=== PATIENT | male | born 1960 | race Caucasian/White ===

== ENCOUNTER 2025-06-23 03:38 | Emergency (ER) | payer OTHER, SELFPAY ==
[2025-06-23] VITALS (14 sets, daily range): BP systolic 96–136; BP diastolic 80–99; PULSE 93–127; RESP 16–24; TEMP 36.8–36.9; O2SAT 95–100; BMI 28.5
--- NOTE | 2025-06-23 03:57 | EKG12_ITS ---
Test Reason : CP Blood Pressure : */* mmHG Vent. Rate : 115 BPM Atrial Rate : * BPM P-R Int : * ms QRS Dur : 82 ms QT Int : 318 ms P-R-T Axes : * -52 26 degrees QTcB Int : 439 ms Atrial fibrillation with rapid ventricular response Pulmonary disease pattern Left anterior fascicular block Abnormal ECG Confirmed by RAMON CONNOLLY, NITO ([id number]), dictionary editor EDINSON LONG ([id number]) on 06/24/2025 12:18:14 PM Referred By: BB Confirmed By: NITO NAVARRO MD
--- NOTE | 2025-06-23 03:58 | EDS_ITS ---
HPI History of Present Illness Chief Complaint: Chest Pain Informant: patient Narrative Narrative: Patient is a 65-year-old male with a history of A-fib presenting with chest pain. - Reports three episodes of stabbing chest pain, each lasting a few seconds, beginning at midnight (4 hrs ago). - Pain localized to the center of the chest, described as "like somebody stuck something in my chest." No radiation. - First episode woke him from sleep; associated with nausea but no emesis. - Subsequent episodes all occurred while lying down, including one on the way to the ED. - Denies current chest pain, dyspnea, or palpitations. - Denies chest pain with exertion. - Reports sinus congestion and mucus accumulation, some of which he has been swallowing. - Diagnosed with A-fib, has undergone three unsuccessful cardioversions. - Currently on Eliquis and metoprolol 5 mg BID; took metoprolol about an hour before arrival. - Denies missed doses of medication. - Also takes medication for acid reflux, which is "really bad." - Remains active, denies fatigue or dyspnea on exertion. [facility] Medical History Gout Afib Home Medications Medication Instructions Recorded Last Taken Type allopurinol 100 mg tablet 200 mg PO DAILY 06/23/25 Unk nown History apixaban 5 mg tablet (Eliquis) 5 mg PO BID 06/23/25 Un known History cyclobenzaprine 5 mg tablet 5 mg PO QHS PRN PRN muscle spasm 06/23/25 Unknown History metoprolol succinate 25 mg 25 mg PO DAILY 06/23/25 Unk nown History tablet,extended release 24 hr Social History Smoking Status: Former smoker ROS ROS ED Constitutional Constitutional ED: Denies chills or fever(s) Eyes Eyes: Denies change in vision or diplopia ENT ENT ED: Denies rhinorrhea or sore throat Cardiovascular Cardiovascular: Reports as per HPI and chest pain; Denies lightheadedness, palpitations, pedal edema, racing heartbeat, radiating jaw, neck or arm pain or syncope Respiratory/Chest Respiratory/Chest: Denies cough or dyspnea Gastrointestinal Gastrointestinal: Reports nausea; Denies abdominal pain, diarrhea or vomiting Genitourinary Genitourinary ED: Denies dysuria or hematuria Musculoskeletal Musculoskeletal: Denies back pain or neck pain Integumentary Denies abscess or rash Neurologic Neurologic: Denies headache(s), paresthesias or weakness Psychiatric Psychiatric: Denies anxiety or suicidal thoughts EXAM Physical Exam Const Vital Signs: 06/23/25 03:39 06/23/25 03:46 06/23/25 03:52 Temperature 98.5 F Temperature Source Oral Pulse Rate 109 H 127 H Respiratory Rate 22 H 22 H Respiratory Effort Normal Non-Labored Blood Pressure 136/99 H Blood Pressure Mean 111 Pulse Ox 100 98 Oxygen Delivery Method Room Air 06/23/25 04:00 06/23/25 04:10 06/23/25 04:11 Temperature Temperature Source Pulse Rate 118 H 114 H Respiratory Rate 20 H 18 Respiratory Effort Blood Pressure 114/95 H 114/95 H Blood Pressure Mean 102 101 Pulse Ox 97 97 Oxygen Delivery Method Room Air Room Air 06/23/25 04:15 06/23/25 04:30 06/23/25 04:45 Temperature Temperature Source Pulse Rate 100 Respiratory Rate 24 H 16 Respiratory Effort Blood Pressure 96/80 113/83 H Blood Pressure Mean 86 93 Pulse Ox 97 95 96 Oxygen Delivery Method 06/23/25 05:00 06/23/25 05:15 06/23/25 05:30 Temperature Temperature Source Pulse Rate 97 101 H Respiratory Rate 16 21 H Respiratory Effort Blood Pressure Blood Pressure Mean Pulse Ox 98 98 95 Oxygen Delivery Method 06/23/25 05:45 06/23/25 06:00 06/23/25 06:03 Temperature Temperature Source Pulse Rate 101 H 97 100 Respiratory Rate 18 19 H 20 H Respiratory Effort Blood Pressure 118/88 H Blood Pressure Mean 99 Pulse Ox 96 97 97 Oxygen Delivery Method Positive well nourished and well developed General Appearance ED: well developed and NAD HEENT Reports moist mucous membranes normocephalic and atraumatic Eyes PERRL and EOMs intact bilaterally Neck full ROM and supple Resp normal respiratory effort and clear to auscultation bilaterally Cardio no murmurs Rate: tachycardic Rhythm: abnormal rhythm irregularly irregular Peripheral Pulses: pulses 2+ throughout GI non-tender and non-distended Auscultation: normoactive bowel sounds Palpation: soft Back/Spine no CVA tenderness General Back: other FROM Extremity normal to inspection General Extremety ED: Negative for edema, pulses abnormal or tenderness General Extremity: Negative for edema or pulses abnormal Neuro oriented x3, CN's II-XII intact bilaterally and no sensory deficits noted Sensorium / Orientation: awake and alert Motor Exam: strength 5/5 throughout Skin no rashes or lesions noted and no wounds Heart Score History: Slightly/Non-Suspicious ECG: Nonspecific Repolarization Age: >45 - <65 years Risk Factors: 1 or 2 Risk Factors (former smoker) Troponin: </= Normal Limit Score: 3 MDM MDM MDM Narrative Medical decision making narrative: Assessment: The patient is a 65-year-old male with PMH of chronic atrial fibrillation and reflux esophagitis presenting for three brief episodes of stabbing central chest pain that occurred only while lying supine. He remains asymptomatic at rest and reports no exertional angina or dyspnea. Initial EKG shows rapid AFib 105–120 bpm without acute ischemic changes. Initial troponin is negative, screening labs are unrevealing, and my interpretation of a one-view chest X-ray is normal. Given low-risk history, normal objective data, and complete resolution of pain, intermittent chest pain of likely non-cardiac (probable GI) origin is most likely; ACS is unlikely. Plan: - Administered metoprolol 5 mg IV; heart rate decreased to 80–90 bpm with continued comfort - Continuous cardiac monitoring during ED stay - Will obtain delta troponin prior to disposition; if negative, discharge home - Provided work excuse note per patient request - Outpatient follow-up with PCP and cardiology discussed; patient agreeable Diagnostics: - EKG: rapid atrial fibrillation 105–120 bpm, no ST-segment elevation or depression, no acute injury pattern. Independently interpreted by me, Bill Nieves. - Labs: initial troponin negative; remaining chemistries within normal limits - Chest X-ray (one view): no acute cardiopulmonary process Reevaluations: - After IV metoprolol: HR 80–90 bpm, pain-free, vitals stable, remains asymptomatic Lab Data Attestation: I reviewed the patient's lab results. Labs: Laboratory Results - last 24 hr 06/23/25 06/23/25 04:02 06:04 WBC 9.7 RBC 5.67 Hgb 15.6 Hct 47.0 MCV 82.9 MCH 27.5 MCHC 33.2 RDW Std Deviation 46.9 H RDW Coeff of [place] 15.8 H Plt Count 189 MPV 11.6 Immature Gran % (Auto) 0.600 Neut % (Auto) 74.8 H Lymph % (Auto) 5.9 L [place] % (Auto) 17.1 H Eos % (Auto) 1.3 Baso % (Auto) 0.3 Absolute Neuts (auto) 7.3 Absolute Lymphs (auto) 0.57 L Nucleated RBC % 0 Toxic Vacuolation 1+ Platelet Estimate ADEQUATE RBC Morphology NORM C+C Sodium 137 Potassium 4.2 Chloride 102 Carbon Dioxide 24.9 Anion Gap 10 BUN 12 Creatinine 0.93 Estim Creat Clear Calc 85.17 Est GFR (MDRD) Non-Af 92 BUN/Creatinine Ratio 12.7 Glucose 105 H Calcium 9.6 Troponin T High Sens 9 Troponin T Hi Sens 2 Hr 8 Rhythm Strip Rhythm Strip: A-fib Rate: 120 Ectopy: None EKG Initial EKG: Attestation: I personally reviewed and interpreted this EKG as follows: Interpretation: No Acute Injury Pattern and Atrial Fibrillation Discharge Plan Triage Chief Complaint: Chest Pain ED Provider: Bill Nieves Dx/Rx/DC Orders Clinical Impression: Intermittent chest pain, Atrial fibrillation, Anticoagulated on apixaban Instructions: ED Chest Pain, Noncardiac Prescriptions: No Action allopurinol 100 mg tablet 200 mg PO DAILY metoprolol succinate 25 mg tablet extended release 24 hr 25 mg PO DAILY cyclobenzaprine 5 mg tablet 5 mg PO QHS PRN PRN (Reason: muscle spasm) Eliquis 5 mg tablet 5 mg PO BID Stand Alone Forms: Work / School Excuse Primary Care Provider: Kenton Mancilla Referrals: Kenton Mancilla MD [Primary Care Provider, Family Practice] Print Language: Yakut Disposition Disposition: Home, Self Care
[2025-06-23 04:09] LABS: Differential Indicated SCAN CRITERIA MET; Hematocrit 47.0 % (40-54); Hemoglobin 15.6 g/dL (13.0-16.5); Immature Granulocytes Count 0.060 X10^3/uL (0.0-0.0); Mean Corp Hgb Conc 33.2 g/dL (32-36); Mean Corpuscular Volume 82.9 fL (80-94); Mean Platelet Vol. 11.6 fl (6.2-12.0); NRBC Flagged by Analyzer 0 % (0-5); POSITIVE DIFFERENTIAL YES; Platelet Count 189 K/mm3 (150-450); RBC Distribution Width CV 15.8 % (11.6-14.6); RBC Distribution Width SD 46.9 fl (35.1-43.9); Red Blood Count 5.67 M/mm3 (4.6-6.2); White Blood Count 9.7 K/mm3 (4.4-11.0)
--- NOTE | 2025-06-23 04:10 | RAD_ITS ---
PROCEDURE: CHEST 1 VIEW (PORTABLE) 06/23/2025 REASON FOR EXAM: CHEST PAIN TECHNIQUE: Frontal view of the chest. COMPARISON: None. FINDINGS: The lungs are expanded. There is no demonstrated parenchymal abnormality. There is no demonstrated pleural abnormality. Enlarged cardiac silhouette. Normal mediastinum and rafat. Normal visualized pulmonary arteries. Atheromatous plaques of the visualized aortic arch and descending thoracic aorta. Diffuse spondylosis of the visualized thoracic spine. Normal visualized ribs, clavicles. Degenerative joint disease. There is no demonstrated abnormality of the visualized soft tissue structures of the upper abdomen. RAD/Chest 1 View (Portable) IMPRESSION: No evidence for acute abnormality. [facility]
[2025-06-23 04:32] LABS: Anion Gap 10 (5-15); BUN 12 mg/dL (4-19); BUN/Creat Ratio 12.7 RATIO (10-20); Calcium,Total 9.6 mg/dL (7.6-11.0); Carbon Dioxide 24.9 mmol/L (21.0-32.0); Chloride 102 mmol/L (98-108); Estimated Creatinine Clearance 85.17 ml/min (50-250); Glucose 105 mg/dL (70-99); Potassium 4.2 mmol/L (3.3-5.1); Troponin T High Sensitivity 9 ng/L (<=22)
[2025-06-23 04:35] LABS: Red Cell Morphology NORM C+C NORMAL (NORM C&C); Vacuolated Cells 1+
--- OUTSIDE RECORDS SUMMARY | 2025-06-23 04:41 | XMS RPT_ITS | CCD ---
Author Organization [facility] Care Team Providers Care Bung Dropper Name Role Phone FELTON BENITEZ Unavailable Unavailable PROVIDER, UNKNOWN Unavailable Unavailable Papi, Kenton Unavailable Unavailable KINKOPF, CARRIE W Unavailable Unavailable REFERRING, PHY WO ID Unavailable Unavailable REFERRING, PHY WO ID Unavailable Unavailable REFERRING, PHY WO ID Unavailable Unavailable AULTWORKS, AULTWORKS Unavailable Unavailable REFERRING, PHY WO ID Unavailable Unavailable Kenton Turpin MD Primary Care Provider PROVIDER, UNKNOWN Referring Unavailable Papi, Kenton Primary Care Unavailable Rodriguez Pelletier Attending Unavailable Jacquelyn Kaminski Attending Unavailable PROVIDER, UNKNOWN Referring Unavailable Papi, Kenton Primary Care Unavailable Kenton Turpin MD Primary Care Provider Kenton Turpin MD Primary Care Provider Jacquelyn Garcia APRN, CNP Primary Care Provider Chacho Molina Attending Unavailable Papi, Kenton Referring Unavailable Papi, Kenton Primary Care Unavailable Kenton Turpin MD Primary Care Provider PAPI, KENTON Primary Care Unavailable PAPI, KENTON Primary Care Unavailable JACQUELYN KAMINSKI Attending Unavailable PAPI, KENTON Primary Care Unavailable PAPI, KENTON Primary Care Unavailable BRIDENTHAL, MIGUEL ÁNGEL Attending Unavailable PAPI, KENTON Primary Care Unavailable PAPI, KENTON Primary Care Unavailable BRIDENTHAL, MIGUEL ÁNGEL Attending Unavailable PAPI, KENTON Primary Care Unavailable BRIDENTHAL, MIGUEL ÁNGEL Attending Unavailable BRIDENTHAL, MIGUEL ÁNGEL Referring Unavailable PAPI, KENTON Primary Care Unavailable FELTON BENITEZ Attending Unavailable FELTON BENITEZ Referring Unavailable PAPI, KENTON Primary Care Unavailable FELTON BENITEZ Attending Unavailable FELTON BENITEZ Referring Unavailable PAPI, KENTON Primary Care Unavailable FELTON BENITEZ Attending Unavailable KENTON TURPIN Referring Unavailable KENTON TURPIN Primary Care Unavailable MIGUEL ÁNGEL VILLANUEVA Attending Unavailable KENTON TURPIN Primary Care Unavailable KENTON TURPIN Attending Unavailable KENTON TURPIN Primary Care Unavailable JACQUELYN KAMINSKI Attending Unavailable KENTON TURPIN Primary Care Unavailable JACQUELYN KAMINSKI Attending Unavailable KENTON TURPIN Primary Care Unavailable Medications Current Medications Medication Drug Class(es) Dates Sig (Normalized) Sig (Original) Acetaminophen (1 source) Start: 04-15-2022 acetaminophen (TYLENOL) tablet 650 mg allopurinol 100 mg oral tablet (20 sources) Xanthine Oxidase Inhibitor Start: 03-17-2025 End: 04-16-2025 take 2 tablets by mouth once daily allopurinol (Zyloprim) 100 MG tablet Indications: Elevated blood uric acid level Take 2 tablets (200 mg) by mouth daily. 180 tablet 1 04/11/2025 Active Start: 02-14-2025 End: 03-17-2025 take 1 tablet by mouth once daily allopurinol (Zyloprim) 100 MG tablet Indications: Elevated blood uric acid level Take 1 tablet (100 mg) by mouth daily. 30 tablet 02/14/2025 03/17/2025 Discontinued (Reorder) apixaban 5 mg oral tablet (20 sources) Factor Xa Inhibitor Start: 03-20-2024 End: 03-19-2025 take 1 tablet by mouth twice daily apixaban (Eliquis) 5 MG tablet Indications: Persistent atrial fibrillation (HCC) Take 1 tablet (5 mg) by mouth 2 times daily. 180 tablet 1 03/19/2025 Active Start: 12-16-2021 End: 05-29-2023 take 1 tablet by mouth twice daily apixaban (Eliquis) 5 MG tablet Indications: Persistent atrial fibrillation (HCC) Take 1 tablet (5 mg) by mouth 2 times daily. 180 tablet 3 05/29/2023 Active azithromycin 250 mg oral tablet (2 sources) Macrolide Antimicrobial Start: 04-04-2023 End: 04-09-2023 azithromycin (Zithromax) 250 MG tablet Indications: Acute cough Take 2 tabs (500 mg) by mouth today, than 1 daily for 4 days. 6 tablet 0 04/04/2023 04/09/2023 Active Start: 10-20-2022 End: 10-25-2022 azithromycin (Zithromax) 250 MG tablet Indications: Bronchitis Take 2 tabs (500 mg) by mouth today, than 1 daily for 4 days. 6 tablet 0 10/20/2022 10/25/2022 Active benzonatate 100 mg oral capsule (1 source) Non-narcotic Antitussive Start: 10-20-2022 End: 11-19-2022 take 1 capsule by mouth three times daily as needed for cough benzonatate (Tessalon) 100 MG capsule Indications: Acute cough , Bronchitis Take 1 capsule (100 mg) by mouth 3 times daily as needed for cough. Do not crush or chew. 42 capsule 0 10/20/2022 11/19/2022 Active cyclobenzaprine hydrochloride 5 mg oral tablet (20 sources) Muscle Relaxant Start: 03-02-2022 End: 05-27-2025 take 1 tablet by mouth once daily as needed for muscle spasms cyclobenzaprine (Flexeril) 5 MG tablet Indications: Chronic low back pain without sciatica, unspecified back pain laterality TAKE 1 TABLET (5 MG) BY MOUTH NIGHTLY NEEDED FOR MUSCLE SPASMS 30 tablet 1 05/27/2025 Active diclofenac sodium 0.01 mg/mg topical gel (2 sources) Nonsteroidal Anti-inflammatory Drug Start: 03-02-2022 diclofenac sodium (VOLTAREN) 1 % GEL Indications: Chronic hand pain, left , Swelling of hand joint, left Apply 2 g topically 4 times daily as needed for Pain 50 g 2 03/02/2022 Active 5 ml dilTIAZem hydrochloride 5 mg/ml injection (1 source) Calcium Channel West Start: 04-15-2022 dilTIAZem injection 10 mg fenofibrate 145 mg oral tablet (2 sources) Peroxisome Proliferator Receptor alpha Agonist Start: 04-17-2025 End: 05-17-2025 take 1 tablet by mouth once daily fenofibrate (Tricor) 145 MG tablet Take 1 tablet (145 mg) by mouth daily. 30 tablet 04/17/2025 Active guaiFENesin 20 mg/ml oral solution (1 source) Start: 04-04-2023 End: 04-11-2023 take 10 mL by mouth three times daily as needed for cough guaiFENesin (Robitussin) 100 MG/5ML liquid Indications: Acute cough Take 10 mL (200 mg) by mouth 3 times daily as needed for cough for up to 7 days. 280 mL 0 04/04/2023 04/11/2023 Active meloxicam 15 mg oral tablet (9 sources) Nonsteroidal Anti-inflammatory Drug Start: 01-02-2025 End: 01-30-2025 take 1 tablet by mouth once daily meloxicam (Mobic) 15 MG tablet Indications: Right hand pain Take 1 tablet (15 mg) by mouth daily for 7 days. 7 tablet 01/23/2025 01/30/2025 Active 24 hr metoprolol succinate 25 mg extended release oral tablet (20 sources) beta-Adrenergic [place] Start: 07-12-2024 End: 01-09-2025 take 1 tablet by mouth once daily metoprolol succinate XL (Toprol-XL) 25 MG 24 hr tablet Indications: Persistent atrial fibrillation (HCC) TAKE 1 TABLET BY MOUTH EVERY DAY 90 tablet 1 01/09/2025 Active Start: 02-23-2024 [facility]ol succinate XL (Toprol-XL) 25 MG 24 hr tablet Indications: Persistent atrial fibrillation (HCC) take 1 tablet by mouth once daily 90 tablet 02/23/2024 Active Start: 04-04-2023 End: 09-05-2023 take 1 tablet by mouth once daily metoprolol succinate XL (Toprol-XL) 25 MG 24 hr tablet Indications: Persistent atrial fibrillation (HCC) take 1 tablet by mouth once daily DO NOT CRUSH OR CHEW 30 tablet 5 09/05/2023 Active omeprazole 20 mg delayed release oral capsule (20 sources) Proton Pump Inhibitor Start: 05-15-2024 End: 03-19-2025 take 1 capsule by mouth once daily omeprazole (PriLOSEC) [address] capsule Indications: Gastroesophageal reflux disease, unspecified whether esophagitis present Take 1 capsule (20 mg) by mouth daily. Do not crush or chew. 90 capsule 1 03/19/2025 Active ondansetron (ZOFRAN-ODT) disintegrating tablet 4 mg (1 source) Start: 04-15-2022 ondansetron (ZOFRAN-ODT) disintegrating tablet 4 mg Completed/Discontinued Medications Medication Drug Class(es) Dates Sig (Normalized) Sig (Original) aluminum hydroxide 40 mg/ml / magnesium hydroxide 40 mg/ml / simethicone 4 mg/ml oral suspension (1 source) Start: 04-15-2022 take 30 mL by mouth every six hours as needed 30 mL, Oral, EVERY 6 HOURS PRN, Starting on Mon04/15/22 at 1747, Until Discontinued, Indigestion aspirin 81 mg chewable tablet (2 sources) Platelet Aggregation Inhibitor, Nonsteroidal Anti-inflammatory Drug Start: 04-16-2022 take 81 mg by mouth once daily 81 mg, Oral, DAILY, First dose on Mon04/16/22 at 0900, Until Discontinued Start: 04-15-2022 End: 04-15-2022 aspirin chewable tablet 324 mg atorvastatin 40 mg oral tablet (1 source) HMG-CoA Reductase Inhibitor Start: 04-15-2022 take 40 mg by mouth once daily 40 mg, Oral, NIGHTLY, First dose on Mon04/15/22 at 2100, Until Discontinued calcium chloride 0.0014 meq/ml / potassium chloride 0.004 meq/ml / sodium chloride 0.103 meq/ml / sodium lactate 0.028 meq/ml injectable solution (2 sources) Start: 05-14-2024 End: 05-14-2024 take 50 mL intravenously every hour 50 mL/hr, IntraVENous, Continuous, Starting on Mon05/14/24 at 0815, Preprocedure, Upon admission to sameday - please start iv if patient does not have iv access. 10 ml lidocaine hydrochloride 10 mg/ml injection (3 sources) Antiarrhythmic, Amide Local Anesthetic Start: 02-19-2025 End: 02-19-2025 lidocaine (Xylocaine) 1 % injection 1 mL Start: 02-19-2025 End: 02-19-2025 1 mL, Injection, Once, On 02/19/25 at 1415, For 1 dose Start: 02-19-2025 End: 02-19-2025 lidocaine (Xylocaine) 2 % in jection 1 mL 1 ml methylPREDNISolone acetate 40 mg/ml injection (2 sources) Corticosteroid Start: 02-19-2025 End: 02-19-2025 methylPREDNISolone acetate (DEPO-Medrol) injection 40 mg Start: 02-19-2025 End: 02-19-2025 40 mg, Intra-artICUlar, Once , On Mon02/19/25 at 1400, For 1 dose nitroglycerin 0.4 mg sublingual tablet (1 source) Nitrate Vasodilator Start: 04-15-2022 0.4 mg, SubLINGual, EVERY 5 MIN PRN, 3 doses, Starting on Mon04/15/22 at 1747, Until Discontinued, Chest pain Place 1 tablet under tongue upon chest pain, wait 5 minutes and may repeat up to 3 doses in 15 minutes. Do not crush or break. 2 ml ondansetron 2 mg/ml injection (2 sources) Serotonin-3 Receptor Antagonist Start: 05-14-2024 End: 05-14-2024 4 mg, IntraVENous, Once PRN, nausea, vomiting, Starting on Mon05/14/24 at 0806, For 1 dose, Preprocedure pantoprazole 40 mg delayed release oral tablet (1 source) Proton Pump Inhibitor Start: 04-16-2022 take 40 mg by mouth once daily before breakfast 40 mg, Oral, DAILY BEFORE BREAKFAST, First dose on Mon04/16/22 at 0700, Until Discontinued Do not crush or break. perflutren protein A microsphere (Optison) 3 mL in sodium chloride (PF) 0.9 % 10 mL IV (2 sources) Start: 01-22-2025 End: 01-22-2025 0-10 mL, IntraVENous, IMG once PRN, other, Starting on Mon01/22/25 at 1106, For 1 dose, CV Procedural Medications, Draw entire 3 mL vial of perflutren protein A microspheres into a syringe along with 7 ml of NS from a vial to a total volume of 10 mL. polyethylene glycol 3350 26210 mg powder for oral solution (16 sources) Osmotic Laxative Start: 04-26-2024 End: 09-18-2024 take 17 g by mouth once daily polyethylene glycol, PEG, 3350 (Miralax) 17 g packet Indications: Constipation, unspecified constipation type Take 17 g by mouth daily. 30 packet 05/15/2024 09/18/2024 Discontinued (Therapy completed) Start: 10-07-2019 End: 04-16-2022 17 g, Oral, DAILY PRN, Start ing on Mon04/15/22 at 1747, Until Discontinued, Constipation First line therapy for constipation 5 ml sodium chloride 9 mg/ml injection (9 sources) Start: 05-14-2024 End: 05-14-2024 10 mL, IntraVENous, Every 12 hours scheduled (2 times per day), First dose on Mon05/14/24 at 0900, Preprocedure Start: 05-14-2024 End: 05-14-2024 take 100 mL intravenously every hour as needed, then take 20 mL intravenously every hour as needed 5-250 mL/hr, IntraVENous, PRN, if patient receiving piggyback infusions and maintenance fluids are not ordered OR KVO fluids to protect IV site / prevent frequent line interruptions/ long duration, Starting on Mon05/14/24 at 0806, Preprocedure, For piggyback infusion, administer at same rate as piggyback for a total of 25 mL. Enter 25 mL into dose field and piggyback rate into rate field of order. If piggyback is infusing at a rate less than 100 mL/hr, enter 25 mL into dose field and 100 mL/hr into rate field of order. For KVO fluids, enter rate of 20 mL/hr or less into rate field of order. Start: 05-14-2024 End: 05-14-2024 take 10 mL intravenously once as needed 10 mL, IntraVENous, PRN, line care, Starting on Mon05/14/24 at 0806, Preprocedure, After every IV line use Start: 04-15-2022 take 1 dose intraven ously twice daily 5-40 mL, IntraVENous, EVERY 12 HOURS SCHEDULED (2 times per day), First dose on Mon04/15/22 at 2100, Until Discontinued For Line Patency: Peripheral IV = 5 mL; Midline or Central Line = 10 mL/lumen. If following IV push medication, administer flush at same rate as the IV push. Flush volume is determined by type of infusion therapy being given. For non-viscous solutions use: Peripheral IV = 5 mL Midline or Central Line = 10 mL/lumen For viscous solutions (i.e. blood components, parenteral nutrition, contrast media, or after obtaining blood sample) use: Peripheral IV = 10 mL Midline or Central Line = 20 mL/lumen Start: 04-15-2022 take 25 mL intraveno usly every hour as needed 25 mL, IntraVENous, at 100 mL/hr, PRN, If patient receiving piggyback infusions without ordered maintenance IV fluids or with frequent/long duration piggyback infusions, Starting on Mon04/15/22 at 1747 Administer at the same rate as the piggyback being infused. Start: 04-15-2022 take 5-40 mL intrave nously once as needed 5-40 mL, IntraVENous, PRN, Starting on Mon04/15/22 at 1747, Until Discontinued, Line Care, After every IV line use For Line Patency: Peripheral IV = 5 mL; Midline or Central Line = 10 mL/lumen. If following IV push medication, administer flush at same rate as the IV push. Flush volume is determined by type of infusion therapy being given. For non-viscous solutions use: Peripheral IV = 5 mL Midline or Central Line = 10 mL/lumen For viscous solutions (i.e. blood components, parenteral nutrition, contrast media, or after obtaining blood sample) use: Peripheral IV = 10 mL Midline or Central Line = 20 mL/lumen Problems Active Problems Problem Classification Problem Date Documented Da te Episodic/Chronic Cardiac dysrhythmias (20 sources) Persistent atrial fibrillation; Translations: [Persistent atrial fibrillation] Onset: 7 11-21-2017 Chronic Disorders of lipid metabolism (14 sources) Hypertriglyceridemia; Translations: [Pure hyperglyceridemia] Onset: 5 03-19-2025 Chronic Esophageal disorders (20 sources) Gastroesophageal reflux disease; Translations: [Gastro-esophageal reflux disease without esophagitis] Onset: 4 05-15-2024 Chronic Immunizations and screening for infectious disease (2 sources) Immunization due; Translations: [Encounter for immunization] 08-30-2023 Episodic Other aftercare (4 sources) jail (current) use of anticoagulants; Translations: [jail (current) use of anticoagulants] Onset: 8 Episodic Other circulatory disease (1 source) Elevated blood-pressure reading without diagnosis of hypertension; Translations: [Elevated blood-pressure reading, without diagnosis of hypertension] 04-04-2023 Episodic Other connective tissue disease (1 source) Chronic pain of left upper limb; Translations: [Pain in left hand] Episodic Other connective tissue disease (2 sources) Pain in left hand; Translations: [Pain in left hand] Onset: 2 Episodic Other gastrointestinal disorders (6 sources) Abdominal bloating; Translations: [Abdominal distension (gaseous)] 04-26-2024 Episodic Other gastrointestinal disorders (6 sources) Constipation; Translations: [Constipation, unspecified] 04-26-2024 Episodic Other nervous system disorders (4 sources) Other chronic pain; Translations: [Other chronic pain] Onset: 2 Chronic Other nervous system disorders (1 source) Chronic low back pain; Translations: [Other chronic pain] 03-19-2025 Chronic Other non-traumatic joint disorders (1 source) Swelling of hand; Translations: [Effusion, left hand] Episodic Other non-traumatic joint disorders (2 sources) Effusion, left hand; Translations: [Effusion, left hand] Onset: 2 Episodic Other nutritional; endocrine; and metabolic disorders (20 sources) Hyperuricemia; Translations: [Hyperuricemia without signs of inflammatory arthritis and tophaceous disease] Onset: 5 03-12-2025 Episodic Other nutritional; endocrine; and metabolic disorders (2 sources) Hyperuricemia without signs of inflammatory arthritis and tophaceous disease; Translations: [Hyperuricemia without signs of inflammatory arthritis and tophaceous disease] Onset: 5 Episodic Other upper respiratory disease (20 sources) Allergic rhinitis; Translations: [Other allergic rhinitis] Onset: 8 03-28-2018 Chronic Screening or history of mental health and substance abuse (4 sources) Personal history of nicotine dependence; Translations: [Personal history of nicotine dependence] Onset: 8 Episodic Spondylosis; intervertebral disc disorders; other back problems (20 sources) Low back pain; Translations: [Spasm of back muscles] Onset: 7 11-18-2019 Episodic Unclassified (1 source) Unknown / UNK(Unknown) Onset: 7 Unclassified (4 sources) Other persistent atrial fibrillation; Translations: [Other persistent atrial fibrillation] Onset: 2 Unclassified (2 sources) Blood Work; Translations: [Blood Work] Onset: 5 Unclassified (1 source) Low back pain, unspecified; Translations: [Low back pain, unspecified] Onset: Past or Other Problems Problem Classification Problem Date Documented Da te Episodic/Chronic Administrative/social admission (20 sources) Encounter for blood-alcohol and blood-drug test; Translations: [Medicolegal procedure status] Onset: 02-08-2017 Resolved: 01-23-2025 08-29-2023 Episodic Chronic obstructive pulmonary disease and bronchiectasis (20 sources) Bronchitis; Translations: [Bronchitis, not specified as acute or chronic] Onset: 10-20-2022 Resolved: 12-13-2023 Episodic Mood disorders (20 sources) Mood disorders Onset: 08-30-2023 08-30-2023 Nonspecific chest pain (8 sources) Chest pain; Translations: [Chest pain, unspecified] Onset: 04-15-2022 Resolved: 04-16-2022 Episodic Other connective tissue disease (2 sources) Lateral epicondylitis of right humerus; Translations: [Lateral epicondylitis, right elbow] Onset: 03-07-2017 Resolved: 10-01-2018 10-01-2018 Episodic Other connective tissue disease (20 sources) Pain in right hand; Translations: [Pain in right hand] Onset: 01-23-2025 01-23-2025 Episodic Other connective tissue disease (2 sources) Pain in right hand; Translations: [Pain in right hand] Onset: 01-23-2025 Episodic Other disorders of stomach and duodenum (20 sources) Indigestion; Translations: [Functional dyspepsia] Onset: 11-18-2019 11-18-2019 Episodic Other gastrointestinal disorders (2 sources) Abdominal distension (gaseous); Translations: [Abdominal distension (gaseous)] Onset: 06-12-2024 Episodic Other gastrointestinal disorders (2 sources) Constipation, unspecified; Translations: [Constipation, unspecified] Onset: 06-12-2024 Episodic Other lower respiratory disease (20 sources) Cough; Translations: [Acute cough] Onset: 10-20-2022 Resolved: 12-13-2023 Episodic Other lower respiratory disease (20 sources) Cough; Translations: [Acute cough] Onset: 10-20-2022 Resolved: 12-13-2023 12-13-2023 Episodic Other non-traumatic joint disorders (20 sources) Pain in left shoulder; Translations: [Pain in joint, shoulder region] Onset: 02-18-2025 02-18-2025 Episodic Other screening for suspected conditions (not mental disorders or infectious disease) (17 sources) Patient encounter status; Translations: [Encounter for screening for lipoid disorders] Onset: 09-18-2024 08-30-2023 Episodic Other upper respiratory infections (20 sources) Posterior rhinorrhea; Translations: [Postnasal drip] Onset: 03-28-2018 Resolved: 01-23-2025 03-28-2018 Episodic Sprains and strains (2 sources) Strain of back muscle; Translations: [Strain of muscle, fascia and tendon of lower back, initial encounter] Onset: 11-18-2019 Resolved: 03-03-2021 03-03-2021 Episodic Unclassified (1 source) Acute pain of left shoulder 02-20-2025 Unclassified (1 source) Low back pain, unspecified; Translations: [Low back pain, unspecified] Onset: 01-23-2025 Results Test Name Value Interpretation Reference Range Facility 05-27-2025 36 Prescription Request : Last medication check: 03/19/25 Last physical exam: 09/18/24 Next scheduled appointment: 09/24/25 Last date of refill on this medication 03/24/25 30 and [address] [facility] Progress Noteon 05-21-2025 Progress Note Lab/venipuncture completed by Dana [place] [id number] 05-14-2025 36 Will refill accordin g to repeat blood work on 05/15/2025. [facility] 36 Fax from [facility] 90 day prescription request Prescription Request: fenofibrate (Tricor) 145 MG tablet Last medication check: 03/19/25 Last physical exam: 09/18/24 Next scheduled appointment: 09/24/25 Last date of refill on this medication 04/17/25 ( qty 30 refill 0) [place] [id number] 04-17-2025 36 Rx sent, order signed [place] [id number] 04-11-2025 36 Rx sent. Follow up a s scheduled. [facility] Laboratory - Chemistry and C hemistry - challengeon 04-11-2025 Urate [Mass/Vol] 5.3 mg/dL 4.0 - 8.0 mg/dL [facility] Comment on above: Therapeutic target f or gout patients: <6.0 mg/dL Urate [Mass/Vol]on [facility] 36on 04-10-2025 36 allopurinol (Zylopri m) [address] [facility] Progress Noteon 04-10-2025 Progress Note Lab/venipuncture completed by [facility] 36on 04-09-2025 36 Which medication? [facility] 36 Fax from [facility] requesting 90 day refill Prescription Request: Last medication check: 03/19/25 Last physical exam: 09/18/24 Next scheduled appointment: 09/24/24 Last date of refill on this medication 03/17/25 ( qty 60 refill 0) [facility] 36on 03-24-2025 36 Reviewed chart. Refi ll appropriate. RX sent. [facility] 36 Prescription Request : Last medication check: 03/19/25 Last physical exam:09/18/24 Last completed appointment: 03/19/25 Next scheduled appointment: 04/10/25 Last date of refill on this medication:02/21/[address] [facility] Office Visiton 03-19-2025 Follow-up visit [id number] Garry Morton 1960 M Date Provider Department Center 03/19/2025 [id number] KAMINSKI [facility] Family History Problem Relation Age of Onset No Known Problems Mother Other Father Comments: elevated heart rate Family Status - Relation Status Age at Mother Father Alive Level of Service:29907 PA OFFICE/OUTPATIENT ESTABLISHED MOD MDM 30 MIN Reason for Visit and Comments: Medication Check [[id number]] - 6 month med check Health Maintenance [872] - RSV- refused HIV Screen- refused Hep C Screen-refused COVID 5-refused Hand Pain [[id number]] - Right hand pain [facility] Progress Noteon 03-19-2025 Progress Note 03/19/2025 Garry Morton (: 1960) is a 65 y.o. male , Established patient, here for evaluation of the following chief complaint(s): Medication Check (6 month med check ), Health Maintenance (RSV- refused/HIV Screen- refused/Hep C Screen-refused/COVID 5-refused), and Hand Pain (Right hand pain ) I obtained verbal consent from the patient and/or patient?s guardian to use ambient listening technology during this encounter before the ambient technology was engaged. Assessment/Plan 1. Persistent atrial fibrillation (HCC) (I48.19) - chronic, stable - Patient reports occasional palpitations but is not significantly bothered by them - Heart rate well-controlled on current medication regimen - Continue Eliquis and metoprolol - Refilled Eliquis prescription - Follow-up with cardiology (HANK Pierce) scheduled for July 10 at [facility] 2. Gastroesophageal reflux disease, unspecified whether esophagitis present (K21.9) - chronic, stable - Symptoms well-controlled on current medication - Continue daily omeprazole - Refilled omeprazole prescription 3. Chronic bilateral low back pain with left-sided sciatica (G89.29, M54.42) - chronic, stable - Patient using cyclobenzaprine (Flexeril) as needed for pain management 4. Muscle spasm of back (M62.830) - chronic, stable - Managed with as-needed cyclobenzaprine (Flexeril) 5. 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 Hypertriglyceridemia (E78.1) - chronic, worsening - Last triglyceride level in September was 283 mg/dL (goal <150 mg/dL) - Trending up over the past year - Provided patient with Mediterranean diet information sheet - Plan to recheck lipid panel on April 10 - Future Appointments: - Lab work scheduled for April 10 (lipid panel, CMP, uric acid level) - Follow-up appointment in 6 months for annual physical I performed the above service AI scribed on my behalf, and I have reviewed and confirmed the accuracy and completeness of the medical documentation. I performed the above service AI scribed on my behalf, and I have reviewed and confirmed the accuracy and completeness of the medical documentation. Follow up in 22 days (on 04/10/2025) for for lab work (Lipid, CMP, and uric acid) and then 6 months for annual physical and blood work. Subjective History of Present Illness Garry Morton, a 65-year-old male, presents for a 6-month follow-up on chronic health conditions. Atrial Fibrillation: Continues to take Eliquis and Metoprolol as prescribed. Denies signs of blood in urine or stools. Follows up with cardiology (Dr. Felton Benitez) and was last seen on 01/08/2025. Scheduled for follow-up again on 07/10/2025. Had an echocardiogram and Holter monitor completed in January of this year. EF by 2D [employer] biplane was 62% on his echocardiogram. He reports experiencing some heart palpitations, but states he doesn't usually pay much attention to them. The patient denies any current chest pain or shortness of breath. GERD: Takes Omeprazole daily as prescribed. Feels symptoms are well controlled. Chronic Back Pain: Will take Flexeril as needed and this works well for him. Has been taking allopurinol 200 mg due to elevated uric acid levels. Is due to have his uric acid level rechecked around 04/13/25. He mentions his joint pain has improved with allopurinol, noting it's not as bad now, especially on weekends when he's off work. His triglyceride levels were elevated on blood work at his physical in September of this year at 283 mg/dL and it was recommended to have his levels rechecked again in 6 months for follow-up. Regarding diet, he states, "I just eat what I want to eat." He notes he started eating more junk food after quitting drinking. Health Maintenance: Declines screening for HIV and Hep C. Vaccinated for COVID-19 x4 with most recent dose on 06/23/23- declines additional doses. Tdap current: 09/02/19. Is fully vaccinated for shingles and is current on his pneumococcal vaccinations (PCV20 on 08/30/23). Declines to be vaccinated for RSV. Colonoscopy: 05/14/24. Review of Systems Respiratory: Negative for chest tightness and shortness of breath. Cardiovascular: Positive for palpitations. Negative for chest pain and leg swelling. Gastrointestinal: Negative for blood in stool. Genitourinary: Negative for hematuria. Skin: Negative for color change, pallor, rash and wound. Hematological: Does not bruise/bleed easily. Objective Vitals: 03/19/25 1541 BP: 94/61 Pulse: 74 SpO2: 95% Weight: 194 lb 12.8 oz (88.4 kg) Height: 5' 11" (1.803 m) Body mass index is 27.17 kg/m?. Physical Exam Constitutional: General: He is not in acute distress. Appearance: He is not ill-appearing or diaphoretic. Neck: Vascular: (more content not included)... Normal [facility] 36on 03-17-2025 36 Please sign RX and labs Normal [facility] 36on 03-14-2025 36 Reviewed chart. Refi ll not appropriate, too soon. RX refused Normal [facility] Laboratory - Chemistry and C hemistry - challengeon 03-14-2025 Urate [Mass/Vol] 6.5 mg/dL 4.0 - 8.0 mg/dL [facility] Comment on above: Therapeutic target f or gout patients: <6.0 mg/dL Progress Noteon 03-14-2025 Progress Note Uric acid level 6.5, goal is less than 6 to prevent gout flareups, recommend increasing allopurinol to 200 mg daily and rechecking in 4 weeks Normal [facility] Urate [Mass/Vol]on [facility] 36on 03-13-2025 36 Pt came in for labs and I let him know that Nneka wanted to wait on refilling until after the results come back. Pt understood. Normal [place] [address]on 03-12-2025 36 He has a lab draw fo r tomorrow to check uric acid level, will wait for lab result in case adjustment needs made. Normal [facility] 36 Prescription Request : allopurinol (Zyloprim) 100 MG tablet Last medication check: none Last physical exam: 09/18/24 Next scheduled appointment: 03/19/25 Last date of refill on this medication 02/14/25 (qty 30 refill 0) Normal [facility] 36on 03-10-2025 36 Will refill accordin g to repeat uric acid check on 03/13/2025. Normal [place] [id number] [facility] Prescription Request: allopurinol (Zyloprim) 100 MG tablet Last medication check: none Last physical exam: 09/18/24 Next scheduled appointment: 03/19/25 Last date of refill on this medication 02/14/25 ( qty 30 refill 0) [facility] 36on 02-21-2025 36 Message released to patient as written. Yes Patient's further questions if applicable: The patient states he will finish the medication and it he still has pain he will call back. Were all questions from office addressed or relayed to the patient from encounter: Yes [facility] Office Visiton 02-19-2025 Follow-up visit [id number] Garry Morton 1960 M Date Provider Department Center 02/19/2025 [id number] ÁNGEL VILLANUEVA [facility] Family History Problem Relation Age of Onset No Known Problems Mother Other Father Comments: elevated heart rate Family Status - Relation Status Age at Mother Father Alive Level of Service:85291 PA OFFICE/OUTPT VISIT,PROCEDURE ONLY Reason for Visit and Comments: Injections [186] Normal [facility] Progress Noteon 02-19-2025 Progress Note Patient was identifi ed by name and Date of . [facility] Progress Note 02/19/2025 Garry Morton (: 1960) is a 65 y.o. male , Established patient, here for evaluation of the following chief complaint(s): Injections ASSESSMENT/PLAN: 1. Acute pain of left shoulder - methylPREDNISolone acetate (DEPO-Medrol) injection 40 mg; 40 mg, Intra-artICUlar, Once, On Mon02/19/25 at 1400, For 1 dose - lidocaine (Xylocaine) 1 % injection 1 mL; 1 mL, Injection, Once, On Mon02/19/25 at 1415, For 1 dose Joint Injection Procedure Note Indications and potential risks and complications of the procedure were explained to the patient. Patient was informed that there would be some pain associated with the procedure, and that the injection might not relieve the symptoms. In addition, possible side effects, including increased pain, infection, or bleeding could result from the injection. Patient also told that there are limitations on the frequency and amount of injections in any joint. Questions were answered and the patient agreed to the procedure. Sterile technique was employed. Prep: Betadine. 1 ml of Depo-Medrol (40 mg/ml) with 1 ml of 1% Lidocaine injected into shoulder using a 25 gauge 1.5 inch needle. Patient tolerated procedure well. Band-Aid applied and instructions given. Patient told to use ice for worsening pain and avoid forceful or strenuous use of affected area for 1-2 weeks. Patient may take OTC analgesics or usual pain medication for further relief. Patient tolerated procedure well without any complications. Follow up if symptoms worsen or fail to improve. SUBJECTIVE/OBJECTIVE: PITO Morton (: 1960) is a 65 y.o. male , Established patient, here for the evaluation of the following chief complaint(s): Injections Patient presents today for steroid injection in his left shoulder. He did have x-ray completed this morning which showed some mild osteoarthritis. Discussed risks and benefits of injection and patient would like to move forward with getting the steroid injection. Current Medications[1] Review of Systems Constitutional: Negative. Respiratory: Negative. Cardiovascular: Negative. Musculoskeletal: Positive for arthralgias. Vitals: 02/19/25 1329 BP: 102/67 Pulse: 73 Resp: 18 Temp: 37.1 ?C (98.7 ?F) TempSrc: Infrared SpO2: 98% Weight: 195 lb (88.5 kg) Physical Exam Constitutional: General: He is not in acute distress. Appearance: Normal appearance. He is not ill-appearing. Pulmonary: Effort: Pulmonary effort is normal. Musculoskeletal: Left shoulder: Tenderness present. No bony tenderness or crepitus. Decreased range of motion. Neurological: Mental Status: He is alert and oriented to person, place, and time. An electronic signature was used to authenticate this note. Miguel Ángel Villanueva, ZAINA - CHRISTELLE 02/19/2025 7:22 PM [1] Current Outpatient Medications Medication Sig Dispense Refill allopurinol (Zyloprim) 100 MG tablet Take 1 tablet (100 mg) by mouth daily. 30 tablet 0 apixaban (Eliquis) 5 MG tablet Take 1 tablet (5 mg) by mouth 2 times daily. 180 tablet 1 cyclobenzaprine (Flexeril) 5 MG tablet Take 1 tablet (5 mg) by mouth Nightly as needed for muscle spasms. 30 tablet 1 metoprolol succinate XL (Toprol-XL) 25 MG 24 hr tablet TAKE 1 TABLET BY MOUTH EVERY DAY 90 tablet 1 omeprazole (PriLOSEC) [address] capsule TAKE 1 CAPSULE (20 MG) BY MOUTH DAILY. DO NOT CRUSH OR CHEW. 90 capsule 1 No current facility-administered medications for this visit. Normal [facility] XR Shoulder - left 2 Viewson 02-19-2025 No fracture or dislocation of the left shoulder is identified. Mild degenerative changes of the left acromioclavicular joint. Report Dictated on Electronically Signed By: Jacob Hernandez MD Electronically Signed Date/Time: 02/19/2025 1:52 PM EDT [facility] Patient Name: GARRY MORTON : 1960 Exam Date/Time: 02/19/2025 08:12 Procedure: XR SHOULDER 2+ VIEWS LEFT Ordering Provider: VILLANUEVA REBECCA Reason For Exam: left shoulder pain LEFT SHOULDER CLINICAL INDICATION: Pain Three views of the left shoulder were obtained. COMPARISON: None. FINDINGS: No fracture or dislocation of the left shoulder is identified. There is no abnormal soft tissue swelling. Mild degenerative changes of the left acromioclavicular joint are noted. [facility] Jacob Hernandez MD - 02/19/2025 Patient Name: GARRY MORTON : 1960 Exam Date/Time: 02/19/2025 08:12 Procedure: XR SHOULDER 2+ VIEWS LEFT Ordering Provider: VILLANUEVA REBECCA Reason For Exam: left shoulder pain LEFT SHOULDER CLINICAL INDICATION: Pain Three views of the left shoulder were obtained. COMPARISON: None. FINDINGS: No fracture or dislocation of the left shoulder is identified. There is no abnormal soft tissue swelling. Mild degenerative changes of the left acromioclavicular joint are noted. IMPRESSION: No fracture or dislocation of the left shoulder is identified. Mild degenerative changes of the left acromioclavicular joint. Report Dictated on Electronically Signed By: Jacob Hernandez MD Electronically Signed Date/Time: 02/19/2025 1:52 PM EDT [facility] Radiology Study observation (narrative) Lora Lopez alth XR Shoulder - left 2 ViewsOr dered By: Jacob Hernandez on 02-19-2025 [facility] 36on 02-18-2025 36 Noted. Agree with recommendation. Normal [facility] 36 S-Patient has left should pain and cannot move it B-states hurts in every position, out to the front, back , side and above head A-no fever or COVID symptoms, states very painful, no injury noted, would like to be seen, Tylenol and Ibuprofen has not helped R-Scheduled Same Day appt today 02/18/25 @ 3:00p with Judie Villanueva. Advised can try ice or heat. Normal [facility] 36 Reason for Dispositi on ? [1] SEVERE pain AND [2] not improved 2 hours after pain medicine/ice packs Answer Assessment - Initial Assessment Questions . Protocols used: Shoulder [id number] [facility] Office Visiton 02-18-2025 Follow-up visit [id number] PraveenGarry Rodriguez 1960 M Date Provider Department Center 02/18/2025 [id number] ÁNGEL VILLANUEVA [facility] Family History Problem Relation Age of Onset No Known Problems Mother Other Father Comments: elevated heart rate Family Status - Relation Status Age at Mother Father Alive Level of Service:05274 PA OFFICE/OUTPATIENT ESTABLISHED LOW MDM 20 MIN Reason for Visit and Comments: Shoulder Pain [707130] - Started getting bad on Monday [facility] Progress Noteon 02-18-2025 Progress Note Likely has osteoarthritis of the shoulder and tendinitis. Will obtain x-ray shoulder and plan for corticosteroid injection Normal [facility] Progress Note Likely osteoarthriti s, recommend getting imaging completed. Normal [facility] Progress Note Patient was identifi ed by name and Date of . [facility] Progress Note 02/18/2025 Garryseferino Morton (: 1960) is a 65 y.o. male , Established patient, here for evaluation of the following chief complaint(s): Shoulder Pain (Started getting bad on Monday ) ASSESSMENT/PLAN: 1. Acute pain of left shoulder Assessment & Plan: Likely has osteoarthritis of the shoulder and tendinitis. Will obtain x-ray shoulder and plan for corticosteroid injection Orders: - XR shoulder 2+ views left 2. Right hand pain Assessment & Plan: Likely osteoarthritis, recommend getting imaging completed. No follow-ups on file. SUBJECTIVE/OBJECTIVE: [facility] - Garry Morton (: 1960) is a 65 y.o. male , Established patient, here for the evaluation of the following chief complaint(s): Shoulder Pain (Started getting bad on Monday ) Answers submitted by the patient for this visit: Other (Submitted on 02/18/2025) Please describe your symptoms.: Left shoulder Have you had these symptoms before?: Yes How long have you been having these symptoms?: For a week Please describe any probable cause for these symptoms. : Work.grinding Patient reports it is a little better since he has been off for 2 days. Denies any numbness or tingling or weakness of the left arm. Reports he has had intermittent problems with his left shoulder but it has flared up recently Continues to have swelling and pain in his right hand, he did complete meloxicam x 1 week without significant improvement in his symptoms. He states the swelling has improved since he has not worked for 2 days. His uric acid level was elevated and he was started on allopurinol. He does have an x-ray that was ordered but he has not gotten it done for his hand. Current Medications[1] Review of Systems Constitutional: Negative. Respiratory: Negative. Cardiovascular: Negative. Musculoskeletal: Positive for arthralgias and joint swelling. Vitals: 02/18/25 1520 BP: 138/80 Pulse: 82 Resp: 20 Temp: 36.9 ?C (98.4 ?F) TempSrc: Infrared SpO2: 96% Weight: 195 lb 12.8 oz (88.8 kg) Physical Exam Constitutional: General: He is not in acute distress. Appearance: Normal appearance. He is not ill-appearing. Cardiovascular: Rate and Rhythm: Normal rate. Rhythm irregular. Pulses: Normal pulses. Heart sounds: Normal heart sounds. Pulmonary: Effort: Pulmonary effort is normal. Breath sounds: Normal breath sounds. Musculoskeletal: Left shoulder: Tenderness present. No swelling, bony tenderness or crepitus. Decreased range of motion. Normal strength. Arms: Hands: Skin: General: Skin is warm and dry. Neurological: Mental Status: He is alert and oriented to person, place, and time. An electronic signature was used to authenticate this note. Miguel Ángel Villanueva, ZAINA - [employer] 02/18/2025 6:55 PM [1] Current Outpatient Medications Medication Sig Dispense Refill allopurinol (Zyloprim) 100 MG tablet Take 1 tablet (100 mg) by mouth daily. 30 tablet 0 apixaban (Eliquis) 5 MG tablet Take 1 tablet (5 mg) by mouth 2 times daily. 180 tablet 1 cyclobenzaprine (Flexeril) 5 MG tablet Take 1 tablet (5 mg) by mouth Nightly as needed for muscle spasms. 30 tablet 1 metoprolol succinate XL (Toprol-XL) 25 MG 24 hr tablet TAKE 1 TABLET BY MOUTH EVERY DAY 90 tablet 1 omeprazole (PriLOSEC) [address] capsule TAKE 1 CAPSULE (20 MG) BY MOUTH DAILY. DO NOT CRUSH OR CHEW. 90 capsule 1 No current facility-administered medications for this visit. [facility] Progress Noteon 02-13-2025 Progress Note Lab/venipuncture completed by [facility] 36on 02-11-2025 36 Left detailed messag e for patient. [facility] 36 - uric acid level do ne there at the same time if he wanted. [facility] 36 S: Patient spoke wit h [facility] nurse regarding right hand pain; pain level 8 out of 10 B: Onset of symptoms/concern today A: Pt endorses seen in office on 01/23 with hand pain, was prescribed Meloxicam with "helped relieve the swelling", PT endorses was doing better, but went back to work today and increased swelling and pain. R: Pt scheduled for uric acid lab test in office for 02/13, declined earlier appointment due to transportation issues. Message to be sent to provider for further recommendations at thist time. No further needs at this time. Patient instructed to call back with new or worsening symptoms. Reason for Disposition ? [1] MODERATE pain (e.g., interferes with normal activities) AND [2] present > 3 days Protocols used: [facility] 01[facility]23-[facility] 37 Right hand swelling/pain likely arthritis. If not better next week, let provider know and we can get an xray and check uric acid level for possible gout. Normal [facility] Office Visiton 01-23-2025 Follow-up visit [id number] Garry Morton 1960 M Date Provider Department Center 01/23/2025 [id number] ÁNGEL VILLANUEVA [facility] Family History Problem Relation Age of Onset No Known Problems Mother Other Father Comments: elevated heart rate Family Status - Relation Status Age at Mother Father Alive Level of Service:14651 PA OFFICE/OUTPATIENT ESTABLISHED MOD MDM 30 MIN Reason for Visit and Comments: Follow-up [666733] - Leg-better Hand Pain [[id number]] - Right hand-started 3 days ago Normal [facility] Progress Noteon 01-23-2025 Progress Note Likely osteoarthriti s. Possible gout. No signs or symptoms of infection, denies any trauma. Meloxicam 15 mg daily x 7 days, notify provider next week if symptoms have not improved, consider x-ray of right hand and obtaining uric acid level. Normal [facility] Progress Note >>ASSESSMENT AND MADISON N FOR LOW BACK PAIN WRITTEN ON 01/23/2025 7:01 PM BY ZAINA SMITH CNP Currently asymptomatic, continue cyclobenzaprine 5 mg at bedtime as needed for muscle spasms >>ASSESSMENT AND PLAN FOR LEFT SIDED SCIATICA WRITTEN ON 01/23/2025 7:00 PM BY ZAINA SMITH CNP Resolved. Normal [facility] Progress Note Cyclobenzaprine 5 mg at bedtime as needed for muscle spasms. Follow-up for any worsening symptoms Normal [facility] Progress Note Resolved. Normal [facility] Progress Note 01/23/2025 Garry Morton (: 1960) is a 64 y.o. male , Established patient, here for evaluation of the following chief complaint(s): Follow-up (Leg-better) and Hand Pain (Right hand-started 3 days ago ) ASSESSMENT/PLAN: 1. Right hand pain Assessment & Plan: Likely osteoarthritis. Possible gout. No signs or symptoms of infection, denies any trauma. Meloxicam 15 mg daily x 7 days, notify provider next week if symptoms have not improved, consider x-ray of right hand and obtaining uric acid level. Orders: - meloxicam (Mobic) 15 MG tablet; Take 1 tablet (15 mg) by mouth daily for 7 days., Starting Phuong 01/23/2025, Until Phuong 01/30/2025, Normal 2. Left sided sciatica Assessment & Plan: Resolved. 3. Muscle spasm of back Assessment & Plan: Cyclobenzaprine 5 mg at bedtime as needed for muscle spasms. Follow-up for any worsening symptoms 4. Chronic low back pain without sciatica, unspecified back pain laterality Assessment & Plan: Currently asymptomatic, continue cyclobenzaprine 5 mg at bedtime as needed for muscle spasms Orders: - Uric acid - cyclobenzaprine (Flexeril) 5 MG tablet; Take 1 tablet (5 mg) by mouth Nightly as needed for muscle spasms., Starting Phuong 01/23/2025, Normal Follow up if symptoms worsen or fail to improve. SUBJECTIVE/OBJECTIVE: [facility] - Garry Morton (: 1960) is a 64 y.o. male , Established patient, here for the evaluation of the following chief complaint(s): Follow-up (Leg-better) and Hand Pain (Right hand-started 3 days ago ) Patient presents for follow-up sciatic pain-reports his sciatic pain and low back pain has resolved. He would like to continue muscle relaxant at night if needed for muscle spasms. States he has had right hand pain and swelling x 3 days. Top of the hand/knuckle. No new injury. No fever or chills. Denies any history of gout. He thinks it is probably arthritis. Current Medications[1] Review of Systems Constitutional: Negative. Respiratory: Negative. Cardiovascular: Negative. Genitourinary: Negative. Musculoskeletal: Positive for joint swelling (Right hand). Negative for back pain, gait problem, myalgias and neck pain. Vitals: 01/23/25 1540 BP: 117/71 Pulse: 92 Resp: 18 Temp: 36.8 ?C (98.3 ?F) TempSrc: Infrared SpO2: 96% Weight: 202 lb 6.4 oz (91.8 kg) Physical Exam Vitals reviewed. Constitutional: General: He is not in acute distress. Appearance: Normal appearance. He is not ill-appearing. HENT: Head: Normocephalic and atraumatic. Mouth/Throat: Mouth: Mucous membranes are moist. Pharynx: Oropharynx is clear. No posterior oropharyngeal erythema. Eyes: Conjunctiva/sclera: Conjunctivae normal. Cardiovascular: Rate and Rhythm: Normal rate. Rhythm irregular. Pulses: Normal pulses. Heart sounds: Normal heart sounds. Pulmonary: Effort: Pulmonary effort is normal. Breath sounds: Normal breath sounds. Musculoskeletal: Hands: Right lower leg: No edema. Left lower leg: No edema. Comments: Able to get on and off the exam table without difficulty Lymphadenopathy: Cervical: No cervical adenopathy. Neurological: Mental Status: He is alert and oriented to person, place, and time. Psychiatric: Mood and Affect: Mood normal. Behavior: Behavior normal. Thought Content: Thought content normal. An electronic signature was used to authenticate this note. Miguel Ángel Villanueva, ZAINA - [employer] 01/23/2025 7:05 PM [1] Current Outpatient Medications Medication Sig Dispense Refill apixaban (Eliquis) 5 MG tablet Take 1 tablet (5 mg) by mouth 2 times daily. 180 tablet 1 metoprolol succinate XL (Toprol-XL) 25 MG 24 hr tablet TAKE 1 TABLET BY MOUTH EVERY DAY 90 tablet 1 omeprazole (PriLOSEC) [address] capsule TAKE 1 CAPSULE (20 MG) BY MOUTH DAILY. DO NOT CRUSH OR CHEW. 90 capsule 1 cyclobenzaprine (Flexeril) 5 MG tablet Take 1 tablet (5 mg) by mouth Nightly as needed for muscle spasms. 30 tablet 1 meloxicam (Mobic) 15 MG tablet Take 1 tablet (15 mg) by mouth daily for 7 days. 7 tablet 0 No current facility-administered medications for this visit. Normal [facility] Progress Note Patient was identifi ed by name and Date of . Normal [facility] TransthoracicOrdere d By: Remi Stack on 01-22-2025 Ao Root Index 1.56 cm/m2 [facility] Work Phone: Aortic Arch 3.1 cm [facility] Work Phone: Aortic Root 3.3 cm [facility] Work Phone: Aortic valve Mean systole pressure gradient by US.doppler derived full Bernoulli 3 mmHg [facility] Work Phone: Aortic valve Orifice area by US 3.5 cm2 [facility] Work Phone: Aortic valve Peak systolic flow by US.doppler 0.7 m/s [facility] Work Phone: Ascending Aorta 4 cm [facility] Work Phone: Ascending Aorta Index 1.89 cm/m2 [facility] Work Phone: AV Area by Peak Velocity 2.7 cm2 [facility] Work Phone: AV Area by VTI 2.5 cm2 [facility] Work Phone: AV Peak Gradient 5 mmHg [facility] Work Phone: AV Peak Velocity 1.1 m/s [facility] Work Phone: AV Velocity Ratio 0.91 [facility] Work Phone: AV VTI 21.4 cm [facility] Work Phone: DAVIS/BSA Peak Velocity 1.3 cm2/m2 [facility] Work Phone: DAVIS/BSA VTI 1.2 cm2/m2 [facility] Work Phone: E/E' Lateral 5.67 [facility] Work Phone: E/E' Ratio (Averaged) 6.38 [facility] Work Phone: E/E' Septal 7.08 [facility] Work Phone: Fractional Shortening 2D 30 % 28 - 44 % [facility] Work Phone: Interpretation and review of laboratory results Abnormal [facility] Work Phone: IVC Diameter 1.3 cm [facility] Work Phone: IVSd 0.8 cm 0.6 - 1.0 cm [facility] Work Phone: LA Diameter 4.1 cm [facility] Work Phone: LA Size Index 1.93 cm/m2 [facility] Work Phone: LA Volume 2C 56 mL 18 - 58 mL [facility] Work Phone: LA Volume 4C 63 mL Abnormal 18 - 58 mL [facility] Work Phone: LA Volume A/L 66 mL [facility] Work Phone: LA Volume BP 62 mL Abnormal 18 - 58 mL [facility] Work Phone: LA Volume Index 2C 26 mL/m2 16 - 34 mL/m2 [facility] Work Phone: LA Volume Index 4C 30 mL/m2 16 - 34 mL/m2 [facility] Work Phone: LA Volume Index A/L 31 mL/m2 16 - 34 mL/m2 [facility] Work Phone: [phone] LA Volume Index BP 29 ml/m2 16 - 34 ml/m2 [facility] Work Phone: LA/AO Root Ratio 1.24 [facility] Work Phone: Left ventricular Ejection fraction by US.2D+Calculated by biplane method of disks 62 % 55 - 100 % [facility] Work Phone: LV E' Lateral Velocity 15 cm/s [facility] Work Phone: LV E' Septal Velocity 12 cm/s [facility] Work Phone: LV EDV A2C 96 mL [facility] Work Phone: LV EDV A4C 95 mL [facility] Work Phone: LV EDV BP 98 mL 67 - 155 mL [facility] Work Phone: LV EDV Index A2C 45 mL/m2 [facility] Work Phone: LV EDV Index A4C 45 mL/m2 [facility] Work Phone: LV EDV Index BP 46 mL/m2 [facility] Work Phone: LV Ejection Fraction A2C 65 % [facility] Work Phone: LV Ejection Fraction A4C 61 % [facility] Work Phone: LV ESV A2C 34 mL [facility] Work Phone: LV ESV A4C 37 mL [facility] Work Phone: LV ESV BP 37 mL 22 - 58 mL [facility] Work Phone: LV ESV Index A2C 16 mL/m2 [facility] Work Phone: LV ESV Index A4C 17 mL/m2 [facility] Work Phone: LV ESV Index BP 17 mL/m2 [facility] Work Phone: LV Mass 2D 118.2 g 88 - 224 g [facility] Work Phone: LV Mass 2D Index 55.8 g/m2 49 - 115 g/m2 [facility] Work Phone: LV RWT Ratio 0.55 [facility] Work Phone: LVIDd 4 cm Abnormal 4.2 - 5.9 cm [facility] Work Phone: LVIDd Index 1.89 cm/m2 [facility] Work Phone: LVIDs 2.8 cm [facility] Work Phone: LVIDs Index 1.32 cm/m2 [facility] Work Phone: LVOT Cardiac Output 3.4 liter/minute [facility] Work Phone: LVOT Diameter 2.1 cm [facility] Work Phone: LVOT Mean Gradient 2 mmHg [facility] Work Phone: LVOT Peak Gradient 4 mmHg [facility] Work Phone: LVOT Peak Velocity 1 m/s [facility] Work Phone: LVOT Stroke Volume Index 27.1 mL/m2 [facility] Work Phone: LVOT SV 57.5 ml [facility] Work Phone: LVOT VTI 16.6 cm [facility] Work Phone: LVOT:AV VTI Index 0.78 [facility] Work Phone: LVPWd 1.1 cm Abnormal 0.6 - 1.0 cm [facility] Work Phone: MV E Velocity 0.85 m/s [facility] Work Phone: [phone] MV E Wave Deceleration Time 120.7 ms [facility] Work Phone: Pulmonary Artery EDP 5 mmHg [facility] Work Phone: [phone] RA Area 4C 47.6 mL [facility] Work Phone: [phone] RA Area 4C 46.2 mL [facility] Work Phone: RV Basal Dimension 3.5 cm [facility] Work Phone: RV Free Wall Peak S' 11 cm/s [facility] Work Phone: [phone] RV Mid Dimension 2.9 cm [facility] Work Phone: TAPSE 1.9 cm 1.7 cm [facility] Work Phone: TR Max Velocity 2.42 m/s [facility] Work Phone: TR Peak Gradient 23 mmHg [facility] Work Phone: [facility] Work Phone: [phone] Heart Transthoracicon Left Ventricle: Left ventricle size is normal. Mildly increased wall thickness. Normal left ventricular systolic function. EF by 2D Simpsons Biplane is 62%. Normal wall motion. Indeterminate diastolic function due to atrial fibrillation. Right Ventricle: Right ventricle size is normal. Normal systolic function. Tricuspid Valve: Moderate (2+) regurgitation. Left Atrium: Left atrium is mildly dilated. Right Atrium: Right atrium is dilated. Aorta: Normal sized sinuses of Valsalva. Mildly dilated ascending aorta. Ao ascending diameter is 4.0 cm. IVC/SVC: IVC diameter is normal and decreases greater than 50% during inspiration; therefore the estimated right atrial pressure is normal (~3 mmHg). Left Ventricle Left ventricle size is normal. Mildly increased wall thickness. Normal left ventricular systolic function. EF by 2D Simpsons Biplane is 62%. Normal wall motion. Indeterminate diastolic function due to atrial fibrillation. Right Ventricle Right ventricle size is normal. Normal systolic function. Left Atrium Left atrium is mildly dilated. Right Atrium Right atrium is dilated. IVC/SVC IVC diameter is normal and decreases greater than 50% during inspiration; therefore the estimated right atrial pressure is normal (~3 mmHg). Mitral Valve Valve structure is normal. Annular calcification. Mild (1+) regurgitation. No stenosis noted. Tricuspid Valve Valve structure is normal. Moderate (2+) regurgitation. Aortic Valve Trileaflet. No cusp thickening. No cusp calcification. Trace regurgitation. No stenosis. Pulmonic Valve Valve structure is normal. Mild (1+) regurgitation. Ascending Aorta Normal sized sinuses of Valsalva. Mildly dilated ascending aorta. Ao ascending diameter is 4.0 cm. Pericardium No pericardial effusion. Septum No interatrial shunt visualized on color Doppler. Pulmonary Artery Normal pulmonary arteries. Study Details Image quality: technically difficult. Blood pressure: 110/80 mmHg. The underlying ECG rhythm was atrial fibrillation. Technical qualifiers: Technically difficult study with poor endocardial visualization and technically difficult study due to patient's body habitus. Ultrasound enhancement agent was given to enhance imaging. CV CPACS 36on 01-09-2025 36 Prescription Request : Last medication check: 01/02/25 Last physical exam: 09/18/24 Next scheduled appointment: 01/23/25 Last date of refill on this medication 07/12/25 Normal [facility] Office Visiton 01-08-2025 Follow-up visit [id number] Garry Morton 1960 M Date Provider Department Center 01/08/2025 FELTON HOWARD [facility] SB DEVEN [facility] CV Ellie Family History Problem Relation Age of Onset No Known Problems Mother Other Father Comments: elevated heart rate Family Status - Relation Status Age at Mother Father Alive Level of Service:20789 PA OFFICE/OUTPATIENT NEW LOW MDM 30 MINUTES Reason for Visit and Comments: Establish Care [42] Normal [facility] Progress Noteon 01-08-2025 Progress Note [facility] Cardiology Note Chief Complaint: Chief Complaint Patient presents with Establish Care History of Present Illness: Garry Morton is a 64 y.o. male presents for evaluation last seen in 2019. At that time I recall he had undergone cardioversion, was anticoagulated, was placed on metoprolol succinate 25 mg daily. We then lost contact with him. He presents back today reporting that over the course of the past year he is gradually become a little more short of breath. This is mainly at work. There is no anginal type chest discomfort. No lightheadedness presyncope or syncope. Denies lower extremity edema or significant trouble with orthopnea PND. His dyspnea is mainly with exertion and at work. He does not have palpitation. Laboratory data from 2024 demonstrates a cholesterol of 140, hemoglobin was 14.9 in April 2024. There is no obvious bleeding. Past Medical History: Medical History[1] Past Surgical History Surgical History[2] Family History Family History[3] Social History Social History[4] Allergies: Allergies[5] Medications: Current Medications[6] Review of Systems: Review of Systems Constitutional: Negative. HENT: Negative. Eyes: Negative. Respiratory: Positive for shortness of breath. Cardiovascular: Negative. Gastrointestinal: Negative. Endocrine: Negative. Genitourinary: Negative. Musculoskeletal: Negative. Skin: Negative. Allergic/Immunologic: Negative. Neurological: Negative. Hematological: Negative. Psychiatric/Behavioral: Negative. Physical Examination: Vitals: Vitals: 01/08/25 1105 BP: 110/80 BP Location: Left arm Patient Position: Sitting BP Cuff Size: Large adult Pulse: 60 Resp: 20 SpO2: 98% Weight: 203 lb (92.1 kg) Height: 5' 11" (1.803 m) Body mass index is 28.31 kg/m?. Physical Exam Vitals reviewed. Constitutional: Appearance: Normal appearance. HENT: Head: Normocephalic. Right Ear: External ear normal. Left Ear: External ear normal. Nose: Nose normal. Mouth/Throat: Mouth: Mucous membranes are moist. Eyes: Pupils: Pupils are equal, round, and reactive to light. Cardiovascular: Rate and Rhythm: Normal rate. Rhythm irregular. Heart sounds: No murmur heard. Pulmonary: Effort: No respiratory distress. Musculoskeletal: General: Normal range of motion. Right lower leg: No edema. Left lower leg: No edema. Skin: General: Skin is warm and dry. Coloration: Skin is not jaundiced. Neurological: General: No focal deficit present. Mental Status: He is alert. Motor: No weakness. Gait: Gait normal. Psychiatric: Mood and Affect: Mood normal. Behavior: Behavior normal. Thought Content: Thought content normal. Judgment: Judgment normal. Laboratory Tests: Lab Results Component Value Date WBC 10.9 (H) 04/26/2024 HGB 14.9 04/26/2024 HCT 45.3 04/26/2024 MCV 89.5 04/26/2024 PLT 230 04/26/2024 Lab Results Component Value Date GLUCOSE 82 09/18/2024 CALCIUM 9.5 09/18/2024 NA 140 04/16/2022 K 3.9 04/16/2022 CO2 27 09/18/2024 CL 111 (H) 04/16/2022 BUN 15 09/18/2024 CREATININE 0.97 09/18/2024 [facility] Lab Results Component Value Date CHOL 133 04/16/2022 CHOL 149 09/02/2020 CHOL 134 03/02/2020 Lab Results Component Value Date TRIG 111 04/16/2022 TRIG 145 09/02/2020 TRIG 95 03/02/2020 Lab Results Component Value Date HDL 32 (L) 04/16/2022 HDL 30 (L) 09/02/2020 HDL 40 03/02/2020 No results found for: LDLCALC Assessment and Plan: Atrial fibrillation: Permanent and seemingly rate controlled. He does not have significant risk factors for stroke and atrial fibrillation. We will obtain echocardiography to ensure he maintains normal ejection fraction and then can consider discontinuing the apixaban. His rates are controlled at rest. Obtaining 24-hour Holter monitor to ensure rate control with activity particularly at work. Maintain the present beta-west dose for now. At this point would not make any attempts at sinus rhythm [1] Past Medical History: Diagnosis Date 2019 novel coronavirus disease (COVID-19) ? Atrial fibrillation (HCC) PAF Bronchitis GERD (gastroesophageal reflux disease) ? History of echocardiogram Echo 03/07/17 Persistent atrial fibrillation (HCC) CHADsV - 0 Strain of back 11/18/2019 [2] Past Surgical History: Procedure Laterality Date CAPSULOTOMY, HAND 04/27/2017 08/28/17,11/23/17 CAPSULOTOMY, HAND 12/08/2017 CARDIOVERSION COLONOSCOPY COLONOSCOPY W/ BIOPSIES 05/14/2024 Performed by Eris Tate MD at [facility] ENDOSCOPY COLONOSCOPY W/ BIOPSIES AND POLYPECTOMY N/A 05/14/2024 Performed by Eris Tate MD at [facility] ENDOSCOPY HERNIA REPAIR [3] Family History Problem Relation Name Age of Onset No Known Problems Mother Other (49273) Father elevated heart rate [4] Social History Tobacco Use Smoking status: Former Current packs/day: 0.00 Average p (more content not included)... [facility] Office Visiton 01-02-2025 Follow-up visit [id number] Garry Morton 1960 M Date Provider Department Center 01/02/2025 [id number] [facility] Family History Problem Relation Age of Onset No Known Problems Mother Other Father Comments: elevated heart rate Family Status - Relation Status Age at Mother Father Alive Level of Service:17949 PA OFFICE/OUTPATIENT ESTABLISHED LOW [facility] 20 MIN Reason for Visit and Comments: Leg Pain [611291] - And numbness- left [facility] Progress Noteon 01-02-2025 Progress Note Will start meloxicam once a day for up to 2 weeks, cautioned about taking his medicine on an empty stomach he needs to take it with food and he should not take it more than 2 weeks. Stretching exercises were discussed in detail follow-up in [address] [facility] Progress Note Patient verified by last name and date of . [facility] Progress Note Answers submitted by the patient for this visit: Back Pain Questionnaire (Submitted on 01/01/2025) Chief Complaint: Back pain Onset: in the past 7 days Progression since onset: waxing and waning Pain location: gluteal Pain quality: aching Radiates to: left thigh, right knee Pain - numeric: 8/10 Pain is: worse during the day Aggravated by: standing Stiffness is present: all day leg pain: Yes 01/02/2025 Garry Morton (: 1960) is a 64 y.o. male , Established patient, here for evaluation of the following chief complaint(s): Leg Pain (And numbness- left ) ASSESSMENT/PLAN: 1. Left sided sciatica Assessment & Plan: Will start meloxicam once a day for up to 2 weeks, cautioned about taking his medicine on an empty stomach he needs to take it with food and he should not take it more than 2 weeks. Stretching exercises were discussed in detail follow-up in 2 weeks. 2. Persistent atrial fibrillation (HCC) Assessment & Plan: Referral to cardiology for further follow-up. Orders: - [facility] Cardiology Follow up in about 2 weeks (around 01/16/2025). SUBJECTIVE/OBJECTIVE: PITO Chao comes in today complaining of some low back pain on the left side with pain down his leg with numbness and weakness. Said this came on suddenly after he was doing a lot of shoveling and working in the [employer] beds 5 days ago and he says this is worse if he is standing for a long period of time. He also was wondering about getting back into see a pigment supplier for his A-fib he has not been back to see his pigment supplier for about 3 or 4 years. He continues to take the anticoagulants and metoprolol for rate control. Review of Systems Musculoskeletal: Positive for back pain. Negative for arthralgias, gait problem and myalgias. Neurological: Positive for numbness. Negative for weakness. Vitals: 01/02/25 1257 BP: 110/74 Pulse: 70 SpO2: 98% Weight: 199 lb 3.2 oz (90.4 kg) Height: 5' 11" (1.803 m) Physical Exam Vitals and nursing note reviewed. Constitutional: Appearance: Normal appearance. Cardiovascular: Rate and Rhythm: Normal rate. Rhythm irregularly irregular. Heart sounds: Normal heart sounds. Musculoskeletal: Comments: Back he has decreased range of motion with flexion due to pain in the location near his left gluteal muscle. He has some pain to percussion of the sciatic notch on the left side and he has an equivocal straight leg raise on the left side. Right side is completely normal. Neurological: Mental Status: He is alert. An electronic signature was used to authenticate this note. Kenton Turpin MD 01/02/2025 3:[address] [facility] Progress Note >>ASSESSMENT AND MADISON N FOR LEFT SIDED SCIATICA WRITTEN ON 01/02/2025 3:01 PM BY KENTON TURPIN MD Will start meloxicam once a day for up to 2 weeks, cautioned about taking his medicine on an empty stomach he needs to take it with food and he should not take it more than 2 weeks. Stretching exercises were discussed in detail follow-up in [address] [facility] 36on 01-01-2025 36 Okay, thank you [facility] 36 S: Patient spoke wit h [facility] nurse regarding leg pain. B: Onset of symptoms Monday12/29/24. A: Having pain in his L buttock and goes down the leg and is numb whit the leg and leg is not working right, can stand and walk, has not had before, no back pain, R: Appointment scheduled, address given to the patient, instructed to bring photo ID, insurance info and medication list to the appointment. Patient understands care advice. No further needs at this time. Patient instructed to call back with new or worsening symptoms. Reason for Disposition Numbness in a leg or foot (i.e., loss of sensation) Protocols used: [facility] 11-20-2024 36 Noted. Thank you. [facility] 36on 11-19-2024 36 We have been unable to reach your patient to schedule their testing. Test Name: Exercise stress test 1st attempt via [employer] 09/20/24 2nd attempt, patient declined related to cost, 11/19/2024 10/03/[address] [facility] Office Visit Reporton 2024 Office Visit Report [facility] [address] [place] [address] OFFICE VISIT Date of Service: 11/13/24 MR#: [id number] Acct: [id number] Patient: GARRY MORTON Rep #: [id number] : 1960 Provider: LUZMA Ho Age/Sex: 64/M Location: [facility] Status: Signed Intake Intake Visit Reasons: HEARING TEST/QUALITY CASTING Office Procedures Now Clinic Billing Sheet Testing Hearing (Audiogram) Test: Yes 11/18/24 1158 Date Chacho SEGAL Cosigner Signature: Date (if applicable) CC: Normal [facility] 36on 09-23-2024 36 Reviewed chart. Refi ll appropriate. RX sent. Normal [facility] 36 Prescription Request : Last medication check: 06/12/24 Last physical exam: 09/18/24 Next scheduled appointment: 03/19/25 Last date of refill on this medication: 06/12/24 Normal [facility] 36on 09-19-2024 36 Message released to patient as written. Yes Patient's further questions if applicable: No Were all questions from office addressed or relayed to the patient from encounter: Yes Normal [facility] 36 Lm to return call- g mustapha results below Normal [facility] 36 ----- Message from ZAINA Herrera CNP sent at 09/19/2024 8:46 AM EST ----- Triglyceride levels have increased and good cholesterol levels have decreased. Other cholesterol levels are good. Recommend taking Fish Oil OTC to help bring triglyceride levels down. A diet low in sugar and rich in [place]-3 fatty acids can help as well. Regular cardiovascular exercise can help to bring up good cholesterol levels. Recommend checking levels again in 6 months. Chem panel and blood sugar are normal. PSA level is normal. Normal [facility] ECG 12 lead - CLINIC PERFORM EDon 09-18-2024 [facility] Office Visiton 09-18-2024 Follow-up visit [id number] Garry Morton 1960 M Date Provider Department Center 09/18/2024 [id number] KAMINSKI [facility] Family History Problem Relation Age of Onset No Known Problems Mother Other Father Comments: elevated heart rate Family Status - Relation Status Age at Mother Father Alive Level of Service:61721 PA PERIODIC PREVENTIVE MED EST PATIENT 40-64YRS Reason for Visit and Comments: Annual Exam [83] Blood Work [477349] Health Maintenance [872] - HIV/HEP C Screen- declines 5th Covid- not done Normal [facility] Progress Noteon 09-18-2024 Progress Note [facility] [address] [facility] [address] [facility] [address] Dept: [phone] Dept Loc: [phone] HPI: Garry Morton is a 64 y.o. male who presents today for his medical conditions/complaints as noted below. Garry Morton is c/o of Annual Exam, Blood Work, and Health Maintenance (HIV/HEP C Screen- declines /5th Covid- not done ) HPI- Garry presents today for his annual physical and blood work. Atrial Fibrillation: Continues to take Eliquis as prescribed. Denies signs of blood in urine or stools. Has been noticing some heart palpitations and chest pain. Denies symptoms at the time of his visit. Denies pain radiating up into his neck or down his left arm. States it stays in the center of his chest. Had a stress test in April of 2022 with normal findings. GERD: takes Omeprazole daily as prescribed. Feels symptoms are well controlled. Chronic Back Pain: Will take Flexeril as needed and this works well for him. Requesting a refill today. Health Maintenance: Declines screening for HIV and Hep C. Vaccinated for COVID-19 x4 with most recent dose on 06/23/23- declines additional doses. Tdap current: 09/02/19. Flu vaccine current: 04/26/24. Is fully vaccinated for shingles and is current on his pneumococcal vaccinations (PCV20 on 08/30/23). See ROS for additional information. Past Medical History: Diagnosis Date 2018 novel coronavirus disease (COVID-19) ? Atrial fibrillation (HCC) PAF Bronchitis GERD (gastroesophageal reflux disease) ? History of echocardiogram Echo 03/07/17 Persistent atrial fibrillation (HCC) CHADsV - 0 Strain of back 11/18/2019 Past Surgical History: Procedure Laterality Date CAPSULOTOMY, HAND 04/27/2017 08/28/17,11/23/17 CAPSULOTOMY, HAND 12/08/2017 CARDIOVERSION COLONOSCOPY COLONOSCOPY W/ BIOPSIES 05/14/2024 Performed by Eris Tate MD at [facility] ENDOSCOPY COLONOSCOPY W/ BIOPSIES AND POLYPECTOMY N/A 05/14/2024 Performed by Eris Tate MD at [facility] ENDOSCOPY HERNIA REPAIR Family History Problem Relation Name Age of Onset No Known Problems Mother Other (36270) Father elevated heart rate Social History Tobacco Use Smoking status: Former Current packs/day: 0.00 Average packs/day: 2.0 packs/day for 10.0 years (20.0 ttl pk-yrs) Types: Cigarettes Quit date: 08/07/1996 Years since quittin.1 Smokeless tobacco: Former Quit date: 10/05/2016 Substance Use Topics Alcohol use: Not Currently Comment: quit 2 mo ago Current Outpatient Medications Medication Sig Dispense Refill metoprolol succinate XL (Toprol-XL) 25 MG 24 hr tablet Take 1 tablet (25 mg) by mouth daily. 90 tablet 1 omeprazole (PriLOSEC) [address] capsule Take 1 capsule (20 mg) by mouth daily. Do not crush or chew. 90 capsule 1 apixaban (Eliquis) 5 MG tablet Take 1 tablet (5 mg) by mouth 2 times daily. 180 tablet 1 cyclobenzaprine (Flexeril) 5 MG tablet Take 1 tablet (5 mg) by mouth Nightly as needed for muscle spasms. 30 tablet 0 No current facility-administered medications for this visit. No Known Allergies Health Maintenance Topic Date Due HIV Screening Never done Hepatitis C Screening Never done COVID-19 Vaccine ( season) 2024 Diabetes Screening 08/30/2024 Depression Screening 09/15/2025 Lipid Panel 08/30/2028 Colorectal Cancer Screening 05/14/2029 DTaP/Tdap/Td Vaccines (2 - Td or Tdap) 09/02/2029 RSV Immunization for Adults (1 - 1-dose 75+ series) 02/08/2036 Influenza Vaccine Completed Pneumococcal Vaccine: 50+ Years Completed Zoster Vaccines Completed RSV Immunization under 20 Months Aged Out HIB Vaccines Aged Out Hepatitis B Vaccines Aged Out IPV Vaccines Aged Out Hepatitis A Vaccines Aged Out Meningococcal Vaccine Aged Out Rotavirus Vaccines Aged Out HPV Vaccines Aged Out MMR Vaccines Discontinued Subjective: Review of Systems Constitutional: Negative for chills and fever. HENT: Negative for hearing loss and trouble swallowing. Eyes: Negative for pain and visual disturbance. Respiratory: Negative for cough, chest tightness, shortness of breath and wheezing. Cardiovascular: Positive for chest pain and palpitations. Negative for leg swelling. Gastrointestinal: Negative for abdominal distention, abdominal pain, blood in stool, constipation and diarrhea. Endocrine: Negative for polydipsia, polyphagia and polyuria. Genitourinary: Negative for difficulty urinating, dysuria and hematuria. Musculoskeletal: Positive for back pain. Skin: Negative for color change, pallor, rash and wound. Neurological: Negative for dizziness, syncope, weakness and headaches. Hematological: Does not bruise/bleed easily. Psychiatric/Behavioral: Negative for dysphoric mood. The patient is not nervous/anxious. Objective: BP 118/72 Pulse 91 Ht 5' 11" (1.803 m) Wt 204 lb 3.2 oz (92.6 kg) SpO2 97% BMI 28.48 kg/m? Last 3 PHQ-2 Scores 09/15/2024 (more content not included)... [facility] Progress Note Patient verified by last name and . [facility] 36on 07-15-2024 36 Refill not due. [facility] 36 Sent to [facility] on - message sent to pt [place] [id number] 07-12-2024 36 Rx sent. Follow up a s scheduled. [facility] 36 Refill not due. [facility] 36 Prescription Request : Last medication check: 06/12/2024 Last physical exam: 08/30/2023 Next scheduled appointment: 09/18/2024 Last date of refill on this medication: 02/23/[address] [facility] 36 Was sent 06/12/2024 f or 90 days plus a refill [facility] Office Visiton 06-12-2024 Follow-up visit [id number] Garry Morton 1960 M Date Provider Department Center 06/12/2024 [id number] [facility] Family History Problem Relation Age of Onset No Known Problems Mother Other Father Comments: elevated heart rate Family Status - Relation Status Age at Mother Father Alive Level of Service:26684 PA OFFICE/OUTPATIENT ESTABLISHED LOW MDM 20 MIN Reason for Visit and Comments: Follow-up [090233] Abdominal Pain [746128] - States abdominal bloating has gotten better, states he has quit drinking and has noticed a big difference. [facility] Progress Noteon 06-12-2024 Progress Note 06/12/2024 Garry Morton (: 1960) is a 64 y.o. male , Established patient, here for evaluation of the following chief complaint(s): Follow-up and Abdominal Pain (States abdominal bloating has gotten better, states he has quit drinking and has noticed a big difference. ) ASSESSMENT/PLAN: 1. Gastroesophageal reflux disease, unspecified whether esophagitis present - omeprazole (PriLOSEC) [address] capsule; Take 1 capsule (20 mg) by mouth daily. Do not crush or chew., Starting 06/12/2024, Normal - Stable with Omeprazole. Will continue current treatment plan. 2. Abdominal bloating - Resolved. Encouraged continued abstinence from alcohol. - Discussed signs and symptoms warranting follow up in the office- verbalized understanding. 3. Constipation, unspecified constipation type - Improved with PRN use of Miralax. - Discussed signs and symptoms warranting follow up in the office- verbalized understanding. Follow up in about 3 months (around 09/12/2024) for annual physical and fasting blood work. SUBJECTIVE/OBJECTIVE: PITO Alpa Castañeda presents today for follow up on his abdominal bloating, constipation, and GERD. He was started on daily Omeprazole at his previous appointment and states he has been feeling much better. Will use Miralax as needed for his constipation and this has helped as well. Feels bloating has improved as well. States he is no longer drinking alcohol which has helped also. Denies any new or worsening symptoms. Would like to continue with current prescriptions. Review of Systems Constitutional: Negative for chills and fever. Respiratory: Negative for shortness of breath. Cardiovascular: Negative for chest pain. Gastrointestinal: Negative for abdominal distention, abdominal pain, blood in stool, nausea and vomiting. Genitourinary: Negative for hematuria. Vitals: 06/12/24 1541 BP: 126/82 Pulse: 77 SpO2: 96% Weight: 201 lb 6.4 oz (91.4 kg) Height: 5' 11" (1.803 m) Body mass index is 28.09 kg/m?. Physical Exam Constitutional: General: He is not in acute distress. Appearance: He is not ill-appearing or diaphoretic. Cardiovascular: Rate and Rhythm: Normal rate and regular rhythm. Heart sounds: Normal heart sounds. No murmur heard. No friction rub. Pulmonary: Effort: Pulmonary effort is normal. Abdominal: General: Bowel sounds are normal. There is no distension. Palpations: Abdomen is soft. There is no hepatomegaly, splenomegaly or mass. Tenderness: There is no abdominal tenderness. There is no guarding. Skin: General: Skin is warm and dry. Coloration: Skin is not pale. Findings: No erythema or rash. Neurological: Mental Status: He is alert and oriented to person, place, and time. Psychiatric: Mood and Affect: Mood normal. Behavior: Behavior normal. Thought Content: Thought content normal. Judgment: Judgment normal. An electronic signature was used to authenticate this note. ZAINA Jaime CNP 06/12/2024 3:55 PM Normal [facility] US Abdomenon 04-29-2024 Increased hepatic echogenicity, which may reflect steatosis in the appropriate clinical context. Correlate with liver function tests. Mild splenomegaly measuring up to 15.4 cm. Otherwise, no acute sonographic process identified. Report Dictated on Electronically Signed By: Dereck Barnes MD Electronically Signed Date/Time: 04/29/2024 8:40 PM [facility] 1960 [id number] Exam Date/Time: 04/29/2024 17:33 Procedure: US ABDOMEN COMPLETE Ordering Provider: KAMINSKI HOLLY Reason For Exam: abdominal bloating ULTRASOUND ABDOMEN COMPLETE CLINICAL INDICATION: Bloating TECHNIQUE: Complete ultrasound of abdomen COMPARISON: None FINDINGS: Liver: Generalized increased echogenicity corresponding to fatty infiltration. Normal size and contour. No focal lesion identified.. Gallbladder: The gallbladder appears within normal limits. Sonographic Ocampo sign is reported as negative. Bile ducts: No evidence of biliary ductal dilatation. Common bile duct: 3.5 mm Pancreas: Visualized portions of the pancreas are normal in appearance. Right kidney: Normal parenchymal echogenicity without mass or hydronephrosis. Right Kidney Dimensions: 12.5 x 6.5 x 4.9 cm Left kidney: Normal parenchymal echogenicity without mass or hydronephrosis. Left Kidney Dimensions: 11.4 x 4.9 x 4.7 cm Spleen: The spleen is of normal echogenicity although is enlarged. Spleen Dimensions: 15.4 x 7.1 x 12.6 cm Aorta and Inferior vena cava: Visualized portions are normal Ascites: None [facility] RADIOLOGY SYSTEM Dereck Barnes MD - 04/29/2024 Patient Name: GARRY MORTON : 1960 [id number] Exam Date/Time: 04/29/2024 17:33 Procedure: US ABDOMEN COMPLETE Ordering Provider: KAMINSKI HOLLY Reason For Exam: abdominal bloating ULTRASOUND ABDOMEN COMPLETE CLINICAL INDICATION: Bloating TECHNIQUE: Complete ultrasound of abdomen COMPARISON: None FINDINGS: Liver: Generalized increased echogenicity corresponding to fatty infiltration. Normal size and contour. No focal lesion identified.. Gallbladder: The gallbladder appears within normal limits. Sonographic Ocampo sign is reported as negative. Bile ducts: No evidence of biliary ductal dilatation. Common bile duct: 3.5 mm Pancreas: Visualized portions of the pancreas are normal in appearance. Right kidney: Normal parenchymal echogenicity without mass or hydronephrosis. Right Kidney Dimensions: 12.5 x 6.5 x 4.9 cm Left kidney: Normal parenchymal echogenicity without mass or hydronephrosis. Left Kidney Dimensions: 11.4 x 4.9 x 4.7 cm Spleen: The spleen is of normal echogenicity although is enlarged. Spleen Dimensions: 15.4 x 7.1 x 12.6 cm Aorta and Inferior vena cava: Visualized portions are normal Ascites: None IMPRESSION: Increased hepatic echogenicity, which may reflect steatosis in the appropriate clinical context. Correlate with liver function tests. Mild splenomegaly measuring up to 15.4 cm. Otherwise, no acute sonographic process identified. Report Dictated on Electronically Signed By: Dereck Barnes MD Electronically Signed Date/Time: 04/29/2024 8:40 PM EDT [facility] Radiology Study observation (narrative) [facility] alth US AbdomenOrdered By: Dereck Barnes on 04-29-2024 [employer] Work Phone: Basic Metabolic Panelon 04-07 Calcium [Mass/Vol] 9.0 mg/dL Normal 8.4-10.4 [employer] Comment on above: Performed By: #### H A1C2, HEMOG, LIPD2, BMP3M ####[facility] [place] [address] Anion gap [Moles/Vol] 5 mmol/L Normal 3-13 [facility] Comment on above: Performed By: #### H A1C2, HEMOG, LIPD2, BMP3M ####[facility] [place] [address] CO2 [Moles/Vol] 23 mmol/L Normal 22-30 [facility] Comment on above: Performed By: #### H A1C2, HEMOG, LIPD2, BMP3M ####[place] [address] [place] [address] Creatinine [Mass/Vol] 0.86 mg/dL Normal 0.52-1.25 [facility] Comment on above: Performed By: #### H A1C2, HEMOG, LIPD2, BMP3M ####[place] [address] [place] [address] eGFR OTHER > 90.0 Normal >60 [facility] Comment on above: Result Comment: KDIG O guidelines provide the following GFR categories: Stage GFR(ml/min/1.73 m2) Terms G1 >=90 Normal or high G2 60-89 Mildly decreased* G3a 45-59 Mildly to moderately decreased G3b 30-44 Moderately to severely decreased G4 15-29 Severely decreased G5 <15 Kidney failure *Relative to young adult level. In the absence of evidence of kidney damage, neither GFR category G1 nor G2 fulfill the criteria for CKD. The CKD-EPI equation is validated in individuals 18 years of age and older. Currently the best equation for estimating glomerular filtration rate (GFR) from serum creatinine in children is the Bedside Rubio equation. It is less accurate in patients with extremes of muscle mass, restriction of dietary protein, ingestion of creatine, extra-renal metabolism of creatinine, or treatment with medications that affect renal tubular creatinine secretion. Performed By: #### H A1C2, HEMOG, LIPD2, BMP3M ####[facility] [place] [address] GFR/1.73 sq M.predicted among blacks MDRD (S/P/Bld) [Vol rate/Area] mL/min/{1.73_m2} Normal >60 [facility] Comment on above: Performed By: #### H A1C2, HEMOG, LIPD2, BMP3M ####[facility] [place] [address] Glucose [Mass/Vol] 100 mg/dL Normal 70-100 [facility] Comment on above: Performed By: #### H A1C2, HEMOG, LIPD2, BMP3M ####[facility] [place] [address] Urea nitrogen [Mass/Vol] 16 mg/dL Normal 7-17 [facility] Comment on above: Performed By: #### H A1C2, HEMOG, LIPD2, BMP3M ####[facility] [place] [address] Chloride [Moles/Vol] 111 mmol/L High 98-107 [facility] Comment on above: Performed By: #### H A1C2, HEMOG, LIPD2, BMP3M ####[facility] [place] [address] Potassium [Moles/Vol] 3.9 mmol/L Normal 3.5-5.1 [facility] Comment on above: Performed By: #### H A1C2, HEMOG, LIPD2, BMP3M ####[facility] [place] [address] Sodium [Moles/Vol] 140 mmol/L Normal 135-145 [facility] Comment on above: Performed By: #### H A1C2, HEMOG, LIPD2, BMP3M ####[facility] [place] [address] Basic Metabolic Panel w/ Ref kourtney to MGon 04-16-2022 Anion gap [Moles/Vol] 5 mmol/L 3 - 13 mmol/L [facility] Calcium [Mass/Vol] 9.0 mg/dL 8.4 - 10. 4 mg/dL [facility] Chloride [Moles/Vol] 111 mmol/L High 98 - 10 7 mmol/L [facility] CO2 [Moles/Vol] 23 mmol/L 22 - 30 mmol/L [facility] Creatinine [Mass/Vol] 0.86 mg/dL 0.52 - 1.25 mg/dL [facility] eGFR mL/min 60 - P INF mL/min [facility] EGFR IF NonAfrican Cameroonian mL/min 60 - PINF mL/min [facility] Comment on above: KDIGO guidelines pro vide the following GFR categories: Stage GFR(ml/min/1.73 m2) Terms G1 >=90 Normal or high G2 60-89 Mildly decreased* G3a 45-59 Mildly to moderately decreased G3b 30-44 Moderately to severely decreased G4 15-29 Severely decreased G5 <15 Kidney failure *Relative to young adult level. In the absence of evidence of kidney damage, neither GFR category G1 nor G2 fulfill the criteria for CKD. The CKD-EPI equation is validated in individuals 18 years of age and older. Currently the best equation for estimating glomerular filtration rate (GFR) from serum creatinine in children is the Bedside Rubio equation. It is less accurate in patients with extremes of muscle mass, restriction of dietary protein, ingestion of creatine, extra-renal metabolism of creatinine, or treatment with medications that affect renal tubular creatinine secretion. Glucose [Mass/Vol] 100 mg/dL 70 - 100 mg/dL [facility] Potassium [Moles/Vol] 3.9 mmol/L 3.5 - 5.1 mmol/L [facility] Sodium [Moles/Vol] 140 mmol/L 135 - 145 mmol/L [facility] Urea nitrogen (BldV) [Mass/Vol] 16 mg/dL 7 - 17 mg/dL [facility] CBCon 04-16-2022 Hematocrit (Bld) [Volume fraction] 47.2 % 40 - 52 % [facility] Hemoglobin (Bld) [Mass/Vol] 16.1 g/dL 13 - 18 g/dL [facility] Interpretation and review of laboratory results Abnormal [facility] MCH (RBC) [Entitic mass] 28.7 pg 26 - 34 pg [facility] MCHC (RBC) [Mass/Vol] 34.1 % 32 - 36 % [facility] MCV (RBC) [Entitic vol] 84.1 fL 80 - 98 fL S [facility] Platelet distribution width (Bld) [Ratio] 15.0 % High 11.5 - 14.5 % [facility] Platelet mean volume (Bld) [Entitic vol] 9.6 fL 7.4 - 12.4 fL [facility] Comment on above: MPV is a calculated measurement using platelet volume ratio. Platelets (Bld) [#/Vol] 174 10*3/uL 140 - 440 10*3/uL [facility] RBC (Bld) [#/Vol] 5.60 10*6/uL 4.4 - 5.9 10*6/uL [facility] WBC (Bld) [#/Vol] 6.3 10*3/uL 3.6 - 10.7 10*3/uL [facility] Test Performed by [facility], [address] [place], [place] [address] [facility] Hemoglobin A1Con 04-16-2022 Glucose [Mass/Vol] 103 mg/dL Normal [facility] Comment on above: Performed By: #### H A1C2, HEMOG, LIPD2, BMP3M ####[facility] [employer] [address] [place] [address] HbA1c (Bld) [Mass fraction] 5.2 % Normal [facility] Comment on above: Result Comment: Norm al less than 5.7% Prediabetes 5.7% to 6.4% Diabetes 6.5% or higher --HgbA1C levels may not be accurate in patients who have renal disease, received recent blood transfusions, are anemic, or who have dyshemoglobinemia. Performed By: #### H A1C2, HEMOG, LIPD2, BMP3M ####[facility] [employer] [address] [place] [address] Hemoglobin A1con 04-16-2022 eAG 103 mg/dL [facility] HbA1c (Bld) [Mass fraction] 5.2 % [facility] Comment on above: Normal less than 5.7 % Prediabetes 5.7% to 6.4% Diabetes 6.5% or higher --HgbA1C levels may not be accurate in patients who have renal disease, received recent blood transfusions, are anemic, or who have dyshemoglobinemia. Test Performed by [facility], [address] [place], [place] [address] [facility] Hemogramon 04-16-2022 Erythrocyte distribution width (RBC) [Ratio] 15.0 % High 11.5-14.5 [facility] Comment on above: Performed By: #### H A1C2, HEMOG, LIPD2, BMP3M ####[facility] [place] [address] Hematocrit (Bld) [Volume fraction] 47.2 % Normal 40.0-52.0 [facility] Comment on above: Performed By: #### H A1C2, HEMOG, LIPD2, BMP3M ####[place] [address] [place] [address] Hemoglobin (Bld) [Mass/Vol] 16.1 g/dL Normal 13.0-18.0 [facility] Comment on above: Performed By: #### H A1C2, HEMOG, LIPD2, BMP3M ####[place] [address] [place] [address] MCH (RBC) [Entitic mass] 28.7 pg Normal 26.0-34.0 [facility] Comment on above: Performed By: #### H A1C2, HEMOG, LIPD2, BMP3M ####[address] [place] [address] MCHC 34.1 % Normal 32.0-36.0 [facility] Comment on above: Performed By: #### H A1C2, HEMOG, LIPD2, BMP3M ####[place] [address] [place] [address] MCV (RBC) [Entitic vol] 84.1 fL Normal 80.0-98.0 [facility] Comment on above: Performed By: #### H A1C2, HEMOG, LIPD2, BMP3M ####[address] [place] [address] Platelet mean volume (Bld) [Entitic vol] 9.6 fL Normal 7.4-12.4 [facility] Comment on above: Result Comment: MPV is a calculated measurement using platelet volume ratio. Performed By: #### H A1C2, HEMOG, LIPD2, BMP3M ####[place] [address] [place] [address] Platelets (Bld) [#/Vol] 174 10*3/uL Normal 140-440 [facility] Comment on above: Performed By: #### H A1C2, HEMOG, LIPD2, BMP3M ####[place] [address] [place] [address] RBC (Bld) [#/Vol] 5.60 10*6/uL Normal 4.40-5.90 [facility] Comment on above: Performed By: #### H A1C2, HEMOG, LIPD2, BMP3M ####[facility] [employer] [address] [place] [address] WBC (Bld) [#/Vol] 6.3 10*3/uL Normal 3.6-10.7 [facility] Comment on above: Performed By: #### H A1C2, HEMOG, LIPD2, BMP3M ####[facility] [employer] [address] [place] [address] Lipid Panelon 04-16-2022 Chol/HDL 4 Normal [facility] Comment on above: Result Comment: Ref Range: < 3 Low Risk for CHD 3-6 Mod Risk for CHD > 6 High Risk for CHD Performed By: #### H A1C2, HEMOG, LIPD2, BMP3M ####[facility] [employer] [address] [place] [address] Cholesterol in HDL [Mass/Vol] 32 mg/dL Low 40-60 [facility] Comment on above: Performed By: #### H A1C2, HEMOG, LIPD2, BMP3M ####[facility] [employer] [address] [place] [address] Low Density Lipoprotein 79 mg/dL Normal <100 [facility] Comment on above: Performed By: #### H A1C2, HEMOG, LIPD2, BMP3M ####[facility] [employer] [address] [place] [address] Triglyceride [Mass/Vol] 111 mg/dL Normal <150 [facility] Comment on above: Performed By: #### H A1C2, HEMOG, LIPD2, BMP3M ####[facility] [employer] [address] [place] [address] Cholesterol [Mass/Vol] 133 mg/dL Normal < 200 [facility] Comment on above: Performed By: #### H A1C2, HEMOG, LIPD2, BMP3M ####[facility] [employer] [address] [place] [address] Lipid panel - fastingon 04-07 Cholesterol [Mass/Vol] 133 mg/dL NINF - 200 mg/dL [facility] Cholesterol in HDL [Mass/Vol] 32 mg/dL Low 40 - 60 mg/dL [facility] Cholesterol in LDL [Mass/Vol] 79 mg/dL NINF - 100 mg/dL [facility] Cholesterol.total/Priscila sterol in HDL [Mass ratio] 4 {ratio} [facility] Comment on above: Ref Range: < 3 Low Risk for CHD 3-6 Mod Risk for CHD > 6 High Risk for CHD Triglyceride [Mass/Vol] 111 mg/dL NINF - 150 mg/dL [facility] No Panel Informationon 04-16 Interpretation and review of laboratory results Abnormal [facility] Test Performed by [facility], [address] [place], [place] [id number] [place] [address] LAB [facility] ROUTINE EKG TREADMILL STRESS TESTon 04-16-2022 EXERCISE ECG STRESS TEST Subhash Protocol PATIENT: Garry Morton STUDY DATE: 04/15/2022 : 1960 AGE: 62 HT/WT: 182.9 cm (72 86.4 kg in) (190.1 lb) GENDER: M BP: 114 / 76 LOCATION: [facility] PATIENT Observation [facility] STATUS: *ORDERING PHYSICIAN: * Madeline Turcios *SUPERVISING PHYSICIAN: * Keny Dawson *RN: * Kaila Fairbakns *READING PHYSICIAN: * Jacob Maravilla MD -- INDICATIONS: Chest pain. -- HISTORY: Dyslipidemia. Chest Pain/ discomfort without exertion. Tobacco use former Persistent atrial fibrillation. Medications: Apixaban (Eliquis). Atorvastatin (Lipitor). Aspirin. Allergies: No known allergies. Patient is NPO per policy. Hemoglobin, potassium and/or troponin x2 are within policy guidelines -- CONCLUSIONS SUMMARY: 1. Normal study after maximal exercise. 2. Procedure narrative: Treadmill exercise testing was performed using the Subhash protocol. The patient exercised for 12 min 43 sec, to a maximal work rate of 14.5 mets. Exercise was terminated due to moderate fatigue. 3. Stress: Stress testing did not produce any symptoms suggestive of coronary artery disease. Peak heart rate during stress was 206 bpm (130% of maximal predicted heart rate). The target heart rate was achieved. 4. Stress ECG conclusions: Wilkins scoring: exercise time of 12.75 min; maximum ST deviation of 0 mm; no angina; resulting score is 12.8. This score predicts a low risk of cardiac events. No stress induced ECG changes suggestive of ischemia. 5. Baseline ECG: Atrial fibrillation -- STUDY DATA: Exercise ECG stress test. Procedure: Initial setup. A baseline ECG was recorded. Surface ECG leads and blood pressure measurements were monitored. Treadmill exercise testing was performed using the Subhash protocol. The patient exercised for 12 min 43 sec, to a maximal work rate of 14.5 mets. Exercise was terminated due to moderate fatigue. Exercise was terminated when the patient's Tucker scale was 17. Study status: Routine. Patient status: Observation. Pre pain assessment is 0 out of 10. Post pain assessment is 0 out of 10. Location: Echo laboratory. Consent: The procedure was reviewed with the patient and the patient voices understanding. Study completion: The patient tolerated the procedure well. There were no complications. Discharge: Discharge instructions given The patient was transferred to [facility] -- FINDINGS BASELINE ECG: Atrial fibrillation STRESS PROTOCOL: + +---+---- --------+ +- + +Stage +HR +BP +Symptoms +Comments + + +---+---- --------+ +- + +Rest +91 +114/76 (89) +No symptoms.+Pulse ox 98% room air.+ + +---+---- --------+ +- + +Peak stress +206+164/70 (101)+Fatigue. + + + +---+---- --------+ +- + +Recovery +130+150/80 (103)+No symptoms.+ ---------+ + +---+---- --------+ +- + +Late recovery+109+116/74 (88) +No symptoms.+ ---------+ + +---+---- --------+ +- + STRESS RESULTS: There is a normal resting blood pressure with an appropriate blood pressure response to stress. Peak blood pressure achieved during test: 164/70 The rate-pressure product for the peak heart rate and blood pressure was 03538 mm Hg/min. Stress testing did not produce any symptoms suggestive of coronary artery disease. Peak heart rate during stress was 206 bpm (130% of maximal predicted heart rate). The maximal predicted heart rate was 159 bpm.The target heart rate was achieved. The heart rate recovery at one minute is normal. The heart rate at 1 minute into recovery was 179 bpm. The heart rate response to stress was normal. STRESS ECG: Wilkins scoring: exercise time of 12.75 min; maximum ST deviation of 0 mm; no angina; resulting score is 12.8. This score predicts a low risk of cardiac events. No stress induced ECG changes suggestive of ischemia. Electronically signed by Jacob Maravilla MD 04/16/2022 13:18 Prior Signatures: [facility] CARDIOLOGY Jacob Maravilla MD - 04/16/2022 EXERCISE ECG STRESS TEST Subhash Protocol PATIENT: Garry Morton STUDY DATE: 04/15/2022 : 1960 AGE: 62 HT/WT: 182.9 cm (72 86.4 kg in) (190.1 lb) GENDER: M BP: 114 / 76 LOCATION: [facility] PATIENT Observation [facility] STATUS: *ORDERING PHYSICIAN: * Madeline Turcios *SUPERVISING PHYSICIAN: * Keny Dawson *RN: * Kaila Fairbanks *READING PHYSICIAN: * Jacob Maravilla MD -- INDICATIONS: Chest pain. -- HISTORY: Dyslipidemia. Chest Pain/ discomfort without exertion. Tobacco use former Persistent atrial fibrillation. Medications: Apixaban (Eliquis). Atorvastatin (Lipitor). Aspirin. Allergies: No known allergies. Patient is NPO per policy. Hemoglobin, potassium and/or troponin x2 are within policy guidelines -- CONCLUSIONS SUMMARY: 1. Normal study after maximal exercise. 2. Procedure narrative: Treadmill exercise testing was performed using the Subhash protocol. The patient exercised for 12 min 43 sec, to a maximal work rate of 14.5 mets. Exercise was terminated due to moderate fatigue. 3. Stress: Stress testing did not produce any symptoms suggestive of coronary artery disease. Peak heart rate during stress was 206 bpm (130% of maximal predicted heart rate). The target heart rate was achieved. 4. Stress ECG conclusions: Wilkins scoring: exercise time of 12.75 min; maximum ST deviation of 0 mm; no angina; resulting score is 12.8. This score predicts a low risk of cardiac events. No stress induced ECG changes suggestive of ischemia. 5. Baseline ECG: Atrial fibrillation -- STUDY DATA: Exercise ECG stress test. Procedure: Initial setup. A baseline ECG was recorded. Surface ECG leads and blood pressure measurements were monitored. Treadmill exercise testing was performed using the Subhash protocol. The patient exercised for 12 min 43 sec, to a maximal work rate of 14.5 mets. Exercise was terminated due to moderate fatigue. Exercise was terminated when the patient's Tucker scale was 17. Study status: Routine. Patient status: Observation. Pre pain assessment is 0 out of 10. Post pain assessment is 0 out of 10. Location: Echo laboratory. Consent: The procedure was reviewed with the patient and the patient voices understanding. Study completion: The patient tolerated the procedure well. There were no complications. Discharge: Discharge instructions given The patient was transferred to [facility] -- FINDINGS BASELINE ECG: Atrial fibrillation STRESS PROTOCOL: + +---+---- --------+ +- + +Stage +HR +BP +Symptoms +Comments + + +---+---- --------+ +- + +Rest +91 +114/76 (89) +No symptoms.+Pulse ox 98% room air.+ + +---+---- --------+ +- + +Peak stress +206+164/70 (101)+Fatigue. + + + +---+---- --------+ +- + +Recovery +130+150/80 (103)+No symptoms.+ ---------+ + +---+---- --------+ +- + +Late recovery+109+116/74 (88) +No symptoms.+ ---------+ + +---+---- --------+ +- + STRESS RESULTS: There is a normal resting blood pressure with an appropriate blood pressure response to stress. Peak blood pressure achieved during test: 164/70 The rate-pressure product for the peak heart rate and blood pressure was 95894 mm Hg/min. Stress testing did not produce any symptoms suggestive of coronary artery disease. Peak heart rate during stress was 206 bpm (130% of maximal predicted heart rate). The maximal predicted heart rate was 159 bpm.The target heart rate was achieved. The heart rate recovery at one minute is normal. The heart rate at 1 minute into recovery was 179 bpm. The heart rate response to stress was normal. STRESS ECG: Wilkins scoring: exercise time of 12.75 min; maximum ST deviation of 0 mm; no angina; resulting score is 12.8. This score predicts a low risk of cardiac events. No stress induced ECG changes suggestive of ischemia. Electronically signed by Jacob Maravilla MD 04/16/2022 13:18 Prior Signatures: [employer] Phone: ROUTINE EKG TREADMILL STRESS TESTOrdered By: Jacob Maravilla on 04-16-2022 [employer] Phone: Routine EKG Treadmill Stress Teston 04-16-2022 Routine EKG Treadmill Stress Test Patient Name: GARRY MORTON Ultrasound ACCESSION EXAM DATE/TIME PROCEDURE ORDERING PROVIDER [id number] 04/16/2022 09:01 EDT Routine EKG Treadmill [id number] [place] Stress Test MADELINE Reason For Exam (Routine EKG Treadmill Stress Test) Chest pain Report EXERCISE ECG STRESS TEST Subhash Protocol PATIENT: Garry Morton STUDY DATE: 04/15/2022 : 1960 AGE: 62 HT/WT: 182.9 cm (72 86.4 kg in) (190.1 lb) GENDER: M BP: 114 / 76 LOCATION: [facility] PATIENT Observation [facility] STATUS: *ORDERING PHYSICIAN: * Madeline Turcios *SUPERVISING PHYSICIAN: * Keny Dawson *RN: * Kaila Fairbanks *READING PHYSICIAN: * Jacob Maravilla MD -- INDICATIONS: Chest pain. -- HISTORY: Dyslipidemia. Chest Pain/ discomfort without exertion. Tobacco use former Persistent atrial fibrillation. Medications: Apixaban (Eliquis). Atorvastatin (Lipitor). Aspirin. Allergies: No known allergies. Patient is NPO per policy. Hemoglobin, potassium and/or troponin x2 are within policy guidelines -- CONCLUSIONS SUMMARY: 1. Normal study after maximal exercise. 2. Procedure narrative: Treadmill exercise testing was performed using the Subhash protocol. The patient exercised for 12 min 43 sec, to a maximal work rate of 14.5 mets. Exercise was terminated due to moderate fatigue. 3. Stress: Stress testing did not produce any symptoms suggestive of coronary artery disease. Peak heart rate during stress was 206 bpm (130% of maximal predicted heart rate). The target heart rate was achieved. 4. Stress ECG conclusions: Wilkins scoring: exercise time of 12.75 min; maximum ST deviation of 0 mm; no angina; resulting score is 12.8. This score predicts a low risk of cardiac events. No stress induced ECG changes suggestive of ischemia. 5. Baseline ECG: Atrial fibrillation -- STUDY DATA: Exercise ECG stress test. Procedure: Initial setup. A Ultrasound Report baseline ECG was recorded. Surface ECG leads and blood pressure measurements were monitored. Treadmill exercise testing was performed using the Subhash protocol. The patient exercised for 12 min 43 sec, to a maximal work rate of 14.5 mets. Exercise was terminated due to moderate fatigue. Exercise was terminated when the patient's Tucker scale was 17. Study status: Routine. Patient status: Observation. Pre pain assessment is 0 out of 10. Post pain assessment is 0 out of 10. Location: Echo laboratory. Consent: The procedure was reviewed with the patient and the patient voices understanding. Study completion: The patient tolerated the procedure well. There were no complications. Discharge: Discharge instructions given The patient was transferred to [facility] -- FINDINGS BASELINE ECG: Atrial fibrillation STRESS PROTOCOL: + +---+---- --------+ +- + +Stage +HR +BP +Symptoms +Comments + + +---+---- --------+ +- + +Rest +91 +114/76 (89) +No symptoms.+Pulse ox 98% room air.+ + +---+---- --------+ +- + +Peak stress +206+164/70 (101)+Fatigue. + + + +---+---- --------+ +- + +Recovery +130+150/80 (103)+No symptoms.+ ---------+ + +---+---- --------+ +- + +Late recovery+109+116/74 (88) +No symptoms.+ ---------+ + +---+---- --------+ +- + STRESS RESULTS: There is a normal resting blood pressure with an appropriate blood pressure response to stress. Peak blood pressure achieved during test: 164/70 The rate-pressure product for the peak heart rate and blood pressure was 12307 mm Hg/min. Stress testing did not produce any symptoms suggestive of coronary artery disease. Peak heart rate during stress was 206 bpm (130% of maximal predicted heart rate). The maximal predicted heart rate was 159 bpm.The target heart rate was achieved. The heart rate recovery at one minute is normal. The heart rate at 1 minute into recovery was 179 bpm. The heart rate response to stress was normal. STRESS ECG: Wilkins scoring: exercise time of 12.75 min; maximum ST deviation of 0 mm; no angina; resulting score is 12.8. This score predicts a low risk of cardiac events. No stress induced ECG changes suggestive of ischemia. Electronically signed by Jacob Maravilla MD 04/16/2022 13:18 Prior Signatures: Final (more content not included)... Normal [facility] Basic Metabolic Panelon 09-0 -2021 Anion gap [Moles/Vol] 7 mmol/L Normal 3-13 [facility] Comment on above: Performed By: #### H EMDF, TROPN, BMP3 #### [facility] [address] [place] [address] Calcium [Mass/Vol] 9.3 mg/dL Normal 8.4-10.4 [facility] Comment on above: Performed By: #### H EMDF, TROPN, BMP3 #### [facility] [address] [place] [address] CO2 [Moles/Vol] 29 mmol/L Normal 22-30 [facility] Comment on above: Performed By: #### H CHRIS GUEVARA BMP3 #### [facility] [address] [place] [address] Creatinine [Mass/Vol] 0.94 mg/dL Normal 0.52-1.25 [facility] Comment on above: Performed By: #### H CHRIS GUEVARA BMP3 #### [facility] [address] [place] [address] GFR/1.73 sq M.predicted among blacks MDRD (S/P/Bld) [Vol rate/Area] mL/min/{1.73_m2} Normal >60 [facility] Comment on above: Performed By: #### H CHRIS GUEVARA, BMP3 #### [facility] [address] [place] [address] GFR/1.73 sq M.predicted among non-blacks MDRD (S/P/Bld) [Vol rate/Area] 87.0 mL/min/{1.73_m2} Normal >60 [facility] Comment on above: Result Comment: KDIG O guidelines provide the following GFR categories: Stage GFR(ml/min/1.73 m2) Terms G1 >=90 Normal or high G2 60-89 Mildly decreased* G3a 45-59 Mildly to moderately decreased G3b 30-44 Moderately to severely decreased G4 15-29 Severely decreased G5 <15 Kidney failure *Relative to young adult level. In the absence of evidence of kidney damage, neither GFR category G1 nor G2 fulfill the criteria for CKD. The CKD-EPI equation is validated in individuals 18 years of age and older. Currently the best equation for estimating glomerular filtration rate (GFR) from serum creatinine in children is the Bedside Rubio equation. It is less accurate in patients with extremes of muscle mass, restriction of dietary protein, ingestion of creatine, extra-renal metabolism of creatinine, or treatment with medications that affect renal tubular creatinine secretion. Performed By: #### H LISBET GUEVARAN, BMP3 #### [facility] [address] [place] [address] Glucose [Mass/Vol] 98 mg/dL Normal 70-100 [facility] Comment on above: Performed By: #### H EMDF, TROPN, BMP3 #### [facility] [address] [place] [address] Urea nitrogen [Mass/Vol] 10 mg/dL Normal 7-17 [facility] Comment on above: Performed By: #### H EMDF, TROPN, BMP3 #### [facility] [address] [place] [address] Chloride [Moles/Vol] 104 mmol/L Normal 98-107 [facility] Comment on above: Performed By: #### H EMDF, TROPN, BMP3 #### [facility] [address] [place] [address] Potassium [Moles/Vol] 4.4 mmol/L Normal 3.5-5.1 [facility] Comment on above: Performed By: #### H EMDF, TROPN, BMP3 #### [facility] [address] [place] [address] Sodium [Moles/Vol] 141 mmol/L Normal 135-145 [facility] Comment on above: Performed By: #### H EMDF, TROPN, BMP3 #### [facility] [address] [place] [address] Anion gap [Moles/Vol] 7 mmol/L 3 - 13 mmol/L [facility] Work Phone: 1 22 Calcium [Mass/Vol] 9.3 mg/dL 8.4 - 10. 4 mg/dL [facility] Work Phone: 22 Chloride [Moles/Vol] 104 mmol/L 98 - 10 7 mmol/L [facility] Work Phone: 22 CO2 [Moles/Vol] 29 mmol/L 22 - 30 mmol/L [facility] Work Phone: 22 Creatinine [Mass/Vol] 0.94 mg/dL 0.52 - 1.25 mg/dL [facility] Work Phone: 1 22 eGFR mL/min 60 - P INF mL/min [facility] Work Phone: 22 EGFR IF NonAfrican Cameroonian 87.0 mL/min 60 - PINF mL/min [facility] Work Phone: Comment on above: KDIGO guidelines pro vide the following GFR categories: Stage GFR(ml/min/1.73 m2) Terms G1 >=90 Normal or high G2 60-89 Mildly decreased* G3a 45-59 Mildly to moderately decreased G3b 30-44 Moderately to severely decreased G4 15-29 Severely decreased G5 <15 Kidney failure *Relative to young adult level. In the absence of evidence of kidney damage, neither GFR category G1 nor G2 fulfill the criteria for CKD. The CKD-EPI equation is validated in individuals 18 years of age and older. Currently the best equation for estimating glomerular filtration rate (GFR) from serum creatinine in children is the Bedside Rubio equation. It is less accurate in patients with extremes of muscle mass, restriction of dietary protein, ingestion of creatine, extra-renal metabolism of creatinine, or treatment with medications that affect renal tubular creatinine secretion. Glucose [Mass/Vol] 98 mg/dL 70 - 100 mg/dL [facility] Work Phone: Potassium [Moles/Vol] 4.4 mmol/L 3.5 - 5.1 mmol/L [facility] Work Phone: Sodium [Moles/Vol] 141 mmol/L 135 - 145 mmol/L [facility] Work Phone: Urea nitrogen (BldV) [Mass/Vol] 10 mg/dL 7 - 17 mg/dL [facility] Work Phone: Test Performed by [facility], [address] [place] [address] [address] LAB [facility] Work Phone: CBC with Auto Differentialon 04-15-2022 Absolute Baso # 0.0 10*3/uL 0 - 0.2 10*3/uL [facility] Work Phone: Absolute Neut # 5.0 10*3/uL 1.8 - 7 10*3/uL [facility] Work Phone: Basophils/100 WBC (Bld) 0.5 % 0 - 2 % S [facility] Work Phone: Eosinophils (Bld) [#/Vol] 0.2 10*3/uL 0 - 0.5 10*3/uL [facility] Work Phone: 1 Eosinophils/100 WBC (Bld) 2.9 % 1 - 6 % [facility] Work Phone: Granulocytes/100 WBC (Bld) 68.8 % 40 - 80 % [facility] Work Phone: Hematocrit (Bld) [Volume fraction] 49.7 % 40 - 52 % [facility] Work Phone: Hemoglobin (Bld) [Mass/Vol] 16.9 g/dL 13 - 18 g/dL [facility] Work Phone: [phone] Interpretation and review of laboratory results Abnormal [facility] Work Phone: 1 Lymphocytes (Bld) [#/Vol] 1.3 10*3/uL 1 - 4.3 10*3/uL [facility] Work Phone: 1 Lymphocytes/100 WBC (Bld) 17.9 % Low 20 - 40 % [facility] Work Phone: MCH (RBC) [Entitic mass] 28.5 pg 26 - 34 pg [facility] Work Phone: MCHC (RBC) [Mass/Vol] 34.0 % 32 - 36 % [facility] Work Phone: MCV (RBC) [Entitic vol] 84.0 fL 80 - 98 fL S [facility] Work Phone: Monocytes (Bld) [#/Vol] 0.6 10*3/uL 0 - 0.8 10*3/uL [facility] Work Phone: Monocytes/100 WBC (Bld) 8.9 % 2 - 10 % S [facility] Work Phone: Platelet distribution width (Bld) [Ratio] 14.3 % 11.5 - 14.5 % [facility] Work Phone: [phone] Platelet mean volume (Bld) [Entitic vol] 11.5 fL 7.4 - 12.4 fL [facility] Work Phone: [phone] Comment on above: MPV is a calculated measurement using platelet volume ratio. Platelets (Bld) [#/Vol] 214 10*3/uL 140 - 440 10*3/uL [facility] Work Phone: 1 RBC (Bld) [#/Vol] 5.92 10*6/uL High 4.4 - 5.9 10*6/uL [facility] Work Phone: 1 WBC (Bld) [#/Vol] 7.3 10*3/uL 3.6 - 10.7 10*3/uL [facility] Work Phone: 1 Test Performed by [facility], [address] , [address] LAB [facility] Work Phone: 1 COVID-19, Flu A/B, and RSV C omboon 04-15-2022 Influenza A by PCR Not detected [facility] Work Phone: 1 Influenza B by PCR Not detected [facility] Work Phone: 1) RSV PCR Not Detected. Expected Result: Not Detected _ Method: Real-time, RT-PCR This assay was developed by [employer] and distributed under an Emergency Use Authorization (EUA) granted by the FDA for the qualitative detection of nucleic acids from SARS-CoV-2, Influenza A, Influenza B, and Respiratory Syncytial Virus. Provider and patient fact sheets can be found at https://www.fda.gov/med ia/875803/download and https://www.fda.gov/med ia/968632/download. [facility] Work Phone: 1 SARS-CoV-2 (COVID-19) RNA EDUARD+probe Ql (Unsp spec) Not detected [facility] Work Phone: 1 Test Performed by [facility], [address] , [address] [facility] Work Phone: 1 CR Chest Portableon 04-15-20 CR Chest Portable Patient Name: GARRY MORTON Diagnostic Radiology ACCESSION EXAM DATE/TIME PROCEDURE ORDERING PROVIDER [id number] 04/15/2022 09:51 EDT CR Chest Portable MD CLARISSA, ISAC CPT code 02407 Reason For Exam (CR Chest Portable) chest pain Report INDICATION: 62-year-old; emergency department; chest pain. VIEWS: Portable AP upright COMPARISON: None. FINDINGS: The trachea is midline. The cardiac silhouette is within normal limits. The lungs are clear. Cardiac monitoring wires and leads are present.. IMPRESSION: No radiographic acute cardiopulmonary process. 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 : 1960 Requested By: ISAC ROMO Order Number: [id number] Reading MD: Isac Romo Measurements Intervals [place] Rate: 81 P: PA: QRS: -75 QRSD: 86 T: 5 QT: 368 QTc: 428 Interpretive Statements ATRIAL FIBRILLATION Rate 81 LOW VOLTAGE IN FRONTAL LEADS CONSIDER ANTEROSEPTAL INFARCT BASELINE WANDER IN LEAD(S) V6 Compared to ECG 12/14/2017 11:04:32 Myocardial infarct finding now present Sinus rhythm no longer present Electronically Signed On 04-15-2022 9:21:45 EDT by Isac Romo [facility] CARDIOLOGY Isac Romo M D - 04/15/2022 [facility] Test Date: 2022-04-15 Pat Name: GARRYSeferino MORTON Department: 2BED Room: 02 Gender: M 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 : 1960 Requested By: ISAC ROMO Order Number: [id number] Reading MD: Isac Romo Measurements Intervals [place] Rate: 81 P: PA: QRS: -75 QRSD: 86 T: 5 QT: 368 QTc: 428 Interpretive Statements ATRIAL FIBRILLATION Rate 81 LOW VOLTAGE IN FRONTAL LEADS CONSIDER ANTEROSEPTAL INFARCT BASELINE WANDER IN LEAD(S) V6 Compared to ECG 12/14/2017 11:04:32 Myocardial infarct finding now present Sinus rhythm no longer present Electronically Signed On 04-15-2022 9:21:45 EDT by Isac Romo [facility] Work Phone: [facility] Work Phone: Hemogram w/ Autodiffon 04-15 Abs Baso Cnt 0.0 10*3/uL Normal 0.0-0.2 [facility] Comment on above: Performed By: #### H EMDF, TROPN, BMP3 #### [facility] [address] [place] [address] Abs Neutrophile Cnt 5.0 10*3/uL Normal 1.8-7.0 [facility] Comment on above: Performed By: #### H EMDF, TROPN, BMP3 #### [facility] [address] [place] [address] Basophils/100 WBC (Bld) 0.5 % Normal 0.0-2.0 [facility] Comment on above: Performed By: #### H EMDF, TROPN, BMP3 #### [facility] [address] [place] [address] Eosinophils (Bld) [#/Vol] 0.2 10*3/uL Normal 0.0-0.5 [facility] Comment on above: Performed By: #### H EMDF, TROPN, BMP3 #### [facility] [address] [place] [address] Eosinophils/100 WBC (Bld) 2.9 % Normal 1.0-6.0 [facility] Comment on above: Performed By: #### H EMDF, TROPN, BMP3 #### [facility] [address] [place] [address] Erythrocyte distribution width (RBC) [Ratio] 14.3 % Normal 11.5-14.5 [facility] Comment on above: Performed By: #### H EMDF, TROPN, BMP3 #### [facility] [address] [place] [address] Granulocytes/100 WBC (Bld) 68.8 % Normal 40.0-80.0 [facility] Comment on above: Performed By: #### H EMDF, TROPN, BMP3 #### [facility] [address] [place] [address] Hematocrit (Bld) [Volume fraction] 49.7 % Normal 40.0-52.0 [facility] Comment on above: Performed By: #### H EMDF, TROPN, BMP3 #### [facility] [address] [place] [address] Hemoglobin (Bld) [Mass/Vol] 16.9 g/dL Normal 13.0-18.0 [facility] Comment on above: Performed By: #### H EMDF, TROPN, BMP3 #### [facility] [address] [place] [address] Lymphocytes (Bld) [#/Vol] 1.3 10*3/uL Normal 1.0-4.3 [facility] Comment on above: Performed By: #### H EMDF, TROPN, BMP3 #### [facility] [address] [place] [address] Lymphocytes/100 WBC (Bld) 17.9 % Low 20.0-40.0 [facility] Comment on above: Performed By: #### H EMDF, TROPN, BMP3 #### [facility] [address] [place] [address] MCH (RBC) [Entitic mass] 28.5 pg Normal 26.0-34.0 [facility] Comment on above: Performed By: #### H EMDF, TROPN, BMP3 #### [facility] [address] [place] [address] MCHC 34.0 % Normal 32.0-36.0 [facility] Comment on above: Performed By: #### H EMDF, TROPN, BMP3 #### [facility] [address] [place] [address] MCV (RBC) [Entitic vol] 84.0 fL Normal 80.0-98.0 [facility] Comment on above: Performed By: #### H EMDF, TROPN, BMP3 #### [facility] [address] [place] [address] Monocytes (Bld) [#/Vol] 0.6 10*3/uL Normal 0.0-0.8 [facility] Comment on above: Performed By: #### H EMDF, TROPN, BMP3 #### [facility] [address] [place] [address] Monocytes/100 WBC (Bld) 8.9 % Normal 2.0-10.0 [facility] Comment on above: Performed By: #### H EMDF, TROPN, BMP3 #### [facility] [address] [place] [address] Platelet mean volume (Bld) [Entitic vol] 11.5 fL Normal 7.4-12.4 [facility] Comment on above: Result Comment: MPV is a calculated measurement using platelet volume ratio. Performed By: #### H EMDF, TROPN, BMP3 #### [facility] [address] [place] [address] Platelets (Bld) [#/Vol] 214 10*3/uL Normal 140-440 [facility] Comment on above: Performed By: #### H EMDF, TROPN, BMP3 #### [facility] [address] [place] [address] RBC (Bld) [#/Vol] 5.92 10*6/uL High 4.40-5.90 [facility] Comment on above: Performed By: #### H EMDF, TROPN, BMP3 #### [facility] [address] [place] [address] WBC (Bld) [#/Vol] 7.3 10*3/uL Normal 3.6-10.7 [facility] Comment on above: Performed By: #### H EMDF, TROPN, BMP3 #### [facility] [address] [place] [address] SARS-CoV-2, Flu A/B and RSVo n 04-15-2022 SARS-CoV-2 (COVID-19) RNA EDUARD+probe Ql (Unsp spec) SARS-CoV-2 --> Status: F Not Detected. Flu A PCR --> Status: F Not Detected. Flu B PCR --> Status: F Not Detected. RSV PCR --> Status: F Not Detected. Expected Result: Not Detected _ Method: Real-time, RT-PCR This assay was developed by [employer] and distributed under an Emergency Use Authorization (EUA) granted by the FDA for the qualitative detection of nucleic acids from SARS-CoV-2, Influenza A, Influenza B, and Respiratory Syncytial Virus. Provider and patient fact sheets can be found at https://www.fda.gov/med ia/215804/download and https://www.fda.gov/med ia/484003/download. Expected Result: Not Detected _ Method: Real-time, RT-PCR This assay was developed by [employer] and distributed under an Emergency Use Authorization (EUA) granted by the FDA for the qualitative detection of nucleic acids from SARS-CoV-2, Influenza A, Influenza B, and Respiratory Syncytial Virus. Provider and patient fact sheets can be found at https://www.fda.gov/med ia/335868/download and https://www.fda.gov/med ia/443530/download. Normal [facility] Comment on above: Performed By: #### C VFLR #### [facility] [address] [place] [address] , [address] Troponinon 04-15-2022 Troponin I.cardiac [Mass/Vol] ng/mL 0 - 0.034 ng/mL [facility] Comment on above: . Test Performed by [facility], [address], [place], [place] [address] [facility] Troponin 4Hon 04-15-2022 Troponin I.cardiac [Mass/Vol] ng/mL 0 - 0.034 ng/mL [facility] Work Phone: Comment on above: . Test Performed by [facility], [address] , [place], [place] [address] [facility] Work Phone: Troponin Ion 04-15-2022 Troponin I.cardiac [Mass/Vol] ng/mL Normal 0.000-0.034 [facility] Comment on above: Result Comment: . Performed By: #### T ROPN #### [facility] [address] [place] [address] Troponin I.cardiac [Mass/Vol] ng/mL Normal 0.000-0.034 [facility] Comment on above: Result Comment: . Performed By: #### T ROPN #### [facility] [address] [place] [address] Troponin I.cardiac [Mass/Vol] ng/mL Normal 0.000-0.034 [facility] Comment on above: Result Comment: . Performed By: #### H EMDF, TROPN, BMP3 #### [facility] [address] [place] [address] Troponin x1on 04-15-2022 Troponin I.cardiac [Mass/Vol] ng/mL 0 - 0.034 ng/mL [facility] Work Phone: Comment on above: . Test Performed by [facility], [address] , [place], [place] [id number] [place] [address] [facility] Work Phone: XR CHEST PORTABLEon 04-15-20 Patient Name: GARRY MORTON Diagnostic Radiology ACCESSION EXAM DATE/TIME PROCEDURE ORDERING PROVIDER [id number] 04/15/2022 09:51 EDT CR Chest Portable MD ROMO VIJAY CPT code 45380 Reason For Exam (CR Chest Portable) chest pain Report INDICATION: 62-year-old; emergency department; chest pain. VIEWS: Portable AP upright COMPARISON: None. FINDINGS: The trachea is midline. The cardiac silhouette is within normal limits. The lungs are clear. Cardiac monitoring wires and leads are present.. IMPRESSION: No radiographic acute cardiopulmonary process. Report Dictated on --- Final --- Dictating Physician: MD FERMIN JENNIFER R Signed Date and Time: 04/15/2022 9:57 am Signed by: MD FERMIN JENNIFER R Transcribed Date and Time: 04/15/2022 9:58 [facility] Onelia Fermin MD - 04/15/2022 Patient Name: GARRY MORTON Diagnostic Radiology ACCESSION EXAM DATE/TIME PROCEDURE ORDERING PROVIDER [id number] 04/15/2022 09:51 EDT CR Chest Portable MD ROMO VIJAY CPT code 87839 Reason For Exam (CR Chest Portable) chest pain Report INDICATION: 62-year-old; emergency department; chest pain. VIEWS: Portable AP upright COMPARISON: None. FINDINGS: The trachea is midline. The cardiac silhouette is within normal limits. The lungs are clear. Cardiac monitoring wires and leads are present.. IMPRESSION: No radiographic acute cardiopulmonary process. Report Dictated on --- Final --- Dictating Physician: MD FERMIN JENNIFER R Signed Date and Time: 04/15/2022 9:57 am Signed by: MD FERMIN JENNIFER R Transcribed Date and Time: 04/15/2022 9:58 [facility] Work Phone: Radiology Study observation (narrative) [facility] Work Phone: XR CHEST PORTABLEOrdered By: Onelia Fermin on 04-15-2022 [facility] Work Phone: CR Hand Complete 3+ Views Le fton 03-03-2022 CR Hand Complete 3+ Views Left Patient Name: GARRY MORTON Diagnostic Radiology ACCESSION EXAM DATE/TIME PROCEDURE ORDERING PROVIDER [id number] 03/03/2022 16:40 EDT CR Hand Complete 3+ CHRISTELLE KAMINSKI HOLLY S Views Left CPT code 73314 Reason For Exam (CR Hand Complete 3+ Views Left) chronic left hand pain with joint swelling Report LEFT HAND: CLINICAL INDICATION: Pain and swelling. TECHNIQUE: PA, Lat, and oblique COMPARISON: None. FINDINGS: There is no fracture or dislocation. No bony spurring or erosion is noted with tiny cystic focus within the head of the middle phalanx of the middle finger is a likely benign finding. No other bone lesion is identified. There is no soft tissue abnormality. IMPRESSION: No significant abnormality. Report Dictated on Final Dictating Physician: MD LEON JEFFREY Signed Date and Time: 03/06/2022 6:47 pm Signed by: MD LEON JEFFREY Transcribed Date and Time: 03/06/2022 6:48 Normal [facility] .Auto Diffon 03-08-2019 Ammonia (P) [Mass/Vol] 0.50 10 3/mcL Normal 0.09-1.40 [facility] ([place]) Comment on above: Performed By: #### C BCGRISELIFF, ANEU #### [place] [address] #### TROP, BMP, GFR #### [address] [address] Basophils (Bld) [#/Vol] 0.00 10 3/mcL Normal 0.00-0.27 [facility] ([place]) Comment on above: Performed By: #### C BC, ADIFF, ANEU #### [place] [address] #### TROP, BMP, GFR #### [address] [address] Basophils/100 WBC (Bld) 0.3 % Normal 0.0-2.5 A [facility] ([place]) Comment on above: Performed By: #### C BC ADIFF, ANEU #### [place] [address] #### TROP, BMP, GFR #### [address] [address] Eosinophils (Bld) [#/Vol] 0.20 10 3/mcL Normal 0.00-0.65 [facility] ([place]) Comment on above: Performed By: #### C BC, ADIFF, ANEU #### [place] [address] #### TROP, BMP, GFR #### [address] [address] Eosinophils/100 WBC (Bld) 3.0 % Normal 0.0-6.0 [facility] ([place]) Comment on above: Performed By: #### C BC, ADIFF, ANEU #### [address] [address] #### TROP, BMP, GFR #### [address] [address] Lymphocytes (Bld) [#/Vol] 1.10 10 3/mcL Normal 0.90-4.32 [facility] ([place]) Comment on above: Performed By: #### C BC, ADIFF, ANEU #### [place] [address] #### TROP, BMP, GFR #### [address] [address] Lymphocytes/100 WBC (Bld) 21.2 % Normal 20.0-40.0 [facility] ([place]) Comment on above: Performed By: #### C BC, ADIFF, ANEU #### [place] [address] #### TROP, BMP, GFR #### [address] [address] Monocytes/100 WBC (Bld) 8.7 % Normal 2.0-13.0 A [facility] ([place]) Comment on above: Performed By: #### C BC, ADIFF, ANEU #### [place] [address] #### TROP, BMP, GFR #### [address] [address] Neutrophils/100 WBC (Bld) 66.8 % Normal 50.0-75.0 [facility] ([place]) Comment on above: Performed By: #### C BC, ADIFF, ANEU #### [address] [address] #### TROP, BMP, GFR #### [address] [address] .GFRon 03-08-2019 GFR Non- >60 Normal [facility] ([place]) Comment on above: Result Comment: GFR Population mean for , Non- Americans Ages 20-29 = 116 mL/min/1.73 sq.m. Ages 30-39 = 107 mL/min/1.73 sq.m. Ages 40-49 = 99 mL/min/1.73 sq.m. Ages 50-59 = 93 mL/min/1.73 sq.m. Ages 60-69 = 85 mL/min/1.73 sq.m. Ages 70+ = 75 mL/min/1.73 sq.m. Chronic Kidney Disease: Less than 60 mL/min/1.73 square meters End Stage Renal Disease: Less than 15 mL/min/1.73 square meters Performed By: #### C BC, ADIFF, ANEU #### [address] [address] #### TROP, BMP, GFR #### [place] [address] GFR >60 Normal [facility] ([place]) Comment on above: Result Comment: GFR Population mean for , Non- Americans Ages 20-29 = 116 mL/min/1.73 sq.m. Ages 30-39 = 107 mL/min/1.73 sq.m. Ages 40-49 = 99 mL/min/1.73 sq.m. Ages 50-59 = 93 mL/min/1.73 sq.m. Ages 60-69 = 85 mL/min/1.73 sq.m. Ages 70+ = 75 mL/min/1.73 sq.m. Chronic Kidney Disease: Less than 60 mL/min/1.73 square meters End Stage Renal Disease: Less than 15 mL/min/1.73 square meters Performed By: #### C BC, ADIFF, ANEU #### [address] [address] #### TROP, BMP, GFR #### [address] [address] .NEUABSon 03-08-2019 Neutrophils (Bld) [#/Vol] 3.50 10 3/mcL Normal 2.25-8.10 [facility] ([place]) Comment on above: Performed By: #### C BC, ADIFF, ANEU #### [address] [address] #### TROP, BMP, GFR #### [address] [address] APTTon 03-08-2019 aPTT Coag (Bld) [Time] 82.2 s High 25.0-35.0 [facility] ([place]) Comment on above: Result Comment: For Heparin anticoagulation therapy, the recommended therapeutic range is: 54-77 seconds (APTT Correlation with Anti-Xa therapeutic range of 0.3-0.7 units/ml). PLEASE REFERENCE THE PHARMACY PROTOCOL FOR DOSING. Performed By: #### C BC, ADIFF, ANEU #### [place] [address] #### TROP, BMP, GFR #### [place] [address] aPTT Coag (Bld) [Time] Heparin IV Normal [facility] ([place]) Comment on above: Performed By: #### C BC, ADIFF, ANEU #### [place] [address] #### TROP, BMP, GFR #### [address] [address] BMPon 03-08-2019 Calcium [Mass/Vol] 8.0 mg/dL Low 8.4-10.1 [facility] ([place]) Comment on above: Performed By: #### C BC, ADIFF, ANEU #### [address] [address] #### TROP, BMP, GFR #### [address] [address] CO2 [Moles/Vol] 26 mmol/L Normal 22-32 [facility] ([place]) Comment on above: Performed By: #### C BC, ADIFF, ANEU #### [place] [id number] #### TROP, BMP, GFR #### [address] [address] Creatinine [Mass/Vol] 0.98 mg/dL Normal 0.60-1.40 [facility] ([place]) Comment on above: Performed By: #### C BC, ADIFF, ANEU #### [address] [address] #### TROP, BMP, GFR #### [address] [address] Electrolyte Balance 9.0 mEq/L Normal 4.0-15.0 [facility] ([place]) Comment on above: Performed By: #### C BC, ADIFF, ANEU #### [address] [address] #### TROP, BMP, GFR #### [address] [address] Glucose [Mass/Vol] 86 mg/dL Normal 70-110 [facility] ([place]) Comment on above: Performed By: #### C BC, ADIFF, ANEU #### [address] [address] #### TROP, BMP, GFR #### [address] [address] Potassium [Moles/Vol] 4.0 mmol/L Normal 3.5-5.0 [facility] ([place]) Comment on above: Performed By: #### C BC, ADIFF, ANEU #### [address] [address] #### TROP, BMP, GFR #### [address] [address] Urea nitrogen [Mass/Vol] 15.0 mg/dL Normal 8.0-22.0 [facility] ([place]) Comment on above: Performed By: #### C BC, ADIFF, ANEU #### [address] [address] #### TROP, BMP, GFR #### [address] [address] Urea nitrogen/Creatinine [Mass ratio] 15.3 ratio Normal 10.0-22.0 [facility] ([place]) Comment on above: Performed By: #### C BC, ADIFF, ANEU #### [address] [address] #### TROP, BMP, GFR #### [address] [address] Chloride [Moles/Vol] 107 mmol/L Normal 98-110 [facility] ([place]) Comment on above: Performed By: #### C BC, ADIFF, ANEU #### [address] [address] #### TROP, BMP, GFR #### [address] [address] Sodium [Moles/Vol] 142 mmol/L Normal 136-145 [facility] ([place]) Comment on above: Performed By: #### C BC, ADIFF, ANEU #### [place] [address] #### TROP, BMP, GFR #### [address] [address] CBCon 03-08-2019 Erythrocyte distribution width (RBC) [Ratio] 15.0 % Normal 11.5-15.5 [facility] ([place]) Comment on above: Performed By: #### C BC, ADIFF, ANEU #### [address] [address] #### TROP, BMP, GFR #### [address] [address] Hematocrit (Bld) [Volume fraction] 47.4 % Normal 40.0-52.0 [facility] ([place]) Comment on above: Performed By: #### C BC, ADIFF, ANEU #### [place] [address] #### TROP, BMP, GFR #### [address] [address] Hemoglobin (Bld) [Mass/Vol] 16.4 G/dL Normal 13.0-17.5 [facility] ([place]) Comment on above: Performed By: #### C BC, ADIFF, ANEU #### [address] [address] #### TROP, BMP, GFR #### [address] [address] MCH (RBC) [Entitic mass] 29.5 pg Normal 27.0-33.0 [facility] ([place]) Comment on above: Performed By: #### C BC, ADIFF, ANEU #### [place] [address] #### TROP, BMP, GFR #### [address] [address] MCHC (RBC) [Mass/Vol] 34.5 G/dL Normal 32.0-36.0 [facility] ([place]) Comment on above: Performed By: #### C BC, ADIFF, ANEU #### [place] [address] #### TROP, BMP, GFR #### [place] [address] MCV (RBC) [Entitic vol] 85.3 fL Normal 81.0-100.0 A [facility] ([place]) Comment on above: Performed By: #### C BC, ADIFF, ANEU #### [place] [address] #### TROP, BMP, GFR #### [place] [address] Platelet mean volume (Bld) [Entitic vol] 9.8 fL Normal 6.4-10.5 [facility] ([place]) Comment on above: Performed By: #### C BC, ADIFF, ANEU #### [place] [address] #### TROP, BMP, GFR #### [address] [address] Platelets (Bld) [#/Vol] 143 10 3/mcL Low 150-450 [facility] ([place]) Comment on above: Performed By: #### C BC, ADIFF, ANEU #### [place] [address] #### TROP, BMP, GFR #### [place] [address] RBC (Bld) [#/Vol] 5.55 10 6/mcL Normal 4.50-6.00 [facility] ([place]) Comment on above: Performed By: #### C BC, ADIFF, ANEU #### [place] [address] #### TROP, BMP, GFR #### [place] [address] WBC (Bld) [#/Vol] 5.30 10 3/mcL Normal 4.50-10.80 [facility] ([place]) Comment on above: Performed By: #### C BC, ADIFF, ANEU #### [place] [address] #### TROP, BMP, GFR #### [place] [address] .Auto Diffon 03-07-2019 Ammonia (P) [Mass/Vol] 0.60 10 3/mcL Normal 0.09-1.40 [facility] ([place]) Comment on above: Performed By: #### C BC, ADIFF, ANEU #### [place] [address] #### TROP, BMP, GFR #### [place] [address] Basophils (Bld) [#/Vol] 0.00 10 3/mcL Normal 0.00-0.27 [facility] ([place]) Comment on above: Performed By: #### C BC, ADIFF, ANEU #### [place] [address] #### TROP, BMP, GFR #### [place] [address] Basophils/100 WBC (Bld) 0.2 % Normal 0.0-2.5 A [facility] ([place]) Comment on above: Performed By: #### C BC, ADIFF, ANEU #### [address] [address] #### TROP, BMP, GFR #### [address] [address] Eosinophils (Bld) [#/Vol] 0.20 10 3/mcL Normal 0.00-0.65 [facility] ([place]) Comment on above: Performed By: #### C BC, ADIFF, ANEU #### [place] [address] #### TROP, BMP, GFR #### [address] [address] Eosinophils/100 WBC (Bld) 2.9 % Normal 0.0-6.0 [facility] ([place]) Comment on above: Performed By: #### C BC, ADIFF, ANEU #### [place] [address] #### TROP, BMP, GFR #### [address] [address] Lymphocytes (Bld) [#/Vol] 1.20 10 3/mcL Normal 0.90-4.32 [facility] ([place]) Comment on above: Performed By: #### C BC, ADIFF, ANEU #### [place] [address] #### TROP, BMP, GFR #### [address] [address] Lymphocytes/100 WBC (Bld) 18.9 % Low 20.0-40.0 [facility] ([place]) Comment on above: Performed By: #### C BC, ADIFF, ANEU #### [place] [address] #### TROP, BMP, GFR #### [address] [address] Monocytes/100 WBC (Bld) 8.8 % Normal 2.0-13.0 A [facility] ([place]) Comment on above: Performed By: #### C BC, ADIFF, ANEU #### [place] [address] #### TROP, BMP, GFR #### [address] [address] Neutrophils/100 WBC (Bld) 69.2 % Normal 50.0-75.0 [facility] ([place]) Comment on above: Performed By: #### C BCANALIA, ANEU #### [place] [address] #### TROP, BMP, GFR #### [address] [address] .NEUABSon 03-07-2019 Neutrophils (Bld) [#/Vol] 4.50 10 3/mcL Normal 2.25-8.10 [facility] ([place]) Comment on above: Performed By: #### C ANALIA MORENO, ANEU #### [place] [address] #### TROP, BMP, GFR #### [place] [id number] APTTon 03-07-2019 aPTT Coag (Bld) [Time] 57.8 s High 25.0-35.0 [facility] ([place]) Comment on above: Result Comment: For Heparin anticoagulation therapy, the recommended therapeutic range is: 54-77 seconds (APTT Correlation with Anti-Xa therapeutic range of 0.3-0.7 units/ml). PLEASE REFERENCE THE PHARMACY PROTOCOL FOR DOSING. Performed By: #### C ANALIA MORENO, ANEU #### [place] [address] #### TROP, BMP, GFR #### [address] [address] aPTT Coag (Bld) [Time] Heparin IV Normal [facility] ([place]) Comment on above: Performed By: #### C BCANALIA, ANEU #### [place] [address] #### TROP, BMP, GFR #### [address] [address] aPTT Coag (Bld) [Time] 34.1 s Normal 25.0-35.0 [facility] ([place]) Comment on above: Result Comment: For Heparin anticoagulation therapy, the recommended therapeutic range is: 54-77 seconds (APTT Correlation with Anti-Xa therapeutic range of 0.3-0.7 units/ml). PLEASE REFERENCE THE PHARMACY PROTOCOL FOR DOSING. Performed By: #### C BC, ADIFF, ANEU #### [place] [address] #### TROP, BMP, GFR #### [place] [address] aPTT Coag (Bld) [Time] None Normal [facility] ([place]) Comment on above: Result Comment: no h eparin luciana higgins Performed By: #### C BC, ADIFF, ANEU #### [place] [address] #### TROP, BMP, GFR #### [place] [address] CBCon 03-07-2019 Erythrocyte distribution width (RBC) [Ratio] 15.0 % Normal 11.5-15.5 [facility] ([place]) Comment on above: Performed By: #### C BC, ADIFF, ANEU #### [place] [address] #### TROP, BMP, GFR #### [place] [address] Hematocrit (Bld) [Volume fraction] 49.2 % Normal 40.0-52.0 [facility] ([place]) Comment on above: Performed By: #### C BC, ADIFF, ANEU #### [place] [address] #### TROP, BMP, GFR #### [place] [address] Hemoglobin (Bld) [Mass/Vol] 17.2 G/dL Normal 13.0-17.5 [facility] ([place]) Comment on above: Performed By: #### C BC, ADIFF, ANEU #### [place] [address] #### TROP, BMP, GFR #### [address] [address] MCH (RBC) [Entitic mass] 29.6 pg Normal 27.0-33.0 [facility] ([place]) Comment on above: Performed By: #### C BC, ADIFF, ANEU #### [address] [address] #### TROP, BMP, GFR #### [place] [address] MCHC (RBC) [Mass/Vol] 34.9 G/dL Normal 32.0-36.0 [facility] ([place]) Comment on above: Performed By: #### C BC, ADIFF, ANEU #### [place] [address] #### TROP, BMP, GFR #### [place] [address] MCV (RBC) [Entitic vol] 84.8 fL Normal 81.0-100.0 A [facility] ([place]) Comment on above: Performed By: #### C BC, ADIFF, ANEU #### [place] [address] #### TROP, BMP, GFR #### [place] [address] Platelet mean volume (Bld) [Entitic vol] 9.8 fL Normal 6.4-10.5 [facility] ([place]) Comment on above: Performed By: #### C BC, ADIFF, ANEU #### [place] [address] #### TROP, BMP, GFR #### [place] [id number] Platelets (Bld) [#/Vol] 169 10 3/mcL Normal 150-450 [facility] ([place]) Comment on above: Performed By: #### C BC, ADIFF, ANEU #### [place] [address] #### TROP, BMP, GFR #### [place] [id number] RBC (Bld) [#/Vol] 5.81 10 6/mcL Normal 4.50-6.00 [facility] ([place]) Comment on above: Performed By: #### C ANALIA MORENO ANEU #### [address] [address] #### TROP, BMP, GFR #### [place] [id number] WBC (Bld) [#/Vol] 6.40 10 3/mcL Normal 4.50-10.80 [facility] ([place]) Comment on above: Performed By: #### C ANALIA MORENO ANEU #### [place] [address] #### TROP, BMP, GFR #### [place] [address] PROon 03-07-2019 INR Coag (PPP) [Relative time] 1.1 {INR} Normal [facility] ([place]) Comment on above: Result Comment: The [employer] [employer] (CHEST, 1992, 102:[id number]-[id number]) recommended therapeutic range for oral anticoagulant therapy is: LOW RISK: Prophylaxis of venous thrombosis INR: 2.0-3.0 Treatment of pulmonary embolism 2.0-3.0 Prevention of systemic embolism 2.0-3.0 HIGH RISK: Mechanical prosthetic valves 2.5-3.5 Performed By: #### C ANALIA MORENO ANEU #### [place] [address] #### TROP, BMP, GFR #### [place] [id number] PT Coag (PPP) [Time] 13.2 s Normal 9.0-14.6 [facility] ([place]) Comment on above: Result Comment: Effe ctive 02/19/08, Protime results may be affected by some antibiotics (i.e. Ciprofloxacin, Azithromycin, Bactrim) which may potentiate the action of oral anticoagulants, with further increase in Protime/INR. Performed By: #### C ANALIA MORENO, ANEU #### [place] [address] #### TROP, BMP, GFR #### [address] [address] .Auto Diffon 03-06-2019 Ammonia (P) [Mass/Vol] 0.50 10 3/mcL Normal 0.15-1.00 [facility] ([place]) Comment on above: Performed By: #### C BC, ADIFF, ANEU #### [place] [address] #### CMP, MG, GFR #### [address] [address] Basophils (Bld) [#/Vol] 0.00 10 3/mcL Normal 0.00-0.19 [facility] ([place]) Comment on above: Performed By: #### C BC, ADIFF, ANEU #### [place] [address] #### CMP, MG, GFR #### [place] [address] Basophils/100 WBC (Bld) 0.4 % Normal 0.0-2.5 A [facility] ([place]) Comment on above: Performed By: #### C BC, ADIFF, ANEU #### [place] [address] #### CMP, MG, GFR #### [place] [address] Eosinophils (Bld) [#/Vol] 0.20 10 3/mcL Normal 0.00-0.40 [facility] ([place]) Comment on above: Performed By: #### C BC, ADIFF, ANEU #### [place] [address] #### CMP, MG, GFR #### [place] [id number] Eosinophils/100 WBC (Bld) 3.9 % Normal 0.0-7.0 [facility] ([place]) Comment on above: Performed By: #### C BC, ADIFF, ANEU #### [address] [address] #### CMP, MG, GFR #### [address] [address] Lymphocytes (Bld) [#/Vol] 1.20 10 3/mcL Normal 0.77-3.85 [facility] ([place]) Comment on above: Performed By: #### C BC, ADIFF, ANEU #### [place] [address] #### CMP, MG, GFR #### [address] [address] Lymphocytes/100 WBC (Bld) 24.3 % Normal 10.0-50.0 [facility] ([place]) Comment on above: Performed By: #### C BC, ADIFF, ANEU #### [address] [address] #### CMP, MG, GFR #### [address] [address] Monocytes/100 WBC (Bld) 10.5 % Normal 1.7-13.0 A [facility] ([place]) Comment on above: Performed By: #### C BC, ADIFF, ANEU #### [place] [address] #### CMP, MG, GFR #### [address] [address] Neutrophils/100 WBC (Bld) 60.9 % Normal 37.0-80.0 [facility] ([place]) Comment on above: Performed By: #### C BC, ADIFF, ANEU #### [address] [address] #### CMP, MG, GFR #### [address] [address] .GFRon 03-06-2019 GFR Non- 76 ml/min/1.73sqm Normal [facility] ([place]) Comment on above: Result Comment: GFR Population mean for , Non- Americans Ages 20-29 = 116 mL/min/1.73 sq.m. Ages 30-39 = 107 mL/min/1.73 sq.m. Ages 40-49 = 99 mL/min/1.73 sq.m. Ages 50-59 = 93 mL/min/1.73 sq.m. Ages 60-69 = 85 mL/min/1.73 sq.m. Ages 70+ = 75 mL/min/1.73 sq.m. Chronic Kidney Disease: Less than 60 mL/min/1.73 square meters End Stage Renal Disease: Less than 15 mL/min/1.73 square meters Performed By: #### C BC, ADIFF, ANEU #### [address] [address] #### TROP, BMP, GFR #### [address] [address] GFR 92 ml/min/1.73sqm Normal [facility] ([place]) Comment on above: Result Comment: GFR Population mean for , Non- Americans Ages 20-29 = 116 mL/min/1.73 sq.m. Ages 30-39 = 107 mL/min/1.73 sq.m. Ages 40-49 = 99 mL/min/1.73 sq.m. Ages 50-59 = 93 mL/min/1.73 sq.m. Ages 60-69 = 85 mL/min/1.73 sq.m. Ages 70+ = 75 mL/min/1.73 sq.m. Chronic Kidney Disease: Less than 60 mL/min/1.73 square meters End Stage Renal Disease: Less than 15 mL/min/1.73 square meters Performed By: #### C BC, ADIFF, ANEU #### [address] [address] #### TROP, BMP, GFR #### [address] [address] .NEUABSon 03-06-2019 Neutrophils (Bld) [#/Vol] 3.10 10 3/mcL Normal 2.85-6.16 [facility] ([place]) Comment on above: Performed By: #### C BC, ADIFF, ANEU #### [address] [address] #### TROP, BMP, GFR #### [address] [address] CBCon 03-06-2019 Erythrocyte distribution width (RBC) [Ratio] 15.3 % High 11.5-14.5 [facility] ([place]) Comment on above: Performed By: #### C BC, ADIFF, ANEU #### [place] [address] #### CMP, MG, GFR #### [place] [address] Hematocrit (Bld) [Volume fraction] 46.8 % Normal 42.0-52.0 [facility] ([place]) Comment on above: Performed By: #### C BC, ADIFF, ANEU #### [place] [address] #### CMP, MG, GFR #### [place] [address] Hemoglobin (Bld) [Mass/Vol] 16.0 G/dL Normal 14.0-18.0 [facility] ([place]) Comment on above: Performed By: #### C BC, ADIFF, ANEU #### [place] [address] #### CMP, MG, GFR #### [place] [address] MCH (RBC) [Entitic mass] 29.0 pg Normal 27.0-31.2 [facility] ([place]) Comment on above: Performed By: #### C BC, ADIFF, ANEU #### [place] [address] #### CMP, MG, GFR #### [place] [address] MCHC (RBC) [Mass/Vol] 34.2 G/dL Normal 31.8-35.4 [facility] ([place]) Comment on above: Performed By: #### C BC, ADIFF, ANEU #### [place] [address] #### CMP, MG, GFR #### [address] [address] MCV (RBC) [Entitic vol] 84.9 fL Normal 80.0-94.0 A [facility] ([place]) Comment on above: Performed By: #### C ANALIA MORENO, ANEU #### [address] [address] #### CMP, MG, GFR #### [address] [address] Platelet mean volume (Bld) [Entitic vol] 10.0 fL Normal 7.4-10.4 [facility] ([place]) Comment on above: Performed By: #### C ANALIA MORENO, ANEU #### [place] [address] #### CMP, MG, GFR #### [address] [address] Platelets (Bld) [#/Vol] 145 10 3/mcL Normal 130-400 [facility] ([place]) Comment on above: Performed By: #### C ANALIA MORENO, ANEU #### [place] [address] #### CMP, MG, GFR #### [address] [address] RBC (Bld) [#/Vol] 5.51 10 6/mcL Normal 4.04-6.13 [facility] ([place]) Comment on above: Performed By: #### C ANALIA MORENO, ANEU #### [place] [address] #### CMP, MG, GFR #### [address] [address] WBC (Bld) [#/Vol] 5.10 10 3/mcL Normal 4.60-10.80 [facility] ([place]) Comment on above: Performed By: #### C BC, ADIFF, ANEU #### [place] [id number] #### CMP, MG, GFR #### [address] [address] CMPon 03-06-2019 Albumin [Mass/Vol] 3.5 G/dL Normal 3.5-5.0 [facility] ([place]) Comment on above: Performed By: #### C BC, ADIFF, ANEU #### [address] [address] #### TROP, BMP, GFR #### [address] [address] Albumin/Globulin [Mass ratio] 1.1 {ratio} Normal 1.1-2.5 [facility] ([place]) Comment on above: Performed By: #### C BC, ADIFF, ANEU #### [place] [address] #### TROP, BMP, GFR #### [place] [address] ALP [Catalytic activity/Vol] 69 U/L Normal 40-135 [facility] ([place]) Comment on above: Performed By: #### C BC, ADIFF, ANEU #### [place] [address] #### TROP, BMP, GFR #### [address] [address] ALT [Catalytic activity/Vol] 22 U/L Normal 10-35 [facility] ([place]) Comment on above: Performed By: #### C BC, ADIFF, ANEU #### [place] [address] #### TROP, BMP, GFR #### [address] [address] AST [Catalytic activity/Vol] 25 U/L Normal 10-40 [facility] ([place]) Comment on above: Performed By: #### C BC, ADIFF, ANEU #### [place] [address] #### TROP, BMP, GFR #### [address] [address] Bili Total 1.0 mg/dL Normal 0.2-1.0 [facility] ([place]) Comment on above: Performed By: #### C BC, ADIFF, ANEU #### [address] [address] #### TROP, BMP, GFR #### [address] [address] Calcium [Mass/Vol] 9.0 mg/dL Normal 8.4-10.2 [facility] ([place]) Comment on above: Performed By: #### C BC, ADIFF, ANEU #### [address] [address] #### TROP, BMP, GFR #### [address] [address] Chloride [Moles/Vol] 106 mmol/L Normal 98-107 [facility] ([place]) Comment on above: Performed By: #### C BC, ADIFF, ANEU #### [address] [address] #### TROP, BMP, GFR #### [address] [address] CO2 [Moles/Vol] 24 mmol/L Normal 22-29 [facility] ([place]) Comment on above: Performed By: #### C BC, ADIFF, ANEU #### [address] [address] #### TROP, BMP, GFR #### [address] [address] Creatinine [Mass/Vol] 1.01 mg/dL Normal 0.70-1.30 [facility] ([place]) Comment on above: Performed By: #### C BC, ADIFF, ANEU #### [address] [address] #### TROP, BMP, GFR #### [address] [address] Electrolyte Balance 12.0 mEq/L Normal [facility] ([place]) Comment on above: Performed By: #### C BC, ADIFF, ANEU #### [address] [address] #### TROP, BMP, GFR #### [address] [address] Globulin (S) [Mass/Vol] 3.2 G/dL Normal A [facility] ([place]) Comment on above: Performed By: #### C BC, ADIFF, ANEU #### [address] [address] #### TROP, BMP, GFR #### [address] [address] Glucose [Mass/Vol] 90 mg/dL Normal 70-105 [facility] ([place]) Comment on above: Performed By: #### C BC, ADIFF, ANEU #### [address] [address] #### TROP, BMP, GFR #### [address] [address] Potassium [Moles/Vol] 4.1 mmol/L Normal 3.5-5.1 [facility] ([place]) Comment on above: Performed By: #### C BC, ADIFF, ANEU #### [address] [address] #### TROP, BMP, GFR #### [address] [address] Protein [Mass/Vol] 6.7 G/dL Normal 6.4-8.2 [facility] ([place]) Comment on above: Performed By: #### C BC, ADIFF, ANEU #### [address] [address] #### TROP, BMP, GFR #### [address] [address] Sodium [Moles/Vol] 142 mmol/L Normal 136-145 [facility] ([place]) Comment on above: Performed By: #### C BC, ADIFF, ANEU #### [address] [address] #### TROP, BMP, GFR #### [address] [address] Urea nitrogen [Mass/Vol] 16 mg/dL Normal 7-18 [facility] ([place]) Comment on above: Performed By: #### C BC, ADIFF, ANEU #### [address] [address] #### TROP, BMP, GFR #### [address] [address] Urea nitrogen/Creatinine [Mass ratio] 16 ratio Normal 7-27 [facility] ([place]) Comment on above: Performed By: #### C BC, ADIFF, ANEU #### [address] [address] #### TROP, BMP, GFR #### [address] [address] MGon 03-06-2019 Magnesium [Mass/Vol] 1.8 mg/dL Normal 1.8-2.4 [facility] ([place]) Comment on above: Performed By: #### C BC, ADIFF, ANEU #### [place] [id number] #### TROP, BMP, GFR #### [address] [address] NM MYOCARDIAL SPECT STRESS/R ESTon 03-06-2019 NM MYOCARDIAL SPECT STRESS/REST ORIGINAL NM MYOCARDIAL SPECT STRESS/REST CLINICAL STATEMENT: chest pain TECHNIQUE: Stress Protocol:Subhash Time Exercised:6:00minutes Predicted Max HR:162 Max HR Achieved:196 Percent Max HR:120 Peak Systolic BP:148/92 Rate-Pressure product: 12625 Radiopharmaceutical(res t): Tc-99m Sestamibi IV Dose:10.9 mCi Radiopharmaceutical(str ess): Tc-99m Sestamibi IV Dose:31.3 mCi SPECT acquisition:SPECT reconstruction and reorientation into short axis, vertical and horizontal long axis planes Quantitative LVEF assessment COMPARISON:None REPORT:Left ventricle appears normal in size on both stress and rest images. Stress images revealed mildly reduced radiotracer uptake in basal to distal anterior and basal to distal inferior wall suggestive of inducible ischemia. Rest of the myocardium has relatively homogenous radiotracer uptake. Resting images revealed mildly reduced radiotracer uptake in basal to mid inferior wall. Gated SPECT imaging could not be performed due to patient being in A. fib. TID ratio 0.97. IMPRESSION: 1. Evidence of inducible ischemia in basal to distal anterior and basal to distal inferior wall. 2. No evidence of prior myocardial infarction. 3. Gated SPECT imaging could not be performed due to patient in A. fib. 4. Recommend another cardiac imaging modality for evaluation of LV systolic function. 5. No prior study available for comparison. Interpreted By: Keith Ramos Preliminary Report By: Keith Ramos Electronically Signed By: Keith Ramos Dictated Date: 03/06/2019 11:45:59 AM Prelim Date: 03/06/2019 11:45:59 AM Sign Date: 03/06/2019 11:52:06 AM Normal [facility] ([place]) .Auto Diffon 03-05-2019 Ammonia (P) [Mass/Vol] 0.50 10 3/mcL Normal 0.15-1.00 [facility] ([place]) Comment on above: Performed By: #### C ANALIA MORENO, ANEU #### [place] [address] #### TROP, BMP, GFR #### [address] [address] Basophils (Bld) [#/Vol] 0.00 10 3/mcL Normal 0.00-0.19 [facility] ([place]) Comment on above: Performed By: #### C BCANALIA, ANEU #### [place] [address] #### TROP, BMP, GFR #### [address] [address] Basophils/100 WBC (Bld) 0.6 % Normal 0.0-2.5 A [facility] ([place]) Comment on above: Performed By: #### C BC, ADJENNIFER, ANEU #### [place] [address] #### TROP, BMP, GFR #### [address] [address] Eosinophils (Bld) [#/Vol] 0.20 10 3/mcL Normal 0.00-0.40 [facility] ([place]) Comment on above: Performed By: #### C BC, ADIFF, ANEU #### [address] [address] #### TROP, BMP, GFR #### [address] [address] Eosinophils/100 WBC (Bld) 4.0 % Normal 0.0-7.0 [facility] ([place]) Comment on above: Performed By: #### C BC, ADIFF, ANEU #### [address] [address] #### TROP, BMP, GFR #### [address] [address] Lymphocytes (Bld) [#/Vol] 1.20 10 3/mcL Normal 0.77-3.85 [facility] ([place]) Comment on above: Performed By: #### C BC, ADIFF, ANEU #### [address] [address] #### TROP, BMP, GFR #### [address] [address] Lymphocytes/100 WBC (Bld) 25.3 % Normal 10.0-50.0 [facility] ([place]) Comment on above: Performed By: #### C BC, ADIFF, ANEU #### [address] [address] #### TROP, BMP, GFR #### [address] [address] Monocytes/100 WBC (Bld) 11.9 % Normal 1.7-13.0 A [facility] ([place]) Comment on above: Performed By: #### C BC, ADIFF, ANEU #### [address] [address] #### TROP, BMP, GFR #### [address] [address] Neutrophils/100 WBC (Bld) 58.2 % Normal 37.0-80.0 [facility] ([place]) Comment on above: Performed By: #### C BC, ADIFF, ANEU #### [place]ce [address] [address] #### TROP, BMP, GFR #### [address] [address] .GFRon 03-05-2019 GFR 80 ml/min/1.73sqm Normal [facility] ([place]) Comment on above: Result Comment: GFR Population mean for , Non- Americans Ages 20-29 = 116 mL/min/1.73 sq.m. Ages 30-39 = 107 mL/min/1.73 sq.m. Ages 40-49 = 99 mL/min/1.73 sq.m. Ages 50-59 = 93 mL/min/1.73 sq.m. Ages 60-69 = 85 mL/min/1.73 sq.m. Ages 70+ = 75 mL/min/1.73 sq.m. Chronic Kidney Disease: Less than 60 mL/min/1.73 square meters End Stage Renal Disease: Less than 15 mL/min/1.73 square meters Performed By: #### C ANALIA MORENO, ANEU #### [place] [address] [address] #### TROP, BMP, GFR #### [address] [address] GFR Non- 66 ml/min/1.73sqm Normal [facility] ([place]) Comment on above: Result Comment: GFR Population mean for , Non- Americans Ages 20-29 = 116 mL/min/1.73 sq.m. Ages 30-39 = 107 mL/min/1.73 sq.m. Ages 40-49 = 99 mL/min/1.73 sq.m. Ages 50-59 = 93 mL/min/1.73 sq.m. Ages 60-69 = 85 mL/min/1.73 sq.m. Ages 70+ = 75 mL/min/1.73 sq.m. Chronic Kidney Disease: Less than 60 mL/min/1.73 square meters End Stage Renal Disease: Less than 15 mL/min/1.73 square meters Performed By: #### C BCANALIA, ANEU #### [place] [address] [address] #### TROP, BMP, GFR #### [address] [address] .NEUABSon 03-05-2019 Neutrophils (Bld) [#/Vol] 2.70 10 3/mcL Low 2.85-6.16 [facility] ([place]) Comment on above: Performed By: #### C BC, ADIFF, ANEU #### [place] [address] #### TROP, BMP, GFR #### [place] [address] BMPon 03-05-2019 Calcium [Mass/Vol] 9.3 mg/dL Normal 8.4-10.2 [facility] ([place]) Comment on above: Performed By: #### C BC, ADIFF, ANEU #### [place] [address] #### TROP, BMP, GFR #### [place] [address] Chloride [Moles/Vol] 104 mmol/L Normal 98-107 [facility] ([place]) Comment on above: Performed By: #### C BC, ADIFF, ANEU #### [place] [address] #### TROP, BMP, GFR #### [place] [address] CO2 [Moles/Vol] 29 mmol/L Normal 22-29 [facility] ([place]) Comment on above: Performed By: #### C BC, ADIFF, ANEU #### [place] [address] #### TROP, BMP, GFR #### [place] [address] Creatinine [Mass/Vol] 1.14 mg/dL Normal 0.70-1.30 [facility] ([place]) Comment on above: Performed By: #### C BC, ADIFF, ANEU #### [place] [address] #### TROP, BMP, GFR #### [address] [address] Electrolyte Balance 8.0 mEq/L Normal [facility] ([place]) Comment on above: Performed By: #### C BC, ADIFF, ANEU #### [address] [address] #### TROP, BMP, GFR #### [address] [address] Glucose [Mass/Vol] 95 mg/dL Normal 70-105 [facility] ([place]) Comment on above: Performed By: #### C BC, ADIFF, ANEU #### [address] [address] #### TROP, BMP, GFR #### [address] [address] Potassium [Moles/Vol] 4.4 mmol/L Normal 3.5-5.1 [facility] ([place]) Comment on above: Performed By: #### C BC, ADIFF, ANEU #### [address] [address] #### TROP, BMP, GFR #### [address] [address] Sodium [Moles/Vol] 141 mmol/L Normal 136-145 [facility] ([place]) Comment on above: Performed By: #### C BC, ADIFF, ANEU #### [address] [address] #### TROP, BMP, GFR #### [address] [address] Urea nitrogen [Mass/Vol] 13 mg/dL Normal 7-18 [facility] ([place]) Comment on above: Performed By: #### C BC, ADIFF, ANEU #### [address] [address] #### TROP, BMP, GFR #### [address] [address] Urea nitrogen/Creatinine [Mass ratio] 11 ratio Normal 7-27 [facility] ([place]) Comment on above: Performed By: #### C BC, ADIFF, ANEU #### [address] [address] #### TROP, BMP, GFR #### [address] [address] CBCon 03-05-2019 Erythrocyte distribution width (RBC) [Ratio] 15.1 % High 11.5-14.5 [facility] ([place]) Comment on above: Performed By: #### C BC, ADIFF, ANEU #### [place] [address] #### TROP, BMP, GFR #### [place] [address] Hematocrit (Bld) [Volume fraction] 46.4 % Normal 42.0-52.0 [facility] ([place]) Comment on above: Performed By: #### C BC, ADIFF, ANEU #### [place] [address] #### TROP, BMP, GFR #### [place] [address] Hemoglobin (Bld) [Mass/Vol] 16.1 G/dL Normal 14.0-18.0 [facility] ([place]) Comment on above: Performed By: #### C BC, ADIFF, ANEU #### [place] [address] #### TROP, BMP, GFR #### [place] [address] MCH (RBC) [Entitic mass] 29.3 pg Normal 27.0-31.2 [facility] ([place]) Comment on above: Performed By: #### C BC, ADIFF, ANEU #### [place] [address] #### TROP, BMP, GFR #### [place] [id number] MCHC (RBC) [Mass/Vol] 34.7 G/dL Normal 31.8-35.4 [facility] ([place]) Comment on above: Performed By: #### C BC, ADIFF, ANEU #### [address] [address] #### TROP, BMP, GFR #### [address] [address] MCV (RBC) [Entitic vol] 84.5 fL Normal 80.0-94.0 A [facility] ([place]) Comment on above: Performed By: #### C BC, ADIFF, ANEU #### [address] [address] #### TROP, BMP, GFR #### [address] [address] Platelet mean volume (Bld) [Entitic vol] 9.6 fL Normal 7.4-10.4 [facility] ([place]) Comment on above: Performed By: #### C BC, ADIFF, ANEU #### [address] [address] #### TROP, BMP, GFR #### [address] [address] Platelets (Bld) [#/Vol] 150 10 3/mcL Normal 130-400 [facility] ([place]) Comment on above: Performed By: #### C BC, ADIFF, ANEU #### [address] [address] #### TROP, BMP, GFR #### [address] [address] RBC (Bld) [#/Vol] 5.49 10 6/mcL Normal 4.04-6.13 [facility] ([place]) Comment on above: Performed By: #### C BC, ADIFF, ANEU #### [address] [address] #### TROP, BMP, GFR #### [address] [address] WBC (Bld) [#/Vol] 4.60 10 3/mcL Normal 4.60-10.80 [facility] ([place]) Comment on above: Performed By: #### C BC, ADIFF, ANEU #### [place] [address] [place], [place] [address] #### TROP, BMP, GFR #### [address] [address] TROPon 03-05-2019 Troponin I.cardiac [Mass/Vol] ng/mL Normal 0.000-0.040 [facility] ([place]) Comment on above: Result Comment: Trop onin I reference range: 0.00-0.040 ng/mL Negative and non-diagnostic. >0.040 ng/mL Consistent with cardiac damage, increased clinical risk and possibility of myocardial infarction. Serial measurements, a rise & fall in test results, clinical history, appropriate symptoms and/or ECG changes may help assess possibility of NV. *Other non-acute coronary syndrome conditions such as CHF, myocarditis, pulmonary emboli, sepsis and cardiac surgery could result in myocardial damage and increased troponin levels. Performed By: #### T ROP #### [place] [id number] Troponin I.cardiac [Mass/Vol] ng/mL Normal 0.000-0.040 [facility] ([place]) Comment on above: Result Comment: Trop onin I reference range: 0.00-0.040 ng/mL Negative and non-diagnostic. >0.040 ng/mL Consistent with cardiac damage, increased clinical risk and possibility of myocardial infarction. Serial measurements, a rise & fall in test results, clinical history, appropriate symptoms and/or ECG changes may help assess possibility of NV. *Other non-acute coronary syndrome conditions such as CHF, myocarditis, pulmonary emboli, sepsis and cardiac surgery could result in myocardial damage and increased troponin levels. Performed By: #### C BC, ADIFF, ANEU #### [address] [address] #### TROP, BMP, GFR #### [address] [address] XR CHEST 1 VIEWon 03-05-2019 XR CHEST 1 VIEW ORIGINAL XR CHEST 1 VIEW AP portable upright CLINICAL INDICATION: chest pain COMPARISON: 01/12/2018 FINDINGS: The heart is normal in size. The aorta is mildly tortuous. The rafat are not enlarged. There is no pleural effusion. The lungs are clear. There is no vascular congestion. The bones are unremarkable. IMPRESSION: No acute cardiopulmonary disease. Interpreted By: Anshu Balbuena MD Preliminary Report By: Anshu Balbuena MD Electronically Signed By: Anshu Balbuena MD Dictated Date: 03/05/2019 8:46:50 AM Prelim Date: 03/05/2019 8:46:50 AM Sign Date: 03/05/2019 8:47:52 AM Normal [facility] ([place]) Basic Metabolic Panelon 04-2 Anion gap 8 mmol/L Normal [facility] Comment on above: Performed By: #### B MP3, MG3 ####The performing lab is in the report. Calcium 8.9 mg/dL Normal 8.4-10.2 [facility] Comment on above: Performed By: #### B MP3, MG3 ####The performing lab is in the report. CO2 30 mmol/L Normal 22-30 [facility] Comment on above: Performed By: #### B MP3, MG3 ####The performing lab is in the report. Glucose mass conc 91 mg/dL Normal 70-100 [facility] Comment on above: Performed By: #### B MP3, MG3 ####The performing lab is in the report. Urea nitrogen 15 mg/dL Normal 7-20 [facility] Comment on above: Performed By: #### B MP3, MG3 ####The performing lab is in the report. Creatinine 1.03 mg/dL Normal 0.52-1.25 [facility] Comment on above: Performed By: #### B MP3, MG3 ####The performing lab is in the report. eGFR (black) mL/min/{1.73_m2} Normal >60 [facility] Comment on above: Performed By: #### B MP3, MG3 ####The performing lab is in the report. eGFR (non-black) mL/min/{1.73_m2} Normal >60 [facility] Comment on above: Result Comment: Sour ce- MDRD equation with creatinine calibration to IDMS(NKDEP)eGFR not recommended for drug dose adjustment Performed By: #### B MP3, MG3 ####The performing lab is in the report. Potassium molar conc 4.1 mmol/L Normal 3.5-5.1 [facility] Comment on above: Performed By: #### Karen MP3, MG3 ####The performing lab is in the report. Chloride 104 mmol/L Normal 98-107 [facility] Comment on above: Performed By: #### B MP3, MG3 ####The performing lab is in the report. Sodium 142 mmol/L Normal 137-145 [facility] Comment on above: Performed By: #### Karen MP3, MG3 ####The performing lab is in the report. Magnesiumon 11-24-2017 Magnesium 1.9 mg/dL Normal 1.6-2.3 [facility] Comment on above: Performed By: #### Karen MP3, MG3 ####The performing lab is in the report. Basic Metabolic Panelon 11-05 Calcium 9.0 mg/dL Normal 8.4-10.2 [facility] Comment on above: Performed By: #### Karen MP3, MG3 ####The performing lab is in the report. Glucose mass conc 100 mg/dL Normal 70-100 [facility] Comment on above: Performed By: #### Karen MP3, MG3 ####The performing lab is in the report. Urea nitrogen 16 mg/dL Normal 7-20 [facility] Comment on above: Performed By: #### Karen MP3, MG3 ####The performing lab is in the report. Anion gap 8 mmol/L Normal [facility] Comment on above: Performed By: #### Karen MP3, MG3 ####The performing lab is in the report. CO2 25 mmol/L Normal 22-30 [facility] Comment on above: Performed By: #### B MP3, MG3 ####The performing lab is in the report. Creatinine 0.95 mg/dL Normal 0.52-1.25 [facility] Comment on above: Performed By: #### B MP3, MG3 ####The performing lab is in the report. eGFR (black) mL/min/{1.73_m2} Normal >60 [facility] Comment on above: Performed By: #### B MP3, MG3 ####The performing lab is in the report. eGFR (non-black) mL/min/{1.73_m2} Normal >60 [facility] Comment on above: Result Comment: Sour ce- MDRD equation with creatinine calibration to IDMS(NKDEP)eGFR not recommended for drug dose adjustment Performed By: #### B MP3, MG3 ####The performing lab is in the report. Chloride 106 mmol/L Normal 98-107 [facility] Comment on above: Performed By: #### B MP3, MG3 ####The performing lab is in the report. Potassium molar conc 4.0 mmol/L Normal 3.5-5.1 [facility] Comment on above: Performed By: #### B MP3, MG3 ####The performing lab is in the report. Sodium 139 mmol/L Normal 137-145 [facility] Comment on above: Performed By: #### B MP3, MG3 ####The performing lab is in the report. Magnesiumon 11-23-2017 Magnesium 1.8 mg/dL Normal 1.6-2.3 [facility] Comment on above: Performed By: #### B MP3, MG3 ####The performing lab is in the report. Basic Metabolic Panelon 11-05 Calcium 8.8 mg/dL Normal 8.4-10.2 [facility] Comment on above: Performed By: #### B MP3, MG3 ####The performing lab is in the report. Glucose mass conc 96 mg/dL Normal 70-100 [facility] Comment on above: Performed By: #### B MP3, MG3 ####The performing lab is in the report. Urea nitrogen 14 mg/dL Normal 7-20 [facility] Comment on above: Performed By: #### B MP3, MG3 ####The performing lab is in the report. Anion gap 10 mmol/L Normal [facility] Comment on above: Performed By: #### B MP3, MG3 ####The performing lab is in the report. CO2 26 mmol/L Normal 22-30 [facility] Comment on above: Performed By: #### B MP3, MG3 ####The performing lab is in the report. Creatinine 0.95 mg/dL Normal 0.52-1.25 [facility] Comment on above: Performed By: #### B MP3, MG3 ####The performing lab is in the report. eGFR (black) mL/min/{1.73_m2} Normal >60 [facility] Comment on above: Performed By: #### B MP3, MG3 ####The performing lab is in the report. eGFR (non-black) mL/min/{1.73_m2} Normal >60 [facility] Comment on above: Result Comment: Sour ce- MDRD equation with creatinine calibration to IDMS(NKDEP)eGFR not recommended for drug dose adjustment Performed By: #### B MP3, MG3 ####The performing lab is in the report. Potassium molar conc 4.0 mmol/L Normal 3.5-5.1 [facility] Comment on above: Performed By: #### Karen MP3, MG3 ####The performing lab is in the report. Chloride 106 mmol/L Normal 98-107 [facility] Comment on above: Performed By: #### Karen MP3, MG3 ####The performing lab is in the report. Sodium 142 mmol/L Normal 137-145 [facility] Comment on above: Performed By: #### Karen MP3, MG3 ####The performing lab is in the report. Magnesiumon 11-22-2017 Magnesium 1.9 mg/dL Normal 1.6-2.3 [facility] Comment on above: Performed By: #### B MP3, MG3 ####The performing lab is in the report. Basic Metabolic Panelon 11-05 Calcium 9.2 mg/dL Normal 8.4-10.2 [facility] Comment on above: Performed By: #### H ROSEMARIEG, BMP3M, MG3, TSH4 ####The performing lab is in the report. Anion gap 9 mmol/L Normal [facility] Comment on above: Performed By: #### H EMOG, BMP3M, MG3, TSH4 ####The performing lab is in the report. CO2 30 mmol/L Normal 22-30 [facility] Comment on above: Performed By: #### H EMOG, BMP3M, MG3, TSH4 ####The performing lab is in the report. Creatinine 0.97 mg/dL Normal 0.52-1.25 [facility] Comment on above: Performed By: #### H EMOG, BMP3M, MG3, TSH4 ####The performing lab is in the report. eGFR (black) mL/min/{1.73_m2} Normal >60 [facility] Comment on above: Performed By: #### H EMOG, BMP3M, MG3, TSH4 ####The performing lab is in the report. eGFR (non-black) mL/min/{1.73_m2} Normal >60 [facility] Comment on above: Result Comment: Sour ce- MDRD equation with creatinine calibration to IDMS(NKDEP)eGFR not recommended for drug dose adjustment Performed By: #### H EMOG, BMP3M, MG3, TSH4 ####The performing lab is in the report. Glucose mass conc 94 mg/dL Normal 70-100 [facility] Comment on above: Performed By: #### H EMOG, BMP3M, MG3, TSH4 ####The performing lab is in the report. Urea nitrogen 11 mg/dL Normal 7-20 [facility] Comment on above: Performed By: #### H EMOG, BMP3M, MG3, TSH4 ####The performing lab is in the report. Chloride 102 mmol/L Normal 98-107 [facility] Comment on above: Performed By: #### H EMOG, BMP3M, MG3, TSH4 ####The performing lab is in the report. Potassium molar conc 4.6 mmol/L Normal 3.5-5.1 [facility] Comment on above: Performed By: #### H EMOG, BMP3M, MG3, TSH4 ####The performing lab is in the report. Sodium 141 mmol/L Normal 137-145 [facility] Comment on above: Performed By: #### H EMOG, BMP3M, MG3, TSH4 ####The performing lab is in the report. Hemogramon 11-21-2017 Erythrocyte distribution width Auto Ratio (RBC) 14.2 % Normal 11.5-14.5 [facility] Comment on above: Performed By: #### Alma EMOG, BMP3M, MG3, TSH4 ####The performing lab is in the report. Erythrocytes (RBC) 5.59 10*6/uL Normal 4.40-5.90 [facility] Comment on above: Performed By: #### Alma EMOG, BMP3M, MG3, TSH4 ####The performing lab is in the report. Hematocrit (HCT) 48.3 % Normal 40.0-52.[address] [facility] Comment on above: Performed By: #### Alma EMOG, BMP3M, MG3, TSH4 ####The performing lab is in the report. Hemoglobin mass conc (Bld) 16.3 g/dL Normal 13.0-18.0 [facility] Comment on above: Performed By: #### Alma EMOG, BMP3M, MG3, TSH4 ####The performing lab is in the report. MCH 29.2 pg Normal 26.0-34.0 [facility] Comment on above: Performed By: #### Alma EMOVianey, BMP3M, MG3, TSH4 ####The performing lab is in the report. MCHC mass conc (RBC) 33.8 % Normal 32.0-36.0 [facility] Comment on above: Performed By: #### [place] EMOVianey, BMP3M, MG3, TSH4 ####The performing lab is in the report. MCV 86.4 fL Normal 80.0-98.0 [facility] Comment on above: Performed By: #### H EMOG, BMP3M, MG3, TSH4 ####The performing lab is in the report. Platelet mean volume (PMV) 9.4 fL Normal 7.4-10.4 [facility] Comment on above: Performed By: #### H EMOG, BMP3M, MG3, TSH4 ####The performing lab is in the report. Platelets 167 10*3/uL Normal 140-440 [facility] Comment on above: Performed By: #### H EMOG, BMP3M, MG3, TSH4 ####The performing lab is in the report. WBC (Leukocytes) 5.2 10*3/uL Normal 3.6-10.7 [facility] Comment on above: Performed By: #### H EMOG, BMP3M, MG3, TSH4 ####The performing lab is in the report. Magnesiumon 11-21-2017 Magnesium 1.9 mg/dL Normal 1.6-2.3 [facility] Comment on above: Performed By: #### H EMOG, BMP3M, MG3, TSH4 ####The performing lab is in the report. Thyroid Stim. Hormoneon 11-05 Thyroid Stim. Hormone 2.300 uU/mL Normal 0.465-4.680 [facility] Comment on above: Performed By: #### H EMOG, BMP3M, MG3, TSH4 ####The performing lab is in the report. [facility] Note on 02-08-2017 [facility] Note Normal [facility] Patient Summary Documentson 02-08-2017 Patient Summary Documents Normal [facility] Vital Signs Date Time Vital Sign Value Performing Clinician Malinda diaz 03-19-2025 15:41-0400 Body height 180.3 cm Jacquelyn Kaminski APRN - [employer] Work Phone: [facility] 03-19-2025 15:41-0400 Body mass index (BMI) [Ratio] 27.17 kg/m2 Jacquelyn Kaminski APRN - [employer] Work Phone: [facility] 03-19-2025 15:41-0400 Body weight 88.36 kg Jacquelyn Kaminski [employer] Work Phone: [facility] 03-19-2025 15:41-0400 Diastolic blood pressure 61 mm[Hg] Jacquelyn Kaminski APRN - [employer] Work Phone: [facility] 03-19-2025 15:41-0400 Heart rate 74 /min Jacquelyn Kaminski APRN - [employer] Work Phone: [facility] 03-19-2025 15:41-0400 SaO2% (BldA) [Mass fraction] 95 % Jacquelyn Kaminski [employer] Work Phone: [facility] 03-19-2025 15:41-0400 Systolic blood pressure 94 mm[Hg] Jacquelyn Kaminski [employer] Work Phone: [facility] 02-19-2025 13:29-0400 Body mass index (BMI) [Ratio] 27.2 kg/m2 Miguel Ángel Bridenthal [employer] Work Phone: [facility] 02-19-2025 13:29-0400 Body temperature 98.71 [degF] Miguel Ángel Bridenthal [employer] Work Phone: [facility] 02-19-2025 13:29-0400 Body weight 88.45 kg Miguel Ángel Bridenthal [employer] Work Phone: [facility] 02-19-2025 13:29-0400 Diastolic blood pressure 67 mm[Hg] Miguel Ángel Bridenthal [employer] Work Phone: [facility] 02-19-2025 13:29-0400 Heart rate 73 /min Miguel Ángel Bridenthal [employer] Work Phone: [facility] 02-19-2025 13:29-0400 Respiratory rate 18 /min Miguel Ángel Bridenthal [employer] Work Phone: [facility] 02-19-2025 13:29-0400 SaO2% (BldA) [Mass fraction] 98 % Miguel Ángel Bridenthal [employer] Work Phone: [facility] 02-19-2025 13:29-0400 Systolic blood pressure 102 mm[Hg] Miguel Ángel Bridenthal [employer] Work Phone: [facility] 02-18-2025 15:20-0400 Body mass index (BMI) [Ratio] 27.31 kg/m2 Miguel Ángel Bridenthal [employer] Work Phone: [facility] 02-18-2025 15:20-0400 Body temperature 98.4 [degF] Miguel Ángel Bridenthal [employer] Work Phone: [facility] 02-18-2025 15:20-0400 Body weight 88.81 kg Miguel Ángel Bridenthal [employer] Work Phone: [facility] 02-18-2025 15:20-0400 Diastolic blood pressure 80 mm[Hg] Miguel Ángel Bridenthal [employer] Work Phone: [facility] 02-18-2025 15:20-0400 Heart rate 82 /min Miguel Ángel Bridenthal [employer] Work Phone: [facility] 02-18-2025 15:20-0400 Respiratory rate 20 /min Miguel Ángel Bridenthal [employer] Work Phone: [facility] 02-18-2025 15:20-0400 SaO2% (BldA) [Mass fraction] 96 % Miguel Ángel Bridenthal [employer] Work Phone: [facility] 02-18-2025 15:20-0400 Systolic blood pressure 138 mm[Hg] Miguel Ángel Bridenthal [employer] Work Phone: [facility] 01-23-2025 15:40-0400 Body mass index (BMI) [Ratio] 28.23 kg/m2 Miguel Ángel Bridenthal [employer] Work Phone: [facility] 01-23-2025 15:40-0400 Body temperature 98.29 [degF] Miguel Ángel Bridenthal [employer] Work Phone: [facility] 01-23-2025 15:40-0400 Body weight 91.81 kg Miguel Ángel Bridenthal [employer] Work Phone: [facility] 01-23-2025 15:40-0400 Diastolic blood pressure 71 mm[Hg] Miguel Ángel Bridenthal [employer] Work Phone: [facility] 01-23-2025 15:40-0400 Heart rate 92 /min Miguel Ángel Bridenthal [employer] Work Phone: [facility] 01-23-2025 15:40-0400 Respiratory rate 18 /min Miguel Ángel Bridenthal [employer] Work Phone: [facility] 01-23-2025 15:40-0400 SaO2% (BldA) [Mass fraction] 96 % Miguel Ángel Bridenthal [employer] Work Phone: [facility] 01-23-2025 15:40-0400 Systolic blood pressure 117 mm[Hg] Miguel Ángel Bridenthal [employer] Work Phone: [facility] 01-08-2025 11:05-0400 Body height 180.3 cm Felton Benitez MD Work Phone: [facility] 01-08-2025 11:05-0400 Body mass index (BMI) [Ratio] 28.31 kg/m2 Felton Benitez MD Work Phone: [facility] 01-08-2025 11:05-0400 Body weight 92.08 kg Felton Benitez MD Work Phone: [facility] 01-08-2025 11:05-0400 Diastolic blood pressure 80 mm[Hg] Felton Benitez MD Work Phone: [facility] 01-08-2025 11:05-0400 Heart rate 60 /min Felton Benitez MD Work Phone: [facility] 01-08-2025 11:05-0400 Respiratory rate 20 /min Felton Benitez MD Work Phone: [facility] 01-08-2025 11:05-0400 SaO2% (BldA) [Mass fraction] 98 % Felton Benitez MD Work Phone: [facility] 01-08-2025 11:05-0400 Systolic blood pressure 110 mm[Hg] Felton Benitez MD Work Phone: [facility] 01-02-2025 12:57-0400 Body height 180.3 cm Kenton Turpin MD Work Phone: [facility] 01-02-2025 12:57-0400 Body mass index (BMI) [Ratio] 27.78 kg/m2 Kenton Turpin MD Work Phone: [facility] 01-02-2025 12:57-0400 Body weight 90.36 kg Kenton Turpin MD Work Phone: [facility] [place] [place] 01-02-2025 12:57-0400 Diastolic blood pressure 74 mm[Hg] Kenton Turpin MD Work Phone: [facility] [place] 01-02-2025 12:57-0400 Heart rate 70 /min Kenton Turpin MD Work Phone: [facility] 01-02-2025 12:57-0400 SaO2% (BldA) [Mass fraction] 98 % Kenton Turpin MD Work Phone: [facility] 01-02-2025 12:57-0400 Systolic blood pressure 110 mm[Hg] Kenton Turpin MD Work Phone: [facility] 09-18-2024 15:22-0500 Diastolic blood pressure 72 mm[Hg] Jacquelyn Kaminski [employer] Work Phone: [facility] 09-18-2024 15:22-0500 Systolic blood pressure 118 mm[Hg] Jacquelyn Kaminski [employer] Work Phone: [facility] 09-18-2024 15:06-0500 Body height 180.3 cm Jacquelyn Kaminski [employer] Work Phone: [facility] [place] 09-18-2024 15:06-0500 Body mass index (BMI) [Ratio] 28.48 kg/m2 Jacquelyn Kaminski [employer] Work Phone: [facility] [place] 09-18-2024 15:06-0500 Body weight 92.63 kg Jacquelyn Kaminski [employer] Work Phone: [facility] [place] 09-18-2024 15:06-0500 Heart rate 91 /min Jacquelyn Kaminski [employer] Work Phone: [facility] [place] 09-18-2024 15:06-0500 SaO2% (BldA) [Mass fraction] 97 % Jacquelyn Kaminski [employer] Work Phone: [facility] [place] 06-12-2024 15:41-0500 Body height 180.3 cm Jacquelyn Kaminski [employer] Work Phone: [facility] 06-12-2024 15:41-0500 Body mass index (BMI) [Ratio] 28.09 kg/m2 Jacquelyn Kaminski [employer] Work Phone: [facility] [place] 06-12-2024 15:41-0500 Body weight 91.35 kg Jacquelyn Kaminski [employer] Work Phone: [facility] [place] 06-12-2024 15:41-0500 Diastolic blood pressure 82 mm[Hg] Jacquelyn Kaminski [employer] Work Phone: [facility] 06-12-2024 15:41-0500 Heart rate 77 /min Jacquelyn Kaminski [employer] Work Phone: [facility] [place] 06-12-2024 15:41-0500 SaO2% (BldA) [Mass fraction] 96 % Jacquelyn Kaminski [employer] Work Phone: [facility] [place] 06-12-2024 15:41-0500 Systolic blood pressure 126 mm[Hg] Jacquelyn Kaminski [employer] Work Phone: [facility] 05-15-2024 15:41-0400 Body height 180.3 cm Jacquelyn Kaminski [employer] Work Phone: [facility] [place] 05-15-2024 15:41-0400 Body mass index (BMI) [Ratio] 27.89 kg/m2 Jacquelyn Kaminski [employer] Work Phone: [facility] [place] 05-15-2024 15:41-0400 Body weight 90.72 kg Jacquelyn Kaminski [employer] Work Phone: [facility] 05-15-2024 15:41-0400 Diastolic blood pressure 72 mm[Hg] Jacquelyn Kaminski [employer] Work Phone: [facility] 05-15-2024 15:41-0400 Heart rate 102 /min Jacquelyn Kaminski [employer] Work Phone: [facility] [place] 05-15-2024 15:41-0400 SaO2% (BldA) [Mass fraction] 96 % Jacquelyn Kaminski [employer] Work Phone: [facility] [place] 05-15-2024 15:41-0400 Systolic blood pressure 104 mm[Hg] Jacquelyn Kaminski [employer] Work Phone: [facility] [place] 05-14-2024 09:50-0400 Diastolic blood pressure 86 mm[Hg] Eris Tate MD Work Phone: [facility] 05-14-2024 09:50-0400 Heart rate 90 /min Eris Tate MD Work Phone: [facility] [place] 05-14-2024 09:50-0400 Respiratory rate 16 /min Eris Tate MD Work Phone: [facility] 05-14-2024 09:50-0400 SaO2% (BldA) [Mass fraction] 96 % Eris Tate MD Work Phone: [facility] 05-14-2024 09:50-0400 Systolic blood pressure 120 mm[Hg] Eris Tate MD Work Phone: [facility] 05-14-2024 09:22-0400 Body temperature 97.59 [degF] Eris Tate MD Work Phone: [facility] 05-14-2024 08:07-0400 Body mass index (BMI) [Ratio] 28.45 kg/m2 Eris Tate MD Work Phone: [facility] 05-14-2024 08:07-0400 Body weight 92.53 kg Eris Tate MD Work Phone: [facility] 04-26-2024 09:41-0400 Body height 180.3 cm Jacquelyn Kaminski [employer] Work Phone: [facility] 04-26-2024 09:41-0400 Body mass index (BMI) [Ratio] 28.54 kg/m2 Jacquelyn Kaminski [employer] Work Phone: [facility] 04-26-2024 09:41-0400 Body weight 92.81 kg Jacquelyn Kaminski [employer] Work Phone: [facility] 04-26-2024 09:41-0400 Diastolic blood pressure 82 mm[Hg] Jacquelyn Kaminski [employer] Work Phone: [facility] 04-26-2024 09:41-0400 Heart rate 71 /min Jacquelyn Kaminski [employer] Work Phone: [facility] 04-26-2024 09:41-0400 SaO2% (BldA) [Mass fraction] 98 % Jacquelyn Kaminski [employer] Work Phone: [facility] 04-26-2024 09:41-0400 Systolic blood pressure 126 mm[Hg] Jacquelyn Kaminski [employer] Work Phone: [facility] 12-13-2023 09:45-0400 Body mass index (BMI) [Ratio] 26.04 kg/m2 Miguel Ángel Bridenthal [employer] Work Phone: [facility] 12-13-2023 09:45-0400 Body temperature 98.71 [degF] Miguel Ángel Bridenthal [employer] Work Phone: [facility] 12-13-2023 09:45-0400 Body weight 87.09 kg Miguel Ángel Bridenthal [employer] Work Phone: [facility] 12-13-2023 09:45-0400 Diastolic blood pressure 84 mm[Hg] Miguel Ángel Bridenthal [employer] Work Phone: [facility] 12-13-2023 09:45-0400 Heart rate 67 /min Miguel Ángel Bridenthal [employer] Work Phone: [facility] 12-13-2023 09:45-0400 Respiratory rate 16 /min Miguel Ángel Bridenthal [employer] Work Phone: [facility] 12-13-2023 09:45-0400 SaO2% (BldA) [Mass fraction] 97 % Miguel Ángel Bridenthal [employer] Work Phone: [facility] 12-13-2023 09:45-0400 Systolic blood pressure 133 mm[Hg] Miguel Ángel Bridenthal [employer] Work Phone: [facility] 08-30-2023 15:23-0500 Body height 182.9 cm Miguel Ángel Bridenthal [employer] Work Phone: [facility] 08-30-2023 15:23-0500 Body mass index (BMI) [Ratio] 26.04 kg/m2 Miguel Ángel Bridenthal [employer] Work Phone: [facility] 08-30-2023 15:23-0500 Body temperature 98.6 [degF] Miguel Ángel Bridenthal [employer] Work Phone: [facility] 08-30-2023 15:23-0500 Body weight 87.09 kg Miguel Ángel Bridenthal [employer] Work Phone: [facility] 08-30-2023 15:23-0500 Diastolic blood pressure 78 mm[Hg] Miguel Ángel Bridenthal [employer] Work Phone: [facility] 08-30-2023 15:23-0500 Heart rate 76 /min Miguel Ángel Bridenthal [employer] Work Phone: [facility] [place] 08-30-2023 15:23-0500 Respiratory rate 20 /min Miguel Ángel Bridenthal [employer] Work Phone: [facility] 08-30-2023 15:23-0500 SaO2% (BldA) [Mass fraction] 97 % Miguel Ángel Bridenthal [employer] Work Phone: [facility] [place] 08-30-2023 15:23-0500 Systolic blood pressure 116 mm[Hg] Miguel Ángel Bridenthal [employer] Work Phone: [facility] 04-04-2023 08:38-0400 Body height 182.9 cm José Miguel Yoon PA-C Work Phone: [facility] 04-04-2023 08:38-0400 Body mass index (BMI) [Ratio] 26.18 kg/m2 José Miguel Yoon PA-C Work Phone: [facility] 04-04-2023 08:38-0400 Body temperature 97.81 [degF] José Miguel Yoon PA-C Work Phone: [facility] 04-04-2023 08:38-0400 Body weight 87.54 kg José Miguel Yoon PA-C Work Phone: [facility] 04-04-2023 08:38-0400 Diastolic blood pressure 97 mm[Hg] José Miguel Yoon PA-C Work Phone: [facility] 04-04-2023 08:38-0400 Heart rate 84 /min José Miguel Yoon PA-C Work Phone: [facility] 04-04-2023 08:38-0400 SaO2% (BldA) [Mass fraction] 98 % José Miguel Yoon PA-C Work Phone: [facility] 04-04-2023 08:38-0400 Systolic blood pressure 133 mm[Hg] José Miguel Yoon PA-C Work Phone: [facility] 10-20-2022 13:03-0400 Diastolic blood pressure 80 mm[Hg] Miguel Ángel Bridenthal [employer] Work Phone: [facility] 10-20-2022 13:03-0400 Heart rate 91 /min Miguel Ángel Bridenthal [employer] Work Phone: [facility] 10-20-2022 13:03-0400 Respiratory rate 18 /min Miguel Ángel Princeenthal [employer] Work Phone: [facility] 10-20-2022 13:03-0400 SaO2% (BldA) [Mass fraction] 98 % Miguel Ángel Bridenthal [employer] Work Phone: [facility] 10-20-2022 13:03-0400 Systolic blood pressure 110 mm[Hg] Miguel Ángel Princeenthal [employer] Work Phone: [facility] 04-16-2022 11:35-0400 Body temperature 97.9 [degF] Isac Romo MD Work Phone: [facility] 04-16-2022 11:35-0400 Diastolic blood pressure 92 mm[Hg] Isac Romo MD Work Phone: [facility] 04-16-2022 11:35-0400 Heart rate 85 /min Isac Romo MD Work Phone: [facility] 04-16-2022 11:35-0400 Respiratory rate 16 /min Isac Romo MD Work Phone: [facility] 04-16-2022 11:35-0400 SaO2% (BldA) [Mass fraction] 97 % Isac Romo MD Work Phone: [facility] 04-16-2022 11:35-0400 Systolic blood pressure 125 mm[Hg] Isca Romo MD Work Phone: [facility] 04-15-2022 09:18-0400 Body height 182.9 cm Isac Romo MD Work Phone: [facility] 04-15-2022 09:18-0400 Body mass index (BMI) [Ratio] 25.77 kg/m2 Isac Romo MD Work Phone: [facility] 04-15-2022 09:18-0400 Body weight 86.18 kg Isac Romo MD Work Phone: [facility] Encounters Encounter Date Encounter Type Care Provider Facility Start: 05-27-2025 End: 05-27-2025 Refill Miguel Ángel Bridenthal [employer] [facility] Comment on above: Chronic low back norman n without sciatica, unspecified back pain laterality Start: 05-21-2025 End: 05-21-2025 ambulatory [facility] Start: 05-14-2025 End: 05-14-2025 Refill Kenton Turpin MD [facility] Comment on above: Hypertriglyceridemia (Primary Dx) Start: 04-10-2025 End: 04-11-2025 ambulatory [facility] Start: 04-09-2025 End: 04-11-2025 Telephone encounter Kenton Turpin MD Work Phone: [facility] Start: 03-23-2025 End: 03-24-2025 Refill Miguel Ángel Bridenthal [employer] Work Phone: [facility] Comment on above: Chronic low back norman n without sciatica, unspecified back pain laterality Start: 03-19-2025 End: 03-19-2025 Office outpatient visit 25 minutes Jacquelyn Kaminski [employer] Work Phone: [facility] Comment on above: Persistent atrial fi brillation (HCC) (Primary Dx); Gastroesophageal reflux disease, unspecified whether esophagitis present; Chronic bilateral low back pain with left-sided sciatica; Muscle spasm of back; Elevated blood uric acid level; Hypertriglyceridemia Start: 03-19-2025 End: 03-19-2025 ambulatory [facility]N [facility] Start: 03-13-2025 End: 03-13-2025 ambulatory [facility] Start: 03-12-2025 End: 03-14-2025 Refill Kenton Turpin MD Work Phone: [facility] Comment on above: Elevated blood uric acid level Start: 02-19-2025 End: 02-19-2025 Patient encounter procedure Miguel Ángel Villanueva [employer] Work Phone: [facility] Comment on above: Acute pain of left s horustam (Primary Dx) Start: 02-19-2025 End: 02-19-2025 ambulatory MIGUEL ÁNGEL [facility] Start: 02-19-2025 End: 02-19-2025 Subsequent hospital visit by physician Miguel Ángel Villanueva [employer] Work Phone: [facility] Comment on above: Right hand pain; Acute pain of left shoulder Start: 02-19-2025 End: 02-19-[facility]: 02-18-[facility]25 End: 02-18-2025 Office outpatient visit 15 minutes Miguel Ángel Josafatal [employer] Work Phone: [facility] Comment on above: Acute pain of left s houlder (Primary Dx); Right hand pain Start: 02-18-2025 End: 02-20-2025 ambulatory Dana Lara RN [facility] Start: 02-18-2025 End: 02-20-2025 Patient encounter procedure [facility] Start: 02-14-2025 End: 03-17-2025 Follow-up encounter Miguel Ángel Villanueva [employer] Work Phone: [facility] Comment on above: Uric acid, Uric acid Uric acid, Uric acid , Uric acid Start: 02-13-2025 End: 02-13-2025 ambulatory KENTON TURPIN [facility] Start: 01-23-2025 End: 01-23-2025 Office outpatient visit 25 minutes Miguel Ángel Josafatal [employer] Work Phone: [facility] Comment on above: Right hand pain (Suzy tarun Dx); Left sided sciatica; Muscle spasm of back; Chronic low back pain without sciatica, unspecified back pain laterality Start: 01-23-2025 End: 01-23-2025 ambulatory MIGUEL ÁNGEL VILLANUEVA [facility] Start: 01-22-2025 End: 03-24-2025 Follow-up encounter Hayde Elizalde RN [facility] Comment on above: Transthoracic echoca rdiogram (TTE) complete with contrast, bubble, strain, and 3D PRN, Cardiac holter monitor (24 hours) Start: 01-22-2025 End: 01-22-2025 Subsequent hospital visit by physician Felton Benitez MD Work Phone: [facility] Non-Invasive Cardiology Comment on above: Persistent atrial fi brillation (HCC) Start: 01-22-2025 End: 01-22-2025 ambulatory FELTON BENITEZ [facility] Start: 01-09-2025 End: 01-09-2025 Refill Jacquelyn Kaminski APRN - [employer] Work Phone: [facility] Comment on above: Persistent atrial fi brillation (HCC) Start: 01-08-2025 End: 01-08-2025 Office outpatient new 30 minutes Fleton Benitez MD Work Phone: [facility] Cardiology [facility] Comment on above: Persistent atrial fi brillation (HCC) (Primary Dx) Start: 01-08-2025 End: 01-08-2025 ambulatory [facility] Start: 01-02-2025 End: 01-02-2025 Office outpatient visit 15 minutes Kenton Turpin MD Work Phone: [facility] Comment on above: Left sided sciatica (Primary Dx); Persistent atrial fibrillation (HCC) Start: 01-02-2025 End: 01-02-2025 ambulatory KENTON TURPIN [facility] Start: 11-19-2024 End: 11-19-2024 Telephone encounter Taryn Bailey RN [facility] Comment on above: Test Scheduling Start: 11-13-2024 End: 11-13-2024 ambulatory Chacho SEGAL Facility:[facility] Start: 09-22-2024 End: 09-23-2024 Refill Jacquelyn Kaminski [employer] Work Phone: [facility] Comment on above: Gastroesophageal ref lux disease, unspecified whether esophagitis present Start: 09-18-2024 End: 09-18-2024 Patient encounter status Jacquelyn Kaminski [employer] Work Phone: [facility] Start: 09-18-2024 End: 09-18-2024 Periodic preventive med est patient 40-64yrs Jacquelyn Kaminski [employer] Work Phone: [facility] Comment on above: Well adult exam (Suzy mcneil Dx); Persistent atrial fibrillation (HCC); Midsternal chest pain; Gastroesophageal reflux disease, unspecified whether esophagitis present; Chronic low back pain without sciatica, unspecified back pain laterality; Muscle spasm of back; Screening for diabetes mellitus; Screening for lipoid disorders; Screening for prostate cancer Start: 09-18-2024 End: 09-18-2024 ambulatory [facility] Start: 09-18-2024 End: 09-18-2024 Encounter for general adult medical examination without abnormal findings [facility] Start: 06-12-2024 End: 06-12-2024 Office outpatient visit 15 minutes Jacquelyn Kaminski [employer] Work Phone: [facility] Comment on above: Gastroesophageal ref lux disease, unspecified whether esophagitis present (Primary Dx); Abdominal bloating; Constipation, unspecified constipation type Start: 06-12-2024 End: 06-12-2024 ambulatory [facility] Start: 05-21-2024 End: 05-21-2024 Telephone encounter Eris Tate MD Work Phone: [facility] Start: 05-15-2024 End: 05-15-2024 Office outpatient visit 15 minutes Jacquelyn Kaminski [employer] Work Phone: [facility] Comment on above: Abdominal bloating ( Primary Dx); Constipation, unspecified constipation type; Gastroesophageal reflux disease, unspecified whether esophagitis present Start: 05-15-2024 End: 05-15-2024 Office outpatient visit 25 minutes Jacquelyn Kaminski [employer] Work Phone: [facility] Comment on above: Abdominal bloating ( Primary Dx); Constipation, unspecified constipation type; Gastroesophageal reflux disease, unspecified whether esophagitis present Start: 05-14-2024 End: 05-14-2024 Subsequent hospital visit by physician Eris Tate MD Work Phone: [facility] Endoscopy Comment on above: Encounter for screen ing for malignant neoplasm of colon Start: 04-29-2024 End: 04-29-2024 Subsequent hospital visit by physician Jacquelyn Kaminski [employer] Work Phone: [facility] Comment on above: Abdominal bloating; Constipation, unspecified constipation type Start: 04-29-2024 End: 04-29-2024 Telephone encounter Eris Tate MD Work Phone: [facility] Comment on above: Appointment Request (The colonoscopy questionnaire was completed.) Start: 04-26-2024 End: 04-26-2024 Office outpatient visit 15 minutes Jacquelyn Kaminski [employer] Work Phone: [facility] Comment on above: Abdominal bloating ( Primary Dx); Constipation, unspecified constipation type; Screening for colon cancer; Flu vaccine need Start: 04-23-2024 End: 04-23-2024 ambulatory Sheila Yoo RN [facility] Clinical Communication Start: 04-23-2024 End: 04-23-2024 Patient encounter procedure Sheila Yoo RN [facility] Clinic al Communication Start: 02-22-2024 End: 02-22-2024 ambulatory Néstor Wells MD Work Phone: [facility] Start: 12-13-2023 End: 12-13-2023 Office outpatient visit 15 minutes Miguel Ángel Villanueva [employer] Work Phone: [facility] Comment on above: Acute low back pain without sciatica, unspecified back pain laterality (Primary Dx); Muscle spasm of back Start: 09-05-2023 Refill Jacquelyn Kaminski [employer] Work Phone: [facility] Comment on above: Persistent atrial fi brillation (HCC) Start: 08-30-2023 End: 08-30-2023 Patient encounter procedure Miguel Ángel Villanueva [employer] Work Phone: [facility] [employer] Work Phone: Start: 08-30-2023 End: 08-30-2023 Periodic preventive med est patient 40-64yrs Miguel Ángel Villanueva [employer] Work Phone: [facility] Comment on above: Annual physical exam (Primary Dx); Persistent atrial fibrillation (HCC); Screening for cholesterol level; Screening for diabetes mellitus; Screening for deficiency anemia; Screening for prostate cancer; Immunization due; Colon cancer screening Start: 08-16-2023 Refill Kenton Turpin MD Work Phone: [facility] Medicine Comment on above: Persistent atrial fi brillation (HCC) Start: 05-29-2023 [facility]ulatory [facility] Start: 05-29-2023 Patient encounter procedure Ni orta RN [facility] Clinical Communication Comment on above: Persistent atrial fi brillation (HCC) Start: 04-04-2023 End: 04-04-2023 Office outpatient visit 25 minutes José Miguel Yoon PA-C Work Phone: [facility] Medicine Comment on above: Acute cough (Primary Dx); Persistent atrial fibrillation (HCC); Elevated blood pressure reading without diagnosis of hypertension Start: 02-20-2023 Refill Kenton Turpin MD Work Phone: [facility] Comment on above: refill prescription Start: 02-17-2023 Orders Only Jacquelyn Kaminski [employer] Work Phone: [facility] Medicine Comment on above: Persistent atrial fi brillation (HCC) (Primary Dx) Start: 10-20-2022 ambulatory Renita Burton RN [facility] Clin ical Communication Start: 10-20-2022 Patient encounter procedure [facility] Start: 10-20-2022 End: 10-20-2022 Office outpatient visit 15 minutes Miguel Ángel Bridenthal [employer] Work Phone: [facility] Family Medicine Comment on above: Bronchitis (Primary Dx); Acute cough; Muscle spasm of back Start: 04-15-2022 End: 04-16-2022 ambulatory UNKNOWN PROVIDER [facility] Start: 04-15-2022 End: 04-16-2022 Emergency department patient visit Isac Romo MD Work Phone: [facility]U Comment on above: Chest pain, unspecif ied type (Primary Dx) Start: 03-03-2022 ambulatory Jacquelyn Kaminski [facility] Start: 03-03-2022 End: 03-03-2022 Subsequent hospital visit by physician Jacquelyn Kaminski [employer] Work Phone: [facility] Radiology Comment on above: Chronic hand pain, l eft; Swelling of hand joint, left Start: 11-21-2017 Evaluation and manag ement of inpatient FELTON Lin BENITEZ [facility] Start: 02-08-2017 End: 02-09-2017 Ambulatory PHY WO ID REFERRING Facility:[facility] Start: 02-08-2017 End: 02-08-2017 Emergency department patient visit CARRIE GARCIA Facility:[facility] Procedures Date Procedure Procedure Detail Performing Clinician Start: 05-21-2025 Lipid 1996 panel - S amy or Plasma Miguel Ángel Bridenthal [employer] Work Phone: Start: 04-10-2025 Assay of blood/uric acid Miguel Ángel Bridenthal [employer] Work Phone: Start: 04-10-2025 Lipid 1996 panel - S amy or Plasma Miguel Ángel Bridenthal [employer] Work Phone: Start: 03-13-2025 Assay of blood/uric acid Miguel Ángel Bridenthal [employer] Work Phone: Start: 02-19-2025 Radex shoulder compl ete minimum 2 views Miguel Ángel Villanueva [employer] Work Phone: Start: 01-22-2025 TTE w or wo fol wcon,Jarret Benitez MD Work Phone: Start: 01-08-2025 Ecg routine ecg w/le ast 12 lds trcg only w/o i&r Felton Benitez MD Work Phone: Start: 09-18-2024 Ecg routine ecg w/le ast 12 lds w/i&r Jacquelyn Kaminski APRN - [employer] Work Phone: Start: 09-18-2024 Lipid 1996 panel - S amy or Plasma Jacquelyn Kaminski APRN - [employer] Work Phone: Start: 09-15-2024 Adult depression scr eening assessment Jacquelyn Kaminski APRN - [employer] Work Phone: Start: 05-14-2024 Colonoscopy Eris burton MD Work Phone: Start: 04-29-2024 Us abdominal real ti me w/image documentation Jacquelyn Kaminski [employer] Work Phone: Start: 08-30-2023 Adult depression scr eening assessment Miguel Ángel Villanueva [employer] Work Phone: Start: 08-30-2023 Lipid 1996 panel - S amy or Plasma Jacquelyn Kaminski [employer] Work Phone: Start: 04-16-2022 Ecg routine ecg w/le ast 12 lds w/i&r Madeline Turcios APRN - [employer] Work Phone: Start: 04-16-2022 ROUTINE EKG TREADMIL L STRESS TEST Madeline Turcios [employer] Work Phone: Start: 04-16-2022 BASIC METABOLIC PANE L W/ REFLEX TO MG FOR LOW K Madeline Turcios APRN - [employer] Work Phone: Start: 04-16-2022 Hemoglobin glycosylated a1c Madeline Turcios APRN [employer] Work Phone: Start: 04-16-2022 Lipid panel Madeline artsi [employer] Work Phone: Start: 04-16-2022 Lipid 1996 panel - S amy or Plasma Renita Burton RN Start: 04-15-2022 Assay of troponin quantitative Madeline Turcios [employer] Work Phone: Start: 04-15-2022 Assay of troponin quantitative Isac Romo MD Work Phone: Start: 04-15-2022 Radiologic exam ches t single view Isac Romo MD Work Phone: Start: 04-15-2022 COVID-19, FLU A/B, A ND RSV COMBO Isac Romo MD Work Phone: Start: 04-15-2022 Basic metabolic pane l calcium total Isac Romo MD Work Phone: Start: 04-15-2022 Ecg routine ecg w/le ast 12 lds w/i&r Isac Romo MD Work Phone: Plan of Treatment Date Care Activity Detail Author Start: 02-08-2036 RSV Immunization for Adults (1 - 1-dose 75+ series) RSV Immunization for Adults (1 - 1-dose 75+ series) [facility] Start: 05-14-2034 Screening for malignant neoplasm of colon [facility] Start: 05-21-2030 Lipid panel Lipid Panel [facility] Start: 04-10-2030 Lipid panel Lipid Panel [facility] Start: 09-18-2029 Lipid panel Lipid Panel [facility] Start: 09-02-2029 DTaP/Tdap/Td vaccine (2 - Td or Tdap) DTaP/Tdap/Td vaccine (2 - Td or Tdap) [facility] Start: 09-02-2029 DTaP/Tdap/Td Vaccines (2 - Td or Tdap) DTaP/Tdap/Td Vaccines (2 - Td or Tdap) [facility] Start: 05-14-2029 Screening for malignant neoplasm of colon [facility] Start: 08-30-2028 Lipid panel Lipid Panel [facility] Start: 04-16-2027 Lipid panel Lipid Panel [facility] Start: 08-30-2026 Diabetes mellitus screening Diabetes Screening [facility] Start: 03-19-2026 RSV Immunization for Adults (1 - Risk 60-74 years 1-dose series) RSV Immunization for Adults (1 - Risk 60-74 years 1-dose series) [facility] Comment on above: Postponed from 2021 (Patient Refus ed) Start: 09-24-2025 End: 09-24-2025 Patient encounter procedure 09/24/2025 3:20 PM EST Office Visit [facility] [place] [address] [place] [address] [place] [address] Jacquelyn Kaminski, [employer] [address] [place] [address] [facility] Start: 09-18-2025 COVID-19 Vaccine () COVID-19 Vaccine () [facility] Comment on above: Postponed from 04/07/2024 (Patient Refus ed) Start: 09-18-2025 Diabetes mellitus screening Diabetes Screening [facility] Start: 09-18-2025 Hepatitis C screening Hepatitis C Screening [facility] Comment on above: Postponed from 1979 (Patient Refus ed) Start: 09-18-2025 HIV screening HIV Screening [facility] Comment on above: Postponed from 1961 (Patient Refus ed) Start: 09-15-2025 Depression Screening Depression Screening [facility] Start: 09-02-2025 Lipid panel Lipids [facility] Start: 07-10-2025 End: 07-10-2025 Patient encounter procedure 07/10/2025 10:00 AM EST Office Visit [facility] Cardiology [facility] [address] [place] [id number] Marie Pierce, [employer] [address] [place] [address] [facility] Start: 05-15-2025 End: 05-15-2025 Clinical Support 05/15/2025 3:30 PM EDT Clinical Support [address] [address] [facility] Start: 05-15-2025 End: 05-14-2026 Alanine aminotransferase [Enzymatic activity/volume] in Serum or Plasma ALT Lab Routine Hypertriglyceridemia Expected: 05/15/2025, Expires: 05/14/2026 [facility] Comment on above: Expected: 05/15/2025, Expires: Start: 05-15-2025 End: 05-14-2026 Aspartate aminotransferase [Enzymatic activity/volume] in Serum or Plasma AST Lab Routine Hypertriglyceridemia Expected: 05/15/2025, Expires: 05/14/2026 [facility] [employer] Work Phone: Comment on above: Expected: 05/15/2025, Expires: Start: 04-16-2025 Diabetes mellitus screening Diabetes Screening [facility] Start: 04-10-2025 End: 04-10-2025 Clinical Support 04/10/2025 3:30 PM EDT Clinical Support [address] [address] [facility] Start: 04-10-2025 End: 03-19-2026 Comprehensive metabolic 1998 panel - Serum or Plasma Comprehensive metabolic panel Lab Routine Persistent atrial fibrillation (HCC) Gastroesophageal reflux disease, unspecified whether esophagitis present Chronic bilateral low back pain with left-sided sciatica Muscle spasm of back Hypertriglyceridemia Expected: 04/10/2025, Expires: 03/19/2026 [facility] Comment on above: Expected: 04/10/2025, Expires: Start: 04-10-2025 End: 03-19-2026 Lipid 1996 panel - Serum or Plasma Lipid panel Lab Routine Hypertriglyceridemia Expected: 04/10/2025, Expires: 03/19/2026 [facility] [employer] Work Phone: Comment on above: Expected: 04/10/2025, Expires: Start: 04-07-2025 COVID-19 Vaccine ( season) COVID-19 Vaccine () [facility] Start: 04-07-2025 Influenza vaccination Influenza Vaccine (#1) [facility] Start: 03-19-2025 End: 03-19-2025 Patient encounter procedure 03/19/2025 3:40 PM EDT Office Visit [facility] [place] [address] [place] [address] [place] [address] Jacquelyn Kaminski, [employer] [address] [place] [address] [facility] Start: 03-17-2025 End: 03-17-2026 Urate [Mass/volume] in Serum or Plasma Uric acid Lab Routine Elevated blood uric acid level Expected: 03/17/2025 (Approximate), Expires: 03/17/2026 [facility] Work Phone: Comment on above: Expected: 03/17/2025 (Approximate), Expi res: 03/17/2026 Start: 03-13-2025 End: 03-13-2025 Clinical Support 03/13/2025 3:30 PM EDT Clinical Support [facility] [place] [address] [place] [address] [place] [address] [facility] [place] Start: 02-19-2025 End: 02-19-2025 Patient encounter procedure 02/19/2025 1:40 PM EDT Office Visit [facility] [place] [address] [place] [address] [place] [address] Miguel Ángel Villanueva, [employer] [address] [place] [address] [place] [address] [facility] [place] Start: 02-18-2025 End: 02-18-2026 XR Shoulder - left 2 Views XR shoulder 2+ views left Imaging Routine Acute pain of left shoulder Expected: 02/18/2025, Expires: 02/18/2026 [facility] Work Phone: Comment on above: Expected: 02/18/2025, Expires: Start: 01-23-2025 End: 01-23-2025 Patient encounter procedure 01/23/2025 3:40 PM EDT Office Visit [facility] [address] [place] [address] [place] [address] Bridenthal, Miguel Ángel, [employer] [address] [place] [address] [place] [address] [facility] Start: 01-23-2025 End: 01-23-2026 Urate [Mass/volume] in Serum or Plasma Uric acid Lab Routine Chronic low back pain without sciatica, unspecified back pain laterality Expected: 01/23/2025 (Approximate), Expires: 01/23/2026 [facility] Work Phone: Comment on above: Expected: 01/23/2025 (Approximate), Expi res: 01/23/2026 Start: 01-22-2025 End: 01-22-2025 Patient encounter procedure [facility] Non-Invasive Cardiology Start: 01-08-2025 End: 01-08-2027 Cardiac holter monitor (24 hours) Cardiac holter monitor (24 hours) [facility] Cardiac Services Routine Persistent atrial fibrillation (HCC) Expected: 01/08/2025, Expires: 01/08/2027 [facility] Comment on above: Expected: 01/08/2025, Expires: Start: 01-08-2025 End: 01-08-2027 US Heart Transthoracic Transthoracic echocardiogram (TTE) complete with contrast, bubble, strain, and 3D PRN CV Echocardiography Routine Persistent atrial fibrillation (HCC) Expected: 01/08/2025 (Approximate), Expires: 01/08/2027 [facility] Work Phone: Comment on above: Expected: 01/08/2025 (Approximate), Expi res: 01/08/2027 Start: 01-08-2025 End: 01-08-2025 Patient encounter procedure 01/08/2025 11:15 AM EDT Office Visit [facility] [address] [facility] [address] Felton Benitez MD [address] [place] [address] [facility] Start: 10-03-2024 End: 10-03-2024 Patient encounter procedure 10/03/2024 3:00 PM EST Appointment [facility] Non-Invasive Cardiology [address] [place] [id number] Jacquelyn Kaminski, [employer] [address] [facility] [place] [address] [facility] Non-Invasive Cardiology Start: 09-18-2024 End: 09-18-2024 Patient encounter procedure 09/18/2024 3:20 PM EST Office Visit [facility] [address] [place] [address] [place] [address] Jacquelyn Kaminski, [employer] [address] [place] [address] [facility] Start: 09-18-2024 End: 09-18-2025 Comprehensive metabolic 1998 panel - Serum or Plasma Comprehensive metabolic panel Lab Routine Muscle spasm of back Persistent atrial fibrillation (HCC) Gastroesophageal reflux disease, unspecified whether esophagitis present Chronic low back pain without sciatica, unspecified back pain laterality Screening for diabetes mellitus Midsternal chest pain Expected: 09/18/2024 (Approximate), Expires: 09/18/2025 [facility] Comment on above: Expected: 09/18/2024 (Approximate), Expi res: 09/18/2025 Start: 09-18-2024 End: 09-18-2025 Lipid 1996 panel - Serum or Plasma Lipid panel Lab Routine Screening for lipoid disorders Expected: 09/18/2024 (Approximate), Expires: 09/18/2025 [facility] Work Phone: Comment on above: Expected: 09/18/2024 (Approximate), Expi res: 09/18/2025 Start: 09-18-2024 End: 09-18-2025 PSA Total (Screening) PSA Total (Screening) Lab Routine Screening for prostate cancer Expected: 09/18/2024 (Approximate), Expires: 09/18/2025 [facility] Comment on above: Expected: 09/18/2024 (Approximate), Expi res: 09/18/2025 Start: 08-30-2024 Depression Screening Depression Screening [facility] Start: 08-30-2024 Diabetes mellitus screening Diabetes Screening [facility] Start: 08-30-2024 Hepatitis C screening Hepatitis C Screening [facility] Comment on above: Postponed from 1979 (Patient Refus ed) Start: 08-30-2024 HIV screening HIV Screening [facility] Comment on above: Postponed from 1961 (Patient Refus ed) Start: 08-30-2024 RSV Immunization aged 60 or older (1 - 1-dose 60+ series) RSV Immunization aged 60 or older (1 - 1-dose 60+ series) [facility] Comment on above: Postponed from 2021 (Other Patient Reasons) Start: 06-12-2024 End: 06-12-2024 Patient encounter procedure 06/12/2024 3:40 PM EST Office Visit [facility] [address] [place] [address] [place] [address] Jacquelyn Kaminski, [employer] [address] [place] [address] [place] [address] [facility] [place] Start: 05-15-2024 End: 05-15-2024 Patient encounter procedure 05/15/2024 3:40 PM EDT Office Visit [facility] [place] [address] [place] [address] [place] [address] Jacquelyn Kaminski, [employer] [address] [place] [address] [place] [address] [facility] Start: 05-14-2024 End: 05-14-2024 Admission to same day surgery center 05/14/2024 9:00 AM EDT - 05/14/2024 9:30 AM EDT Surgery [facility] Endoscopy [address] [place] [phone] Eris Tate MD [address] [address] [place], [place] [id number] COLONOSCOPY [69860 (CPT )] [facility] Endoscopy Comment on above: COLONOSCOPY [65591 (CPT )] Start: 05-14-2024 Subsequent hospital visit by physician [facility] Endoscopy Start: 05-14-2024 End: 05-14-2024 Colonoscopy flx dx w/collj spec when pfrmd [facility] Gastroenterology Start: 04-29-2024 End: 04-29-2024 Patient encounter procedure 04/29/2024 4:30 PM EDT Appointment [facility] US [address] [place] [address] Jacquelyn Kaminski S, [employer] [address] [place], [place] [id number] [facility] US Start: 04-26-2024 End: 04-26-2025 CBC panel - Blood by Automated count CBC Lab Routine Abdominal bloating Expected: 04/26/2024 (Approximate), Expires: 04/26/2025 [facility] Comment on above: Expected: 04/26/2024 (Approximate), Expi res: 04/26/2025 Start: 04-26-2024 End: 04-26-2025 Comprehensive metabolic 1998 panel - Serum or Plasma Comprehensive metabolic panel Lab Routine Abdominal bloating Expected: 04/26/2024 (Approximate), Expires: 04/26/2025 [facility] Comment on above: Expected: 04/26/2024 (Approximate), Expi res: 04/26/2025 Start: 04-26-2024 End: 04-26-2025 US Abdomen US abdomen complete Imaging Routine Abdominal bloating Constipation, unspecified constipation type Expected: 04/26/2024, Expires: 04/26/2025 [facility] Work Phone: Comment on above: Expected: 04/26/2024, Expires: Start: 04-26-2024 End: 04-26-2024 Patient encounter procedure 04/26/2024 9:40 AM EDT Office Visit [facility] [place] [address] [place], [place] [id number] Jacquelyn Kaminski S, [employer] [address] [place] [address] [place] [address] [facility] Start: 04-07-2024 COVID-19 Vaccine ( season) COVID-19 Vaccine ( season) [facility] Start: 04-07-2024 Influenza vaccination Influenza Vaccine (#1) [facility] Start: 03-08-2024 End: 03-08-2024 Admission to same day surgery center 03/08/2024 8:00 AM EDT - 03/08/2024 8:30 AM EDT Surgery [facility] Endoscopy [address] [place] [address] Néstor Wells MD [address] [place] [id number] COLONOSCOPY [64485 (CPT )] [facility] Endoscopy Comment on above: COLONOSCOPY [24909 (CPT )] Start: 03-08-2024 End: 03-08-2024 Colonoscopy flx dx w/collj spec when pfrmd COLONOSCOPY Encounter for screening for malignant neoplasm of colon 03/08/2024 8:00 AM EDT [facility] Gastroenterology Start: 03-08-2024 Subsequent hospital visit by physician 03/08/2024 8:00 AM EDT Hospital Encounter [facility] Endoscopy [address] [place] [phone] Néstor Wells MD [address] [place], [place] [id number] [facility] Endoscopy Start: 02-28-2024 End: 02-28-2024 Patient encounter procedure 02/28/2024 3:40 PM EDT Office Visit [facility] [address] [place] [address] [place] Ángel bourne, [employer] [address] [place] [address] [facility] Medicine Start: 08-30-2023 End: 08-30-2024 CBC panel - Blood by Automated count CBC Lab Routine Screening for deficiency anemia Expected: 08/30/2023 (Approximate), Expires: 08/30/2024 [facility] [employer] [facility] Work Phone: Comment on above: Expected: 08/30/2023 (Approximate), Expi res: 08/30/2024 Start: 08-30-2023 End: 08-30-2024 Comprehensive metabolic 1998 panel - Serum or Plasma Comprehensive metabolic panel Lab Routine Screening for diabetes mellitus Expected: 08/30/2023 (Approximate), Expires: 08/30/2024 [facility] [employer] Comment on above: Expected: 08/30/2023 (Approximate), Expi res: 08/30/2024 Start: 08-30-2023 End: 08-30-2024 Hemoglobin A1c measurement Hemoglobin A1c Lab Routine Screening for diabetes mellitus Expected: 08/30/2023 (Approximate), Expires: 08/30/2024 [facility] [employer] Comment on above: Expected: 08/30/2023 (Approximate), Expi res: 08/30/2024 Start: 08-30-2023 End: 08-30-2024 Lipid 1996 panel - Serum or Plasma Lipid panel Lab Routine Screening for cholesterol level Expected: 08/30/2023 (Approximate), Expires: 08/30/2024 [facility] [employer] Comment on above: Expected: 08/30/2023 (Approximate), Expi res: 08/30/2024 Start: 08-30-2023 End: 08-30-2024 PSA Total (Screening) PSA Total (Screening) Lab Routine Screening for prostate cancer Expected: 08/30/2023 (Approximate), Expires: 08/30/2024 [facility] Comment on above: Expected: 08/30/2023 (Approximate), Expi res: 08/30/2024 Start: 04-16-2023 Lipid panel Lipids [facility] Start: 04-07-2023 COVID-19 Vaccine () COVID-19 Vaccine () [facility] Start: 04-07-2023 Influenza vaccination Influenza Vaccine (#1) [facility] Start: 04-18-2022 End: 04-18-2022 Patient encounter procedure 04/18/2022 Office Visit Family Medicine Jacquelyn Kaminski, [employer] [address] [place] [address] [facility] Start: 04-07-2022 Influenza vaccination Flu vaccine (#1) [facility] Start: 12-13-2021 COVID-19 Vaccine (4 - Booster for Moderna series) COVID-19 Vaccine (4 - Booster for Moderna series) [facility] Start: 10-10-2021 COVID-19 Vaccine (4 - Booster for Moderna series) COVID-19 Vaccine (4 - Booster for Moderna series) [facility] Start: 10-10-2021 COVID-19 Vaccine (4 - Moderna series) COVID-19 Vaccine (4 - Moderna series) [facility] Start: 09-02-2021 Prostate specific antigen measurement Prostate Specific Antigen (PSA) Screening or Monitoring [facility] Start: 08-31-2021 Depression Screen Depression Screen [facility] Start: 2021 RSV Immunization aged 60 or older (1 - 1-dose 60+ series) RSV Immunization aged 60 or older (1 - 1-dose 60+ series) [facility] Start: 2021 RSV Immunization for Adults (1 - Risk 60-74 years 1-dose series) RSV Immunization for Adults (1 - Risk 60-74 years 1-dose series) [facility] Start: 2006 Screening for malignant neoplasm of colon [facility] Start: 1979 Hepatitis C screening [facility] Start: 02-08-1976 HIV screening HIV screen [facility] Start: 1973 Depression Screening Depression Screening [facility] Start: 1962 MMR Vaccines (1 of 1 - Standard series) MMR Vaccines (1 of 1 - Standard series) [facility] Start: 1961 Hepatitis B Vaccines (1 of 3 - 3-dose series) Hepatitis B Vaccines (1 of 3 - 3-dose series) [facility] Start: 1961 HIV screening HIV Screening [facility] Start: 1961 Screening for malignant neoplasm of colon [facility] End: 01-22-2025 Cardiac holter monitor (24 hours) [facility] [employer] Work Phone: Comment on above: Once for 1 Occurrences starting 01/23/20 until 01/22/2025 Colonoscopy flx dx w/collj spec when pfrmd COLONOSCOPY Encounter for screening for malignant neoplasm of colon [facility] Gastroenterology ECG 12 lead - CLINIC PERFORMED ECG 12 lead - CLINIC PERFORMED CV ECG Routine Persistent atrial fibrillation (HCC) 01/08/2025 11:09 AM EDT [facility] [employer] EKG 12 lead EKG 12 lead ECG Routine As Needed until discontinued starting 04/15/2022 [facility] Work Phone: Comment on above: As Needed until discontinued starting EKG 12 lead EKG 12 lead ECG Routine 04/16/2022 9:36 AM EDT [facility] Work Phone: Oxygen therapy [[facility] Data Set] Initiate Oxygen Therapy Protocol Respiratory Care Routine As Needed until discontinued starting 04/15/2022 [facility] Work Phone: Comment on above: As Needed until discontinued starting Tissue exam [facility] [employer] Work Phone: Comment on above: Release Upon Ordering for 1 Occurrences starting 05/14/2024 End: 02-19-2025 XR Hand - right 3 Views [facility] Work Phone: Comment on above: Once for 1 Occurrences starting 02/20/20 until 02/19/2025 End: 03-03-2022 XR HAND LEFT (MIN 3 VIEWS) [facility] Work Phone: Comment on above: 1 Occurrences starting 03/03/2022 until 03/03/2022 Immunizations Immunization Date Immunization Notes Care Provider Perri capps 04-26-2024 influenza, seasonal, injectable, preservative free Jacquelyn Gordy [employer] Work Phone: [facility] 04-26-2024 influenza virus vaccine, unspecified formulation Miguel Ángel Bridenthal [employer] Work Phone: [facility] 08-30-2023 Pneumococcal Conjuga te PCV20, Pf (Prevnar 20) Miguel Ángel Bridenthal [employer] Work Phone: [facility] 06-23-2023 COVID-19, mRNA, LNP- S, PF, 50 mcg/0.5 mL Miguel Ángel Bridenthal [employer] Work Phone: [facility] 06-23-2023 Influenza, injectabl e, Madin [place] Canine Kidney, preservative free, quadrivalent Miguel Ángel Bridenthal [employer] Work Phone: [facility] 06-23-2023 influenza virus vaccine, unspecified formulation Néstor Wells MD Work Phone: [facility] 06-12-2022 influenza, injectabl e, quadrivalent, preservative free Miguel Ángel Bridenthal [employer] Work Phone: [facility] 06-12-2022 influenza virus vaccine, unspecified formulation Jacquelyn Gordy [employer] Work Phone: [facility] 08-15-2021 COVID-19, MODERNA BL UE border, Primary or Immunocompromised, (age 12y+), IM, 100 mcg/0.5mL Jacquelyn Gordy [employer] Work Phone: [facility] 01-29-2021 COVID-19, MODERNA BL UE border, Primary or Immunocompromised, (age 12y+), IM, 100 mcg/0.5mL Jacquelyn Gordy [employer] Work Phone: [facility] Work Phone: 01-01-2021 COVID-19, MODERNA BL UE border, Primary or Immunocompromised, (age 12y+), IM, 100 mcg/0.5mL Jacquelyn Gordy [employer] Work Phone: [facility] Work Phone: 06-01-2020 influenza, injectabl e, quadrivalent, preservative free Jacquelyn Kaminski [employer] Work Phone: [facility] 09-02-2019 tetanus toxoid, redu dameon diphtheria toxoid, and acellular pertussis vaccine, adsorbed Jacquelyn Gordy [employer] Work Phone: [facility] Work Phone: 05-20-2019 influenza, injectabl e, quadrivalent, contains preservative Jacquelyn Kaminski [employer] Work Phone: [facility] Work Phone: 04-09-2019 zoster vaccine recombinant Jacquelyn Gordy [employer] Work Phone: [facility] 10-01-2018 zoster vaccine recombinant Jacquelyn Gordy [employer] Work Phone: [facility] 05-15-2018 influenza, injectabl e, quadrivalent, contains preservative Jacquelyn Kaminski [employer] Work Phone: [facility] 05-04-2017 influenza, injectabl e, quadrivalent, contains preservative Jacquelyn Kaminski [employer] Work Phone: [facility] Work Phone: 06-14-2016 influenza, injectabl e, quadrivalent, contains preservative Jacquelyn Gordy [employer] Work Phone: [facility] 05-07-2014 influenza, seasonal, injectable Miguel Ángel Princeenthal [employer] Work Phone: [facility] Payers Date Payer Category Payer Self-pay 2023 [employer] are - PPO [id number] 2023 Private Health Insurance [id number] 2023 Private Health Insurance [id number] 2022 Unknown 2022 Private Health Insurance [id number] 2020 Unknown [place] [facility] PPO CONNECT [id number] 2020-Present [phone] [address] [place] [id number] 2017 Unknown DOI [id number] 1960 Unknown [id number] 1960 Unknown [id number] Unknown [id number] Social History Date Type Detail Facility Start: 03-28-2018 End: 09-18-2024 Tobacco smoking status MNIS Ex-smoker [facility] Work Phone: End: 08-07-1996 History of tobacco use Current smoker [facility] Work Phone: End: 08-07-1996 History of tobacco use Cigarette Smoker [facility] Work Phone: Start: 03-28-2018 End: 01-01-2025 Cigarettes smoked current (pack per day) - Reported 0.5 [facility] Work Phone: Start: 03-28-2018 End: 09-18-2024 Tobacco use and exposure Former smokeless tobacco user [facility] Work Phone: End: 10-05-2016 History of tobacco use Snuff User [facility] Work Phone: Start: 03-02-2022 End: 03-19-2025 Alcohol intake Ex-drinker (finding) [facility] Work Phone: Start: 03-02-2021 History SDOH Alcohol Frequency 5 [facility] Work Phone: Start: 03-02-2021 History SDOH Alcohol Std Drinks 1 [facility] Work Phone: Start: 09-18-2019 History SDOH Alcohol Comment pt has not drank since [facility] Work Phone: Start: 09-02-2019 History SDOH Physica l Activity DPW 3 [facility] Work Phone: Start: 03-02-2021 History SDOH Transpo rt Med 2 [facility] Work Phone: Start: 1960 Sex Assigned At Not on file [facility] [employer] Work Phone: Start: 04-15-2022 End: 10-20-2022 Alcohol intake Current drinker of alcohol (finding) [facility] Work Phone: Start: 04-05-2022 End: 04-04-2023 Exposure to SARS-CoV-2 (event) Not sure [facility] End: 10-05-2016 History of tobacco use User of smokeless tobacco [facility] [employer] Start: 10-20-2022 End: 01-01-2025 Tobacco use panel [facility] Adolescent depressio n screening assessment 0 [facility] [employer] Start: 04-26-2024 Alcohol Comment 6-pack per week. [facility] [employer] Start: 05-14-2024 Alcohol Comment 6-pack per day [facility] Has the [employer], or [employer] threatened to shut off services in your home in past 12Mo No [facility] Are you now , , , , never or living with a partner? [facility] How often to you hav e a drink containing alcohol? Never [facility] How many standard dr inks containing alcohol do you have on a typical day? 10 or more [facility] How often do you hav e 6 or more drinks on 1 occasion? Daily or almost daily [facility] How hard is it for y ou to pay for the very basics like food, housing, medical care, and heating Not very hard [facility] Do you feel stress - tense, restless, nervous, or anxious, or unable to sleep at night because your mind is troubled all the time - these days [OSQ] Not at all [facility] (I/We) worried wheth er (my/our) food would run out before (I/we) got money to buy more. Never true [facility] Start: 03-07-2022 Sex Male (finding) [facility] [employer] Start: 09-18-2024 Alcohol Comment quit 2 mo ago [facility] Are you now , , , , never or living with a partner? [facility] Clinical Notes 04-16-2022 to 05-27-2025 Telephone Encounter - Carmelita Tejeda MA - 05/27/2025 7:33 AM EDTTelephone Encounter - Carmelita Tejeda MA - 05/27/2025 7:33 AM EDTTelephone Encounter - ZAINA Jaime CNP - 05/14/2025 3:37 PM EDT Note Date & Type Note Facility 05-27-2025 Telephone encounter Note Prescription Request: Last medication check: 03/19/25 Last physical exam: 09/18/24 Next scheduled appointment: 09/24/25 Last date of refill on this medication 03/24/25 30 and 1 refill [facility] 05-27-2025 Miscellaneous Notes Prescription Request: Last medication check: 03/19/25 Last physical exam: 09/18/24 Next scheduled appointment: 09/24/25 Last date of refill on this medication 03/24/25 30 and 1 refill documented in this encounter [facility] 05-14-2025 Telephone encounter Note Will refill according to repeat blood work on 05/15/2025. [facility] 05-14-2025 Miscellaneous Notes Will refill according to repeat blood work on 05/15/2025. Fax from [facility] 90 day prescription request Prescription Request: fenofibrate (Tricor) 145 MG tablet Last medication check: 03/19/25 Last physical exam: 09/18/24 Next scheduled appointment: 09/24/25 Last date of refill on this medication 04/17/25 ( qty 30 refill 0) documented in this encounter [facility] 05-14-2025 Telephone encounter Note Fax from [facility] 90 day prescription request Prescription Request: fenofibrate (Tricor) 145 MG tablet Last medication check: 03/19/25 Last physical exam: 09/18/24 Next scheduled appointment: 09/24/25 Last date of refill on this medication 04/17/25 ( qty 30 refill 0) [facility] 04-11-2025 Telephone encounter Note Rx sent. Follow up as scheduled. [facility] 04-11-2025 Miscellaneous Notes Rx sent. Follow up as scheduled. allopurinol (Zyloprim) 100 MG tablet Which medication? Fax from [facility] requesting 90 day refill Prescription Request: Last medication check: 03/19/25 Last physical exam: 09/18/24 Next scheduled appointment: 09/24/24 Last date of refill on this medication 03/17/25 ( qty 60 refill 0) documented in this encounter [facility] 04-10-2025 Telephone encounter Note allopurinol (Zyloprim) 100 MG tablet [facility] 04-09-2025 Telephone encounter Note Which medication? [facility] 04-09-2025 Telephone encounter Note Fax from [facility] requesting 90 day refill Prescription Request: Last medication check: 03/19/25 Last physical exam: 09/18/24 Next scheduled appointment: 09/24/24 Last date of refill on this medication 03/17/25 ( qty 60 refill 0) [facility] 03-24-2025 Telephone encounter Note Reviewed chart. Refill appropriate. RX sent. [facility] 03-24-2025 Miscellaneous Notes Reviewed chart. Refill appropriate. RX sent. Prescription Request: Last medication check: 03/19/25 Last physical exam:09/18/24 Last completed appointment: 03/19/25 Next scheduled appointment: 04/10/25 Last date of refill on this medication:02/21/25 documented in this encounter [facility] 03-24-2025 Telephone encounter Note Prescription Request: Last medication check: 03/19/25 Last physical exam:09/18/24 Last completed appointment: 03/19/25 Next scheduled appointment: 04/10/25 Last date of refill on this medication:02/21/25 [facility] [employer] 03-19-2025 History of Present illness Narrative Images from the original note were not included. 03/19/2025 Garry Morton (: 1960) is a 65 y.o. male , Established patient, here for evaluation of the following chief complaint(s): Medication Check (6 month med check ), Health Maintenance (RSV- refused/HIV Screen- refused/Hep C Screen-refused/COVID 5-refused), and Hand Pain (Right hand pain ) I obtained verbal consent from the patient and/or patient s guardian to use ambient listening technology during this encounter before the ambient technology was engaged. Assessment/Plan 1. Persistent atrial fibrillation (HCC) (I48.19) - chronic, stable - Patient reports occasional palpitations but is not significantly bothered by them - Heart rate well-controlled on current medication regimen - Continue Eliquis and metoprolol - Refilled Eliquis prescription - Follow-up with cardiology (HANK Pierce) scheduled for July 10 at [facility] 2. Gastroesophageal reflux disease, unspecified whether esophagitis present (K21.9) - chronic, stable - Symptoms well-controlled on current medication - Continue daily omeprazole - Refilled omeprazole prescription 3. Chronic bilateral low back pain with left-sided sciatica (G89.29, M54.42) - chronic, stable - Patient using cyclobenzaprine (Flexeril) as needed for pain management 4. Muscle spasm of back (M62.830) - chronic, stable - Managed with as-needed cyclobenzaprine (Flexeril) 5. 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 Hypertriglyceridemia (E78.1) - chronic, worsening - Last triglyceride level in September was 283 mg/dL (goal <150 mg/dL) - Trending up over the past year - Provided patient with Mediterranean diet information sheet - Plan to recheck lipid panel on April 10 - Future Appointments: - Lab work scheduled for April 10 (lipid panel, CMP, uric acid level) - Follow-up appointment in 6 months for annual physical I performed the above service AI scribed on my behalf, and I have reviewed and confirmed the accuracy and completeness of the medical documentation. I performed the above service AI scribed on my behalf, and I have reviewed and confirmed the accuracy and completeness of the medical documentation. Follow up in 22 days (on 04/10/2025) for for lab work (Lipid, CMP, and uric acid) and then 6 months for annual physical and blood work. Subjective History of Present Illness Garry Morton, a 65-year-old male, presents for a 6-month follow-up on chronic health conditions. Atrial Fibrillation: Continues to take Eliquis and Metoprolol as prescribed. Denies signs of blood in urine or stools. Follows up with cardiology (Dr. Felton Benitez) and was last seen on 01/08/2025. Scheduled for follow-up again on 07/10/2025. Had an echocardiogram and Holter monitor completed in January of this year. EF by 2D [employer] biplane was 62% on his echocardiogram. He reports experiencing some heart palpitations, but states he doesn't usually pay much attention to them. The patient denies any current chest pain or shortness of breath. GERD: Takes Omeprazole daily as prescribed. Feels symptoms are well controlled. Chronic Back Pain: Will take Flexeril as needed and this works well for him. Has been taking allopurinol 200 mg due to elevated uric acid levels. Is due to have his uric acid level rechecked around 04/13/25. He mentions his joint pain has improved with allopurinol, noting it's not as bad now, especially on weekends when he's off work. His triglyceride levels were elevated on blood work at his physical in September of this year at 283 mg/dL and it was recommended to have his levels rechecked again in 6 months for follow-up. Regarding diet, he states, "I just eat what I want to eat." He notes he started eating more junk food after quitting drinking. Health Maintenance: Declines screening for HIV and Hep C. Vaccinated for COVID-19 x4 with most recent dose on 06/23/23- declines additional doses. Tdap current: 09/02/19. Is fully vaccinated for shingles and is current on his pneumococcal vaccinations (PCV20 on 08/30/23). Declines to be vaccinated for RSV. Colonoscopy: 05/14/24. Review of Systems Respiratory: Negative for chest tightness and shortness of breath. Cardiovascular: Positive for palpitations. Negative for chest pain and leg swelling. Gastrointestinal: Negative for blood in stool. Genitourinary: Negative for hematuria. Skin: Negative for color change, pallor, rash and wound. Hematological: Does not bruise/bleed easily. Objective Vitals: 03/19/25 1541 BP: 94/61 Pulse: 74 SpO2: 95% Weight: 194 lb 12.8 oz (88.4 kg) Height: 5' 11" (1.803 m) Body mass index is 27.17 kg/m . Physical Exam Constitutional: General: He is not in acute distress. Appearance: He is not ill-appearing or diaphoretic. Neck: Vascular: No carotid bruit. Cardiovascular: Rate and Rhythm: Normal rate. Rhythm irregular. Pulses: Normal pulses. Heart sounds: Normal heart sounds. No murmur heard. No friction rub. Pulmonary: Breath sounds: Normal breath sounds. No wheezing, rhonchi or rales. Abdominal: General: Bowel sounds are normal. There is no distension. Palpations: Abdomen is soft. There is no mass. Tenderness: There is no abdominal tenderness. There is no guarding or rebound. Musculoskeletal: Cervical back: Neck supple. Right lower leg: No edema. Left lower leg: No edema. Skin: General: Skin is warm and dry. Coloration: Skin is not pale. Findings: No bruising, erythema or rash. Neurological: Mental Status: He is alert and oriented to person, place, and time. Psychiatric: Mood and Affect: Mood normal. Behavior: Behavior normal. Thought Content: Thought content normal. Judgment: Judgment normal. Data Reviewed Results An electronic signature was used to authenticate this note. ZAINA Jaime CNP 03/19/2025 4:00 PM documented in this encounter [facility] 03-17-2025 Telephone encounter Note Please sign RX and labs [facility] 03-17-2025 Miscellaneous Notes Please sign RX and labs Uric acid level 6.5, goal is less than 6 to prevent gout flareups, recommend increasing allopurinol to 200 mg daily and rechecking in 4 weeks documented in this encounter [facility] 03-17-2025 Miscellaneous Notes Please sign RX and labs Uric acid level 6.5, goal is less than 6 to prevent gout flareups, recommend increasing allopurinol to 200 mg daily and rechecking in 4 weeks documented in this encounter [facility] 03-14-2025 Telephone encounter Note Reviewed chart. Refill not appropriate, too soon. RX refused [facility] 03-14-2025 Progress note Formatting of t his note might be different from the original. Uric acid level 6.5, goal is less than 6 to prevent gout flareups, recommend increasing allopurinol to 200 mg daily and rechecking in 4 weeks [facility] 03-14-2025 Miscellaneous Notes Reviewed chart. Refill not appropriate, too soon. RX refused Pt came in for labs and I let him know that Nneka wanted to wait on refilling until after the results come back. Pt understood. He has a lab draw for tomorrow to check uric acid level, will wait for lab result in case adjustment needs made. Prescription Request: allopurinol (Zyloprim) 100 MG tablet Last medication check: none Last physical exam: 09/18/24 Next scheduled appointment: 03/19/25 Last date of refill on this medication 02/14/25 (qty 30 refill 0) documented in this encounter [facility] [employer] 03-13-2025 Telephone encounter Note Pt came in for labs and I let him know that Nneka wanted to wait on refilling until after the results come back. Pt understood. [facility] [employer] 03-12-2025 Telephone encounter Note He has a lab draw for tomorrow to check uric acid level, will wait for lab result in case adjustment needs made. [facility] [employer] 03-12-2025 Telephone encounter Note Prescription Request: allopurinol (Zyloprim) 100 MG tablet Last medication check: none Last physical exam: 09/18/24 Next scheduled appointment: 03/19/25 Last date of refill on this medication 02/14/25 (qty 30 refill 0) [facility] 02-19-2025 History of Present illness Narrative Images from the original note were not included. 02/19/2025 Garry Morton (: 1960) is a 65 y.o. male , Established patient, here for evaluation of the following chief complaint(s): Injections ASSESSMENT/PLAN: 1. Acute pain of left shoulder - methylPREDNISolone acetate (DEPO-Medrol) injection 40 mg; 40 mg, Intra-artICUlar, Once, On Mon02/19/25 at 1400, For 1 dose - lidocaine (Xylocaine) 1 % injection 1 mL; 1 mL, Injection, Once, On Mon02/19/25 at 1415, For 1 dose Joint Injection Procedure Note Indications and potential risks and complications of the procedure were explained to the patient. Patient was informed that there would be some pain associated with the procedure, and that the injection might not relieve the symptoms. In addition, possible side effects, including increased pain, infection, or bleeding could result from the injection. Patient also told that there are limitations on the frequency and amount of injections in any joint. Questions were answered and the patient agreed to the procedure. Sterile technique was employed. Prep: Betadine. 1 ml of Depo-Medrol (40 mg/ml) with 1 ml of 1% Lidocaine injected into shoulder using a 25 gauge 1.5 inch needle. Patient tolerated procedure well. Band-Aid applied and instructions given. Patient told to use ice for worsening pain and avoid forceful or strenuous use of affected area for 1-2 weeks. Patient may take OTC analgesics or usual pain medication for further relief. Patient tolerated procedure well without any complications. Follow up if symptoms worsen or fail to improve. SUBJECTIVE/OBJECTIVE: HPI - Garry Morton (: 1960) is a 65 y.o. male , Established patient, here for the evaluation of the following chief complaint(s): Injections Patient presents today for steroid injection in his left shoulder. He did have x-ray completed this morning which showed some mild osteoarthritis. Discussed risks and benefits of injection and patient would like to move forward with getting the steroid injection. Current Medications[1] Review of Systems Constitutional: Negative. Respiratory: Negative. Cardiovascular: Negative. Musculoskeletal: Positive for arthralgias. Vitals: 02/19/25 1329 BP: 102/67 Pulse: 73 Resp: 18 Temp: 37.1 C (98.7 F) TempSrc: Infrared SpO2: 98% Weight: 195 lb (88.5 kg) Physical Exam Constitutional: General: He is not in acute distress. Appearance: Normal appearance. He is not ill-appearing. Pulmonary: Effort: Pulmonary effort is normal. Musculoskeletal: Left shoulder: Tenderness present. No bony tenderness or crepitus. Decreased range of motion. Neurological: Mental Status: He is alert and oriented to person, place, and time. An electronic signature was used to authenticate this note. ZAINA Otoole CNP 02/19/2025 7:22 PM [1] Current Outpatient Medications Medication Sig Dispense Refill allopurinol (Zyloprim) 100 MG tablet Take 1 tablet (100 mg) by mouth daily. 30 tablet 0 apixaban (Eliquis) 5 MG tablet Take 1 tablet (5 mg) by mouth 2 times daily. 180 tablet 1 cyclobenzaprine (Flexeril) 5 MG tablet Take 1 tablet (5 mg) by mouth Nightly as needed for muscle spasms. 30 tablet 1 metoprolol succinate XL (Toprol-XL) 25 MG 24 hr tablet TAKE 1 TABLET BY MOUTH EVERY DAY 90 tablet 1 omeprazole (PriLOSEC) [address] capsule TAKE 1 CAPSULE (20 MG) BY MOUTH DAILY. DO NOT CRUSH OR CHEW. 90 capsule 1 No current facility-administered medications for this visit. Patient was identified by name and Date of . documented in this encounter [facility] 02-18-2025 Evaluation + Plan note Associated Problem(s): Acute pain of left shoulder Likely has osteoarthritis of the shoulder and tendinitis. Will obtain x-ray shoulder and plan for corticosteroid injection [facility] 02-18-2025 Miscellaneous Notes Associated Problem(s): Acute pain of left shoulder Likely has osteoarthritis of the shoulder and tendinitis. Will obtain x-ray shoulder and plan for corticosteroid injection Associated Problem(s): Right hand pain Likely osteoarthritis, recommend getting imaging completed. documented in this encounter [facility] 02-18-2025 Evaluation + Plan note Associated Problem(s): Right hand pain Likely osteoarthritis, recommend getting imaging completed. [facility] 02-18-2025 History of Present illness Narrative Patient was identified by name and Date of . Images from the original note were not included. 02/18/2025 Garry Morton (: 1960) is a 65 y.o. male , Established patient, here for evaluation of the following chief complaint(s): Shoulder Pain (Started getting bad on Monday ) ASSESSMENT/PLAN: 1. Acute pain of left shoulder Assessment & Plan: Likely has osteoarthritis of the shoulder and tendinitis. Will obtain x-ray shoulder and plan for corticosteroid injection Orders: - XR shoulder 2+ views left 2. Right hand pain Assessment & Plan: Likely osteoarthritis, recommend getting imaging completed. No follow-ups on file. SUBJECTIVE/OBJECTIVE: HPI - Garry Morton (: 1960) is a 65 y.o. male , Established patient, here for the evaluation of the following chief complaint(s): Shoulder Pain (Started getting bad on Monday ) Answers submitted by the patient for this visit: Other (Submitted on 02/18/2025) Please describe your symptoms.: Left shoulder Have you had these symptoms before?: Yes How long have you been having these symptoms?: For a week Please describe any probable cause for these symptoms. : Work.grinding Patient reports it is a little better since he has been off for 2 days. Denies any numbness or tingling or weakness of the left arm. Reports he has had intermittent problems with his left shoulder but it has flared up recently Continues to have swelling and pain in his right hand, he did complete meloxicam x 1 week without significant improvement in his symptoms. He states the swelling has improved since he has not worked for 2 days. His uric acid level was elevated and he was started on allopurinol. He does have an x-ray that was ordered but he has not gotten it done for his hand. Current Medications[1] Review of Systems Constitutional: Negative. Respiratory: Negative. Cardiovascular: Negative. Musculoskeletal: Positive for arthralgias and joint swelling. Vitals: 02/18/25 1520 BP: 138/80 Pulse: 82 Resp: 20 Temp: 36.9 C (98.4 F) TempSrc: Infrared SpO2: 96% Weight: 195 lb 12.8 oz (88.8 kg) Physical Exam Constitutional: General: He is not in acute distress. Appearance: Normal appearance. He is not ill-appearing. Cardiovascular: Rate and Rhythm: Normal rate. Rhythm irregular. Pulses: Normal pulses. Heart sounds: Normal heart sounds. Pulmonary: Effort: Pulmonary effort is normal. Breath sounds: Normal breath sounds. Musculoskeletal: Left shoulder: Tenderness present. No swelling, bony tenderness or crepitus. Decreased range of motion. Normal strength. Arms: Hands: Skin: General: Skin is warm and dry. Neurological: Mental Status: He is alert and oriented to person, place, and time. An electronic signature was used to authenticate this note. ZAINA Otoole CNP 02/18/2025 6:55 PM [1] Current Outpatient Medications Medication Sig Dispense Refill allopurinol (Zyloprim) 100 MG tablet Take 1 tablet (100 mg) by mouth daily. 30 tablet 0 apixaban (Eliquis) 5 MG tablet Take 1 tablet (5 mg) by mouth 2 times daily. 180 tablet 1 cyclobenzaprine (Flexeril) 5 MG tablet Take 1 tablet (5 mg) by mouth Nightly as needed for muscle spasms. 30 tablet 1 metoprolol succinate XL (Toprol-XL) 25 MG 24 hr tablet TAKE 1 TABLET BY MOUTH EVERY DAY 90 tablet 1 omeprazole (PriLOSEC) [address] capsule TAKE 1 CAPSULE (20 MG) BY MOUTH DAILY. DO NOT CRUSH OR CHEW. 90 capsule 1 No current facility-administered medications for this visit. documented in this encounter [facility] 02-18-2025 Telephone encounter Note Noted. Agree with recommendation. [facility] 02-18-2025 Miscellaneous Notes Noted. Agree with recommendation. S-Patient has left should pain and cannot move it B-states hurts in every position, out to the front, back , side and above head A-no fever or COVID symptoms, states very painful, no injury noted, would like to be seen, Tylenol and Ibuprofen has not helped R-Scheduled Same Day appt today 02/18/25 @ 3:00p with Judie Villanueva. Advised can try ice or heat. Reason for Disposition [1] SEVERE pain AND [2] not improved 2 hours after pain medicine/ice packs Answer Assessment - Initial Assessment Questions . Protocols used: Shoulder [id number] documented in this encounter [facility] 02-18-2025 Telephone encounter Note S-Patient has left should pain and cannot move it B-states hurts in every position, out to the front, back , side and above head A-no fever or COVID symptoms, states very painful, no injury noted, would like to be seen, Tylenol and Ibuprofen has not helped R-Scheduled Same Day appt today 02/18/25 @ 3:00p with Judie Villanueva. Advised can try ice or heat. [facility] 02-18-2025 Telephone encounter Note Reason for Disposition [1] SEVERE pain AND [2] not improved 2 hours after pain medicine/ice packs Answer Assessment - Initial Assessment Questions . Protocols used: Shoulder [id number] [facility] 01-23-2025 Evaluation + Plan note Associated Problem(s): Right hand pain Likely osteoarthritis. Possible gout. No signs or symptoms of infection, denies any trauma. Meloxicam 15 mg daily x 7 days, notify provider next week if symptoms have not improved, consider x-ray of right hand and obtaining uric acid level. [facility] 01-23-2025 Miscellaneous Notes Associated Problem(s): Right hand pain Likely osteoarthritis. Possible gout. No signs or symptoms of infection, denies any trauma. Meloxicam 15 mg daily x 7 days, notify provider next week if symptoms have not improved, consider x-ray of right hand and obtaining uric acid level. Associated Problem(s): Low back pain Currently asymptomatic, continue cyclobenzaprine 5 mg at bedtime as needed for muscle spasms Associated Problem(s): Muscle spasm of back Cyclobenzaprine 5 mg at bedtime as needed for muscle spasms. Follow-up for any worsening symptoms Associated Problem(s): Left sided sciatica Resolved. documented in this encounter [facility] 01-23-2025 Evaluation + Plan note Associated Problem(s): Low back pain Currently asymptomatic, continue cyclobenzaprine 5 mg at bedtime as needed for muscle spasms [facility] 01-23-2025 Evaluation + Plan note Associated Problem(s): Muscle spasm of back Cyclobenzaprine 5 mg at bedtime as needed for muscle spasms. Follow-up for any worsening symptoms [facility] 01-23-2025 Evaluation + Plan note Associated Problem(s): Left sided sciatica Resolved. [facility] 01-23-2025 History of Present illness Narrative Patient was identified by name and Date of . Images from the original note were not included. 01/23/2025 Garryseferino Morton (: 1960) is a 64 y.o. male , Established patient, here for evaluation of the following chief complaint(s): Follow-up (Leg-better) and Hand Pain (Right hand-started 3 days ago ) ASSESSMENT/PLAN: 1. Right hand pain Assessment & Plan: Likely osteoarthritis. Possible gout. No signs or symptoms of infection, denies any trauma. Meloxicam 15 mg daily x 7 days, notify provider next week if symptoms have not improved, consider x-ray of right hand and obtaining uric acid level. Orders: - meloxicam (Mobic) 15 MG tablet; Take 1 tablet (15 mg) by mouth daily for 7 days., Starting Phuong 01/23/2025, Until Phuong 01/30/2025, Normal 2. Left sided sciatica Assessment & Plan: Resolved. 3. Muscle spasm of back Assessment & Plan: Cyclobenzaprine 5 mg at bedtime as needed for muscle spasms. Follow-up for any worsening symptoms 4. Chronic low back pain without sciatica, unspecified back pain laterality Assessment & Plan: Currently asymptomatic, continue cyclobenzaprine 5 mg at bedtime as needed for muscle spasms Orders: - Uric acid - cyclobenzaprine (Flexeril) 5 MG tablet; Take 1 tablet (5 mg) by mouth Nightly as needed for muscle spasms., Starting Phuong 01/23/2025, Normal Follow up if symptoms worsen or fail to improve. SUBJECTIVE/OBJECTIVE: PITO Morton (: 1960) is a 64 y.o. male , Established patient, here for the evaluation of the following chief complaint(s): Follow-up (Leg-better) and Hand Pain (Right hand-started 3 days ago ) Patient presents for follow-up sciatic pain-reports his sciatic pain and low back pain has resolved. He would like to continue muscle relaxant at night if needed for muscle spasms. States he has had right hand pain and swelling x 3 days. Top of the hand/knuckle. No new injury. No fever or chills. Denies any history of gout. He thinks it is probably arthritis. Current Medications[1] Review of Systems Constitutional: Negative. Respiratory: Negative. Cardiovascular: Negative. Genitourinary: Negative. Musculoskeletal: Positive for joint swelling (Right hand). Negative for back pain, gait problem, myalgias and neck pain. Vitals: 01/23/25 1540 BP: 117/71 Pulse: 92 Resp: 18 Temp: 36.8 C (98.3 F) TempSrc: Infrared SpO2: 96% Weight: 202 lb 6.4 oz (91.8 kg) Physical Exam Vitals reviewed. Constitutional: General: He is not in acute distress. Appearance: Normal appearance. He is not ill-appearing. HENT: Head: Normocephalic and atraumatic. Mouth/Throat: Mouth: Mucous membranes are moist. Pharynx: Oropharynx is clear. No posterior oropharyngeal erythema. Eyes: Conjunctiva/sclera: Conjunctivae normal. Cardiovascular: Rate and Rhythm: Normal rate. Rhythm irregular. Pulses: Normal pulses. Heart sounds: Normal heart sounds. Pulmonary: Effort: Pulmonary effort is normal. Breath sounds: Normal breath sounds. Musculoskeletal: Hands: Right lower leg: No edema. Left lower leg: No edema. Comments: Able to get on and off the exam table without difficulty Lymphadenopathy: Cervical: No cervical adenopathy. Neurological: Mental Status: He is alert and oriented to person, place, and time. Psychiatric: Mood and Affect: Mood normal. Behavior: Behavior normal. Thought Content: Thought content normal. An electronic signature was used to authenticate this note. ZAINA Otoole CNP 01/23/2025 7:05 PM [1] Current Outpatient Medications Medication Sig Dispense Refill apixaban (Eliquis) 5 MG tablet Take 1 tablet (5 mg) by mouth 2 times daily. 180 tablet 1 metoprolol succinate XL (Toprol-XL) 25 MG 24 hr tablet TAKE 1 TABLET BY MOUTH EVERY DAY 90 tablet 1 omeprazole (PriLOSEC) [address] capsule TAKE 1 CAPSULE (20 MG) BY MOUTH DAILY. DO NOT CRUSH OR CHEW. 90 capsule 1 cyclobenzaprine (Flexeril) 5 MG tablet Take 1 tablet (5 mg) by mouth Nightly as needed for muscle spasms. 30 tablet 1 meloxicam (Mobic) 15 MG tablet Take 1 tablet (15 mg) by mouth daily for 7 days. 7 tablet 0 No current facility-administered medications for this visit. documented in this encounter [facility] 01-23-2025 Instructions ZAINA Smith CNP - 01/23/2025 3:40 PM EDT Right hand swelling/pain likely arthritis. If not better next week, let provider know and we can get an xray and check uric acid level for possible gout. documented in this encounter [facility] 01-09-2025 Telephone encounter Note Prescription Request: Last medication check: 01/02/25 Last physical exam: 09/18/24 Next scheduled appointment: 01/23/25 Last date of refill on this medication 07/12/25 [facility] 01-09-2025 Miscellaneous Notes Prescription Request: Last medication check: 01/02/25 Last physical exam: 09/18/24 Next scheduled appointment: 01/23/25 Last date of refill on this medication 07/12/25 documented in this encounter [facility] 01-08-2025 History of Present illness Narrative [facility] Card[facility] Note Chief Complaint: Chief Complaint Patient presents with Establish Care History of Present Illness: Garry Morton is a 64 y.o. male presents for evaluation last seen in 2018. At that time I recall he had undergone cardioversion, was anticoagulated, was placed on metoprolol succinate 25 mg daily. We then lost contact with him. He presents back today reporting that over the course of the past year he is gradually become a little more short of breath. This is mainly at work. There is no anginal type chest discomfort. No lightheadedness presyncope or syncope. Denies lower extremity edema or significant trouble with orthopnea PND. His dyspnea is mainly with exertion and at work. He does not have palpitation. Laboratory data from 2024 demonstrates a cholesterol of 140, hemoglobin was 14.9 in April 2024. There is no obvious bleeding. Past Medical History: Medical History[1] Past Surgical History Surgical History[2] Family History Family History[3] Social History Social History[4] Allergies: Allergies[5] Medications: Current Medications[6] Review of Systems: Review of Systems Constitutional: Negative. HENT: Negative. Eyes: Negative. Respiratory: Positive for shortness of breath. Cardiovascular: Negative. Gastrointestinal: Negative. Endocrine: Negative. Genitourinary: Negative. Musculoskeletal: Negative. Skin: Negative. Allergic/Immunologic: Negative. Neurological: Negative. Hematological: Negative. Psychiatric/Behavioral: Negative. Physical Examination: Vitals: Vitals: 01/08/25 1105 BP: 110/80 BP Location: Left arm Patient Position: Sitting BP Cuff Size: Large adult Pulse: 60 Resp: 20 SpO2: 98% Weight: 203 lb (92.1 kg) Height: 5' 11" (1.803 m) Body mass index is 28.31 kg/m . Physical Exam Vitals reviewed. Constitutional: Appearance: Normal appearance. HENT: Head: Normocephalic. Right Ear: External ear normal. Left Ear: External ear normal. Nose: Nose normal. Mouth/Throat: Mouth: Mucous membranes are moist. Eyes: Pupils: Pupils are equal, round, and reactive to light. Cardiovascular: Rate and Rhythm: Normal rate. Rhythm irregular. Heart sounds: No murmur heard. Pulmonary: Effort: No respiratory distress. Musculoskeletal: General: Normal range of motion. Right lower leg: No edema. Left lower leg: No edema. Skin: General: Skin is warm and dry. Coloration: Skin is not jaundiced. Neurological: General: No focal deficit present. Mental Status: He is alert. Motor: No weakness. Gait: Gait normal. Psychiatric: Mood and Affect: Mood normal. Behavior: Behavior normal. Thought Content: Thought content normal. Judgment: Judgment normal. Laboratory Tests: Lab Results Component Value Date WBC 10.9 (H) 04/26/2024 HGB 14.9 04/26/2024 HCT 45.3 04/26/2024 MCV 89.5 04/26/2024 PLT 230 04/26/2024 Lab Results Component Value Date GLUCOSE 82 09/18/2024 CALCIUM 9.5 09/18/2024 NA 140 04/16/2022 K 3.9 04/16/2022 CO2 27 09/18/2024 CL 111 (H) 04/16/2022 BUN 15 09/18/2024 CREATININE 0.97 09/18/2024 @LASTP@ Lab Results Component Value Date CHOL 133 04/16/2022 CHOL 149 09/02/2020 CHOL 134 03/02/2020 Lab Results Component Value Date TRIG 111 04/16/2022 TRIG 145 09/02/2020 TRIG 95 03/02/2020 Lab Results Component Value Date HDL 32 (L) 04/16/2022 HDL 30 (L) 09/02/2020 HDL 40 03/02/2020 No results found for: "LDLCALC" Assessment and Plan: Atrial fibrillation: Permanent and seemingly rate controlled. He does not have significant risk factors for stroke and atrial fibrillation. We will obtain echocardiography to ensure he maintains normal ejection fraction and then can consider discontinuing the apixaban. His rates are controlled at rest. Obtaining 24-hour Holter monitor to ensure rate control with activity particularly at work. Maintain the present beta-west dose for now. At this point would not make any attempts at sinus rhythm [1] Past Medical History: Diagnosis Date 2019 novel coronavirus disease (COVID-19) ? Atrial fibrillation (HCC) PAF Bronchitis GERD (gastroesophageal reflux disease) ? History of echocardiogram Echo 03/07/17 Persistent atrial fibrillation (HCC) CHADsV - 0 Strain of back 11/18/2019 [2] Past Surgical History: Procedure Laterality Date CAPSULOTOMY, HAND 04/27/2017 08/28/17,11/23/17 CAPSULOTOMY, HAND 12/08/2017 CARDIOVERSION COLONOSCOPY COLONOSCOPY W/ BIOPSIES 05/14/2024 Performed by Eris Tate MD at [facility] ENDOSCOPY COLONOSCOPY W/ BIOPSIES AND POLYPECTOMY N/A 05/14/2024 Performed by Eris Tate MD at [facility] ENDOSCOPY HERNIA REPAIR [3] Family History Problem Relation Name Age of Onset No Known Problems Mother Other ([address]) Father elevated heart rate [4] Social History Tobacco Use Smoking status: Former Current packs/day: 0.00 Average packs/day: 2.0 packs/day for 10.0 years (20.0 ttl pk-yrs) Types: Cigarettes Quit date: 08/07/1996 Years since quittin.4 Smokeless tobacco: Former Quit date: 10/05/2016 Vaping Use Vaping status: Never Used Substance Use Topics Alcohol use: Not Currently Comment: quit 2 mo ago Drug use: No [5] No Known Allergies [6] Current Outpatient Medications: apixaban (Eliquis) 5 MG tablet, Take 1 tablet (5 mg) by mouth 2 times daily., Disp: 180 tablet, Rfl: 1 cyclobenzaprine (Flexeril) 5 MG tablet, Take 1 tablet (5 mg) by mouth Nightly as needed for muscle spasms., Disp: 30 tablet, Rfl: 0 meloxicam (Mobic) 15 MG tablet, Take 1 tablet (15 mg) by mouth daily., Disp: 15 tablet, Rfl: 0 metoprolol succinate XL (Toprol-XL) 25 MG 24 hr tablet, Take 1 tablet (25 mg) by mouth daily., Disp: 90 tablet, Rfl: 1 omeprazole (PriLOSEC) [address] capsule, TAKE 1 CAPSULE (20 MG) BY MOUTH DAILY. DO NOT CRUSH OR CHEW., Disp: 90 capsule, Rfl: 1 documented in this encounter [facility] 01-02-2025 Evaluation + Plan note Associated Problem(s): Left sided sciatica Will start meloxicam once a day for up to 2 weeks, cautioned about taking his medicine on an empty stomach he needs to take it with food and he should not take it more than 2 weeks. Stretching exercises were discussed in detail follow-up in 2 weeks. [facility] 01-02-2025 Miscellaneous Notes Associated Problem(s): Left sided sciatica Will start meloxicam once a day for up to 2 weeks, cautioned about taking his medicine on an empty stomach he needs to take it with food and he should not take it more than 2 weeks. Stretching exercises were discussed in detail follow-up in 2 weeks. Associated Problem(s): Persistent atrial fibrillation (HCC) Referral to cardiology for further follow-up. documented in this encounter [facility] 01-02-2025 Evaluation + Plan note Associated Problem(s): Persistent atrial fibrillation (HCC) Referral to cardiology for further follow-up. [facility] 01-02-2025 Note Referral to cardiolo gy for further follow-up. [facility] 01-02-2025 History of Present illness Narrative Patient verified by last name and date of . Images from the original note were not included. Answers submitted by the patient for this visit: Back Pain Questionnaire (Submitted on 01/01/2025) Chief Complaint: Back pain Onset: in the past 7 days Progression since onset: waxing and waning Pain location: gluteal Pain quality: aching Radiates to: left thigh, right knee Pain - numeric: 8/10 Pain is: worse during the day Aggravated by: standing Stiffness is present: all day leg pain: Yes 01/02/2025 Garry Morton (: 1960) is a 64 y.o. male , Established patient, here for evaluation of the following chief complaint(s): Leg Pain (And numbness- left ) ASSESSMENT/PLAN: 1. Left sided sciatica Assessment & Plan: Will start meloxicam once a day for up to 2 weeks, cautioned about taking his medicine on an empty stomach he needs to take it with food and he should not take it more than 2 weeks. Stretching exercises were discussed in detail follow-up in 2 weeks. 2. Persistent atrial fibrillation (HCC) Assessment & Plan: Referral to cardiology for further follow-up. Orders: - [facility] Cardiology Follow up in about 2 weeks (around 01/16/2025). SUBJECTIVE/OBJECTIVE: HPI -Garry comes in today complaining of some low back pain on the left side with pain down his leg with numbness and weakness. Said this came on suddenly after he was doing a lot of shoveling and working in the flower beds 5 days ago and he says this is worse if he is standing for a long period of time. He also was wondering about getting back into see a pigment supplier for his A-fib he has not been back to see his pigment supplier for about 3 or 4 years. He continues to take the anticoagulants and metoprolol for rate control. Review of Systems Musculoskeletal: Positive for back pain. Negative for arthralgias, gait problem and myalgias. Neurological: Positive for numbness. Negative for weakness. Vitals: 01/02/25 1257 BP: 110/74 Pulse: 70 SpO2: 98% Weight: 199 lb 3.2 oz (90.4 kg) Height: 5' 11" (1.803 m) Physical Exam Vitals and nursing note reviewed. Constitutional: Appearance: Normal appearance. Cardiovascular: Rate and Rhythm: Normal rate. Rhythm irregularly irregular. Heart sounds: Normal heart sounds. Musculoskeletal: Comments: Back he has decreased range of motion with flexion due to pain in the location near his left gluteal muscle. He has some pain to percussion of the sciatic notch on the left side and he has an equivocal straight leg raise on the left side. Right side is completely normal. Neurological: Mental Status: He is alert. An electronic signature was used to authenticate this note. Kenton Turpin MD 01/02/2025 3:01 PM documented in this encounter [facility] 11-20-2024 Telephone encounter Note Noted. Thank you. [facility] 11-20-2024 Miscellaneous Notes Noted. Thank you. We have been unable to reach your patient to schedule their testing. Test Name: Exercise stress test 1st attempt via [employer] 09/20/24 2nd attempt, patient declined related to cost, 11/19/2024 10/03/24 Patient Canceled documented in this encounter [facility] 11-19-2024 Telephone encounter Note We have been unable to reach your patient to schedule their testing. Test Name: Exercise stress test 1st attempt via [employer] 09/20/24 2nd attempt, patient declined related to cost, 11/19/2024 10/03/24 Patient Canceled [facility] 11-19-2024 Miscellaneous Notes We have been unable to reach your patient to schedule their testing. Test Name: Exercise stress test 1st attempt via [employer] 09/20/24 2nd attempt, patient declined related to cost, 11/19/2024 10/03/24 Patient Canceled documented in this encounter [facility] 09-23-2024 Telephone encounter Note Reviewed chart. Refill appropriate. RX sent. [facility] 09-23-2024 Miscellaneous Notes Reviewed chart. Refill appropriate. RX sent. Prescription Request: Last medication check: 06/12/24 Last physical exam: 09/18/24 Next scheduled appointment: 03/19/25 Last date of refill on this medication: 06/12/24 documented in this encounter [facility] 09-23-2024 Telephone encounter Note Prescription Request: Last medication check: 06/12/24 Last physical exam: 09/18/24 Next scheduled appointment: 03/19/25 Last date of refill on this medication: 06/12/24 [facility] 09-18-2024 History of Present illness Narrative Patient verified by last name and . Images from the original note were not included. [place] [id number] [address] [facility] [address] [facility] [address] Dept: [phone] Dept Loc: [phone] HPI: Garry Morton is a 64 y.o. male who presents today for his medical conditions/complaints as noted below. Garry Morton is c/o of Annual Exam, Blood Work, and Health Maintenance (HIV/HEP C Screen- declines /5th Covid- not done ) HPI- Garry presents today for his annual physical and blood work. Atrial Fibrillation: Continues to take Eliquis as prescribed. Denies signs of blood in urine or stools. Has been noticing some heart palpitations and chest pain. Denies symptoms at the time of his visit. Denies pain radiating up into his neck or down his left arm. States it stays in the center of his chest. Had a stress test in April of 2022 with normal findings. GERD: takes Omeprazole daily as prescribed. Feels symptoms are well controlled. Chronic Back Pain: Will take Flexeril as needed and this works well for him. Requesting a refill today. Health Maintenance: Declines screening for HIV and Hep C. Vaccinated for COVID-19 x4 with most recent dose on 06/23/23- declines additional doses. Tdap current: 09/02/19. Flu vaccine current: 04/26/24. Is fully vaccinated for shingles and is current on his pneumococcal vaccinations (PCV20 on 08/30/23). See ROS for additional information. Past Medical History: Diagnosis Date 2019 novel coronavirus disease (COVID-19) ? Atrial fibrillation (HCC) PAF Bronchitis GERD (gastroesophageal reflux disease) ? History of echocardiogram Echo 03/07/17 Persistent atrial fibrillation (HCC) CHADsV - 0 Strain of back 11/18/2019 Past Surgical History: Procedure Laterality Date CAPSULOTOMY, HAND 04/27/2017 08/28/17,11/23/17 CAPSULOTOMY, HAND 12/08/2017 CARDIOVERSION COLONOSCOPY COLONOSCOPY W/ BIOPSIES 05/14/2024 Performed by Eris Tate MD at [facility] ENDOSCOPY COLONOSCOPY W/ BIOPSIES AND POLYPECTOMY N/A 05/14/2024 Performed by Eris Tate MD at [facility] ENDOSCOPY HERNIA REPAIR Family History Problem Relation Name Age of Onset No Known Problems Mother Other ([address]) Father elevated heart rate Social History Tobacco Use Smoking status: Former Current packs/day: 0.00 Average packs/day: 2.0 packs/day for 10.0 years (20.0 ttl pk-yrs) Types: Cigarettes Quit date: 08/07/1996 Years since quittin.1 Smokeless tobacco: Former Quit date: 10/05/2016 Substance Use Topics Alcohol use: Not Currently Comment: quit 2 mo ago Current Outpatient Medications Medication Sig Dispense Refill metoprolol succinate XL (Toprol-XL) 25 MG 24 hr tablet Take 1 tablet (25 mg) by mouth daily. 90 tablet 1 omeprazole (PriLOSEC) [address] capsule Take 1 capsule (20 mg) by mouth daily. Do not crush or chew. 90 capsule 1 apixaban (Eliquis) 5 MG tablet Take 1 tablet (5 mg) by mouth 2 times daily. 180 tablet 1 cyclobenzaprine (Flexeril) 5 MG tablet Take 1 tablet (5 mg) by mouth Nightly as needed for muscle spasms. 30 tablet 0 No current facility-administered medications for this visit. No Known Allergies Health Maintenance Topic Date Due HIV Screening Never done Hepatitis C Screening Never done COVID-19 Vaccine ( season) 2024 Diabetes Screening 08/30/2024 Depression Screening 09/15/2025 Lipid Panel 08/30/2028 Colorectal Cancer Screening 05/14/2029 DTaP/Tdap/Td Vaccines (2 - Td or Tdap) 09/02/2029 RSV Immunization for Adults (1 - 1-dose 75+ series) 02/08/2036 Influenza Vaccine Completed Pneumococcal Vaccine: 50+ Years Completed Zoster Vaccines Completed RSV Immunization under 20 Months Aged Out HIB Vaccines Aged Out Hepatitis B Vaccines Aged Out IPV Vaccines Aged Out Hepatitis A Vaccines Aged Out Meningococcal Vaccine Aged Out Rotavirus Vaccines Aged Out HPV Vaccines Aged Out MMR Vaccines Discontinued Subjective: Review of Systems Constitutional: Negative for chills and fever. HENT: Negative for hearing loss and trouble swallowing. Eyes: Negative for pain and visual disturbance. Respiratory: Negative for cough, chest tightness, shortness of breath and wheezing. Cardiovascular: Positive for chest pain and palpitations. Negative for leg swelling. Gastrointestinal: Negative for abdominal distention, abdominal pain, blood in stool, constipation and diarrhea. Endocrine: Negative for polydipsia, polyphagia and polyuria. Genitourinary: Negative for difficulty urinating, dysuria and hematuria. Musculoskeletal: Positive for back pain. Skin: Negative for color change, pallor, rash and wound. Neurological: Negative for dizziness, syncope, weakness and headaches. Hematological: Does not bruise/bleed easily. Psychiatric/Behavioral: Negative for dysphoric mood. The patient is not nervous/anxious. Objective: BP 118/72 Pulse 91 Ht 5' 11" (1.803 m) Wt 204 lb 3.2 oz (92.6 kg) SpO2 97% BMI 28.48 kg/m Last 3 PHQ-2 Scores 09/15/2024 1440 Patient Health Questionnaire-2 Score: 0 Physical Exam Constitutional: Oriented to person, place, and time. Appears well-developed and well-nourished. No distress. HENT: Head: Normocephalic and atraumatic. Right Ear: External ear normal. Left Ear: External ear normal. Nose: Nose normal. Mouth/Throat: Oropharynx is clear and moist. No oropharyngeal exudate. Bilateral TM's pearly hines with a good cone of light bilaterally. Eyes: Conjunctivae and EOM are normal. Pupils are equal, round, and reactive to light. Right eye exhibits no discharge. Left eye exhibits no discharge. Neck: Normal range of motion. Neck supple. No thyromegaly present. Cardiovascular: Normal rate, irregular rhythm, normal heart sounds and intact distal pulses. Exam reveals no friction rub. No murmur heard. Carotid upstrokes brisk and without bruits bilaterally. Pulmonary/Chest: Effort normal and breath sounds normal. No respiratory distress. No wheezes. No rales. Abdominal: Soft. Bowel sounds are normal. No distension and no mass. There is no hepatosplenomegaly. There is no tenderness. Genitourinary: Declines a PHYLLIS. Musculoskeletal: Normal range of motion. No edema, tenderness or deformity. Strength 5/5 with flexion and extension of extremities x4. Lymphadenopathy: No cervical adenopathy. Neurological: Alert and oriented to person, place, and time. Coordination normal. Skin: Skin is warm and dry. No rash noted. No erythema. No pallor. Psychiatric: Normal mood and affect. Behavior is normal. Judgment and thought content normal. Assessment and Plan: 1. Well adult exam - Encouraged a healthy diet low in cholesterol and saturated fats. - Encouraged regular exercise. 2. Persistent atrial fibrillation (HCC) - Comprehensive metabolic panel - ECG 12 lead - CLINIC PERFORMED - Treadmill stress test - apixaban (Eliquis) 5 MG tablet; Take 1 tablet (5 mg) by mouth 2 times daily., Starting Mon09/18/2024, Normal - EKG showed atrial fibrillation. Negative for ST depression or T wave inversions. Will obtain a stress test for further evaluation of chest pain symptoms. - Discussed signs and symptoms warranting immediate attention- verbalized understanding. 3. Midsternal chest pain - Comprehensive metabolic panel - ECG 12 lead - CLINIC PERFORMED - Treadmill stress test - EKG showed atrial fibrillation. Negative for ST depression or T wave inversions. Will obtain a stress test for further evaluation of chest pain symptoms. - Discussed signs and symptoms warranting immediate attention- verbalized understanding. 4. Gastroesophageal reflux disease, unspecified whether esophagitis present - Comprehensive metabolic panel - Stable with Omeprazole. Will continue current treatment plan. 5. Chronic low back pain without sciatica, unspecified back pain laterality - Comprehensive metabolic panel - cyclobenzaprine (Flexeril) 5 MG tablet; Take 1 tablet (5 mg) by mouth Nightly as needed for muscle spasms., Starting Mon09/18/2024, Normal - Stable with PRN Cyclobenzaprine. Will continue current treatment plan. 6. Muscle spasm of back - Comprehensive metabolic panel - cyclobenzaprine (Flexeril) 5 MG tablet; Take 1 tablet (5 mg) by mouth Nightly as needed for muscle spasms., Starting Mon09/18/2024, Normal - Stable with PRN Cyclobenzaprine. Will continue current treatment plan. 7. Screening for diabetes mellitus - Comprehensive metabolic panel - Will notify of blood work results. 8. Screening for lipoid disorders - Lipid panel - Will notify of blood work results. 9. Screening for prostate cancer - PSA Total (Screening) - Will notify of blood work results. Garry received counseling on the following healthy behaviors: continue current medications Patient given educational materials on: well exams Discussed use, benefit, and side effects of prescribed medications. Barriers to medication compliance addressed. All patient questions answered. Pt voiced understanding. Follow Up: Follow up for follow up after stress test and then in 6 months for medication maintenance. Orders Placed This Encounter Procedures Lipid panel Standing Status: Future Number of Occurrences: 1 Standing Expiration Date: 09/18/2025 Comprehensive metabolic panel Standing Status: Future Number of Occurrences: 1 Standing Expiration Date: 09/18/2025 PSA Total (Screening) Standing Status: Future Number of Occurrences: 1 Standing Expiration Date: 09/18/2025 ECG 12 lead - CLINIC PERFORMED Order Specific Question: Reason for exam: Answer: Other Order Specific Question: Explanatory comment: Answer: Atrial Fibrillation Exercise stress test Standing Status: Future Standing Expiration Date: 09/18/2026 Order Specific Question: Can the patient walk on a treadmill? Answer: Yes ZAINA Jaime CNP 09/18/2024 3:58 PM documented in this encounter [facility] 06-12-2024 History of Present illness Narrative Images from the original note were not included. 06/12/2024 Garry Morton (: 1960) is a 64 y.o. male , Established patient, here for evaluation of the following chief complaint(s): Follow-up and Abdominal Pain (States abdominal bloating has gotten better, states he has quit drinking and has noticed a big difference. ) ASSESSMENT/PLAN: 1. Gastroesophageal reflux disease, unspecified whether esophagitis present - omeprazole (PriLOSEC) [address] capsule; Take 1 capsule (20 mg) by mouth daily. Do not crush or chew., Starting 06/12/2024, Normal - Stable with Omeprazole. Will continue current treatment plan. 2. Abdominal bloating - Resolved. Encouraged continued abstinence from alcohol. - Discussed signs and symptoms warranting follow up in the office- verbalized understanding. 3. Constipation, unspecified constipation type - Improved with PRN use of Miralax. - Discussed signs and symptoms warranting follow up in the office- verbalized understanding. Follow up in about 3 months (around 09/12/2024) for annual physical and fasting blood work. SUBJECTIVE/OBJECTIVE: PITO Castañeda presents today for follow up on his abdominal bloating, constipation, and GERD. He was started on daily Omeprazole at his previous appointment and states he has been feeling much better. Will use Miralax as needed for his constipation and this has helped as well. Feels bloating has improved as well. States he is no longer drinking alcohol which has helped also. Denies any new or worsening symptoms. Would like to continue with current prescriptions. Review of Systems Constitutional: Negative for chills and fever. Respiratory: Negative for shortness of breath. Cardiovascular: Negative for chest pain. Gastrointestinal: Negative for abdominal distention, abdominal pain, blood in stool, nausea and vomiting. Genitourinary: Negative for hematuria. Vitals: 06/12/24 1541 BP: 126/82 Pulse: 77 SpO2: 96% Weight: 201 lb 6.4 oz (91.4 kg) Height: 5' 11" (1.803 m) Body mass index is 28.09 kg/m . Physical Exam Constitutional: General: He is not in acute distress. Appearance: He is not ill-appearing or diaphoretic. Cardiovascular: Rate and Rhythm: Normal rate and regular rhythm. Heart sounds: Normal heart sounds. No murmur heard. No friction rub. Pulmonary: Effort: Pulmonary effort is normal. Abdominal: General: Bowel sounds are normal. There is no distension. Palpations: Abdomen is soft. There is no hepatomegaly, splenomegaly or mass. Tenderness: There is no abdominal tenderness. There is no guarding. Skin: General: Skin is warm and dry. Coloration: Skin is not pale. Findings: No erythema or rash. Neurological: Mental Status: He is alert and oriented to person, place, and time. Psychiatric: Mood and Affect: Mood normal. Behavior: Behavior normal. Thought Content: Thought content normal. Judgment: Judgment normal. An electronic signature was used to authenticate this note. Jacquelyn Kaminski APRN [facility] 06/12/2024 3:55 PM documented in this encounter [facility] 05-21-2024 Telephone encounter Note Called patient regarding recent endoscopy results. Patient did answer. I did not have to leave a voicemail. Colonoscopy demonstrated 3 tubular adenomas and additional hyperplastic polpys Recommend a 5 year surveillance follow up. Patient was agreeable when we discussed this post-procedure as anticipated follow up. Will place in our office recall system appropriately. Final Diagnosis A. COLON, CECUM, POLYPECTOMY-TUBULAR ADENOMA B. COLON, ASCENDING, POLYPECTOMY-TUBULAR ADENOMA C. COLON, DESCENDING, POLYPECTOMY-TUBULAR ADENOMA D. COLON, SIGMOID, POLYPECTOMY X 2-HYPERPLASTIC POLYP AND FRAGMENT OF BENIGN COLONIC MUCOSA E. RECTUM, POLYPECTOMY-HYPERPLASTIC POLYP at 1042 Clinical Information Encounter for screening for malignant neoplasm of colon Gross Description A. Received in formalin labeled "cecum polyp x 1" is a 0.5 cm cedillo soft tissue fragment submitted in one cassette. B. Received in formalin labeled "ascending colon polyp x 1" is a 0.6 cm light brown soft tissue fragment that is submitted in one cassette. C. Received in formalin labeled "descending colon polyp" is a 0.5 cm light brown soft tissue fragment that is submitted in one cassette. D. Received in formalin labeled "sigmoid colon polyp x 2" are two light brown fragments 0.5 and 0.9 cm in greatest dimension that are submitted in one cassette. E. Received in formalin labeled "rectal polyp" is a 0.5 cm cedillo soft tissue fragment that is submitted in one cassette. Department of Surgery [facility] Work Phone: 05-21-2024 Miscellaneous Notes Called patient regarding recent endoscopy results. Patient did answer. I did not have to leave a voicemail. Colonoscopy demonstrated 3 tubular adenomas and additional hyperplastic polpys Recommend a 5 year surveillance follow up. Patient was agreeable when we discussed this post-procedure as anticipated follow up. Will place in our office recall system appropriately. Final Diagnosis A. COLON, CECUM, POLYPECTOMY-TUBULAR ADENOMA B. COLON, ASCENDING, POLYPECTOMY-TUBULAR ADENOMA C. COLON, DESCENDING, POLYPECTOMY-TUBULAR ADENOMA D. COLON, SIGMOID, POLYPECTOMY X 2-HYPERPLASTIC POLYP AND FRAGMENT OF BENIGN COLONIC MUCOSA E. RECTUM, POLYPECTOMY-HYPERPLASTIC POLYP at 1042 Clinical Information Encounter for screening for malignant neoplasm of colon Gross Description A. Received in formalin labeled "cecum polyp x 1" is a 0.5 cm cedillo soft tissue fragment submitted in one cassette. B. Received in formalin labeled "ascending colon polyp x 1" is a 0.6 cm light brown soft tissue fragment that is submitted in one cassette. C. Received in formalin labeled "descending colon polyp" is a 0.5 cm light brown soft tissue fragment that is submitted in one cassette. D. Received in formalin labeled "sigmoid colon polyp x 2" are two light brown fragments 0.5 and 0.9 cm in greatest dimension that are submitted in one cassette. E. Received in formalin labeled "rectal polyp" is a 0.5 cm cedillo soft tissue fragment that is submitted in one cassette. Department of Surgery documented in this encounter [facility] 05-15-2024 History of Present illness Narrative Patient verified by last name and . Images from the original note were not included. 05/15/2024 Garry Morton (: 1960) is a 64 y.o. male , Established patient, here for evaluation of the following chief complaint(s): Follow-up (States that he has had still had some abdominal bloating, doesn't seem like it has gotten better. Did have his colonoscopy yesterday 05/14, states the dr told him everything was good, no abnormal findings. ) ASSESSMENT/PLAN: 1. Abdominal bloating - Discussed taking Simethicone prior to eating and seeing how symptoms respond. - Will start on daily Omeprazole and do a close follow up in 4 weeks. Discussed obtain a CT for further evaluation if symptoms persist. 2. Constipation, unspecified constipation type - polyethylene glycol, PEG, 3350 (Miralax) 17 g packet; Take 17 g by mouth daily., Starting Mon05/15/2024, Normal - Encouraged to take the Miralax to soften stools and aid in constipation relief. 3. Gastroesophageal reflux disease, unspecified whether esophagitis present - omeprazole (PriLOSEC) [address] capsule; Take 1 capsule (20 mg) by mouth daily. Do not crush or chew., Starting Mon05/15/2024, Normal - Will start on daily Omeprazole and do a close follow up in 4 weeks. Discussed obtain a CT for further evaluation if symptoms persist. - Information provided in AVS on new medication. Follow up in about 4 weeks (around 06/12/2024) for follow up on abdominal bloating and constipation and GERD. SUBJECTIVE/OBJECTIVE: PITO Castañeda presents today for close follow up on his abdominal bloating and constipation. He had an abdominal ultrasound on 04/29/24 that showed signs of fatty liver and a mildly enlarged spleen. Liver enzymes were normal on blood work. Had a colonoscopy yesterday and was told everything was normal. Continues to deny belching, nausea, or vomiting. Never started taking the Miralax to help with bowel movements. States he continues to feel bloated and has flatulence after he eats. Now is waking up with reflux symptoms. See ROS for additional information. Review of Systems Constitutional: Negative for chills and fever. Respiratory: Negative for chest tightness and shortness of breath. Cardiovascular: Negative for chest pain. Gastrointestinal: Positive for abdominal distention and constipation. Negative for abdominal pain, anal bleeding, blood in stool, diarrhea, nausea and vomiting. Vitals: 05/15/24 1541 BP: 104/72 Pulse: 102 SpO2: 96% Weight: 200 lb (90.7 kg) Height: 5' 11" (1.803 m) Body mass index is 27.89 kg/m . Physical Exam Constitutional: General: He is not in acute distress. Appearance: He is not ill-appearing or diaphoretic. Eyes: General: No scleral icterus. Cardiovascular: Rate and Rhythm: Normal rate and regular rhythm. Heart sounds: Normal heart sounds. No murmur heard. No friction rub. Pulmonary: Effort: Pulmonary effort is normal. Abdominal: General: Abdomen is protuberant. Bowel sounds are normal. Palpations: Abdomen is soft. There is no mass. Tenderness: There is no abdominal tenderness. There is no guarding. Skin: General: Skin is warm and dry. Coloration: Skin is not jaundiced or pale. Findings: No erythema or rash. Neurological: Mental Status: He is alert and oriented to person, place, and time. Psychiatric: Mood and Affect: Mood normal. Behavior: Behavior normal. Thought Content: Thought content normal. Judgment: Judgment normal. An electronic signature was used to authenticate this note. ZAINA Jaime CNP 05/15/2024 4:03 PM documented in this encounter [facility] 05-15-2024 History of Present illness Narrative Patient verified by last name and . Images from the original note were not included. 05/15/2024 Garry Morton (: 1960) is a 64 y.o. male , Established patient, here for evaluation of the following chief complaint(s): Follow-up (States that he has had still had some abdominal bloating, doesn't seem like it has gotten better. Did have his colonoscopy yesterday 05/14, states the dr told him everything was good, no abnormal findings. ) ASSESSMENT/PLAN: 1. Abdominal bloating - Discussed taking Simethicone prior to eating and seeing how symptoms respond. - Will start on daily Omeprazole and do a close follow up in 4 weeks[address] Discussed obtain a CT for further evaluation if symptoms persist. 2. Constipation, unspecified constipation type - polyethylene glycol, PEG, 3350 (Miralax) 17 g packet; Take 17 g by mouth daily., Starting 05/15/2024, Normal - Encouraged to take the Miralax to soften stools and aid in constipation relief. 3. Gastroesophageal reflux disease, unspecified whether esophagitis present - omeprazole (PriLOSEC) [address] capsule; Take 1 capsule (20 mg) by mouth daily. Do not crush or chew., Starting Mon05/15/2024, Normal - Will start on daily Omeprazole and do a close follow up in 4 weeks. Discussed obtain a CT for further evaluation if symptoms persist. - Information provided in AVS on new medication. Follow up in about 4 weeks (around 06/12/2024) for follow up on abdominal bloating and constipation and GERD. SUBJECTIVE/OBJECTIVE: PITO Castañeda presents today for close follow up on his abdominal bloating and constipation. He had an abdominal ultrasound on 04/29/24 that showed signs of fatty liver and a mildly enlarged spleen. Liver enzymes were normal on blood work. Had a colonoscopy yesterday and was told everything was normal. Continues to deny belching, nausea, or vomiting. Never started taking the Miralax to help with bowel movements. States he continues to feel bloated and has flatulence after he eats. Now is waking up with reflux symptoms. See ROS for additional information. Review of Systems Constitutional: Negative for chills and fever. Respiratory: Negative for chest tightness and shortness of breath. Cardiovascular: Negative for chest pain. Gastrointestinal: Positive for abdominal distention and constipation. Negative for abdominal pain, anal bleeding, blood in stool, diarrhea, nausea and vomiting. Vitals: 05/15/24 1541 BP: 104/72 Pulse: 102 SpO2: 96% Weight: 200 lb (90.7 kg) Height: 5' 11" (1.803 m) Body mass index is 27.89 kg/m . Physical Exam Constitutional: General: He is not in acute distress. Appearance: He is not ill-appearing or diaphoretic. Eyes: General: No scleral icterus. Cardiovascular: Rate and Rhythm: Normal rate and regular rhythm. Heart sounds: Normal heart sounds. No murmur heard. No friction rub. Pulmonary: Effort: Pulmonary effort is normal. Abdominal: General: Abdomen is protuberant. Bowel sounds are normal. Palpations: Abdomen is soft. There is no mass. Tenderness: There is no abdominal tenderness. There is no guarding. Skin: General: Skin is warm and dry. Coloration: Skin is not jaundiced or pale. Findings: No erythema or rash. Neurological: Mental Status: He is alert and oriented to person, place, and time. Psychiatric: Mood and Affect: Mood normal. Behavior: Behavior normal. Thought Content: Thought content normal. Judgment: Judgment normal. An electronic signature was used to authenticate this note. ZAINA Jaime CNP 05/15/2024 4:03 PM documented in this encounter [facility] 05-15-2024 Miscellaneous Notes Addended by: JACQUELYN KAMINSKI on: 05/19/2024 04:06 PM Modules accepted: Level of Service documented in this encounter [facility] 05-15-2024 Note Addended by: JACQUELYN KAMINSKI on: 05/19/2024 04:06 PM Modules accepted: Level of Service [facility] 05-14-2024 Note Formatting of this n ote might be different from the original. Discharge instructions discussed with patient and . Provided with attachments for diverticula polypectomy and colonoscopy and discussed. Questions answered and he is alert and drinking coffee without complaints. [facility] 05-14-2024 Note Formatting of this n ote might be different from the original. Discharge instructions discussed with patient and . Provided with attachments for diverticula polypectomy and colonoscopy and discussed. Questions answered and he is alert and drinking coffee without complaints. T [facility] 05-14-2024 Miscellaneous Notes Discharge instructions discussed with patient and . Provided with attachments for diverticula polypectomy and colonoscopy and discussed. Questions answered and he is alert and drinking coffee without complaints. Dr Tate at bedside to discuss findings with pt and . States pt can resume Eliquis tomorrow night. Pt is alert and able to respond Received pt from GI lab to recovery phase 2 sleeping on room air. brought to bedside. [facility] Patient Name: Garry Morton Procedure Date: 05/14/2024 7:32 AM Gender: Male Date of : 1960 Age: 64 Admit Type: Outpatient Note Status: Addendum Endoscopist: Eris Tate MD, Procedure: Colonoscopy Indications: Screening for colorectal malignant neoplasm Findings: A less than 5 mm polyp was found in the ascending colon. The polyp was sessile. The polyp was removed with a cold biopsy forceps. Resection and retrieval were complete. Verification of patient identification for the specimen was done. Estimated blood loss was minimal. A less than 5 mm polyp was found in the cecum. The polyp was sessile. The polyp was removed with a cold biopsy forceps. Resection and retrieval were complete. Verification of patient identification for the specimen was done. Estimated blood loss was minimal. A less than 5 mm polyp was found in the descending colon. The polyp was sessile. The polyp was removed with a cold biopsy forceps. Resection and retrieval were complete. Verification of patient identification for the specimen was done. Estimated blood loss was minimal. A less than 5 mm polyp was found in the sigmoid colon. The polyp was sessile. The polyp was removed with a cold biopsy forceps. Resection and retrieval were complete. Verification of patient identification for the specimen was done. Estimated blood loss was minimal. A 7 mm polyp was found in the sigmoid colon. The polyp was sessile. The polyp was removed with a cold snare. Resection and retrieval were complete. Verification of patient identification for the specimen was done. Estimated blood loss was minimal. A less than 5 mm polyp was found in the rectum. The polyp was sessile. The polyp was removed with a cold biopsy forceps. Resection and retrieval were complete. Verification of patient identification for the specimen was done. Estimated blood loss was minimal. Hemorrhoids were found on perianal exam. A few small-mouthed diverticula were found in the sigmoid colon. Recommendation: - Patient has a contact number available for emergencies. The signs and symptoms of potential delayed complications were discussed with the patient. Return to normal activities tomorrow. Written discharge instructions were provided to the patient. - Resume previous diet. - Continue present medications. - Repeat colonoscopy in 5 years for surveillance based on pathology results. Referring MD: Kenton Turpin MD Medicines: Monitored Anesthesia Care Procedure: Pre-Anesthesia Assessment: - Prior to the procedure, a History and Physical was performed, and patient medications and allergies were reviewed. The patient's tolerance of previous anesthesia was also reviewed. The risks and benefits of the procedure and the sedation options and risks were discussed with the patient. All questions were answered, and informed consent was obtained. Prior Anticoagulants: The patient has taken Eliquis (apixaban), last dose was 2 days prior to procedure. ASA Grade Assessment: II - A patient with mild systemic disease. After reviewing the risks and benefits, the patient was deemed in satisfactory condition to undergo the procedure. - The anesthesia plan was to use monitored anesthesia care (MAC). After I obtained informed consent, the scope was passed under direct vision. Throughout the procedure, the patient's blood pressure, pulse, and oxygen saturations were monitored continuously. The Colonoscope was introduced through the anus and advanced to the cecum, identified by appendiceal orifice and ileocecal valve. The colonoscopy was performed without difficulty. The patient tolerated the procedure well. The quality of the bowel preparation was good. The ileocecal valve, appendiceal orifice, and rectum were photographed. Complications: No immediate complications. Procedure Code(s): --- Professional --- 32220, Colonoscopy, flexible; with removal of tumor(s), polyp(s), or other lesion(s) by snare technique 98723, 59, Colonoscopy, flexible; with biopsy, single or multiple --- Technical --- 22281, Colonoscopy, flexible; with removal of tumor(s), polyp(s), or other lesion(s) by snare technique 64689, 59, Colonoscopy, flexible; with biopsy, single or multiple Diagnosis Code(s): --- Professional --- Z12.11, Encounter for screening for malignant neoplasm of colon --- Technical --- Z12.11, Encounter for screening for malignant neoplasm of colon CPT copyright 2021 [employer]. All rights reserved. 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 Attending Participation: I personally performed the entire procedure. Eris Tate MD 05/14/2024 9:25:47 AM Number of Addenda: 1 Note Initiated On: 05/14/2024 7:32 AM Addendum Number: 1 Addendum Date: 05/14/2024 9:36:[address] a hemostatic clip at the sigmoid colon polypectomy with snare utilized. Hemostasis was achieved after clip placement. History of atrial fibrillation on Eliquis. Eris Tate MD 05/14/2024 9:37:08 AM documented in this encounter [facility] 05-14-2024 Note Formatting of this n ote might be different from the original. Dr Tate at bedside to discuss findings with pt and . States pt can resume Eliquis tomorrow night. Pt is alert and able to respond [facility] 05-14-2024 Note Formatting of this n ote might be different from the original. Dr Tate at bedside to discuss findings with pt and . States pt can resume Eliquis tomorrow night. Pt is alert and able to respond [facility] 05-14-2024 Note Formatting of this n ote might be different from the original. Received pt from GI lab to recovery phase 2 sleeping on room air. brought to bedside. [facility] 05-14-2024 Note Formatting of this n ote might be different from the original. Received pt from GI lab to recovery phase 2 sleeping on room air. brought to bedside. [facility] 05-14-2024 History and physical note Images from the original note were not included. Endoscopy History and Physical HPI: Garry Morton is a 64 y.o. male who presents with need for screening, here for colonoscopy. Has had a prior colonoscopy many years ago. No known polyps. History of inguinal hernia. No family history of colon cancer. No changes in bowel habits. PMHx: Past Medical History: Diagnosis Date Atrial fibrillation (HCC) PAF Bronchitis History of echocardiogram Echo 03/07/17 Persistent atrial fibrillation (HCC) CHADsV - 0 Strain of back 11/18/2019 PSHx: Past Surgical History: Procedure Laterality Date CAPSULOTOMY, HAND 04/27/2017 08/28/17,11/23/17 CAPSULOTOMY, HAND 12/08/2017 CARDIOVERSION COLONOSCOPY HERNIA REPAIR PFMHx: Family History Problem Relation Name Age of Onset No Known Problems Mother Other (30120) Father elevated heart rate ALL: No Known Allergies MEDS: @MEDCMED@ SOCIAL Hx: Social History Socioeconomic History Marital status: Spouse name: Not on file Number of children: Not on file Years of education: Not on file Highest education level: Not on file Occupational History Not on file Tobacco Use Smoking status: Former Current packs/day: 0.00 Types: Cigarettes Quit date: 08/07/1996 Years since quittin.7 Smokeless tobacco: Former Quit date: 10/05/2016 Vaping Use Vaping status: Never Used Substance and Sexual Activity Alcohol use: Yes Alcohol/week: 6.0 standard drinks of alcohol Types: 6 Cans of beer per week Comment: 6-pack per day Drug use: No Sexual activity: Defer Other Topics Concern Not on file Social History Narrative Not on file Social Determinants of Health Financial Resource Strain: Low Risk (03/02/2021) Received from [facility] Overall Financial Resource Strain (CARDIA) Difficulty of Paying Living Expenses: Not hard at all Food Insecurity: No Food Insecurity (03/02/2021) Received from [facility] Hunger Vital Sign Worried About Running Out of Food in the Last Year: Never true Ran Out of Food in the Last Year: Never true Transportation Needs: No Transportation Needs (03/02/2021) Received from [facility] PRAPARE - Transportation Lack of Transportation (Medical): No Lack of Transportation (Non-Medical): No Physical Activity: Insufficiently Active (09/02/2019) Received from [facility] Exercise Vital Sign Days of Exercise per Week: 3 days Minutes of Exercise per Session: 30 min Stress: Not on file Social Connections: Not on file Intimate Partner Violence: Not on file Housing Stability: Not on file Review of Systems: I personally reviewed the patient intake form with the patient. The ROS is negative except for what is listed in HPI. Physical Examination: BP (!) 132/96 Pulse 107 Temp 36.3 C (97.3 F) (Temporal) Resp 18 Wt 204 lb (92.5 kg) SpO2 97% BMI 28.45 kg/m He stands @FLOWAMB(11)@ tall with a weight of @FLOWAMB(14)@ , resulting in a BMI of Body mass index is 28.45 kg/m .. General: The patient is awake, alert, and oriented, and is in no apparent distress. Normal affect. Head and Neck: Normocephalic and atraumatic. Normal ROM Cardiac: Regular rate and rhythm, patient on monitor Respiratory: No respiratory distress. Equal chest rise. Good inspiratory effort. Abdomen: soft, non-tender, non-distended, no masses or organomegaly Extremities: Ambulatory without assistance. Neurological: Intact sensation in 4 extremities, no focal deficits notes. Skin: No rashes or lesions noted. Warm and dry. Rectal: Not done. Hernia: no hernias found on exam Assessment and Plan Patient Active Problem List Diagnosis Date Noted Low back pain 02/08/2017 Encounter for blood-alcohol and blood-drug test 02/08/2017 Indigestion 11/18/2019 Muscle spasm of back 11/18/2019 Non-seasonal allergic rhinitis 03/28/2018 Post-nasal drip 03/28/2018 Persistent atrial fibrillation (HCC) 02/15/2017 Plan: 64 y.o. male who presents with need for screening Will perform colonoscopy today Patient counseled on risks, benefits, and alternatives of treatment plan at length. Patient states an understanding and willingness to proceed with plan. [employer] Phone: 05-14-2024 History and physical note Images from the original note were not included. Endoscopy History and Physical HPI: Garry Morton is a 64 y.o. male who presents with need for screening, here for colonoscopy. Has had a prior colonoscopy many years ago. No known polyps. History of inguinal hernia. No family history of colon cancer. No changes in bowel habits. PMHx: Past Medical History: Diagnosis Date Atrial fibrillation (HCC) PAF Bronchitis History of echocardiogram Echo 03/07/17 Persistent atrial fibrillation (HCC) CHADsV - 0 Strain of back 11/18/2019 PSHx: Past Surgical History: Procedure Laterality Date CAPSULOTOMY, HAND 04/27/2017 08/28/17,11/23/17 CAPSULOTOMY, HAND 12/08/2017 CARDIOVERSION COLONOSCOPY HERNIA REPAIR PFMHx: Family History Problem Relation Name Age of Onset No Known Problems Mother Other (07871) Father elevated heart rate ALL: No Known Allergies MEDS: @MEDCMED@ SOCIAL Hx: Social History Socioeconomic History Marital status: Spouse name: Not on file Number of children: Not on file Years of education: Not on file Highest education level: Not on file Occupational History Not on file Tobacco Use Smoking status: Former Current packs/day: 0.00 Types: Cigarettes Quit date: 08/07/1996 Years since quittin.7 Smokeless tobacco: Former Quit date: 10/05/2016 Vaping Use Vaping status: Never Used Substance and Sexual Activity Alcohol use: Yes Alcohol/week: 6.0 standard drinks of alcohol Types: 6 Cans of beer per week Comment: 6-pack per day Drug use: No Sexual activity: Defer Other Topics Concern Not on file Social History Narrative Not on file Social Determinants of Health Financial Resource Strain: Low Risk (03/02/2021) Received from [facility] Overall Financial Resource Strain (CARDIA) Difficulty of Paying Living Expenses: Not hard at all Food Insecurity: No Food Insecurity (03/02/2021) Received from [facility] Hunger Vital Sign Worried About Running Out of Food in the Last Year: Never true Ran Out of Food in the Last Year: Never true Transportation Needs: No Transportation Needs (03/02/2021) Received from [facility] PRAPARE - Transportation Lack of Transportation (Medical): No Lack of Transportation (Non-Medical): No Physical Activity: Insufficiently Active (09/02/2019) Received from [facility] Exercise Vital Sign Days of Exercise per Week: 3 days Minutes of Exercise per Session: 30 min Stress: Not on file Social Connections: Not on file Intimate Partner Violence: Not on file Housing Stability: Not on file Review of Systems: I personally reviewed the patient intake form with the patient. The ROS is negative except for what is listed in HPI. Physical Examination: BP (!) 132/96 Pulse 107 Temp 36.3 C (97.3 F) (Temporal) Resp 18 Wt 204 lb (92.5 kg) SpO2 97% BMI 28.45 kg/m He stands @FLOWAMB(11)@ tall with a weight of @FLOWAMB(14)@ , resulting in a BMI of Body mass index is 28.45 kg/m .. General: The patient is awake, alert, and oriented, and is in no apparent distress. Normal affect. Head and Neck: Normocephalic and atraumatic. Normal ROM Cardiac: Regular rate and rhythm, patient on monitor Respiratory: No respiratory distress. Equal chest rise. Good inspiratory effort. Abdomen: soft, non-tender, non-distended, no masses or organomegaly Extremities: Ambulatory without assistance. Neurological: Intact sensation in 4 extremities, no focal deficits notes. Skin: No rashes or lesions noted. Warm and dry. Rectal: Not done. Hernia: no hernias found on exam Assessment and Plan Patient Active Problem List Diagnosis Date Noted Low back pain 02/08/2017 Encounter for blood-alcohol and blood-drug test 02/08/2017 Indigestion 11/18/2019 Muscle spasm of back 11/18/2019 Non-seasonal allergic rhinitis 03/28/2018 Post-nasal drip 03/28/2018 Persistent atrial fibrillation (HCC) 02/15/2017 Plan: 64 y.o. male who presents with need for screening Will perform colonoscopy today Patient counseled on risks, benefits, and alternatives of treatment plan at length. Patient states an understanding and willingness to proceed with plan. documented in this encounter [facility] 05-14-2024 Note Formatting of this n ote might be different from the original. [facility] Patient Name: Garry Morton Procedure Date: 05/14/2024 7:32 AM Gender: Male Date of : 1960 Age: 64 Admit Type: Outpatient Note Status: Addendum Endoscopist: Eris Tate MD, Procedure: Colonoscopy Indications: Screening for colorectal malignant neoplasm Findings: A less than 5 mm polyp was found in the ascending colon. The polyp was sessile. The polyp was removed with a cold biopsy forceps. Resection and retrieval were complete. Verification of patient identification for the specimen was done. Estimated blood loss was minimal. A less than 5 mm polyp was found in the cecum. The polyp was sessile. The polyp was removed with a cold biopsy forceps. Resection and retrieval were complete. Verification of patient identification for the specimen was done. Estimated blood loss was minimal. A less than 5 mm polyp was found in the descending colon. The polyp was sessile. The polyp was removed with a cold biopsy forceps. Resection and retrieval were complete. Verification of patient identification for the specimen was done. Estimated blood loss was minimal. A less than 5 mm polyp was found in the sigmoid colon. The polyp was sessile. The polyp was removed with a cold biopsy forceps. Resection and retrieval were complete. Verification of patient identification for the specimen was done. Estimated blood loss was minimal. A 7 mm polyp was found in the sigmoid colon. The polyp was sessile. The polyp was removed with a cold snare. Resection and retrieval were complete. Verification of patient identification for the specimen was done. Estimated blood loss was minimal. A less than 5 mm polyp was found in the rectum. The polyp was sessile. The polyp was removed with a cold biopsy forceps. Resection and retrieval were complete. Verification of patient identification for the specimen was done. Estimated blood loss was minimal. Hemorrhoids were found on perianal exam. A few small-mouthed diverticula were found in the sigmoid colon. Recommendation: - Patient has a contact number available for emergencies. The signs and symptoms of potential delayed complications were discussed with the patient. Return to normal activities tomorrow. Written discharge instructions were provided to the patient. - Resume previous diet. - Continue present medications. - Repeat colonoscopy in 5 years for surveillance based on pathology results. Referring MD: Kenton Turpin MD Medicines: Monitored Anesthesia Care Procedure: Pre-Anesthesia Assessment: - Prior to the procedure, a History and Physical was performed, and patient medications and allergies were reviewed. The patient's tolerance of previous anesthesia was also reviewed. The risks and benefits of the procedure and the sedation options and risks were discussed with the patient. All questions were answered, and informed consent was obtained. Prior Anticoagulants: The patient has taken Eliquis (apixaban), last dose was 2 days prior to procedure. ASA Grade Assessment: II - A patient with mild systemic disease. After reviewing the risks and benefits, the patient was deemed in satisfactory condition to undergo the procedure. - The anesthesia plan was to use monitored anesthesia care (MAC). After I obtained informed consent, the scope was passed under direct vision. Throughout the procedure, the patient's blood pressure, pulse, and oxygen saturations were monitored continuously. The Colonoscope was introduced through the anus and advanced to the cecum, identified by appendiceal orifice and ileocecal valve. The colonoscopy was performed without difficulty. The patient tolerated the procedure well. The quality of the bowel preparation was good. The ileocecal valve, appendiceal orifice, and rectum were photographed. Complications: No immediate complications. Procedure Code(s): --- Professional --- 93226, Colonoscopy, flexible; with removal of tumor(s), polyp(s), or other lesion(s) by snare technique 93566, 59, Colonoscopy, flexible; with biopsy, single or multiple --- Technical --- 14747, Colonoscopy, flexible; with removal of tumor(s), polyp(s), or other lesion(s) by snare technique 86947, 59, Colonoscopy, flexible; with biopsy, single or multiple Diagnosis Code(s): --- Professional --- Z12.11, Encounter for screening for malignant neoplasm of colon --- Technical --- Z12.11, Encounter for screening for malignant neoplasm of colon CPT copyright 2021 [employer]. All rights reserved. 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 Attending Participation: I personally performed the entire procedure. Eris Tate MD 05/14/2024 9:25:47 AM Number of Addenda: 1 Note Initiated On: 05/14/2024 7:32 AM Addendum Number: 1 Addendum Date: 05/14/2024 9:36:[address] a hemostatic clip at the sigmoid colon polypectomy with snare utilized. Hemostasis was achieved after clip placement. History of atrial fibrillation on Eliquis. Eris Tate MD 05/14/2024 9:37:08 AM [facility] 05-14-2024 Note Formatting of this n ote might be different from the original. [facility] Patient Name: Garry Morton Procedure Date: 05/14/2024 7:32 AM Gender: Male Date of : 1960 Age: 64 Admit Type: Outpatient Note Status: Addendum Endoscopist: Eris Tate MD, Procedure: Colonoscopy Indications: Screening for colorectal malignant neoplasm Findings: A less than 5 mm polyp was found in the ascending colon. The polyp was sessile. The polyp was removed with a cold biopsy forceps. Resection and retrieval were complete. Verification of patient identification for the specimen was done. Estimated blood loss was minimal. A less than 5 mm polyp was found in the cecum. The polyp was sessile. The polyp was removed with a cold biopsy forceps. Resection and retrieval were complete. Verification of patient identification for the specimen was done. Estimated blood loss was minimal. A less than 5 mm polyp was found in the descending colon. The polyp was sessile. The polyp was removed with a cold biopsy forceps. Resection and retrieval were complete. Verification of patient identification for the specimen was done. Estimated blood loss was minimal. A less than 5 mm polyp was found in the sigmoid colon. The polyp was sessile. The polyp was removed with a cold biopsy forceps. Resection and retrieval were complete. Verification of patient identification for the specimen was done. Estimated blood loss was minimal. A 7 mm polyp was found in the sigmoid colon. The polyp was sessile. The polyp was removed with a cold snare. Resection and retrieval were complete. Verification of patient identification for the specimen was done. Estimated blood loss was minimal. A less than 5 mm polyp was found in the rectum. The polyp was sessile. The polyp was removed with a cold biopsy forceps. Resection and retrieval were complete. Verification of patient identification for the specimen was done. Estimated blood loss was minimal. Hemorrhoids were found on perianal exam. A few small-mouthed diverticula were found in the sigmoid colon. Recommendation: - Patient has a contact number available for emergencies. The signs and symptoms of potential delayed complications were discussed with the patient. Return to normal activities tomorrow. Written discharge instructions were provided to the patient. - Resume previous diet. - Continue present medications. - Repeat colonoscopy in 5 years for surveillance based on pathology results. Referring MD: Kenton Turpin MD Medicines: Monitored Anesthesia Care Procedure: Pre-Anesthesia Assessment: - Prior to the procedure, a History and Physical was performed, and patient medications and allergies were reviewed. The patient's tolerance of previous anesthesia was also reviewed. The risks and benefits of the procedure and the sedation options and risks were discussed with the patient. All questions were answered, and informed consent was obtained. Prior Anticoagulants: The patient has taken Eliquis (apixaban), last dose was 2 days prior to procedure. ASA Grade Assessment: II - A patient with mild systemic disease. After reviewing the risks and benefits, the patient was deemed in satisfactory condition to undergo the procedure. - The anesthesia plan was to use monitored anesthesia care (MAC). After I obtained informed consent, the scope was passed under direct vision. Throughout the procedure, the patient's blood pressure, pulse, and oxygen saturations were monitored continuously. The Colonoscope was introduced through the anus and advanced to the cecum, identified by appendiceal orifice and ileocecal valve. The colonoscopy was performed without difficulty. The patient tolerated the procedure well. The quality of the bowel preparation was good. The ileocecal valve, appendiceal orifice, and rectum were photographed. Complications: No immediate complications. Procedure Code(s): --- Professional --- 42415, Colonoscopy, flexible; with removal of tumor(s), polyp(s), or other lesion(s) by snare technique [id number], 59, Colonoscopy, flexible; with biopsy, single or multiple --- Technical --- 61102, Colonoscopy, flexible; with removal of tumor(s), polyp(s), or other lesion(s) by snare technique 53801, 59, Colonoscopy, flexible; with biopsy, single or multiple Diagnosis Code(s): --- Professional --- Z12.11, Encounter for screening for malignant neoplasm of colon --- Technical --- Z12.11, Encounter for screening for malignant neoplasm of colon CPT copyright 2021 [employer]. All rights reserved. 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 Attending Participation: I personally performed the entire procedure. Eris Tate MD 05/14/2024 9:25:47 AM Number of Addenda: 1 Note Initiated On: 05/14/2024 7:32 AM Addendum Number: 1 Addendum Date: 05/14/2024 9:36:[address] a hemostatic clip at the sigmoid colon polypectomy with snare utilized. Hemostasis was achieved after clip placement. History of atrial fibrillation on Eliquis. Eris Tate MD 05/14/2024 9:37:08 AM [facility] 04-29-2024 Telephone encounter Note Screening Questionnaire Do you have a Congestive Heart Failure ? no Do you have a pacemaker or defibrillator? no Have you had a Heart Attack in last 6 months? no Have you had any cardiac stents in last 12 months? no Have you had chest pain (angina)? no Are you using any blood thinner medication? Eliquis- stop 48 hrs prior Have you been told you have abnormal EKG or abnormal echocardiogram or heart rhythm? yes- A Fib Are you using Oxygen at home? If yes, how many liters of oxygen? no Do you have COPD (Chronic Obstructive Pulmonary Disease)? no Do you have Asthma? If yes, is it mild? no 11. Do you have Sleep Apnea? Do you use a cpap? no Have you been told you have malignant hyperthermia or had any other reaction to anesthesia? no What is your height and weight? " 204 lbs 28.54 BMI- Do you have Diabetes? If yes, what medications do you take and what is your latest A1C level? A1C- Are you Immunocompromised (have a medical condition that puts you at increased risk of infection)? no Do you have myopathies (muscle diseases) ? no Do you have liver cirrhosis? no Are you ? Do you receive dialysis? no Do you have any cognitive impairment like dementia; traumatic brain injury, or from stroke? no Additional questions to determine diagnostic or screening, Have you done a home stool test like the FIT or Cologuard that had a positive result? no Do you have abdominal pain? no Have you had any unexplained weight loss more than 20 lbs? no Have you had Blood in your stool? no Have you been told you have Crohn's Disease or ulcerative colitis (inflammatory bowel disease)? no 6. Do you have anemia (low blood count)? no 7. Have you had a colonoscopy that found colon polyps? If yes, when was your last colonoscopy? no T [facility] 04-29-2024 Miscellaneous Notes Screening Questionnaire Do you have a Congestive Heart Failure ? no Do you have a pacemaker or defibrillator? no Have you had a Heart Attack in last 6 months? no Have you had any cardiac stents in last 12 months? no Have you had chest pain (angina)? no Are you using any blood thinner medication? Eliquis- stop 48 hrs prior Have you been told you have abnormal EKG or abnormal echocardiogram or heart rhythm? yes- A Fib Are you using Oxygen at home? If yes, how many liters of oxygen? no Do you have COPD (Chronic Obstructive Pulmonary Disease)? no Do you have Asthma? If yes, is it mild? no 11. Do you have Sleep Apnea? Do you use a cpap? no Have you been told you have malignant hyperthermia or had any other reaction to anesthesia? no What is your height and weight? '" 204 lbs 28.54 BMI- Do you have Diabetes? If yes, what medications do you take and what is your latest A1C level? A1C- Are you Immunocompromised (have a medical condition that puts you at increased risk of infection)? no Do you have myopathies (muscle diseases) ? no Do you have liver cirrhosis? no Are you ? Do you receive dialysis? no Do you have any cognitive impairment like dementia; traumatic brain injury, or from stroke? no Additional questions to determine diagnostic or screening, Have you done a home stool test like the FIT or Cologuard that had a positive result? no Do you have abdominal pain? no Have you had any unexplained weight loss more than 20 lbs? no Have you had Blood in your stool? no Have you been told you have Crohn's Disease or ulcerative colitis (inflammatory bowel disease)? no 6. Do you have anemia (low blood count)? no 7. Have you had a colonoscopy that found colon polyps? If yes, when was your last colonoscopy? no documented in this encounter [facility] 04-26-2024 History of Present illness Narrative Images from the original note were not included. 04/26/2024 Garry Morton (: 1960) is a 64 y.o. male , Established patient, here for evaluation of the following chief complaint(s): Bloated (States he feels like his stomach is swollen, doesn't feel sick, but is uncomfortable. ) ASSESSMENT/PLAN: 1. Abdominal bloating - US abdomen complete - Comprehensive metabolic panel - CBC - Will obtain an abdominal ultrasound and blood work for further evaluation. - Discussed signs and symptoms warranting immediate attention- verbalized understanding. - Will do a close follow up in 2 weeks. 2. Constipation, unspecified constipation type - US abdomen complete - polyethylene glycol, PEG, 3350 (Miralax) 17 g packet; Take 17 g by mouth daily., Starting Mon04/26/2024, Normal 3. Screening for colon cancer - [facility] Vinayak 4. Flu vaccine need - Flu vaccine (FLUZONE/FLULAVAL/FLUARIX), trivalent, split virus (VFC product) - VIS provided in AVS. Follow up in about 2 weeks (around 05/10/2024) for follow up abdominal bloating. SUBJECTIVE/OBJECTIVE: PITO Castañeda presents today with concerns of his stomach being bloated over the last 3 days. Denies belching, flatulence, nausea, or vomiting. Is having bowel movements daily but states they have been more hard and difficult to pass. Feels he is able to fully empty his bowels. Feels his stomach hurts if he bends over or pushes on it. Denies swelling anywhere else in his body. Feels appetite is normal. Was scheduled for a colonoscopy for March and it was cancelled because he was called about it while at work and it was cancelled. Health Maintenance: Would like a flu vaccine. See ROS for additional information. Review of Systems Constitutional: Negative for chills and fever. Respiratory: Negative for chest tightness and shortness of breath. Cardiovascular: Negative for chest pain. Gastrointestinal: Positive for abdominal distention and constipation. Negative for blood in stool, diarrhea, nausea and vomiting. Genitourinary: Negative for difficulty urinating and dysuria. Skin: Negative for color change and rash. Vitals: 04/26/24 0941 BP: 126/82 Pulse: 71 SpO2: 98% Weight: 204 lb 9.6 oz (92.8 kg) Height: 5' 11" (1.803 m) Body mass index is 28.54 kg/m . Physical Exam Constitutional: General: He is not in acute distress. Appearance: He is not ill-appearing or diaphoretic. Cardiovascular: Rate and Rhythm: Normal rate. Pulmonary: Effort: Pulmonary effort is normal. Abdominal: General: Abdomen is protuberant. Bowel sounds are decreased. There is distension. Palpations: There is no hepatomegaly, splenomegaly or mass. Tenderness: There is generalized abdominal tenderness. There is no guarding or rebound. Negative signs include Ocampo's sign and McBurney's sign. Hernia: No hernia is present. Skin: General: Skin is warm and dry. Coloration: Skin is not pale. Findings: No erythema or rash. Neurological: Mental Status: He is alert and oriented to person, place, and time. Psychiatric: Mood and Affect: Mood normal. Behavior: Behavior normal. Thought Content: Thought content normal. Judgment: Judgment normal. An electronic signature was used to authenticate this note. ZAINA Jaime CNP 04/26/2024 9:59 AM Patient verified by last name and . After obtaining consent, and per orders of Jacquelyn Kaminski CNP, injection of Influenza given in the Left Deltoid by Neda Marie. Patient instructed to report any adverse reactions immediately. documented in this encounter [facility] 04-24-2024 Telephone encounter Note Noted. Will see as scheduled. [facility] 04-24-2024 Miscellaneous Notes Noted. Will see as scheduled. S: pt calling [facility] d/t bloated B: Symptoms started 3 days A:Pt stats over the last couple of days has felt bloated. Has mild swelling to abdomen. Is going to the bathroom normally. Stools are a little hard. Denies fever, abdominal pain. R: Insurance verified. Saleem scheduled with Alma Kaminski on 04/26 at 9:40 advised to come 10-15 minutes early bring insurance card id and medication list. Pt advised to call back with worsening of symptoms, concern or questions. Pt verbalized understanding. Reason for Disposition MILD SWELLING of abdomen (e.g., looks distended or swollen) that is NEW-ONSET or getting worse Protocols used: Abdomen Bloating and [id number] documented in this encounter [facility] 04-23-2024 Telephone encounter Note S: pt calling [facility] d/t bloated B: Symptoms started 3 days A:Pt stats over the last couple of days has felt bloated. Has mild swelling to abdomen. Is going to the bathroom normally. Stools are a little hard. Denies fever, abdominal pain. R: Insurance verified. Saleem scheduled with Alam Gordy on 04/26 at 9:40 advised to come 10-15 minutes early bring insurance card id and medication list. Pt advised to call back with worsening of symptoms, concern or questions. Pt verbalized understanding. Reason for Disposition MILD SWELLING of abdomen (e.g., looks distended or swollen) that is NEW-ONSET or getting worse Protocols used: Abdomen Bloating and [id number] [facility] 12-13-2023 Evaluation + Plan note Associated Problem(s): Muscle spasm of back Cyclobenzaprine 5 mg at bedtime as needed for muscle spasms. Follow-up for any worsening symptoms [facility] 12-13-2023 Evaluation + Plan note Associated Problem(s): Low back pain No red flags. Consistent with lumbar muscle strain. Continue rest, activity as tolerated, gentle stretching. Follow-up for worsening or failure for symptoms to improve. [facility] 12-13-2023 Miscellaneous Notes Associated Problem(s): Muscle spasm of back Cyclobenzaprine 5 mg at bedtime as needed for muscle spasms. Follow-up for any worsening symptoms Associated Problem(s): Low back pain No red flags. Consistent with lumbar muscle strain. Continue rest, activity as tolerated, gentle stretching. Follow-up for worsening or failure for symptoms to improve. documented in this encounter [facility] 12-13-2023 History of Present illness Narrative Patient was identified by name and Date of . Called to get patient scheduled while in the office CAC said they have to send message to gastro to schedule appointment-advised to schedule patient and call with appointment CAC said they will not do that. Advised patient I was unable to get him scheduled. Images from the original note were not included. 12/13/2023 Garry Morton (: 1960) is a 63 y.o. male , Established patient, here for evaluation of the following chief complaint(s): Back Pain ASSESSMENT/PLAN: 1. Acute low back pain without sciatica, unspecified back pain laterality Assessment & Plan: No red flags. Consistent with lumbar muscle strain. Continue rest, activity as tolerated, gentle stretching. Follow-up for worsening or failure for symptoms to improve. 2. Muscle spasm of back Assessment & Plan: Cyclobenzaprine 5 mg at bedtime as needed for muscle spasms. Follow-up for any worsening symptoms Orders: - cyclobenzaprine (Flexeril) 5 MG tablet; Take 1 tablet (5 mg) by mouth Nightly as needed for muscle spasms., Starting 12/13/2023, Normal Follow up if symptoms worsen or fail to improve. SUBJECTIVE/OBJECTIVE: HPI - Garry Morton (: 1960) is a 63 y.o. male , Established patient, here for the evaluation of the following chief complaint(s): Back Pain Presents for low back pain over the past week or so. Reports doing different work at his place of employment which included a lot of twisting motions and started to have some pain after that. Reports he intermittently has issues with his lower back. Denies any numbness tingling or weakness of the lower extremities. No change in bowel or bladder functioning. Reports that he has gotten better over the past few days. Hurts more with twisting and flexion Prior to Admission medications Medication Sig Start Date End Date Taking? Authorizing Provider apixaban (Eliquis) 5 MG tablet Take 1 tablet (5 mg) by mouth 2 times daily. 05/29/23 Yes Kenton Turpin MD cyclobenzaprine (Flexeril) 5 MG tablet Take 1 tablet (5 mg) by mouth Nightly. 10/20/22 Yes ZAINA Smith CNP metoprolol succinate XL (Toprol-XL) 25 MG 24 hr tablet take 1 tablet by mouth once daily DO NOT CRUSH OR CHEW 09/05/23 Yes ZAINA Smith CNP Review of Systems Constitutional: Negative for activity change, chills, fatigue and fever. Respiratory: Negative. Cardiovascular: Negative. Genitourinary: Negative for difficulty urinating. Musculoskeletal: Positive for back pain. Neurological: Negative. Vitals: 12/13/23 0945 BP: 133/84 Pulse: 67 Resp: 16 Temp: 37.1 C (98.7 F) TempSrc: Infrared SpO2: 97% Weight: 192 lb (87.1 kg) Physical Exam Constitutional: General: He is not in acute distress. Appearance: Normal appearance. He is not ill-appearing. HENT: Head: Normocephalic and atraumatic. Cardiovascular: Rate and Rhythm: Normal rate. Rhythm irregular. Pulses: Normal pulses. Heart sounds: Normal heart sounds. Pulmonary: Effort: Pulmonary effort is normal. Breath sounds: Normal breath sounds. Musculoskeletal: Thoracic back: Normal. Lumbar back: Spasms present. Normal range of motion. Negative right straight leg raise test and negative left straight leg raise test. Right lower leg: No edema. Left lower leg: No edema. Skin: General: Skin is warm and dry. Neurological: Mental Status: He is alert. An electronic signature was used to authenticate this note. ZAINA Smith CNP 12/13/2023 10:11 AM documented in this encounter [facility] 09-05-2023 Telephone encounter Note Prescription Request: Last medication check: 03/03/21 Last physical exam: 08/30/23 Next scheduled appointment: 02/28/24 Last date of refill on this medication: 08/16/23 [facility] 09-05-2023 Miscellaneous Notes Prescription Request: Last medication check: 03/03/21 Last physical exam: 08/30/23 Next scheduled appointment: 02/28/24 Last date of refill on this medication: 08/16/23 documented in this encounter [facility] 08-30-2023 Evaluation + Plan note Associated Problem(s): Persistent atrial fibrillation (HCC) Rate controlled, continue Eliquis 5 mg twice daily [facility] 08-30-2023 Miscellaneous Notes Associated Problem(s): Persistent atrial fibrillation (HCC) Rate controlled, continue Eliquis 5 mg twice daily documented in this encounter [facility] 08-30-2023 History of Present illness Narrative Patient was identified by name and Date of . HM: HIV/Hep C-declined Colon-declined MMR-declined PHQ-done RSV-advised to go to pharmacy Patient was identified by name and Date Of . After obtaining informed consent, Immunization(s) were ordered by provider. The patient and or Family/Guardian was instructed on the benefits and risks related to the vaccine or toxoid. Information given to the patient and or Family/Guardian with signs and symptoms of adverse effects and when to seek medical attention. Site was cleansed with an alcohol swab, immunization(s) were given, and bandage(s) were applied to injection site. Patient tolerated well, advised patient and or Family/Guardian to stay in the office 20 minutes after injection has been given to observe for any reaction. Immunization(s) was given by Raquel Rogers MA. Images from the original note were not included. 08/30/2023 Garry Morton (: 1960) is a 63 y.o. male , Established patient, here for evaluation of the following chief complaint(s): Annual Exam and Health Maintenance (HIV/Hep C-declined/Colon-declined/MMR-decli geo/PHQ-done/RSV-advised to go to pharmacy) ASSESSMENT/PLAN: 1. Annual physical exam 2. Persistent atrial fibrillation (HCC) Assessment & Plan: Rate controlled, continue Eliquis 5 mg twice daily 3. Screening for cholesterol level - Lipid panel 4. Screening for diabetes mellitus - Comprehensive metabolic panel - Hemoglobin A1c 5. Screening for deficiency anemia - CBC 6. Screening for prostate cancer - PSA Total (Screening) 7. Immunization due - Pneumococcal conjugate vaccine 20-valent IM (PREVNAR 20) 8. Colon cancer screening - [facility] Gastroenterology Follow up in about 6 months (around 02/28/2024). SUBJECTIVE/OBJECTIVE: HPI - Garry Morton (: 1960) is a 63 y.o. male , Established patient, here for the evaluation of the following chief complaint(s): Annual Exam and Health Maintenance (HIV/Hep C-declined/Colon-declined/MMR-decli geo/PHQ-done/RSV-advised to go to pharmacy) Patient reports things are going well at home. No acute concerns. Work is going well. His back is no longer hurting as much as they changed his job at work and he is no longer lifting heavy things. 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 Persistent atrial fibrillation-patient reports very occasional shortness of breath with it fleeting, denies any palpitations and no chest pain. Currently he is on Eliquis 5 mg twice daily. He is due for labs today, of note patient is not fasting today-states he last ate around 11 AM and had a ham salad sandwich. 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 He does get his flu vaccine yearly Colorectal cancer screening-patient states that he would like to have screening completed. States he had a colonoscopy about 15 years ago. Prior to Admission medications Medication Sig Start Date End Date Taking? Authorizing Provider apixaban (Eliquis) 5 MG tablet Take 1 tablet (5 mg) by mouth 2 times daily. 05/29/23 Yes Kenton Turpin MD cyclobenzaprine (Flexeril) 5 MG tablet Take 1 tablet (5 mg) by mouth Nightly. 10/20/22 Yes ZAINA Smith CNP metoprolol succinate XL (Toprol-XL) 25 MG 24 hr tablet Take 1 tablet (25 mg) by mouth daily. Do not crush or chew. 08/16/23 Yes ZAINA Jaime CNP Review of Systems Constitutional: Negative. HENT: Negative. Respiratory: Negative. Cardiovascular: Negative. Gastrointestinal: Negative. Genitourinary: Negative for difficulty urinating. Musculoskeletal: Positive for back pain (better, not doing heavy lifting at work). Negative for arthralgias. Neurological: Negative for dizziness, syncope, light-headedness and headaches. Psychiatric/Behavioral: Negative for agitation, decreased concentration, dysphoric mood, self-injury, sleep disturbance and suicidal ideas. The patient is not nervous/anxious. Vitals: 08/30/23 1523 BP: 116/78 Pulse: 76 Resp: 20 Temp: 37 C (98.6 F) TempSrc: Infrared SpO2: 97% Weight: 192 lb (87.1 kg) Height: 6' (1.829 m) Physical Exam Vitals reviewed. Constitutional: General: He is not in acute distress. Appearance: Normal appearance. He is normal weight. He is not ill-appearing or toxic-appearing. HENT: Head: Normocephalic and atraumatic. Right Ear: Tympanic membrane, ear canal and external ear normal. There is no impacted cerumen. Left Ear: Tympanic membrane, ear canal and external ear normal. There is no impacted cerumen. Nose: Nose normal. No congestion or rhinorrhea. Mouth/Throat: Mouth: Mucous membranes are moist. Pharynx: Oropharynx is clear. No oropharyngeal exudate or posterior oropharyngeal erythema. Eyes: Conjunctiva/sclera: Conjunctivae normal. Pupils: Pupils are equal, round, and reactive to light. Cardiovascular: Rate and Rhythm: Normal rate and regular rhythm. Pulses: Normal pulses. Heart sounds: Normal heart sounds. No murmur heard. Pulmonary: Effort: Pulmonary effort is normal. No respiratory distress. Breath sounds: Normal breath sounds. Abdominal: General: Abdomen is flat. Bowel sounds are normal. Palpations: Abdomen is soft. There is no mass. Tenderness: There is no abdominal tenderness. There is no right CVA tenderness or left CVA tenderness. Musculoskeletal: General: Normal range of motion. Cervical back: Normal range of motion and neck supple. No rigidity or tenderness. Lymphadenopathy: Cervical: No cervical adenopathy. Skin: General: Skin is warm and dry. Neurological: General: No focal deficit present. Mental Status: He is alert and oriented to person, place, and time. Psychiatric: Mood and Affect: Mood normal. Behavior: Behavior normal. An electronic signature was used to authenticate this note. ZAINA Smith CNP 08/30/2023 4:24 PM documented in this encounter [facility] 08-18-2023 Telephone encounter Note Left a message to return call. Mailed letter to contact the office. [facility] 08-18-2023 Miscellaneous Notes Left a message to return call. Mailed letter to contact the office. Left a message to return call to schedule physical. Images from the original note were not included. ZAINA Jaime CNP 08/16/23 12:57 PM Note Rx sent with no refills. Due for physical and fasting blood work- please schedule. Thank you. Left a message to return call. Rx sent with no refills. Due for physical and fasting blood work- please schedule. Thank you. Medication name: metoprolol succinate XL (Toprol-XL) 25 MG 24 hr tablet Medication dosage: 25 mg (Miligrams Monthly quantity needed: 30 How many day supply requestin days Medication route: oral (PO) Medication administration time(s): daily If taking medication PRN, reason for taking medication: N/A If this is a controlled substance do you receive this or any other controlled medication from any other doctor or facility: No Ordering provider: Dr. Turpin Date of last office visit: 04.04.23 Date of next office visit: not found Date of last refill: (see medication tab): 04.04.23 Updated/Validated preferred pharmacy: Yes Patient instructed to contact the pharmacy prior to picking up the medication: Yes documented in this encounter [facility] 08-17-2023 Telephone encounter Note Left a message to return call to schedule physical. [facility] 08-17-2023 Miscellaneous Notes Left a message to return call to schedule physical. Images from the original note were not included. ZAINA Jaime CNP 08/16/23 12:57 PM Note Rx sent with no refills. Due for physical and fasting blood work- please schedule. Thank you. Left a message to return call. Rx sent with no refills. Due for physical and fasting blood work- please schedule. Thank you. Medication name: metoprolol succinate XL (Toprol-XL) 25 MG 24 hr tablet Medication dosage: 25 mg (Miligrams Monthly quantity needed: 30 How many day supply requestin days Medication route: oral (PO) Medication administration time(s): daily If taking medication PRN, reason for taking medication: N/A If this is a controlled substance do you receive this or any other controlled medication from any other doctor or facility: No Ordering provider: Dr. Turpin Date of last office visit: 04.04.23 Date of next office visit: not found Date of last refill: (see medication tab): 04.04.23 Updated/Validated preferred pharmacy: Yes Patient instructed to contact the pharmacy prior to picking up the medication: Yes documented in this encounter [facility] 08-16-2023 Telephone encounter Note Images from the original note were not included. ZAINA Jaime CNP 08/16/23 12:57 PM Note Rx sent with no refills. Due for physical and fasting blood work- please schedule. Thank you. Left a message to return call. [facility] 08-16-2023 Miscellaneous Notes Images from the original note were not included. ZAINA Jaime CNP 08/16/23 12:57 PM Note Rx sent with no refills. Due for physical and fasting blood work- please schedule. Thank you. Left a message to return call. Rx sent with no refills. Due for physical and fasting blood work- please schedule. Thank you. Medication name: metoprolol succinate XL (Toprol-XL) 25 MG 24 hr tablet Medication dosage: 25 mg (Miligrams Monthly quantity needed: 30 How many day supply requestin days Medication route: oral (PO) Medication administration time(s): daily If taking medication PRN, reason for taking medication: N/A If this is a controlled substance do you receive this or any other controlled medication from any other doctor or facility: No Ordering provider: Dr. Turpin Date of last office visit: 04.04.23 Date of next office visit: not found Date of last refill: (see medication tab): 04.04.23 Updated/Validated preferred pharmacy: Yes Patient instructed to contact the pharmacy prior to picking up the medication: Yes documented in this encounter [facility] 08-16-2023 Telephone encounter Note Rx sent with no refills. Due for physical and fasting blood work- please schedule. Thank you. [facility] 08-16-2023 Telephone encounter Note Medication name: metoprolol succinate XL (Toprol-XL) 25 MG 24 hr tablet Medication dosage: 25 mg (Miligrams Monthly quantity needed: 30 How many day supply requestin days Medication route: oral (PO) Medication administration time(s): daily If taking medication PRN, reason for taking medication: N/A If this is a controlled substance do you receive this or any other controlled medication from any other doctor or facility: No Ordering provider: Dr. Turpin Date of last office visit: 04.04.23 Date of next office visit: not found Date of last refill: (see medication tab): 04.04.23 Updated/Validated preferred pharmacy: Yes Patient instructed to contact the pharmacy prior to picking up the medication: Yes [facility] 05-29-2023 Telephone encounter Note Medication name: apixaban (Eliquis) 5 MG tablet The patient states he is completely out of the medication. Medication dosage: 5 mg (Miligrams Monthly quantity needed: 180 How many day supply requestin days Medication route: oral (PO) Medication administration time(s): 2 times a day (BID) If taking medication PRN, reason for taking medication: N/A If this is a controlled substance do you receive this or any other controlled medication from any other doctor or facility: No Ordering provider: Dr. Turpin Date of last office visit: 04/04/2023 Date of next office visit: None Scheduled Date of last refill: (see medication tab): 02/17/2023 Updated/Validated preferred pharmacy: Yes Patient instructed to contact the pharmacy prior to picking up the medication: No [facility] 05-29-2023 Miscellaneous Notes Medication name: apixaban (Eliquis) 5 MG tablet The patient states he is completely out of the medication. Medication dosage: 5 mg (Miligrams Monthly quantity needed: 180 How many day supply requestin days Medication route: oral (PO) Medication administration time(s): 2 times a day (BID) If taking medication PRN, reason for taking medication: N/A If this is a controlled substance do you receive this or any other controlled medication from any other doctor or facility: No Ordering provider: Dr. Turpin Date of last office visit: 04/04/2023 Date of next office visit: None Scheduled Date of last refill: (see medication tab): 02/17/2023 Updated/Validated preferred pharmacy: Yes Patient instructed to contact the pharmacy prior to picking up the medication: No documented in this encounter [facility] 05-29-2023 Telephone encounter Note S: Pt's (Camille) is calling the [facility] to request refill on medication. B: Onset of symptoms/concern - thinks he ran out a few days ago. A: Camille states pt told her that he was out of his Eliquis 5 mg and needs a refill. Rev'd with Camille looks like Rx was sent in 02-17-23 #180 with 3 refills so pt should check with pharmacy and request refills. R: Camille will let pt know. Pt to call back if any further ques or concerns. Reason for Disposition Patient has refills remaining on their prescription Answer Assessment - Initial Assessment Questions 1. DRUG NAME: "What medicine do you need to have refilled?" Eliquis 5mg 2. REFILLS REMAINING: "How many refills are remaining?" (Note: The label on the medicine or pill bottle will show how many refills are remaining. If there are no refills remaining, then a renewal may be needed.) Unknown per Camille 3. EXPIRATION DATE: "What is the expiration date?" (Note: The label states when the prescription will , and thus can no longer be refilled.) Unknown 4. PRESCRIBING HCP: "Who prescribed it?" Reason: If prescribed by specialist, call should be referred to that group. Jacquelyn Kaminski 5. SYMPTOMS: "Do you have any symptoms?" No 6. : "Is there any chance that you are ?" "When was your last menstrual period?" N/A Protocols used: Medication Refill and Renewal [id number] [facility] 05-29-2023 Miscellaneous Notes S: Pt's (Camille) is calling the [facility] to request refill on medication. B: Onset of symptoms/concern - thinks he ran out a few days ago. A: Camille states pt told her that he was out of his Eliquis 5 mg and needs a refill. Rev'd with Camille looks like Rx was sent in 02-17-23 #180 with 3 refills so pt should check with pharmacy and request refills. R: Camille will let pt know. Pt to call back if any further ques or concerns. Reason for Disposition Patient has refills remaining on their prescription Answer Assessment - Initial Assessment Questions 1. DRUG NAME: "What medicine do you need to have refilled?" Eliquis 5mg 2. REFILLS REMAINING: "How many refills are remaining?" (Note: The label on the medicine or pill bottle will show how many refills are remaining. If there are no refills remaining, then a renewal may be needed.) Unknown per Camille 3. EXPIRATION DATE: "What is the expiration date?" (Note: The label states when the prescription will , and thus can no longer be refilled.) Unknown 4. PRESCRIBING HCP: "Who prescribed it?" Reason: If prescribed by specialist, call should be referred to that group. Jacquelyn Kaminski 5. SYMPTOMS: "Do you have any symptoms?" No 6. : "Is there any chance that you are ?" "When was your last menstrual period?" N/A Protocols used: Medication Refill and Renewal [id number] documented in this encounter [facility] 04-04-2023 Evaluation + Plan note Associated Problem(s): Acute cough - Recurrent cough congestion no signs of acute respiratory distress low index of suspicion that this is bacterial in etiology encouraged symptomatic supportive care cough cold decongestant plenty of fluids. [facility] 04-04-2023 Miscellaneous Notes Associated Problem(s): Acute cough - Recurrent cough congestion no signs of acute respiratory distress low index of suspicion that this is bacterial in etiology encouraged symptomatic supportive care cough cold decongestant plenty of fluids. Associated Problem(s): Persistent atrial fibrillation (HCC) - Given his persistence of atrial fibrillation with a heart rate in the 80s to 90s shared decision making we will start him on metoprolol 25 mg daily and continue to monitor. documented in this encounter [facility] 04-04-2023 Evaluation + Plan note Associated Problem(s): Persistent atrial fibrillation (HCC) - Given his persistence of atrial fibrillation with a heart rate in the 80s to 90s shared decision making we will start him on metoprolol 25 mg daily and continue to monitor. [facility] 04-04-2023 History of Present illness Narrative Images from the original note were not included. [facility] [address] [facility] [id number] Dept: [phone] Dept Loc: [phone] Visit type: Pod Scheduled Patient Kenton Turpin MD Reason for Visit: Bronchitis (Gets it every year) Assessment and Plan 1. Acute cough Assessment & Plan: - Recurrent cough congestion no signs of acute respiratory distress low index of suspicion that this is bacterial in etiology encouraged symptomatic supportive care cough cold decongestant plenty of fluids. Orders: - guaiFENesin (Robitussin) 100 MG/5ML liquid; Take 10 mL (200 mg) by mouth 3 times daily as needed for cough for up to 7 days., Starting Mon04/04/2023, Until Mon04/11/2023 at 2359, Normal - azithromycin (Zithromax) 250 MG tablet; Take 2 tabs (500 mg) by mouth today, than 1 daily for 4 days., Normal 2. Persistent atrial fibrillation (HCC) Assessment & Plan: - Given his persistence of atrial fibrillation with a heart rate in the 80s to 90s shared decision making we will start him on metoprolol 25 mg daily and continue to monitor. Orders: - metoprolol succinate XL (Toprol-XL) 25 MG 24 hr tablet; Take 1 tablet (25 mg) by mouth daily. Do not crush or chew., Starting Mon04/04/2023, Until Mon07/03/2023, Normal 3. Elevated blood pressure reading without diagnosis of hypertension -Patient is here for cough congestion and sore throat over the last 48 hours. High threshold to not place him on antibiotics as his symptoms are probably viral versus allergy related as its only been 48 hours however I did talk to him very frankly that I think he should wait this out take the decongestant medications that could certainly represent even a COVID flare. Home rest fluids however I did send an antibiotic to the pharmacy for him and tell him that if his symptoms or not improving by the weekend he could start the antibiotic. - He has had persistent atrial fibrillation on exam he is in atrial fibrillation I did review his chart his heart rate is always in the 80s or 90s. His pressure was elevated last several times. He is not on any rate control. He has been on Eliquis for years he states he has had multiple attempts at cardioversion in the past have been unsuccessful so with shared decision making we discussed starting him on a low-dose beta-west and continue to follow-up his response to the beta-west. He is to report any unusual symptoms weakness fatigue shortness of breath or dropping his blood pressure that would potentially cause lightheaded dizziness or weakness he is to report this to the office. Follow up if symptoms worsen or fail to improve, for Next scheduled follow-up. Subjective HPI this is a 63-year-old male with an underlying history of atrial fibrillation who currently takes Eliquis is a patient of Dr. Turpin's who contacted the [facility] for next day appointment and evaluation for concerns that he "has bronchitis" Symptoms started Monday night with scratchy sore throat and Monday felt weak and fatigue and tired. And missed work the last few days because of this he states he gets this at least several times a year with increasing cough congestion generalized muscle aches fatigue generalized "flulike symptoms. Does admit that his smokes as he smells of tobacco when he enters the office today but he does not actively smoke. Review of Systems Constitutional: Positive for fatigue. Negative for chills and fever. HENT: Positive for sinus pressure and sore throat. Negative for congestion, trouble swallowing and voice change. Respiratory: Positive for cough. Negative for shortness of breath. Cardiovascular: Negative for chest pain. Gastrointestinal: Negative for abdominal pain, diarrhea, nausea and vomiting. Genitourinary: Negative for difficulty urinating. Musculoskeletal: Positive for myalgias. Negative for back pain and neck pain. Skin: Negative for pallor and rash. Neurological: Negative for dizziness and light-headedness. All other systems reviewed and are negative. No Known Allergies Outpatient Medications Prior to Visit Medication Sig Dispense Refill apixaban (Eliquis) 5 MG tablet Take 1 tablet (5 mg) by mouth 2 times daily. 180 tablet 3 cyclobenzaprine (Flexeril) 5 MG tablet Take 1 tablet (5 mg) by mouth Nightly. 30 tablet 0 No facility-administered medications prior to visit. Past Medical History: Diagnosis Date Atrial fibrillation (CMS/HCC) (HCC) PAF Bronchitis History of echocardiogram Echo 03/07/17 Persistent atrial fibrillation (HCC) CHADsV - 0 Strain of back 11/18/2019 Social History Tobacco Use Smoking status: Former Packs/day: 0.50 Types: Cigarettes Quit date: 08/07/1996 Years since quittin.6 Smokeless tobacco: Former Quit date: 10/05/2016 Substance Use Topics Alcohol use: Yes Past Surgical History: Procedure Laterality Date CAPSULOTOMY, HAND 04/27/2017 08/28/17,11/23/17 CAPSULOTOMY, HAND 12/08/2017 COLONOSCOPY HERNIA REPAIR Family History Problem Relation Name Age of Onset No Known Problems Mother Other ([address]55) Father elevated heart rate Objective BP (!) 133/97 (BP Location: Left arm, Patient Position: Sitting, BP Cuff Size: Large adult) Pulse 84 Temp 36.6 C (97.8 F) (Temporal) Ht 6' (1.829 m) Wt 193 lb (87.5 kg) SpO2 98% BMI 26.18 kg/m Physical Exam Vitals reviewed. Constitutional: General: He is not in acute distress. Appearance: Normal appearance. He is not toxic-appearing. HENT: Right Ear: Tympanic membrane and ear canal normal. Left Ear: Tympanic membrane and ear canal normal. Nose: No congestion. Mouth/Throat: Mouth: Mucous membranes are moist. Pharynx: Oropharynx is clear. No oropharyngeal exudate or posterior oropharyngeal erythema. Eyes: General: No scleral icterus. Conjunctiva/sclera: Conjunctivae normal. Pupils: Pupils are equal, round, and reactive to light. Cardiovascular: Rate and Rhythm: Normal rate. Rhythm irregular. Heart sounds: Normal heart sounds. Pulmonary: Effort: Pulmonary effort is normal. No respiratory distress. Breath sounds: Normal breath sounds. No wheezing or rales. Musculoskeletal: Cervical back: Normal range of motion and neck supple. Skin: General: Skin is warm and dry. Neurological: Mental Status: He is alert. Psychiatric: Mood and Affect: Mood normal. Data Reviewed and Summarized Labs: Imaging/Testing: José Miguel Yoon PA-C 04/04/2023 Please note that portions of this note may have been completed with voice recognition software. Documentation reviewed prior to signing but minor errors in maintenance mechanic may have occurred. documented in this encounter [facility] 02-20-2023 Telephone encounter Note Name of caller: Malissa Contact phone number: [phone] Relationship to Patient: Sharx mail in order Provider: Dr. Turpin Practice: [facility] Chief Complaint/Reason for Call: Malissa calling to refill Apixaban ( Eliquis) for patient. Please call and refill. This is a mail in prescription. Best time of day caller can be reached: AM Patient advised that office/PCP has 24-48 business hours to return their call: No [facility] 02-20-2023 Miscellaneous Notes Name of caller: Malissa Contact phone number: [phone] Relationship to Patient: Sharx mail in order Provider: Dr. Turpin Practice: [facility] Chief Complaint/Reason for Call: Malissa calling to refill Apixaban ( Eliquis) for patient. Please call and refill. This is a mail in prescription. Best time of day caller can be reached: AM Patient advised that office/PCP has 24-48 business hours to return their call: No documented in this encounter [facility] 10-20-2022 Evaluation + Plan note Associated Problem(s): Acute cough No acute distress, will provide tessalon perrles. Continue mucinex OTC at home as directed. [facility] 10-20-2022 Miscellaneous Notes Associated Problem(s): Acute cough No acute distress, will provide tessalon perrles. Continue mucinex OTC at home as directed. Associated Problem(s): Bronchitis Will treat for suspected exacerbation. Consider obtaining PFT once over acute illness. Patient with risk factors for chronic lung disease (hx smoker, working in [employer]) no acute distress. Associated Problem(s): Muscle spasm of back Intermittent. Currently asymptomatic. Will provide as needed cyclobenzaprine at bedtime if needed. Follow up for worsening symptoms. documented in this encounter [facility] 10-20-2022 Evaluation + Plan note Associated Problem(s): Bronchitis Will treat for suspected exacerbation. Consider obtaining PFT once over acute illness. Patient with risk factors for chronic lung disease (hx smoker, working in [employer]) no acute distress. [facility] 10-20-2022 Evaluation + Plan note Associated Problem(s): Muscle spasm of back Intermittent. Currently asymptomatic. Will provide as needed cyclobenzaprine at bedtime if needed. Follow up for worsening symptoms. [facility] 10-20-2022 Telephone encounter Note Noted. Agree with disposition. [facility] 10-20-2022 Miscellaneous Notes Noted. Agree with disposition. S: Patient spoke with [facility] nurse regarding chest congestion B: Onset of symptoms/concern Monday - 4 days A: Pt has congestion in his chest. Started in his head on Monday. Has a cough that is worse at night. Trouble sleeping with the cough. Only gets a little phlegm - dark in color when he gets it - usually in the morning. Blowing clear out of his nose. Pt has sob with the coughing mostly but has become more frequent. Always gets sob with bronchitis and this is what pt believes he has. Pt speaking in clear and complete sentences. Has a-fib. Denies fever, chest pain, wheezing, sore throat or ear pain. Been taking mucinex without relief. Pt tested negative for covid yesterday. R: Pt scheduled for an appointment on 10-20-22 at 1:00 pm with Miguel Ángel Villanueva CNP. Pt advised if has sob all the time, he needs to be seen at the ED. Pt states this is not from a-fib, just from the bronchitis. Keep well hydrated, humidifier. Patient understands care advice. Instructed to call back with any further questions or concerns. Reason for Disposition MILD difficulty breathing (e.g., minimal/no SOB at rest, SOB with walking, pulse <100) and still present when not coughing Answer Assessment - Initial Assessment Questions 1. ONSET: "When did the cough begin?" Monday 2. SEVERITY: "How bad is the cough today?" Non-productive 3. SPUTUM: "Describe the color of your sputum" (none, dry cough; clear, white, yellow, green) dark 4. HEMOPTYSIS: "Are you coughing up any blood?" If so ask: "How much?" (flecks, streaks, tablespoons, etc.) no 5. DIFFICULTY BREATHING: "Are you having difficulty breathing?" If Yes, ask: "How bad is it?" (e.g., mild, moderate, severe) - MILD: No SOB at rest, mild SOB with walking, speaks normally in sentences, can lie down, no retractions, pulse < 100. - MODERATE: SOB at rest, SOB with minimal exertion and prefers to sit, cannot lie down flat, speaks in phrases, mild retractions, audible wheezing, pulse 100-120. - SEVERE: Very SOB at rest, speaks in single words, struggling to breathe, sitting hunched forward, retractions, pulse > 120 Sob with the cough 6. FEVER: "Do you have a fever?" If Yes, ask: "What is your temperature, how was it measured, and when did it start?" no 7. CARDIAC HISTORY: "Do you have any history of heart disease?" (e.g., heart attack, congestive heart failure) A-fib 8. LUNG HISTORY: "Do you have any history of lung disease?" (e.g., pulmonary embolus, asthma, emphysema) no 9. PE RISK FACTORS: "Do you have a history of blood clots?" (or: recent major surgery, recent prolonged travel, bedridden) no 10. OTHER SYMPTOMS: "Do you have any other symptoms?" (e.g., runny nose, wheezing, chest pain) Runny nose 11. : "Is there any chance you are ?" "When was your last menstrual period?" no 12. TRAVEL: "Have you traveled out of the country in the last month?" (e.g., travel history, exposures) no Protocols used: [id number] documented in this encounter [facility] 10-20-2022 History of Present illness Narrative Ampoule Filler for Intimate and Non Intimate Exam Ampoule Filler was declined Ampoule Filler: na Images from the original note were not included. 10/20/2022 Grary Morton (: 1960) is a 62 y.o. male , Established patient, here for evaluation of the following chief complaint(s): Cough and Nasal Congestion ASSESSMENT/PLAN: 1. Bronchitis Assessment & Plan: Will treat for suspected exacerbation. Consider obtaining PFT once over acute illness. Patient with risk factors for chronic lung disease (hx smoker, working in [employer]) no acute distress. Orders: - benzonatate (Tessalon) 100 MG capsule; Take 1 capsule (100 mg) by mouth 3 times daily as needed for cough. Do not crush or chew., Starting [place] 10/20/2022, Until 11/19/2022 at 2359, Normal - azithromycin (Zithromax) 250 MG tablet; Take 2 tabs (500 mg) by mouth today, than 1 daily for 4 days., Normal 2. Acute cough Assessment & Plan: No acute distress, will provide tessalon perrles. Continue mucinex OTC at home as directed. Orders: - benzonatate (Tessalon) 100 MG capsule; Take 1 capsule (100 mg) by mouth 3 times daily as needed for cough. Do not crush or chew., Starting [place] 10/20/2022, Until 11/19/2022 at 2359, Normal 3. Muscle spasm of back Assessment & Plan: Intermittent. Currently asymptomatic. Will provide as needed cyclobenzaprine at bedtime if needed. Follow up for worsening symptoms. Orders: - cyclobenzaprine (Flexeril) 5 MG tablet; Take 1 tablet (5 mg) by mouth Nightly., Starting [place] 10/20/2022, Normal Follow up if symptoms worsen or fail to improve. SUBJECTIVE/OBJECTIVE: HPI - Garry Morton (: 1960) is a 62 y.o. male , Established patient, here for the evaluation of the following chief complaint(s): Cough and Nasal Congestion Cough, congestion, started Monday. Missed work past couple days as he works outside. No fever, feels chilled at night time. Covid 19 neg at home. Feels worse today than yesterday. Thought he was getting better yesterday. Started mucinex at home- not helping, shortness of breath with coughing and chest feels full. No chest pain. No n/v/d. States he gets bronchitis every year. Non smoker now, quit about 20 years ago, smoked 1/2 pack a day for about 10 years. 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 Back pain- chronic low back pain with occasional flare ups. Requesting refill of prn cyclobenzaprine for at bedtime if needed. Reports not hurting today, but was flared up earlier this week. Prior to Admission medications Medication Sig Start Date End Date Taking? Authorizing Provider apixaban (Eliquis) 5 MG tablet Take 1 tablet by mouth 2 times daily. 12/16/21 Yes Historical Provider, cyclobenzaprine (Flexeril) 5 MG tablet Take 5 mg by mouth Nightly. 03/02/22 Historical Provider, Health Maintenance Due Topic Date Due Hepatitis B Vaccines (1 of 3 - 3-dose series) Never done HIV Screening Never done Colorectal Cancer Screening Never done MMR Vaccines (1 of 1 - Standard series) Never done Hepatitis C Screening Never done COVID-19 Vaccine (4 - Booster for Moderna series) 10/10/2021 Review of Systems Constitutional: Positive for fatigue. Negative for chills and fever. HENT: Positive for congestion, postnasal drip and rhinorrhea. Respiratory: Positive for cough, chest tightness, shortness of breath and wheezing. Cardiovascular: Negative for chest pain. Gastrointestinal: Negative. Genitourinary: Negative for difficulty urinating. Neurological: Negative for dizziness, light-headedness and headaches. Vitals: 10/20/22 1303 BP: 110/80 Pulse: 91 Resp: 18 SpO2: 98% Physical Exam Constitutional: General: He is not in acute distress. Appearance: Normal appearance. He is ill-appearing (mild). HENT: Head: Normocephalic and atraumatic. Right Ear: Tympanic membrane normal. Left Ear: Tympanic membrane normal. Nose: Congestion and rhinorrhea present. Right Turbinates: Swollen. Left Turbinates: Swollen. Mouth/Throat: Mouth: Mucous membranes are moist. Pharynx: Oropharynx is clear. No oropharyngeal exudate or posterior oropharyngeal erythema. Eyes: Conjunctiva/sclera: Conjunctivae normal. Cardiovascular: Rate and Rhythm: Normal rate. Rhythm irregular. Pulses: Normal pulses. Heart sounds: Normal heart sounds. Pulmonary: Effort: Pulmonary effort is normal. Breath sounds: Wheezing and rhonchi present. Lymphadenopathy: Cervical: No cervical adenopathy. Skin: General: Skin is warm and dry. Neurological: Mental Status: He is alert and oriented to person, place, and time. Psychiatric: Mood and Affect: Mood normal. Behavior: Behavior normal. An electronic signature was used to authenticate this note. ZAINA Smith CNP 10/20/2022 1:08 PM documented in this encounter [facility] 10-20-2022 Telephone encounter Note S: Patient spoke with [facility] nurse regarding chest congestion B: Onset of symptoms/concern Monday - 4 days A: Pt has congestion in his chest. Started in his head on Monday. Has a cough that is worse at night. Trouble sleeping with the cough. Only gets a little phlegm - dark in color when he gets it - usually in the morning. Blowing clear out of his nose. Pt has sob with the coughing mostly but has become more frequent. Always gets sob with bronchitis and this is what pt believes he has. Pt speaking in clear and complete sentences. Has a-fib. Denies fever, chest pain, wheezing, sore throat or ear pain. Been taking mucinex without relief. Pt tested negative for covid yesterday. R: Pt scheduled for an appointment on 10-20-22 at 1:00 pm with Miguel Ángel Villanueva CNP. Pt advised if has sob all the time, he needs to be seen at the ED. Pt states this is not from a-fib, just from the bronchitis. Keep well hydrated, humidifier. Patient understands care advice. Instructed to call back with any further questions or concerns. Reason for Disposition MILD difficulty breathing (e.g., minimal/no SOB at rest, SOB with walking, pulse <100) and still present when not coughing Answer Assessment - Initial Assessment Questions 1. ONSET: "When did the cough begin?" Monday 2. SEVERITY: "How bad is the cough today?" Non-productive 3. SPUTUM: "Describe the color of your sputum" (none, dry cough; clear, white, yellow, green) dark 4. HEMOPTYSIS: "Are you coughing up any blood?" If so ask: "How much?" (flecks, streaks, tablespoons, etc.) no 5. DIFFICULTY BREATHING: "Are you having difficulty breathing?" If Yes, ask: "How bad is it?" (e.g., mild, moderate, severe) - MILD: No SOB at rest, mild SOB with walking, speaks normally in sentences, can lie down, no retractions, pulse < 100. - MODERATE: SOB at rest, SOB with minimal exertion and prefers to sit, cannot lie down flat, speaks in phrases, mild retractions, audible wheezing, pulse 100-120. - SEVERE: Very SOB at rest, speaks in single words, struggling to breathe, sitting hunched forward, retractions, pulse > 120 Sob with the cough 6. FEVER: "Do you have a fever?" If Yes, ask: "What is your temperature, how was it measured, and when did it start?" no 7. CARDIAC HISTORY: "Do you have any history of heart disease?" (e.g., heart attack, congestive heart failure) A-fib 8. LUNG HISTORY: "Do you have any history of lung disease?" (e.g., pulmonary embolus, asthma, emphysema) no 9. PE RISK FACTORS: "Do you have a history of blood clots?" (or: recent major surgery, recent prolonged travel, bedridden) no 10. OTHER SYMPTOMS: "Do you have any other symptoms?" (e.g., runny nose, wheezing, chest pain) Runny nose 11. : "Is there any chance you are ?" "When was your last menstrual period?" no 12. TRAVEL: "Have you traveled out of the country in the last month?" (e.g., travel history, exposures) no Protocols used: [id number] 04-16-2022 Note Clinical Decision Un it Discharge Note Date and time patient placed in observation status: 04/15/2022 1545 Date and time of discharge: 04/16/2022 1345 Reason patient placed into observation status: Chest Pain Hospital Course: Patient presented initially to the emergency department chief complaint of chest pain. He denied any abdominal pain, nausea, diaphoresis or shortness of breath or other symptoms. His emergency department work-up showed EKG with atrial fibrillation, rate controlled at 81, some T wave nonspecific changes. He was admitted under observation for continued cardiac monitoring and work-up. Patient this day had no significant electrolyte abnormalities, troponins continue to be less than 0.012. His EKG showed A. fib with rate of 95. He did have EKG stress testing completed that was a normal study after maximal exercise stress testing did not produce any symptoms suggestive of coronary artery disease no stress-induced ECG changes suggestive of ischemia. Heart rate was normal and predicts a low risk of cardiac events. I discussed these findings with the patient and discussed return precautions. He is symptom-free today. I do think the chest pain symptoms may have been musculoskeletal or epigastric in nature, I discussed starting PPI for possibility of GERD. Patient reports that he would just discuss with his PCP if the symptoms represented and otherwise did not want to start any new medications. ASCVD calculator for this patient was a 7.6%. At this time moderate to high intensity statin is recommended because of a 10-year risk greater than 7.5. I did talk to patient about the recommendations and he is opting not to start statin therapy at this time. He voices understanding of risk versus benefits of statin therapy and is choosing to follow this up with his primary care provider. Patient otherwise with normal vital signs, no other acute concerns today and is able to be discharged. The patient was informed that although the workup on this visit is negative, they still need close outpatient follow up with their Primary Care Physician and specialist for continued and further evaluation. The patient was also told that should new, worsening, or changing symptoms develop, they need to return to the ED for evaluation. The patient verbalizes understanding of our discussion and agrees with the discussed plan. Discharge Diagnosis: Chest Pain Focused Physical Exam: Nursing Notes Reviewed General: Vitals noted. NAD, nontoxic, afebrile. HEENT: Normocephalic, atraumatic, sclerae clear, moist mucous membranes Cardiac: Regular rate and rhythm, no murmurs Lungs: Clear to auscultation bilaterally, no wheezing Abdomen: Soft, nontender, normoactive bowel sounds, no rebound or guarding, no rigidity Extremities: No edema, brisk capillary refill Skin: Warm and dry Neuro: Alert and oriented ?3, PERRLA Psych: Cooperative, normal mood and affect VITAL SIGNS: BP (!) 125/92 Pulse 85 Temp 97.9 ?F (36.6 ?C) (Temporal) Resp 16 Ht 6' (1.829 m) Wt 190 lb (86.2 kg) SpO2 97% BMI 25.77 kg/m? Labs: Results for orders placed or performed during the hospital encounter of 04/15/22 COVID-19, Flu A/B, and RSV Combo Specimen: Nasopharyngeal . Result Value Ref Range SARS-CoV-2 Not Detected. Influenza A by PCR Not Detected. Influenza B by PCR Not Detected. RSV PCR Not Detected. Expected Result: Not Detected _ Method: Real-time, RT-PCR This assay was developed by [employer] and distributed under an Emergency Use Authorization (EUA) granted by the FDA for the qualitative detection of nucleic acids from SARS-CoV-2, Influenza A, Influenza B, and Respiratory Syncytial Virus. Provider and patient fact sheets can be found at https://www.fda.gov/media/300582/do wnload and https://www.fda.gov/media/921757/do wnload. Basic Metabolic Panel Result Value Ref Range Sodium 141 135 - 145 mmol/L Potassium 4.4 3.5 - 5.1 mmol/L Chloride 104 98 - 107 mmol/L CO2 29 22 - 30 mmol/L Anion Gap 7 3 - 13 mmol/L Glucose 98 70 - 100 mg/dL BUN 10 7 - 17 mg/dL Creatinine 0.94 0.52 - 1.25 mg/dL eGFR >90.0 >60 mL/min EGFR IF NonAfrican Cameroonian 87.0 >60 mL/min Calcium 9.3 8.4 - 10.4 mg/dL CBC with Auto Differential Result Value Ref Range WBC 7.3 3.6 - 10.7 10*3/uL RBC 5.92 (H) 4.40 - 5.90 10*6/uL Hemoglobin 16.9 13.0 - 18.0 g/dL Hematocrit 49.7 40.0 - 52.0 % MCV 84.0 80.0 - 98.0 fL MCH 28.5 26.0 - 34.0 pg MCHC 34.0 32.0 - 36.0 % RDW 14.3 11.5 - 14.5 % Platelets 214 140 - 440 10*3/uL MPV 11.5 7.4 - 12.4 fL Granulocytes % 68.8 40.0 - 80.0 % Lymphocyte % 17.9 (L) 20.0 - 40.0 % Monocytes 8.9 2.0 - 10.0 % Eosinophils 2.9 1.0 - 6.0 % Basophils 0.5 0.0 - 2.0 % Absolute Neut # 5.0 1.8 - 7.0 10*3/uL Absolute Lymph # 1.3 1.0 - 4.3 10*3/uL Absolute Liberty # 0.6 0.0 - 0.8 10*3/uL Absolute Eos # 0.2 0.0 - 0.5 10*3/uL Absolute Baso # 0.0 0.0 - 0.2 10*3/uL Tro (more content not included)... [facility] 04-16-2022 History of Present illness Narrative Test explained, patient verbalized understanding. At peak exercise patient complained of leg fatigue which resolved in early recovery. Denied chest pain before during or after exercise. No complaints in recovery. Vital signs stable. Dr. Maravilla is the reading physician for this study. Patient may eat upon return to his room. documented in this encounter [employer] Work Phone: Evaluation note Diagnosis Chronic hand pain, left Swelling of hand joint, left [facility]: Evaluation note* Diagnosis Chest pain, unspecified type- Primary [facility] Work [facility]: Evaluation note* Diagnosis Bronchitis- Primary Bronchitis, not specified as acute or chronic Acute cough Muscle spasm of back documented in this encounter [facility] [employer] note* Diagnosis Persistent atrial fibrillation (HCC)- Primary Atrial fibrillation documented in this encounter [facility] [employer] note* Diagnosis Acute cough- Primary Persistent atrial fibrillation (HCC) Atrial fibrillation Elevated blood pressure reading without diagnosis of hypertension documented in this encounter [facility] [employer] note* Diagnosis Persistent atrial fibrillation (HCC) Atrial fibrillation [facility] this encounter [facility] [place] [facility]* Diagnosis Persistent atrial fibrillation (HCC) Atrial fibrillation documented in this encounter [facility] [employer] note* Diagnosis Persistent atrial fibrillation (HCC) Atrial fibrillation documented in this encounter [facility] [employer] [facility]* Diagnosis Persistent atrial fibrillation (HCC) Atrial fibrillation documented in this encounter [facility] [employer] [facility]* Diagnosis Annual physical exam- Primary Routine general medical examination at a health care facility Persistent atrial fibrillation (HCC) Atrial fibrillation Screening for cholesterol level Screening for diabetes mellitus Screening for deficiency anemia Screening for other and unspecified deficiency anemia Screening for prostate cancer Special screening for malignant neoplasm of prostate Immunization due Colon cancer screening Special screening for malignant neoplasms, colon [facility] Persistent atrial fibrillation (HCC) Atrial fibrillation [facility] Diagnosis Acute low back pain without sciatica, unspecified back pain laterality- Primary Muscle spasm of back [facility] Diagnosis Abdominal bloating- Primary Flatulence, eructation, and gas pain Constipation, unspecified constipation type Screening for colon cancer Special screening for malignant neoplasms, colon Flu vaccine need [facility] [place] [facility] Diagnosis Abdominal bloating Flatulence, eructation, and gas pain Constipation, unspecified constipation type Encounter for screening for malignant neoplasm of colon [facility] Diagnosis Encounter for screening for malignant neoplasm of colon [facility] Diagnosis Abdominal bloating- Primary Flatulence, eructation, and gas pain Constipation, unspecified constipation type Gastroesophageal reflux disease, unspecified whether esophagitis present [facility] Diagnosis Abdominal bloating- Primary Flatulence, eructation, and gas pain Constipation, unspecified constipation type Gastroesophageal reflux disease, unspecified whether esophagitis present [facility] Diagnosis Bronchitis- Primary Bronchitis, not specified as acute or chronic Acute cough Muscle spasm of back Acute cough- Primary Persistent atrial fibrillation (HCC) Atrial fibrillation Elevated blood pressure reading without diagnosis of hypertension Annual physical exam- Primary Routine general medical examination at a health care facility Persistent atrial fibrillation (HCC) Atrial fibrillation Screening for cholesterol level Screening for diabetes mellitus Screening for deficiency anemia Screening for other and unspecified deficiency anemia Screening for prostate cancer Special screening for malignant neoplasm of prostate Immunization due Colon cancer screening Special screening for malignant neoplasms, colon Acute low back pain without sciatica, unspecified back pain laterality- Primary Muscle spasm of back Gastroesophageal reflux disease, unspecified whether esophagitis present- Primary Abdominal bloating Flatulence, eructation, and gas pain Constipation, unspecified constipation type [facility] Diagnosis Bronchitis- Primary Bronchitis, not specified as acute or chronic Acute cough Muscle spasm of back Acute cough- Primary Persistent atrial fibrillation (HCC) Atrial fibrillation Elevated blood pressure reading without diagnosis of hypertension Annual physical exam- Primary Routine general medical examination at a health care facility Persistent atrial fibrillation (HCC) Atrial fibrillation Screening for cholesterol level Screening for diabetes mellitus Screening for deficiency anemia Screening for other and unspecified deficiency anemia Screening for prostate cancer Special screening for malignant neoplasm of prostate Immunization due Colon cancer screening Special screening for malignant neoplasms, colon Acute low back pain without sciatica, unspecified back pain laterality- Primary Muscle spasm of back Well adult exam- Primary Routine general medical examination at a health care facility Persistent atrial fibrillation (HCC) Atrial fibrillation Midsternal chest pain Gastroesophageal reflux disease, unspecified whether esophagitis present Chronic low back pain without sciatica, unspecified back pain laterality Muscle spasm of back Screening for diabetes mellitus Screening for lipoid disorders Screening for prostate cancer Special screening for malignant neoplasm of prostate [facility] Diagnosis Bronchitis- Primary Bronchitis, not specified as acute or chronic Acute cough Muscle spasm of back Acute cough- Primary Persistent atrial fibrillation (HCC) Atrial fibrillation Elevated blood pressure reading without diagnosis of hypertension Annual physical exam- Primary Routine general medical examination at a health care facility Persistent atrial fibrillation (HCC) Atrial fibrillation Screening for cholesterol level Screening for diabetes mellitus Screening for deficiency anemia Screening for other and unspecified deficiency anemia Screening for prostate cancer Special screening for malignant neoplasm of prostate Immunization due Colon cancer screening Special screening for malignant neoplasms, colon Acute low back pain without sciatica, unspecified back pain laterality- Primary Muscle spasm of back Gastroesophageal reflux disease, unspecified whether esophagitis present [facility] Diagnosis Bronchitis- Primary Bronchitis, not specified as acute or chronic Acute cough Muscle spasm of back Acute cough- Primary Persistent atrial fibrillation (HCC) Atrial fibrillation Elevated blood pressure reading without diagnosis of hypertension Annual physical exam- Primary Routine general medical examination at a health care facility Persistent atrial fibrillation (HCC) Atrial fibrillation Screening for cholesterol level Screening for diabetes mellitus Screening for deficiency anemia Screening for other and unspecified deficiency anemia Screening for prostate cancer Special screening for malignant neoplasm of prostate Immunization due Colon cancer screening Special screening for malignant neoplasms, colon Acute low back pain without sciatica, unspecified back pain laterality- Primary Muscle spasm of back Left sided sciatica- Primary Sciatica Persistent atrial fibrillation (HCC) Atrial fibrillation [facility] Diagnosis Bronchitis- Primary Bronchitis, not specified as acute or chronic Acute cough Muscle spasm of back Acute cough- Primary Persistent atrial fibrillation (HCC) Atrial fibrillation Elevated blood pressure reading without diagnosis of hypertension Annual physical exam- Primary Routine general medical examination at a health care facility Persistent atrial fibrillation (HCC) Atrial fibrillation Screening for cholesterol level Screening for diabetes mellitus Screening for deficiency anemia Screening for other and unspecified deficiency anemia Screening for prostate cancer Special screening for malignant neoplasm of prostate Immunization due Colon cancer screening Special screening for malignant neoplasms, colon Acute low back pain without sciatica, unspecified back pain laterality- Primary Muscle spasm of back Left sided sciatica- Primary Sciatica Persistent atrial fibrillation (HCC) Atrial fibrillation Persistent atrial fibrillation (HCC)- Primary Atrial fibrillation [facility] [place] [facility]* Diagnosis Bronchitis- Primary Bronchitis, not specified as acute or chronic Acute cough Muscle spasm of back Acute cough- Primary Persistent atrial fibrillation (HCC) Atrial fibrillation Elevated blood pressure reading without diagnosis of hypertension Annual physical exam- Primary Routine general medical examination at a health care facility Persistent atrial fibrillation (HCC) Atrial fibrillation Screening for cholesterol level Screening for diabetes mellitus Screening for deficiency anemia Screening for other and unspecified deficiency anemia Screening for prostate cancer Special screening for malignant neoplasm of prostate Immunization due Colon cancer screening Special screening for malignant neoplasms, colon Acute low back pain without sciatica, unspecified back pain laterality- Primary Muscle spasm of back Left sided sciatica- Primary Sciatica Persistent atrial fibrillation (HCC) Atrial fibrillation Persistent atrial fibrillation (HCC) Atrial fibrillation [facility] [place] [facility]* Diagnosis Bronchitis- Primary Bronchitis, not specified as acute or chronic Acute cough Muscle spasm of back Acute cough- Primary Persistent atrial fibrillation (HCC) Atrial fibrillation Elevated blood pressure reading without diagnosis of hypertension Annual physical exam- Primary Routine general medical examination at a health care facility Persistent atrial fibrillation (HCC) Atrial fibrillation Screening for cholesterol level Screening for diabetes mellitus Screening for deficiency anemia Screening for other and unspecified deficiency anemia Screening for prostate cancer Special screening for malignant neoplasm of prostate Immunization due Colon cancer screening Special screening for malignant neoplasms, colon Acute low back pain without sciatica, unspecified back pain laterality- Primary Muscle spasm of back Left sided sciatica- Primary Sciatica Persistent atrial fibrillation (HCC) Atrial fibrillation Persistent atrial fibrillation (HCC) Atrial fibrillation [facility] Diagnosis Bronchitis- Primary Bronchitis, not specified as acute or chronic Acute cough Muscle spasm of back Acute cough- Primary Persistent atrial fibrillation (HCC) Atrial fibrillation Elevated blood pressure reading without diagnosis of hypertension Annual physical exam- Primary Routine general medical examination at a health care facility Persistent atrial fibrillation (HCC) Atrial fibrillation Screening for cholesterol level Screening for diabetes mellitus Screening for deficiency anemia Screening for other and unspecified deficiency anemia Screening for prostate cancer Special screening for malignant neoplasm of prostate Immunization due Colon cancer screening Special screening for malignant neoplasms, colon Acute low back pain without sciatica, unspecified back pain laterality- Primary Muscle spasm of back Left sided sciatica- Primary Sciatica Persistent atrial fibrillation (HCC) Atrial fibrillation Persistent atrial fibrillation (HCC) Atrial fibrillation [facility]* Diagnosis Bronchitis- Primary Bronchitis, not specified as acute or chronic Acute cough Muscle spasm of back Acute cough- Primary Persistent atrial fibrillation (HCC) Atrial fibrillation Elevated blood pressure reading without diagnosis of hypertension Annual physical exam- Primary Routine general medical examination at a health care facility Persistent atrial fibrillation (HCC) Atrial fibrillation Screening for cholesterol level Screening for diabetes mellitus Screening for deficiency anemia Screening for other and unspecified deficiency anemia Screening for prostate cancer Special screening for malignant neoplasm of prostate Immunization due Colon cancer screening Special screening for malignant neoplasms, colon Acute low back pain without sciatica, unspecified back pain laterality- Primary Muscle spasm of back Left sided sciatica- Primary Sciatica Persistent atrial fibrillation (HCC) Atrial fibrillation Right hand pain- Primary Pain in soft tissues of limb Left sided sciatica Sciatica Muscle spasm of back Chronic low back pain without sciatica, unspecified back pain laterality [facility]* Diagnosis Bronchitis- Primary Bronchitis, not specified as acute or chronic Acute cough Muscle spasm of back Acute cough- Primary Persistent atrial fibrillation (HCC) Atrial fibrillation Elevated blood pressure reading without diagnosis of hypertension Annual physical exam- Primary Routine general medical examination at a health care facility Persistent atrial fibrillation (HCC) Atrial fibrillation Screening for cholesterol level Screening for diabetes mellitus Screening for deficiency anemia Screening for other and unspecified deficiency anemia Screening for prostate cancer Special screening for malignant neoplasm of prostate Immunization due Colon cancer screening Special screening for malignant neoplasms, colon Acute low back pain without sciatica, unspecified back pain laterality- Primary Muscle spasm of back Left sided sciatica- Primary Sciatica Persistent atrial fibrillation (HCC) Atrial fibrillation Right hand pain- Primary Pain in soft tissues of limb Left sided sciatica Sciatica Muscle spasm of back Chronic low back pain without sciatica, unspecified back pain laterality Acute pain of left shoulder- Primary Right hand pain Pain in soft tissues of limb [facility]* Diagnosis Bronchitis- Primary Bronchitis, not specified as acute or chronic Acute cough Muscle spasm of back Acute cough- Primary Persistent atrial fibrillation (HCC) Atrial fibrillation Elevated blood pressure reading without diagnosis of hypertension Annual physical exam- Primary Routine general medical examination at a health care facility Persistent atrial fibrillation (HCC) Atrial fibrillation Screening for cholesterol level Screening for diabetes mellitus Screening for deficiency anemia Screening for other and unspecified deficiency anemia Screening for prostate cancer Special screening for malignant neoplasm of prostate Immunization due Colon cancer screening Special screening for malignant neoplasms, colon Acute low back pain without sciatica, unspecified back pain laterality- Primary Muscle spasm of back Left sided sciatica- Primary Sciatica Persistent atrial fibrillation (HCC) Atrial fibrillation Right hand pain- Primary Pain in soft tissues of limb Left sided sciatica Sciatica Muscle spasm of back Chronic low back pain without sciatica, unspecified back pain laterality Acute pain of left shoulder- Primary Right hand pain Pain in soft tissues of limb Acute pain of left shoulder- Primary [facility]* Diagnosis Bronchitis- Primary Bronchitis, not specified as acute or chronic Acute cough Muscle spasm of back Acute cough- Primary Persistent atrial fibrillation (HCC) Atrial fibrillation Elevated blood pressure reading without diagnosis of hypertension Annual physical exam- Primary Routine general medical examination at a health care facility Persistent atrial fibrillation (HCC) Atrial fibrillation Screening for cholesterol level Screening for diabetes mellitus Screening for deficiency anemia Screening for other and unspecified deficiency anemia Screening for prostate cancer Special screening for malignant neoplasm of prostate Immunization due Colon cancer screening Special screening for malignant neoplasms, colon Acute low back pain without sciatica, unspecified back pain laterality- Primary Muscle spasm of back Left sided sciatica- Primary Sciatica Persistent atrial fibrillation (HCC) Atrial fibrillation Right hand pain- Primary Pain in soft tissues of limb Left sided sciatica Sciatica Muscle spasm of back Chronic low back pain without sciatica, unspecified back pain laterality Acute pain of left shoulder- Primary Right hand pain Pain in soft tissues of limb Right hand pain Pain in soft tissues of limb Acute pain of left shoulder documented [facility]* Diagnosis Bronchitis- Primary Bronchitis, not specified as acute or chronic Acute cough Muscle spasm of back Acute cough- Primary Persistent atrial fibrillation (HCC) Atrial fibrillation Elevated blood pressure reading without diagnosis of hypertension Annual physical exam- Primary Routine general medical examination at a health care facility Persistent atrial fibrillation (HCC) Atrial fibrillation Screening for cholesterol level Screening for diabetes mellitus Screening for deficiency anemia Screening for other and unspecified deficiency anemia Screening for prostate cancer Special screening for malignant neoplasm of prostate Immunization due Colon cancer screening Special screening for malignant neoplasms, colon Acute low back pain without sciatica, unspecified back pain laterality- Primary Muscle spasm of back Left sided sciatica- Primary Sciatica Persistent atrial fibrillation (HCC) Atrial fibrillation Right hand pain- Primary Pain in soft tissues of limb Left sided sciatica Sciatica Muscle spasm of back Chronic low back pain without sciatica, unspecified back pain laterality Acute pain of left shoulder- Primary Right hand pain Pain in soft tissues of limb Elevated blood uric acid level documented [facility]* Diagnosis Bronchitis- Primary Bronchitis, not specified as acute or chronic Acute cough Muscle spasm of back Acute cough- Primary Persistent atrial fibrillation (HCC) Atrial fibrillation Elevated blood pressure reading without diagnosis of hypertension Annual physical exam- Primary Routine general medical examination at a health care facility Persistent atrial fibrillation (HCC) Atrial fibrillation Screening for cholesterol level Screening for diabetes mellitus Screening for deficiency anemia Screening for other and unspecified deficiency anemia Screening for prostate cancer Special screening for malignant neoplasm of prostate Immunization due Colon cancer screening Special screening for malignant neoplasms, colon Acute low back pain without sciatica, unspecified back pain laterality- Primary Muscle spasm of back Left sided sciatica- Primary Sciatica Persistent atrial fibrillation (HCC) Atrial fibrillation Right hand pain- Primary Pain in soft tissues of limb Left sided sciatica Sciatica Muscle spasm of back Chronic low back pain without sciatica, unspecified back pain laterality Elevated blood uric acid level- Primary Acute pain of left shoulder- Primary Right hand pain Pain in soft tissues of limb documented [facility]* Diagnosis Bronchitis- Primary Bronchitis, not specified as acute or chronic Acute cough Muscle spasm of back Acute cough- Primary Persistent atrial fibrillation (HCC) Atrial fibrillation Elevated blood pressure reading without diagnosis of hypertension Annual physical exam- Primary Routine general medical examination at a health care facility Persistent atrial fibrillation (HCC) Atrial fibrillation Screening for cholesterol level Screening for diabetes mellitus Screening for deficiency anemia Screening for other and unspecified deficiency anemia Screening for prostate cancer Special screening for malignant neoplasm of prostate Immunization due Colon cancer screening Special screening for malignant neoplasms, colon Acute low back pain without sciatica, unspecified back pain laterality- Primary Muscle spasm of back Left sided sciatica- Primary Sciatica Persistent atrial fibrillation (HCC) Atrial fibrillation Right hand pain- Primary Pain in soft tissues of limb Left sided sciatica Sciatica Muscle spasm of back Chronic low back pain without sciatica, unspecified back pain laterality Acute pain of left shoulder- Primary Right hand pain Pain in soft tissues of limb Persistent atrial fibrillation (HCC)- Primary Atrial fibrillation Gastroesophageal reflux disease, unspecified whether esophagitis present Chronic bilateral low back pain with left-sided sciatica Muscle spasm of back Elevated blood uric acid level Hypertriglyceridemia Pure hyperglyceridemia documented in this encounter [facility]* Diagnosis Bronchitis- Primary Bronchitis, not specified as acute or chronic Acute cough Muscle spasm of back Acute cough- Primary Persistent atrial fibrillation (HCC) Atrial fibrillation Elevated blood pressure reading without diagnosis of hypertension Annual physical exam- Primary Routine general medical examination at a health care facility Persistent atrial fibrillation (HCC) Atrial fibrillation Screening for cholesterol level Screening for diabetes mellitus Screening for deficiency anemia Screening for other and unspecified deficiency anemia Screening for prostate cancer Special screening for malignant neoplasm of prostate Immunization due Colon cancer screening Special screening for malignant neoplasms, colon Acute low back pain without sciatica, unspecified back pain laterality- Primary Muscle spasm of back Left sided sciatica- Primary Sciatica Persistent atrial fibrillation (HCC) Atrial fibrillation Right hand pain- Primary Pain in soft tissues of limb Left sided sciatica Sciatica Muscle spasm of back Chronic low back pain without sciatica, unspecified back pain laterality Acute pain of left shoulder- Primary Right hand pain Pain in soft tissues of limb Chronic low back pain without sciatica, unspecified back pain laterality documented in this encounter [facility]* Diagnosis Bronchitis- Primary Bronchitis, not specified as acute or chronic Acute cough Muscle spasm of back Acute cough- Primary Persistent atrial fibrillation (HCC) Atrial fibrillation Elevated blood pressure reading without diagnosis of hypertension Annual physical exam- Primary Routine general medical examination at a health care facility Persistent atrial fibrillation (HCC) Atrial fibrillation Screening for cholesterol level Screening for diabetes mellitus Screening for deficiency anemia Screening for other and unspecified deficiency anemia Screening for prostate cancer Special screening for malignant neoplasm of prostate Immunization due Colon cancer screening Special screening for malignant neoplasms, colon Acute low back pain without sciatica, unspecified back pain laterality- Primary Muscle spasm of back Left sided sciatica- Primary Sciatica Persistent atrial fibrillation (HCC) Atrial fibrillation Right hand pain- Primary Pain in soft tissues of limb Left sided sciatica Sciatica Muscle spasm of back Chronic low back pain without sciatica, unspecified back pain laterality Elevated blood uric acid level- Primary Acute pain of left shoulder- Primary Right hand pain Pain in soft tissues of limb documented in this encounter [facility]* Diagnosis Bronchitis- Primary Bronchitis, not specified as acute or chronic Acute cough Muscle spasm of back Acute cough- Primary Persistent atrial fibrillation (HCC) Atrial fibrillation Elevated blood pressure reading without diagnosis of hypertension Annual physical exam- Primary Routine general medical examination at a health care facility Persistent atrial fibrillation (HCC) Atrial fibrillation Screening for cholesterol level Screening for diabetes mellitus Screening for deficiency anemia Screening for other and unspecified deficiency anemia Screening for prostate cancer Special screening for malignant neoplasm of prostate Immunization due Colon cancer screening Special screening for malignant neoplasms, colon Acute low back pain without sciatica, unspecified back pain laterality- Primary Muscle spasm of back Left sided sciatica- Primary Sciatica Persistent atrial fibrillation (HCC) Atrial fibrillation Right hand pain- Primary Pain in soft tissues of limb Left sided sciatica Sciatica Muscle spasm of back Chronic low back pain without sciatica, unspecified back pain laterality Acute pain of left shoulder- Primary Right hand pain Pain in soft tissues of limb Elevated blood uric acid level [facility]* Diagnosis Bronchitis- Primary Bronchitis, not specified as acute or chronic Acute cough Muscle spasm of back Acute cough- Primary Persistent atrial fibrillation (HCC) Atrial fibrillation Elevated blood pressure reading without diagnosis of hypertension Annual physical exam- Primary Routine general medical examination at a health care facility Persistent atrial fibrillation (HCC) Atrial fibrillation Screening for cholesterol level Screening for diabetes mellitus Screening for deficiency anemia Screening for other and unspecified deficiency anemia Screening for prostate cancer Special screening for malignant neoplasm of prostate Immunization due Colon cancer screening Special screening for malignant neoplasms, colon Acute low back pain without sciatica, unspecified back pain laterality- Primary Muscle spasm of back Left sided sciatica- Primary Sciatica Persistent atrial fibrillation (HCC) Atrial fibrillation Right hand pain- Primary Pain in soft tissues of limb Left sided sciatica Sciatica Muscle spasm of back Chronic low back pain without sciatica, unspecified back pain laterality Acute pain of left shoulder- Primary Right hand pain Pain in soft tissues of limb Hypertriglyceridemia- Primary Pure hyperglyceridemia [facility]* Diagnosis Bronchitis- Primary Bronchitis, not specified as acute or chronic Acute cough Muscle spasm of back Acute cough- Primary Persistent atrial fibrillation (HCC) Atrial fibrillation Elevated blood pressure reading without diagnosis of hypertension Annual physical exam- Primary Routine general medical examination at a health care facility Persistent atrial fibrillation (HCC) Atrial fibrillation Screening for cholesterol level Screening for diabetes mellitus Screening for deficiency anemia Screening for other and unspecified deficiency anemia Screening for prostate cancer Special screening for malignant neoplasm of prostate Immunization due Colon cancer screening Special screening for malignant neoplasms, colon Acute low back pain without sciatica, unspecified back pain laterality- Primary Muscle spasm of back Left sided sciatica- Primary Sciatica Persistent atrial fibrillation (HCC) Atrial fibrillation Right hand pain- Primary Pain in soft tissues of limb Left sided sciatica Sciatica Muscle spasm of back Chronic low back pain without sciatica, unspecified back pain laterality Acute pain of left shoulder- Primary Right hand pain Pain in soft tissues of limb Chronic low back pain without sciatica, unspecified back pain laterality documented in this encounter [facility] Discharge instructions* Attachments The following attachments cannot be sent through Care Everywhere. * Colon Polypectomy Discharge Instructions (Burkinan) * Colonoscopy Discharge Instructions (Burkinan) * Diverticulosis [facility]charge Instructions ([place]) [facility] Attachments The following attachments cannot be sent through Care Everywhere. * Pneumococcal Conjugate Vaccine (20-Valent), ADULT ([place]an) [facility]* Attachments The following attachments cannot be sent through Care Everywhere. * Flu Vaccine ([place]kinan) * Gas and Bloating ([place]an) [facility] Attachments The following attachments cannot be sent through Care Everywhere. * Omeprazole, ADULT ([place]kinan) [facility] Attachments The following attachments cannot be sent through Care Everywhere. * Omeprazole, ADULT ([place]) [facility]* Attachments The following attachments cannot be sent through Care Everywhere. * Yearly Physical for Adults ([place]kinan) [facility] Attachments The following attachments cannot be sent through Care Everywhere. * Corticosteroid Joint Injection ([place]) [facility]* Attachments The following attachments cannot be sent through Care Everywhere. * Mediterranean Diet ([place]kinan) documented in this [facility] (narrative)* Consultation (Routine) - Pending Review Specialty Diagnoses / Procedures Referred By Steve cano Referred To Contact Gastroenterology Diagnoses Colon cancer screening Procedures PA OFFICE/OUTPATIENT [facility] 60 MINUTES Miguel Ángel Villanueva APRN - [employer] [address] [place] [address] [place] [address] [facility] Gastro [address] [place] [address] Referral ID Status Reason Start Date Expiration Date Visits Requested Visits Authorized [id number] Pending Review Specialty Services Required 08/30/2023 08/29/2024 1 1 [facility] for referral (narrative)* Consultation (Routine) - Pending Review Specialty Diagnoses / Procedures Referred By Contac t Referred To Contact General Surgery Diagnoses Screening for colon cancer Procedures PA OFFICE/OUTPATIENT NEW HIGH MDM 60 MINUTES Jacquelyn Kaminski APRN - [employer] [address] [place] [address] [place] [address] [facility] [address] [place] [address] Referral ID Status Reason Start Date Expiration Date Visits Requested Visits Authorized [id number] Pending Review Specialty Services Required 04/26/2024 04/26/2025 1 1 [facility] N[facility]* Imaging (Routine) - Closed Specialty Diagnoses / Procedures Referred By Contac t Referred To Contact Cardiology Diagnoses Persistent atrial fibrillation (HCC) Procedures Transthoracic echocardiogram (TTE) complete with contrast, bubble, strain, and 3D PRN PA ECHO TTHRC R-T 2D W/WOM-MODE COMPL SPEC&COLR D PA TTE W OR WO FOL WCON,DOPPLER Felton Benitez MD [address] [place] [address] Phone: tel: fax: Referral ID Status Reason Start Date Expiration Date Visits Re quested Visits Authorized [id number] Closed 01/08/2025 01/08/2026 1 1 [facility] N[facility]ative* Cardiology (Routine) - Closed Specialty Diagnoses / Procedures [facility] Referred To Contact Cardiology Diagnoses Persistent atrial fibrillation (HCC) Procedures Cardiac holter monitor (24 hours) Felton Benitez MD [address] [place] [address] Phone: tel: fax: Referral ID Status Reason Start Date Expiration Date Visits Re quested Visits Authorized [id number] Closed 01/08/2025 01/03/2026 1 1 [facility] Summary Purpose Family History No Family History Records FoundNo Family History Records FoundNo Family History Records FoundNo Family History Records FoundNo Family History Records FoundNo Family History Records Found Advance Directives No Advanced Directives Records FoundLatest Code Status on File Code Status Date Activated Date Inactivated Comments Full Code 12/14/2017 10:31 AM 12/14/2017 2:16 PM Full Code 11/22/2017 4:43 PM 11/24/2017 3:41 PM Full Code 11/21/2017 11:12 AM 11/22/2017 4:43 PM Full Code 04/27/2017 9:45 AM 04/27/2017 12:23 PM Latest Code Status on File Code Status Date Activated Date Inactivated Comments Full Code 04/15/2022 5:47 PM Full Code 12/14/2017 10:31 AM 12/14/2017 2:16 PM Date Activated Date Inactivated Comments 05/14/2024 8:06 AM 05/14/2024 12:14 PM Date Activated Date Inactivated Comments 05/14/2024 8:06 AM 05/14/2024 12:14 PM Additional Source Comments (unrecognized sect ion and content) No Status Records FoundNo Status Records FoundNo Status Records FoundNo Status Records FoundNo Status Records FoundNo Status Records Found INFORMATION SOURCE (unrecogn ized section and content) DATE CREATED AUTHOR 01/25/2018 [facility] DATE CREATED AUTHOR AUTHOR'S ORGANIZ ATION 01/31/2018 [facility] DATE CREATED AUTHOR AUTHOR'S ORGANIZ ATION 07/20/2019 [facility] ([place]) DATE CREATED AUTHOR AUTHOR'S ORGANIZ ATION 05/03/2022 [facility] DATE CREATED AUTHOR AUTHOR'S ORGANIZ ATION 11/19/2024 [facility] DATE CREATED AUTHOR AUTHOR'S ORGANIZ ATION 05/28/2025 [facility] [facility] Care Teams (unrecognized sec tion and content) Bung Dropper Relationship Specialty Start Date End Date Kenton Turpin MD [address] [place] [address], [place] [address] PCP - General Family Medicine 06/14/16 Bung Dropper Relationship Specialty Start Date End Date Kenton Turpin MD [facility] [place] [address] PCP - General Family Medicine 06/14/16 Bung Dropper Relationship Specialty Start Date End Date Kenton Turpin MD [facility] [place] [address] PCP - General 06/14/16 Bung Dropper Relationship Specialty Start Date End Date Kenton Turpin MD [facility] [place] [address] PCP - General 06/14/16 Bung Dropper Relationship Specialty Start Date End Date Kenton Turpin MD [facility] [place] [address] PCP - General 06/14/16 Bung Dropper Relationship Specialty Start Date End Date Kenton Turpin MD [facility] [place] [address] PCP - General 06/14/16 Bung Dropper Relationship Specialty Start Date End Date Kenton Turpin MD [facility] [place] [address] PCP - General 06/14/16 Bung Dropper Relationship Specialty Start Date End Date Kenton Turpin MD [facility] [place] [address] PCP - General 06/14/16 Bung Dropper Relationship Specialty Start Date End Date Kenton Turpin MD [address] [facility] [place] [address] PCP - General 06/14/16 Bung Dropper Relationship Specialty Start Date End Date Kenton Turpin MD 25 [facility] [place] [address] PCP - General 06/14/16 Bung Dropper Relationship Specialty Start Date End Date Kenton Turpin MD 25 [facility] [place] [address] PCP - General 06/14/16 Bung Dropper Relationship Specialty Start Date End Date Kenton Turpin MD [address] [facility] [place] [address] PCP - General 06/14/16 Bung Dropper Relationship Specialty Start Date End Date Kenton Turpin MD 25 [facility] [place] [address] PCP - General 06/14/16 Bung Dropper Relationship Specialty Start Date End Date Kenton Turpin MD 25 [facility] [place] [address] PCP - General 06/14/16 Bung Dropper Relationship Specialty Start Date End Date Kenton Turpin MD 25 [facility] [place] [address] PCP - General 06/14/16 Bung Dropper Relationship Specialty Start Date End Date Kenton Turpin MD 25 [facility] [place] [address] PCP - General 06/14/16 Bung Dropper Relationship Specialty Start Date End Date Kenton Turpin MD 25 [facility] [place] [address] PCP - General 06/14/16 Bung Dropper Relationship Specialty Start Date End Date Kenton Turpin MD 25 [facility] [place] [address] PCP - General 06/14/16 Bung Dropper Relationship Specialty Start Date End Date Kenton Turpin MD [facility] [place] [address] PCP - General 06/14/16 Bung Dropper Relationship Specialty Start Date End Date Kenton Turpin MD 25 [facility] [place] [place] [address] PCP - General 06/14/16 Bung Dropper Relationship Specialty Start Date End Date Kenton Turpin MD [facility] [place] [address] PCP - General 06/14/16 Bung Dropper Relationship Specialty Start Date End Date Kenton Turpin MD 25 [facility] [place] [place] [address] PCP - General 06/14/16 Bung Dropper Relationship Specialty Start Date End Date Kenton Turpin MD 25 [facility] [place] [place] [address] PCP - General 06/14/16 Bung Dropper Relationship Specialty Start Date End Date Jacquelyn Kaminski, [employer] - [employer] [address] [facility] [place] [address] PCP - General Nurse Practitioner Family 09/20/24 Bung Dropper Relationship Specialty Start Date End Date Kent[facility] Turpin [facility] [place] [address] PCP - General Family Medicine 09/30/24 Bung Dropper Relationship Specialty Start Date End Date Kenton Turpin MD 25 [facility] [place] [address] PCP - General Family Medicine 09/30/24 Bung Dropper Relationship Specialty Start Date End Date Kenton Turpin MD 25 [facility] [place] [place] [address] PCP - General Family Medicine 09/30/24 Bung Dropper Relationship Specialty Start Date End Date Kenton Turpin MD 25 [facility] [place] [address] PCP - General Family Medicine 09/30/24 Bung Dropper Relationship Specialty Start Date End Date Kenton Turpin MD 25 [facility] [place] [place] [address] PCP - General Family Medicine 09/30/24 Bung Dropper Relationship Specialty Start Date End Date Kenton Turpin MD 25 [facility] [place] [place] [address] PCP - General Family Medicine 09/30/24 Bung Dropper Relationship Specialty Start Date End Date Kenton Turpin MD 25 [facility] [place] [place] [address] PCP - General Family Medicine 09/30/24 Bung Dropper Relationship Specialty Start Date End Date Kenton Turpin MD 25 [facility] [place] [address] PCP - General Family Medicine 09/30/24 Bung Dropper Relationship Specialty Start Date End Date Kenton Turpin MD [address] [facility] [place] [address] PCP - General Family Medicine 09/30/24 Bung Dropper Relationship Specialty Start Date End Date Kenton Turpin MD [address] [facility] [place] [address] PCP - General Family Medicine 09/30/24 Bung Dropper Relationship Specialty Start Date End Date Kenton Turpin MD [address] [facility] [place] [address] PCP - General Family Medicine 09/30/24 Bung Dropper Relationship Specialty Start Date End Date Kenton Turpin MD [address] [facility] [place] [address] PCP - General Family Medicine 09/30/24 Reason for Visit (unrecogniz ed section and content) Reason Onset Date Comments Chest Pain 04/15/2022 Reason Comments Cough Nasal Congestion Reason Onset Date Comments Med Refill 02/20/2023 Reason Onset Date Comments refill prescription 02/20/2023 Reason Comments Bronchitis Gets it every year Reason Onset Date Comments Med Refill 05/29/2023 Reason Onset Date Comments Med Refill 08/16/2023 Reason Comments Annual Exam Health Maintenance HIV/Hep H-[id number] to go to pharmacy Reason Comments Med Refill Reason Comments Back Pain Reason Onset Date Comments Bloated 04/23/2024 Reason Comments Bloated States he feels like his stomach is swollen, doesn't feel sick, but is uncomfortable. Reason Onset Date Comments Appointment Request 04/29/2024 The colonosc opy questionnaire was completed. Specialty Diagnoses / Procedures Referred By Steve t Referred To Contact Diagnoses Encounter for screening for malignant neoplasm of colon Encounter for screening for malignant neoplasm of colon Procedures PA COLONOSCOPY FLX DX W/COLLJ SPEC WHEN PFRMD COLONOSCOPY Eris Tate MD [address] [facility] [address] [place] [address] [facility] [address] [place] [address] Referral ID Status Reason Start Date Expiration Date Visits Re quested Visits Authorized [id number] 1 Reason Comments Follow-up States that he has h ad still had some abdominal bloating, doesn't seem like it has gotten better. Did have his colonoscopy yesterday 05/14, states the dr told him everything was good, no abnormal findings. Reason Comments Follow-up Abdominal Pain States abdominal blo ating has gotten better, states he has quit drinking and has noticed a big difference. Reason Onset Date Comments Cough 10/20/2022 Reason Comments Annual Exam Blood Work Health Maintenance HIV/HEP C Screen- de clines 5th Covid- not done Reason Onset Date Comments Test Scheduling 11/19/2024 Reason Comments Leg Pain And numbness- left Reason Comments Establish Care Specialty Diagnoses / Procedures Referred By Steve cano Referred To Contact Cardiology Diagnoses Persistent atrial fibrillation (HCC) Procedures PA OFFICE/OUTPATIENT NEW HIGH MDM 60 MINUTES Kenton Turpin MD [address] [facility] [place] [address] Phone: tel: fax: [facility] [address] [facility] [address] [place] [address] Phone: tel: fax: Referral ID Status Reason Start Date Expiration Date V isits Requested Visits Authorized [id number] Closed Specialty Services Required 01/02/2025 01/02/2026 1 1 Reason Comments Follow-up Leg-better Hand Pain Right hand-started 3 days ago Reason Comments Shoulder Pain Started getting bad on Monday Reason Comments Injections Specialty Diagnoses / Procedures Referred By Steve cano Referred To Contact Diagnoses Acute pain of left shoulder Miguel Ángel Villanueva APRN - [employer] [address] [place] [address] Phone: tel: fax: Referral ID Status Reason Start Date Expiration Date V isits Requested Visits Authorized [id number] Pending Review 02/19/2025 02/14/2026 1 1 Reason Onset Date Comments Shoulder Injury 02/18/2025 Reason Comments Medication Check 6 month med check Health Maintenance RSV- refusedHIV Scre en- refusedHep C Screen-refusedCOVID 5-refused Hand Pain Right hand pain Scheduled Active and Recently Administ ered Medications (unrecognized section and content) Medication Order 04/14/2022 04/15/2022 04/16/2022 apixaban (ELIQUIS) tablet 5 mg 5 mg, Oral, 2 TIMES DAILY, First dose on Mon04/15/22 at 2100, Until Discontinued, Indication of Use: A Fib/A Flutter, ANTICOAGULANT 2043 (Given - Provider: Jessica Dick RN) 925 (Given - Provider: Nicky Gupta RN)2099 (Due) aspirin chewable tablet 324 mg (COMPLETED) 324 mg, Oral, ONCE, 1 dose, On Mon04/15/22 at 0914 0930 (Given - Provider: Sary Mcmahon LPN) aspirin chewable tablet 81 mg 81 mg, Oral, DAILY, First dose on 04/16/22 at 0900, Until Discontinued 925 (Given - Provid er: Nicky Gupta RN) atorvastatin (LIPITOR) tablet 40 mg 40 mg, Oral, NIGHTLY, First dose on Mon04/15/22 at 2100, Until Discontinued 2043 (Given - Provider: Jessica Dick RN) 2099 (Due) pantoprazole (PROTONIX) tablet 40 mg 40 mg, Oral, DAILY BEFORE BREAKFAST, First dose on 04/16/22 at 0700, Until Discontinued, Do not crush or break. 925 (Given - Provid er: Nicky Gupta RN) sodium chloride flush 0.9 % injection 5-40 mL 5-40 mL, IntraVENous, EVERY 12 HOURS SCHEDULED (2 times per day), First dose on Mon04/15/22 at 2100, Until Discontinued, For Line Patency: Peripheral IV = 5 mL; Midline or Central Line = 10 mL/lumen. If following IV push medication, administer flush at same rate as the IV push. Flush volume is determined by type of infusion therapy being given. For non-viscous solutions use: Peripheral IV = 5 mL Midline or Central Line = 10 mL/lumen For viscous solutions (i.e. blood components, parenteral nutrition, contrast media, or after obtaining blood sample) use: Peripheral IV = 10 mL Midline or Central Line = 20 mL/lumen 2051 (Given - Provider: Jessica Dick RN) 0747 (Not Given - Provider: Nicky Gupta RN - Reason: Order parameters not met)2100 (Due) PRN Medication Order 04/14/2022 04/15/2022 04/16/2022 0.9 % sodium chloride infusion 25 mL, IntraVENous, at 100 mL/hr, PRN, If patient receiving piggyback infusions without ordered maintenance IV fluids or with frequent/long duration piggyback infusions, Starting on Mon04/15/22 at 1747, Administer at the same rate as the piggyback being infused. acetaminophen (TYLENOL) suppository 650 mg(Linked Group 1) 650 mg, Rectal, EVERY 6 HOURS PRN, Starting on Mon04/15/22 at 1747, Until Discontinued, Pain Mild (1-3), Fever, For temp greater than 100.4 F (38 C), Administer if oral route cannot be used. acetaminophen (TYLENOL) tablet 650 mg(Linked Group 1) 650 mg, Oral, EVERY 6 HOURS PRN, Starting on Mon04/15/22 at 1747, Until Discontinued, Pain Mild (1-3), Fever, For temp greater than 100.4 F (38 C), Maximum dose of acetaminophen is 4000 mg from all sources in 24 hours. aluminum & magnesium hydroxide-simethicone (MAALOX) 200-200-20 MG/5ML suspension 30 mL 30 mL, Oral, EVERY 6 HOURS PRN, Starting on Mon04/15/22 at 1747, Until Discontinued, Indigestion dilTIAZem injection 10 mg 10 mg, IntraVENous, EVERY 6 HOURS PRN, Starting on Mon04/15/22 at 1935, Until Discontinued, Tachycardia, Administer over at least 2 minutes. nitroGLYCERIN (NITROSTAT) SL tablet 0.4 mg 0.4 mg, SubLINGual, EVERY 5 MIN PRN, 3 doses, Starting on Mon04/15/22 at 1747, Until Discontinued, Chest pain, Place 1 tablet under tongue upon chest pain, wait 5 minutes and may repeat up to 3 doses in 15 minutes. Do not crush or break. ondansetron (ZOFRAN) injection 4 mg(Linked Group 2) 4 mg, IntraVENous, EVERY 6 HOURS PRN, Starting on Mon04/15/22 at 1747, Until Discontinued, Nausea, Vomiting, Administer if oral route cannot be used. ondansetron (ZOFRAN-ODT) disintegrating tablet 4 mg(Linked Group 2) 4 mg, Oral, EVERY 8 HOURS PRN, Starting on Mon04/15/22 at 1747, Until Discontinued, Nausea, Vomiting polyethylene glycol (GLYCOLAX) packet 17 g 17 g, Oral, DAILY PRN, Starting on Mon04/15/22 at 1747, Until Discontinued, Constipation, First line therapy for constipation sodium chloride flush 0.9 % injection 5-40 mL 5-40 mL, IntraVENous, PRN, Starting on Mon04/15/22 at 1747, Until Discontinued, Line Care, After every IV line use, For Line Patency: Peripheral IV = 5 mL; Midline or Central Line = 10 mL/lumen. If following IV push medication, administer flush at same rate as the IV push. Flush volume is determined by type of infusion therapy being given. For non-viscous solutions use: Peripheral IV = 5 mL Midline or Central Line = 10 mL/lumen For viscous solutions (i.e. blood components, parenteral nutrition, contrast media, or after obtaining blood sample) use: Peripheral IV = 10 mL Midline or Central Line = 20 mL/lumen Linked Groups Order Group 1: acetaminophen (TYLENOL) tablet 650 mgJump to med 650 mg, Oral, EVERY 6 HOURS PRN, Starting on Mon04/15/22 at 1747, Until Discontinued, Pain Mild (1-3), Fever, For temp greater than 100.4 F (38 C)
Maximum dose of acetaminophen is 4000 mg from all sources in 24 hours.
Or acetaminophen (TYLENOL) suppository 650 mgJump to med 650 mg, Rectal, EVERY 6 HOURS PRN, Starting on Mon04/15/22 at 1747, Until Discontinued, Pain Mild (1-3), Fever, For temp greater than 100.4 F (38 C)
Administer if oral route cannot be used.
Group 2: ondansetron (ZOFRAN-ODT) disintegrating tablet 4 mgJump to med 4 mg, Oral, EVERY 8 HOURS PRN, Starting on Mon04/15/22 at 1747, Until Discontinued, Nausea, Vomiting Or ondansetron (ZOFRAN) injection 4 mgJump to med 4 mg, IntraVENous, EVERY 6 HOURS PRN, Starting on Mon04/15/22 at 1747, Until Discontinued, Nausea, Vomiting
Administer if oral route cannot be used.
Scheduled Medication Order 05/12/2024 05/13/2024 05/14/2024 sodium chloride 0.9% (NS) flush 10 mL 10 mL, IntraVENous, Every 12 hours scheduled (2 times per day), First dose on Mon05/14/24 at 0900, Preprocedure 0900 (Canceled Entry - Provider: Automatic Discharge Provider - Comment: Automatically canceled at discontinue of medication order) Continuous Medication Order 05/12/2024 05/13/2024 05/14/2024 lactated Ringer's (LR) infusion 50 mL/hr, IntraVENous, Continuous, Starting on Mon05/14/24 at 0815, Preprocedure, Upon admission to sameday - please start iv if patient does not have iv access. 0814 (New Bag - Prov ider: Riana Elizalde RN)0845 (Continued by Anesthesia - Provider: ZAINA Mcmanus CRNA)0924 (Stopped - Provider: ZAINA Mcmanus CRNA) PRN Medication Order 05/12/2024 05/13/2024 05/14/2024 ondansetron (Zofran) injection 4 mg 4 mg, IntraVENous, Once PRN, nausea, vomiting, Starting on Mon05/14/24 at 0806, For 1 dose, Preprocedure sodium chloride 0.9 % infusion 5-250 mL/hr, IntraVENous, PRN, if patient receiving piggyback infusions and maintenance fluids are not ordered OR KVO fluids to protect IV site / prevent frequent line interruptions/ long duration, Starting on Mon05/14/24 at 0806, Preprocedure, For piggyback infusion, administer at same rate as piggyback for a total of 25 mL. Enter 25 mL into dose field and piggyback rate into rate field of order. If piggyback is infusing at a rate less than 100 mL/hr, enter 25 mL into dose field and 100 mL/hr into rate field of order. For KVO fluids, enter rate of 20 mL/hr or less into rate field of order. sodium chloride 0.9% (NS) flush 10 mL 10 mL, IntraVENous, PRN, line care, Starting on Mon05/14/24 at 08, Preprocedure, After every IV line use FOR RECORDS PERTAINING TO PATIENTS WHO ARE OR HAVE BEEN ENROLLED IN A CHEMICAL DEPENDENCY/SUBSTANCEABUSE PROGRAM, SOME INFORMATION MAY BE OMITTED. This clinical summary was aggregated from multiple sources. Caution should be exercised in using it in the provision of clinical care. This summary normalizes information from multiple sources, and as a consequence, information in this document may materially change the coding, format and clinical context of patient data. In addition, data may be omitted in some cases. CLINICAL DECISIONS SHOULD BE BASED ON THE PRIMARY CLINICAL RECORDS. [employer] [facility]. provides no warranty or guarantee of the accuracy or completeness of information in this document.
[2025-06-23 06:32] LABS: Troponin T High Sens 2 HR 8 ng/L (<=22)
== END 2025-06-23 06:49 | disposition home or self-care (01) ==
PROVIDERS: Emergency Provider Emergency Medicine; PCP Family Medicine; Visit Provider Emergency Medicine
DX: R07.89 Other chest pain (principal); I48.20 Chronic atrial fibrillation, unspecified; M10.9 Gout, unspecified; K21.00 Gastro-esophageal reflux disease with esophagitis, without bleeding; Z79.01 Long term (current) use of anticoagulants; Z79.899 Other long term (current) drug therapy; Z87.891 Personal history of nicotine dependence
CPT/HCPCS: 71045; 80048; 84484; 85025; 93005; 96374; 99283; A4216